=== PATIENT | female | born 1960 | race Caucasian/White ===

== ENCOUNTER 2023-11-25 19:57 | Inpatient (IN) | payer MEDICARE, MEDICAID, SELFPAY ==
--- NOTE | ~2023-11-25 | XR_ITS ---
EXAMINATION: XR THORACIC SPINE XR LUMBAR SPINE CLINICAL INFORMATION: Evaluate spinal cord stimulator lead placement. COMPARISON: CT lumbar spine from 06/16/2022 TECHNIQUE: AP and lateral views of the thoracic spine AP and lateral views of the lumbar spine FINDINGS: Thoracic spine: The thoracic vertebra have normal height and alignment. The disc spaces are maintained. No focal lytic or osteoblastic lesion. No evidence of paraspinal soft tissue mass. The electrodes for the spinal stimulator are in the posterior thoracic canal at the T9-10 level. Lumbar spine: Chronic mild dextroscoliosis of the lower thoracic and lumbar spine. The lumbar vertebral body heights are maintained. No acute fracture or malalignment. There are well-positioned interbody cages at L5-S1. Chronic moderate irregular degenerative narrowing of disc space and osteophyte formation at L3-L4. Posterolateral bone graft fusion at L4-S1. The pulse generator for the neural stimulator projects over the left gluteal region. XR/XR lumbar spine 2-3V IMPRESSION: * No acute radiographic abnormalities in the thoracic or lumbar spine. * There are intact leads for the spinal stimulator and electrodes project over the posterior aspect of the thoracic spinal canal at the T9/T10 level. * Moderate disc degenerative change at L3-L4 and post surgical changes from spinal fusion at L4-S1.
--- NOTE | ~2023-11-25 | XR_ITS ---
EXAMINATION: XR ABDOMEN KUB CLINICAL INDICATION: nausea/vomiting, constipation COMPARISON: None available. TECHNIQUE: AP view of the abdomen. FINDINGS: Nondilated bowel gas pattern. Small stool burden. No appreciable calcifications. Lung bases are clear. Bones are osteopenic. Degenerative spondylosis is present in the lumbar spine. Osseous fusion hardware is present at the lumbosacral spine. Osteoarthritis is present in the SI joints and hips. Stimulator device unit overlies the left iliac wing with leads terminating in the midthoracic spine. XR/XR KUB IMPRESSION: Nondilated bowel gas pattern. Small stool burden.
--- NOTE | ~2023-11-25 | XR_ITS ---
EXAMINATION: XR THORACIC SPINE XR LUMBAR SPINE CLINICAL INFORMATION: Evaluate spinal cord stimulator lead placement. COMPARISON: CT lumbar spine from 06/16/2022 TECHNIQUE: AP and lateral views of the thoracic spine AP and lateral views of the lumbar spine FINDINGS: Thoracic spine: The thoracic vertebra have normal height and alignment. The disc spaces are maintained. No focal lytic or osteoblastic lesion. No evidence of paraspinal soft tissue mass. The electrodes for the spinal stimulator are in the posterior thoracic canal at the T9-10 level. Lumbar spine: Chronic mild dextroscoliosis of the lower thoracic and lumbar spine. The lumbar vertebral body heights are maintained. No acute fracture or malalignment. There are well-positioned interbody cages at L5-S1. Chronic moderate irregular degenerative narrowing of disc space and osteophyte formation at L3-L4. Posterolateral bone graft fusion at L4-S1. The pulse generator for the neural stimulator projects over the left gluteal region. XR/XR thoracic spine 2V IMPRESSION: * No acute radiographic abnormalities in the thoracic or lumbar spine. * There are intact leads for the spinal stimulator and electrodes project over the posterior aspect of the thoracic spinal canal at the T9/T10 level. * Moderate disc degenerative change at L3-L4 and post surgical changes from spinal fusion at L4-S1.
[2023-11-25 20:12] VITALS: BP 142/82; PULSE 114; RESP 16; TEMP 36.4; O2SAT 97
[2023-11-25] MEDS: Ondansetron ODT 4 MG TAB.RAPDIS TRANSLINGU (21:11)
[2023-11-25] MEDS: hydrOXYzine HCL 25 MG TABLET PO (22:19)
[2023-11-25] MEDS: traZODone HCL 50 MG TABLET PO (22:19)
[2023-11-25 23:41] VITALS: BMI 23.9
--- NOTE | 2023-11-26 03:51 | PC.ADMIT ---
Pt is a 63 yo female admitted to the unit after referral from CARE Team and was transferred form [facility] [place]. Pt signed a CV upon arrival in ED. Since pt went to sleep after arrival on unit at 2011 this admission assessment was done mostly via the crisis assessment. Reported active medical issues are CKD, diverticulitis, fibromyalgia, HTN, COPD, spinal stimulator d/t bulged disc and fractured left wrist. Pt wears a splint on left wrist d/t wrist fx and ambulates using a cane. Pt denies substance use other than THC gummies for pain relief. Pt denies alcohol use. Pt presented to her PCP after daughter passed d/t complications from a hysterectomy at 38. Pt received 15 xanax (0.5mg tabs) to help with her anxiety through her daughter's . Pt went to cemetery where her daughter was being cremated and in an overdose attempt took all of the xanax pills. Pt was narcaned after EMS arrived and became combative and was IM'd d/t her combativeness. Pt brought to hospital treated and brought [place] [facility] [place]. Pt reportedly stated after she came to, It clearly didn't work, I should have taken more . Pt presents as depressed and hopeless affect. Reports not having eaten much in days (daughter passed 8 days ago). Upon arrival and during skin check pt vomited x3. Pt reports concern related to wanting to be able to go to her daughters homecoming service on Tuesday. Provider online publisher JS notified of arrival and orders obtained. Pt placed on 5 minute checks d/t cane, weakness. Pt reports feeling safe in the hospital now.
[2023-11-26] MEDS: Acetaminophen 325 MG TABLET 650 MG PO (08:58)
[2023-11-26 09:10] LABS: Estimated Average Glucose 97 mg/dL; Hemoglobin A1C 129.1137 umol/L
[2023-11-26 09:12] LABS: Alanine Aminotransferase 44 U/L (0-31); Albumin Level 4.4 g/dL (3.5-5.0); Alkaline Phosphatase 136 U/L (39-117); Anion Gap 19 (12-20); Aspartate Amino Transferase 24 U/L (5-31); Bilirubin Total 0.6 mg/dL (0.0-1.0); Blood Urea Nitrogen 25 mg/dL (9-16); Calcium 10.1 mg/dL (8.4-10.2); Carbon Dioxide 17 mmol/L (22-29); Chloride 109 mmol/L (96-108); Cholesterol 256 mg/dL (<200); Creatinine Clr Calc Pharmacy 30.5; Estimated Glomerular Filt Rate 32; Glucose Fasting 97 mg/dL (60-99); HDL Cholesterol 33 mg/dL (>40); LDL Cholesterol Calculated 180 mg/dL (<100); Magnesium 2.3 mg/dL (1.6-2.6); Sodium 140 mmol/L (135-145); Total Protein 7.3 g/dL (6.5-8.0); Triglycerides 219 mg/dL (<150)
[2023-11-26 09:26] LABS: Free T4 (Free Thyroxine) 1.25 ng/dL (0.71-1.85); Thyroid Stimulating Hormone 0.23 uIU/mL (0.32-4.0)
[2023-11-26 09:40] LABS: Vitamin B12 1623 pg/mL (200-900)
[2023-11-26] MEDS: Albuterol Sulfate 90 MCG 8 GM INHALER 2 PUFF INHALE (10:13)
[2023-11-26 10:16] VITALS: BP 110/67; PULSE 118; RESP 16; TEMP 36.5; O2SAT 94
[2023-11-26] MEDS: ALPRAZolam 0.5 MG TABLET PO (10:23)
[2023-11-26] MEDS: Ondansetron ODT 4 MG TAB.RAPDIS TRANSLINGU (10:23)
--- NOTE | 2023-11-26 11:12 | P.CONHOSP_ITS ---
History of Present Illness Data of Consult Service Date: 11/26/23 Requesting physician: Celina Cheema Primary Care Provider: Unknown Physician HPI Reason for consult: medcical H&P 63-year-old female with history of CKD stage 3, history of diverticulitis s/p bowel resection, hyperlipidemia, hypertension, chronic low back pain s/p spinal cord stimulator, and mood disorder admitted to adult Psychiatry with consult placed to hospitalist service for medical H&P. Reportedly her daughter 9 days ago and attempted suicide with benzo overdose. Had initially been discharged to a psych facility who ended up refusing to take her because of chronic medical issues. She states while in the ED had severe chest pain non radiating that was constant with associated palpitations and sob. She does report a history of COPD and uses her husbands breztri inhaler. States she was previously prescribed this inhaler for diagnosed copd but has been using his inhalers because he has so many extra. Trop was undetectable at that time. While in the ED, hematology studies unremarkable. Creatinine baseline around 1.00, electrolyte levels normal except for bicarb of 14 and anion gap of 22. VBG not performed at that time. TSH 2.62, free T4 1.4. Urine tox screen positive for THC which she reports she uses for pain management and benzos. Urinalysis not indicative of infection. She did have chest x-ray performed on her 1st visit to the ED on 11/20 which did not reveal any acute abnormality. Unfortunately due to acute agitation patient required physical restraint and well as chemical restraint. During restraint sustained a nondisplaced ulnar styloid fracture. She has has Nevro SCS in place and feels since the restraint her device is much lower than prior to restraint and reports significant increase in pain. She ambulates at baseline with a cane. She reports since her colon resection in February has had recurrent nausea and vomiting necessitating zofran use at least daily. Follows with [facility] for this with negative work up including CT imaging, egd, and colonoscopy. Over the last few days has not been able to eat or drink much and has had multiple episodes of vomiting. She does also use THC edibles regularly. Today creat is elevated at 1.67. Review of Systems 2 Review of Systems: General: No fevers, malaise, unintentional weight loss HEENT: No blurred vision, diplopia. No sore throat, nasal congestion, rhinorrhea, sinus pain, ear pain Cardiovascular: No chest pain, palpitations, or leg edema Respiratory: No shortness of breath, wheezing, cough GI: +nausea/vomiting. No abdominal pain, diarrhea, constipation, melena, hematochezia : No dysuria, hematuria, increased urinary frequency, decreased urinary output MSK: No myalgia. +low back pain Neuro: No headaches, weakness, paresthesias Skin: No rashes or lesions [facility] Medical History Chronic low back pain Fibromyalgia Migraine Nausea and vomiting COPD (chronic obstructive pulmonary disease) Hyperlipidemia Hypertension CKD (chronic kidney disease), stage III Diverticulitis Surgical History S/P insertion of spinal cord stimulator History of laminectomy History of colon resection Social History Household Members: Spouse Housing: House Do you presently have visiting nurse or other home services: No Patient Tobacco Use Status: Never used Tobacco Use of substances other than those prescribed or required for medical reasons: Yes Substance Use Type: Other Substance Use Type Other:: Marijuana gummies Last Used Substance: Just Prior to Admission Currently Displaying Signs/Symptoms of Drug Intoxication Withdrawal: No Any prior treatment program specific to substance use: No Advance Directives: No Advance Directives Information Provided: No Do you have a plan to hurt others: No Plan Recently lost weight without trying: Yes How much weight loss: Unsure Eating poorly because of decreased appetite: Yes Nutrition screen score: 5 Nutrition Risks: Poor intake 0-25% >4 days Patient : No : No Poor oral hygiene: No Meds Allergies Allergy/AdvReac Type Severity Reaction Status Date / Time codeine Allergy Severe Itching Verified 11/25/23 15:11 NSAIDS (Non-Steroidal AdvReac Severe bleeding Verified 11/25/23 15:11 Anti-Inflamma contrast dye AdvReac Severe Anaphylaxis Uncoded 11/25/23 23:43 Active Medications: Current Medications Acetaminophen (Acetaminophen 325 Mg Tablet) 325 mg PO Q6H PRN PRN Reason: Headache/Pain Mild Scale (1-3) Al Hydroxide/Mg Hydroxide (Magnesium Hydrox/Alum Hydrox 30 Ml Oral.Susp) 30 ml PO Q6H PRN PRN Reason: Heartburn/Nausea Albuterol Sulfate (Albuterol Sulfate 90 Mcg 8 Gm Inhaler) 2 puff INHALE Q6H PRN PRN Reason: Dyspnea Last Admin: 11/26/23 10:13 Dose: 2 puff Alprazolam (Alprazolam 0.5 Mg Tablet) 0.5 mg PO TID PRN PRN Reason: insomnia Last Admin: 11/26/23 10:23 Dose: 0.5 mg Atorvastatin Calcium (Atorvastatin Calcium 20 Mg Tablet) 20 mg PO DAILY [facility] Famotidine (Famotidine 20 Mg Tablet) 20 mg PO BEDTIME [facility] Ferrous Sulfate (Ferrous Sulfate 324 Mg Tablet.) 324 mg PO DAILY [facility] Fluoxetine HCl (Fluoxetine Hcl 20 Mg Capsule) 20 mg PO DAILY [facility] Hydroxyzine HCl (Hydroxyzine Hcl 25 Mg Tablet) 25 mg PO Q6H PRN PRN Reason: Anxiety Last Admin: 11/25/23 22:19 Dose: 25 mg Lidocaine (Lidocaine 4 % Patch Adh..Patch) 1 patch TRANSDERMA DAILY PRN PRN Reason: Pain Lisinopril (Lisinopril 5 Mg Tablet) 5 mg PO DAILY [facility]; Protocol Magnesium Hydroxide (Milk Of Magnesia 30 Ml Oral.Susp) 30 ml PO DAILY PRN PRN Reason: Constipation Melatonin (Melatonin 3 Mg Tablet) 9 mg PO BEDTIME [facility] Nicotine (Nicotine 21 Mg Patch.Td24) 21 mg TRANSDERMA DAILY PRN PRN Reason: nicotine cravings Nicotine Polacrilex (Nicotine Polacrilex 2 Mg Gum) 4 mg BUCCAL Q2H PRN PRN Reason: Nicotine Cravings Omeprazole (Omeprazole 40 Mg Capsule.) 40 mg PO DAILY@0630 [facility] Ondansetron HCl (Ondansetron Odt 4 Mg Tab.Rapdis) 8 mg TRANSLINGU Q6H PRN PRN Reason: Nausea and Vomiting Oxycodone HCl (Oxycodone Hcl Immed Release 5 Mg Tablet) 5 mg PO Q6H PRN PRN Reason: Pain, Severe (Pain Scale 7-10) Pregabalin (Pregabalin 150 Mg Capsule) 300 mg PO BID [facility] Trazodone HCl (Trazodone Hcl 50 Mg Tablet) 50 mg PO BEDTIME MRX1 PRN PRN Reason: Insomnia Last Admin: 11/25/23 22:19 Dose: 50 mg Home Medications ?Medication ?Instructions ?Recorded ?Confirmed ?Last Taken ?Type Lidoderm 1 patch topical DAILY PRN Pain 11/25/23 11/25/23 Unknown History albuterol sulfate 90 mcg/actuation 2 puff inhalation Q6H PRN Dyspnea 11/25/23 11/25/23 Unknown History aerosol inhaler alprazolam 0.5 mg tablet 0.5 mg PO TID PRN insomnia 11/25/23 11/25/23 Unknown History atorvastatin 20 mg tablet 20 mg PO DAILY 11/25/23 11/25/23 Unknown History famotidine 20 mg tablet 20 mg PO BEDTIME 11/25/23 11/25/23 Unknown History ferrous sulfate 325 mg PO DAILY 11/25/23 11/25/23 Unknown History fluoxetine 20 mg capsule 20 mg PO DAILY 11/25/23 11/25/23 Unknown History lisinopril 5 mg tablet 5 mg PO DAILY 11/25/23 11/25/23 Unknown History melatonin 9 mg PO BEDTIME 11/25/23 11/25/23 11/25/23 13:31 History omeprazole 40 mg PO DAILY 11/25/23 11/25/23 Unknown History ondansetron 4 mg disintegrating 4 mg PO TID PRN nausea/vomiting 11/25/23 11/25/23 11/25/23 History tablet oxycodone-acetaminophen 5 mg-325 1 tab PO Q6H PRN severe pain 11/25/23 11/25/23 11/25/23 13:31 History mg tablet pregabalin 300 mg capsule 300 mg PO BID 11/25/23 11/25/23 Unknown History Physical Exam 2 Vital Signs and Narrative: Vital Signs: Last Vital Signs Temp 97.7 F 11/26/23 10:16 Pulse 118 H 11/26/23 10:16 Resp 16 11/26/23 10:16 BP 110/67 11/26/23 10:16 Pulse Ox 94 11/26/23 10:16 O2 Del Method Room Air 11/26/23 10:16 BMI result Body Mass Index 23.9 Constitutional - Awake and Alert, No apparent distress Eyes - PERRLA, EOMI Cardiovascular - S1S2, RRR, No edema Respiratory - Normal lung expansion, Normal respiratory effort, No respiratory distress, CTA bilaterally Gastrointestinal - NT / ND; +BS; No rebound or guarding - No CVA tenderness Extremities - no calf tenderness bilaterally, no swelling Musculoskeletal - Normal inspection, normal ROM. SCS located over L pelvis Skin - Warm/Dry Neurological - Alert & oriented x3, CN II-XII in tact, 5/5 strength BUE and BLE Psychological - Appropriate affect Results Labs 11/26/23 08:30 Labs: Laboratory Results - last 24 hr 11/26/23 08:30 Anion Gap 19 Estim Creat Clear Calc 30.5 Estimated GFR 32 Fasting Glucose 97 Estimat Average Glucose 97 Hemoglobin A1c % 5.0 Calcium 10.1 Magnesium 2.3 Total Bilirubin 0.6 AST 24 ALT 44 H Alkaline Phosphatase 136 H Total Protein 7.3 Albumin 4.4 Triglycerides 219 H Cholesterol 256 H LDL Cholesterol, Calc 180 H HDL Cholesterol 33 L Vitamin B12 1623 H Folate 6.0 TSH 0.23 L Free T4 1.25 Assessment and Plan (1) Chronic low back pain: Status: Acute (2) Routine medical exam: Status: Acute (3) Nausea and vomiting: Status: Acute Plan 63-year-old female with history of CKD stage 3, history of diverticulitis s/p bowel resection, hyperlipidemia, hypertension, chronic low back pain s/p spinal cord stimulator, and mood disorder admitted to adult Psychiatry with consult placed to hospitalist service for medical H&P. #Mood disorder/Grief/SA -plan per psychiatry #Acute kidney injury on CKD stage 3 -Creat 1.67, baseline around 1.0. Due to GI losses -Give 1L IVF bolus -Avoid nephrotoxins (lisinopril, lyrica) -Manage n/v. Encourage PO intake -Follow BMP- ordered #Acute on chronic nausea vomiting -follows with [facility] with negative work up. Discussed that her chronic symptoms could be related to regular cannibus use which can take 2-3 months of complete cessation to resolve and that resuming the substance could result in relapse of symptoms -Trial capsaicin cream and can use warm showers and zofran prn -Encourage PO intake #COPD -reports history of Brezti use but has been using her husbands as he had extra inhalers -Not on formulary. Added breo elipta and spiriva -albuterol prn #HTN -hold lisinopril in setting of CHANG. Monitor BPs #Chronic low back pain -?incorrect placement of SCS and leads following physical restraint. Discussed with pain management. Evaluate lead placement with thoracic and lumbar xr with 3 views -continue oxycodone #Fibromyalgia -hold lyrica in setting of chang #HLD -LDL 180. Would not recommend increasing atorvastatin at this time due to CHANG. However, should be on high dose (80mg) atorvastatin on discharge with repeat lipids in 6-8 weeks Will continue following for CHANG
[2023-11-26] MEDS: Lidocaine 4 % Patch ADH..PATCH 1 PATCH TRANSDERMA (11:17)
[2023-11-26] MEDS: oxyCODONE HCl Immed Release 5 MG TABLET PO (11:18)
[2023-11-26] MEDS: FLUoxetine HCl 20 MG CAPSULE PO (11:18)
[2023-11-26] MEDS: Pregabalin 150 MG CAPSULE 300 MG PO (11:18)
[2023-11-26] MEDS: Omeprazole 40 MG CAPSULE.DR PO (11:27)
[2023-11-26] MEDS: ondansetron HCL 4 MG/2 ML VIAL IVPUSH (12:03)
[2023-11-26] MEDS: 0.9 % Sodium Chloride 1,000 ML 999 ML IV (13:20)
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
[2023-11-26 15:00] VITALS: BP 141/86; PULSE 104; RESP 16; TEMP 36.4; O2SAT 100
[2023-11-26] MEDS: Metoclopramide HCl 10 MG/2 ML VIAL IVPUSH (15:01)
[2023-11-26] MEDS: LORazepam 2 MG/ML VIAL 1 MG IVPUSH (15:10)
[2023-11-26 15:22] VITALS: BP 160/95; PULSE 117; O2SAT 97
--- NOTE | 2023-11-26 15:46 | ECG_ITS ---
Test Reason : palitations Blood Pressure : / mmHG Vent. Rate : 113 BPM Atrial Rate : 113 BPM P-R Int : 120 ms QRS Dur : 062 ms QT Int : 322 ms P-R-T Axes : 079 063 060 degrees QTc Int : 441 ms Sinus tachycardia Nonspecific T wave abnormality Abnormal ECG When compared with ECG of 22-MAY-2008 07:04, Vent. rate has increased BY 51 BPM Nonspecific T wave abnormality is now Present Referred By: Elisa Knott Electronically Signed By:MARIELA PAYTON
[2023-11-26] MEDS: Ondansetron ODT 4 MG TAB.RAPDIS 8 MG TRANSLINGU (19:55)
[2023-11-26 20:00] VITALS: BP 147/74; PULSE 82; RESP 16; TEMP 36.5; O2SAT 98
[2023-11-26] MEDS: diazePAM 5 MG TABLET PO (20:15)
--- NOTE | 2023-11-26 20:17 | PC.NURSE ---
Addendum entered by Danae Tracy RN 11/26/23 20:39: MERON completed Provider made aware D/C to medical floor pending Original Note: Anna Marie c/o nausea and vomiting, 8mg Zofran SL at 1955 and HS Valium given at 2014. KUB pending
[2023-11-26 20:32] LABS: Basophils Percent Auto 0.4 % (0-2); Hematocrit 44.2 % (37.0-47.0); Hemoglobin 15.1 g/dl (12.0-16.0); Imm Gran Abs Auto 0.04 X10*3/uL (0.00-0.03); Imm Gran Pct Auto 0.4 % (0.0-0.4); Lymphocytes Absolute Auto 0.5 X10*3/uL (1.2-4.9); Lymphocytes Percent Auto 4.2 % (20-40); MANUAL DIFF FLAG SCAN; Mean Corpuscular HGB Conc 34.2 g/dl (31.0-35.0); Mean Corpuscular Hemoglobin 29.8 pg (27.0-33.0); Mean Corpuscular Volume 87.4 fL (80.0-98.0); Mean Platelet Volume 9.1 fL (9.4-12.3); Monocytes Absolute Auto 0.1 X10*3/uL (0.1-1.2); Monocytes Percent Auto 0.8 % (2-11); Neutrophils Absolute Auto 10.4 x10*3/uL (2.0-8.3); Neutrophils Percent Auto 94.2 % (45-73); Platelet Count 391 X10*3/uL (160-400); Red Blood Count 5.06 X10*6/uL (4.20-5.50); Red Cell Distribution Width 13.7 % (11.0-16.0); SCAN SMEAR FLAG 1
--- NOTE | 2023-11-26 20:36 | PM.EVENT ---
Event Note Date of Service: 11/26/23 Event Note: Patient was discharged to be admitted to medicine for intractable vomiting after seen by Hospitalist Elisa Knott Time Spent With Patient Time: Total time managing care of this patient today ____ minutes.
[2023-11-26 20:48] LABS: VBG Base Excess -16.2 mmol/L; VBG HCO3 10 mmol/L (22-26); VBG pCO2 26 mmHg; VBG pO2 26 mmHg
[2023-11-26 20:49] LABS: SLIDE REVIEW VERIFIED
[2023-11-26 20:59] LABS: Anion Gap 23 (12-20); Blood Urea Nitrogen 26 mg/dL (9-16); Calcium 9.7 mg/dL (8.4-10.2); Carbon Dioxide 9 mmol/L (22-29); Chloride 111 mmol/L (96-108); Estimated Glomerular Filt Rate 36; Glucose Random 179 mg/dL (60-115); Sodium 138 mmol/L (135-145)
[2023-11-26 20:59] LABS: Venous Blood Gas Refer to POC result
[2023-11-26 21:04] LABS: VBG pH 7.18 (7.32-7.43)
--- NOTE | 2023-11-26 21:09 | PC.NURSE ---
Patient continues to vomit, vitals are stable. Report given to DANTE Saxena on . Patient aware of transfer plan.
--- NOTE | 2023-11-26 21:21 | P.EN_ITS ---
Event Note Date of Service: 11/26/23 Event Note: Pt given IV reglan with IV fluid bolus due to addl episode nausea and vomiting. Abd soft, nontender. Discussed with RN after IVF bolus and reglan and was reported that symptoms had resolved and patient resting comfortably sleeping in bed. Recommended pushing PO fluids and advised to leave iv line in case of recurrent symptoms with low threshold to transfer to medicine should symptoms recur. Call placed to M3 around 730 to follow up on KUB which had yet to be p erformed and advised by RN that patient again vomiting. BMP ordered at that time. Re-examined patient who reported to me that she had had 11 episodes of vomiting. Abd remains soft, non tender. Small BM had prior to reexamination. Pt weak appearing. Discussed with patient that further medical management was recommneded with transfer to the medical floor. She was in agreement. Discussed with RN and notified information technology coordinator psychiatrist. VBG and CBC also added at that time. During discharge process, notified of ph 7.18 with bicarb of 9. Creat improved to 1.4. Discussed with Dr. Smith. Pt will be transferred to ICu for further management Time Spent With Patient Time: Total time managing care of this patient today ____ minutes.
--- NOTE | 2023-11-27 09:22 | PC.NURSE ---
at this time I am bringing pt's jewelry, money and shoes to her [employer]
--- OUTSIDE RECORDS SUMMARY | 2023-11-30 06:36 | XMS_ITS | Continuity of Care Document ---
Author Organization [facility] Address [address] [place] [id number]- Care Team Providers [facility] Administrator Name Role Phone Jane Oden MD Primary Care Physician Encounter [facility] Date(s): 01/06/23 - 02/05/23 [facility] [address] [place] [id number]- Allergies, Adverse Reactions, Alerts Substance Reaction Severity Status codeine itch Active NSAIDs bleeding Active Contrast Dye SOB,hives Active Immunizations Given and Recorded Vaccine Date Status Refusal Reason influenza virus vaccine, inactivated 06/03/21 Give n influenza virus vaccine, inactivated 02/06/20 Give n influenza virus vaccine, inactivated 1 03/28/17 Gi claude influenza virus vaccine, inactivated 02/23/16 Give n influenza virus vaccine, inactivated 02/11/15 Give n influenza virus vaccine, inactivated 03/04/14 Rg rded influenza virus vaccine, inactivated 01/22/13 Give n influenza virus vaccine, inactivated 01/15/11 Give n Influenza Virus Vaccine (oldterm) 07/06/18 Recorde d pneumococcal 23-valent vaccine 06/29/14 Given tetanus/diphtheria/pertussis, acel(Tdap) 2 12/31/11 Given tetanus/diphtheria/pertussis, acel(Tdap) 3 05/20/11 Given Pneumococcal Vacc (oldterm) 4 05/21/08 Given Influenza Inactive (IM) (oldterm) 5 05/21/08 Given diphtheria-tetanus toxoids (DT) 04/11/99 Given 1Result Comment: [03/28/2017] [id number] 2Admin Note: VIS...05/04/2011 3Admin Note: VIS...05/04/2011 4Admin Note: [facility] 5Admin Note: [facility] Medications Albuterol (Eqv-ProAir HFA) 90 mcg/inh inhalation aerosol 2 puffs, Inhalation, Every 6 hours, # 8.5 each, 5 Refills, Maintenance, 08/03/22 15:13:00 EDT, [facility]/pharmacy #[id number], 25, 2 puffs Inhalation Every 6 hours, 163, cm, 07/01/22 9:42:00 EDT, Height, 75, kg,07/01/22 9:42:00 EDT, Dry Weight Start Date: 08/03/22 Status: Ordered atorvastatin 20 mg oral tablet 1 tablet = 20 mg, By Mouth, Daily, # 90 tablet, 1 Refills, Maintenance, 01/04/23 9:13:00 EDT, Tablet, [facility]/pharmacy #[id number], Partial fill upon patient request if the prescription is for a schedule II opioid drug., 163, cm, 12/20/22 7:59:00 EDT, Height, 7... Start Date: 01/04/23 Stop Date: 07/03/23 Status: Ordered FLUoxetine 20 mg oral capsule 1, capsule, By Mouth, Daily, # 90 capsule, Refills 1, Maintenance, 01/07/23 15:04:00 EDT, Route to Pharmacy Electronically, [id number], 163, cm, 01/05/23 1:41:00 EDT, Height, 73, kg, 01/05/23 1:41:00 EDT, Dry Weight Start Date: 01/07/23 Status: Ordered Golytely - oral powder for reconstitution 240 mL, By Mouth, Every 10 minutes, # 1 each, 0 Refills, Maintenance, 12/02/22 8:36:00 EDT, REC Powder, [facility]/pharmacy #[id number], Partial fill upon patient request if the prescription is for a schedule II opioid drug., 240 mL By Mouth Every 10 minutes, 165,... Start Date: 12/02/22 Status: Ordered lisinopril 5 mg oral tablet 5 mg, 1, tablet, By Mouth, Daily, # 90 tablet, Refills 1, Tot. Refills 1, Maintenance, 01/04/23 9:13:00 EDT, Route to Pharmacy Electronically, [facility]/pharmacy #[id number], Partial fill upon patient request ifthe prescription is for a schedule II opioid drug.,... Start Date: 01/04/23 Stop Date: 07/03/23 Status: Ordered omeprazole 40 mg oral enteric coated capsule 1 capsule, By Mouth, Daily, # 90 capsule, 0 Refills, Maintenance, 12/16/22 10:33:00 EDT, [facility]/pharmacy #[id number], 163, cm, 12/09/22 8:10:00 EDT, Height, 71.5, kg, 12/09/22 8:10:00 EDT, Dry Weight Start Date: 12/16/22 Stop Date: 03/16/23 Status: Ordered ondansetron 4 mg oral tablet, disintegrating 1 tablet, By Mouth, 3 times a day, PRN NEEDED FOR NAUSEA/VOMITING, # 20 tablet, 1 Refills, Maintenance, 01/31/23 19:45:00 EDT, [id number], 163, cm, 01/11/23 13:20:00 EDT, Height, 73, kg, 01/05/23 1:41:00 EDT, Dry Weight Start Date: 01/31/23 Status: Ordered Percocet 2.5 mg-325 mg oral tablet 1 tablet, By Mouth, Every 4 hours, PRN as needed for pain, can take 1-2 tablets as necessary, # 30 tablet, 0 Refills, Maintenance, 12/02/22 10:00:00 EDT, Tablet, [id number], Partial fill uponpatient request if the prescription is for a schedu... Start Date: 12/02/22 Status: Ordered predniSONE 10 mg oral tablet See Instructions, 2 tabs/d for 2d then 1 tab/d for 4d then stop, # 8 tablet, 0 Refills, Maintenance, 01/06/23 16:51:00 EDT, Tablet, [id number], Partial fill upon patient request if the prescription is for a schedule II opioid drug., 163, cm, 0... Start Date: 01/06/23 Status: Ordered pregabalin 300 mg oral capsule 1 capsule = 300 mg, By Mouth, 2 times a day, # 60 capsule, 1 Refills, Maintenance, 01/28/23 11:54:00 EDT, [id number], 163, cm, 01/11/23 13:20:00 EDT, Height, 73, kg, 01/05/23 1:41:00 EDT, DryWeight Start Date: 01/28/23 Status: Ordered Problem List Condition Confirmation Course Effective Dates Status H ealth Status Informant Abdominal pain Confirmed Active Acute diarrhea Confirmed Active Anemia Confirmed Active Anxiety disorder Confirmed Active Bone pain Confirmed Active Chronic kidney disease, stage 3a [address] scan, pelvis Confirmed Active Epigastric pain Confirmed Active Fibromyalgia Confirmed Active Limitation due to disability 2 Confirmed Active Encounter for diagnostic colonoscopy due to change in bowel habits Confirmed Active Drug or alcohol risk assessment 3 Confirmed Active BRBPR (bright red blood per rectum) Confirmed Active History of appendectomy Confirmed Active History of medical problems 4 Confirmed Active Ileus Confirmed Active Low back pain Confirmed Active Lumbar postlaminectomy syndrome Confirmed Active Migraine Confirmed Active Nausea Confirmed Active Rectal bleeding Confirmed Active Seizure Confirmed Active Tobacco abuse Confirmed Active 1Per chart review meeting GFR criteria 2initial Oswestry Disability Index: 72% ( crippled ) on 01/20/17; initial [place] Back Pain Scale: 83on 01/20/17; initial [place]: 4 on 01/20/17 3SOAPP-R: 16 on 01/20/17 4Pain relevant problem list includes: See below Social History Social History Type Response Smoking Status Former smoker, quit more than 30 days ago entered on: 11/05/22 Sex Patient Care team information Care Team Personnel Name: Lakeisha Acevedo RN Position: [facility] RN Member Role: Primary Care Nurse Name: Lay Kaur RN Position: [facility] AMB Nurse Member Role: Primary Care Nurse Name: Juliana Kumari RN Position: [facility] RN Member Role: Primary Care Nurse Name: Katelyn Dubois RN Position: [facility] RN Member Role: Primary Care Nurse Name: Jodee Alford RN Position: [facility] RN Member Role: Primary Care Nurse Name: Melissa Morris RN Position: [facility] RN Member Role: Primary Care Nurse Name: Lemuel Day RN Position: [facility] RN Member Role: Primary Care Nurse Name: Curtis Shoemaker RN Position: [facility] AMB Nurse Member Role: Primary Care Nurse Name: Gala Rae NP Position: Reference Physician Member Role: Primary Care Nurse Address: Address: [address] [place] [address] Name: Kavya Cantu RN Position: [facility] RN Member Role: Primary Care Nurse Name: Xiomara Duran RN Position: [facility] OB RN Member Role: Primary Care Nurse Name: Jane Oden MD Position: [facility] Physician - Primary Care Member Role: PCP Address: Address: [address] [place] [id number]- Name: Tatiana Mcduffie RN Position: [facility] SN RN Member Role: Primary Care Nurse Care Team Related Persons Name: PAWAN CARLOS Address: home [address] [place] [address] Name: MELANIE VERGARA Address: [address] [place] [address]
--- OUTSIDE RECORDS SUMMARY | 2023-11-30 06:36 | XMS_ITS | Continuity of Care Document ---
Author Organization [facility] Address [address] [place] [id number]- Care Team Providers Care Spray Technician Name Role Phone Cecille CHANCE, Jane Primary Care Physician [place] [facility] [place] - 05/01/[address] [address] Attending Physician: Jane Oden MD Admitting Physician: Jane Oden MD Referring Physician: Fredrick Michaud MD Allergies, Adverse Reactions, Alerts Substance Reaction Severity Status codeine itch Active Contrast Dye SOB,hives Active NSAIDs bleeding Active Immunizations Given and Recorded Vaccine Date [...] toxoids (DT) 04/11/99 Given 1Result Comment: [03/28/2017] 21282-321-98 2Admin Note: VIS...05/04/2011 3Admin Note: VIS...05/04/2011 4Admin Note: [facility] 5Admin Note: [facility] Medications Albuterol (Eqv-ProAir HFA) 90 mcg/inh inhalation aerosol 2 puffs, Inhalation, Every 6 hours, # 8.5 each, 5 Refills, Maintenance, 02/25/22 10:25:00 EST, [facility] STORE [id number], 25, INHALE 2 PUFFS EVERY 6 HOURS, 164, cm, 11/02/21 12:14:00 EDT, Height, 71.7, kg, 01/12/21 14:37:00 EDT, Dry Weight Start Date: 02/25/22 Status: Ordered atorvastatin 40 mg oral tablet 1 tablet, By Mouth, Daily, # 90 tablet, 1 Refills, Maintenance, 03/31/22 9:39:00 EST, [id number], 164, cm, 03/02/22 12:51:00 EST, Height, 71.7, kg, 01/12/21 14:37:00 EDT, Dry Weight Start Date: 03/31/22 Status: Ordered B 100 Complex By Mouth, Daily, 0 Refills, Maintenance, 01/02/21 15:10:00 EDT, Partial fill upon patient request if the prescription is for a schedule II opioid drug. Start Date: 01/02/21 Status: Ordered FLUoxetine 20 mg oral capsule 1, capsule, By Mouth, Daily, # 90 capsule, Refills 1, Tot. Refills 1, 02/15/22 15:29:00 EST, Route to Pharmacy Electronically, [facility]/pharmacy #[id number], 164, cm, 11/02/21 12:14:00 EDT, Height, 71.7, kg, 01/12/21 14:37:00 EDT, Dry Weight Start Date: 02/15/22 Status: Ordered lidocaine 2% topical gel with applicator 15 mL = 0.3 Gm, Topically, Once, # 20 mL, 0 Refills, Soft Stop, 07/23/21 15:50:00 EDT, Gel, [facility]/pharmacy #[id number], Partial fill upon patient request if the prescription is for a schedule II opioid drug., 164, cm, 07/23/21 8:17:00 EDT, Height, 71.7, kg, 1... Start Date: 07/23/21 Status: Ordered lisinopril 2.5 mg oral tablet 1, tablet, By Mouth, Daily, # 90 tablet, Refills 0, Maintenance, 03/31/22 9:39:00 EST, Route to Pharmacy Electronically, [email or web address] ST[id number], 164, cm, 03/02/22 12:51:00 EST, Height, 71.7, kg, 01/12/21 14:37:00 EDT, Dry Weight Start Date: 03/31/22 Status: Ordered omeprazole 40 mg oral enteric coated capsule 1 capsule, By Mouth, Daily, # 90 capsule, 0 Refills, Maintenance, 03/31/22 9:39:00 EST, [email or web address] STORE [id number], 164, cm, 03/02/22 12:51:00 EST, Height, 71.7, kg, 01/12/21 14:37:00 EDT, Dry Weight Start Date: 03/31/22 Status: Ordered pregabalin 300 mg oral capsule 1 capsule = 300 mg, By Mouth, 2 times a day, # 60 capsule, 5 Refills, Maintenance, 06/03/21 10:51:00 EST, Capsule, [facility]/pharmacy #[id number], Partial fill upon patient request if the prescription is for a schedule II opioid drug., 162.56, cm, 06/03/21 10:40:... Start Date: 06/03/21 Stop Date: 11/30/21 Status: Ordered pregabalin 300 mg oral capsule See Instructions, TAKE 1 CAPSULE BY MOUTH TWICE A DAY, # 60 capsule, 4 Refills, Maintenance, 12/18/21 12:36:00 EDT, [id number], 164, cm, 11/02/21 12:14:00 EDT, Height, 71.7, kg, 01/12/21 14:37:00 EDT, Dry Weight Start Date: 12/18/21 Status: Ordered Spiriva Respimat 1.25 mcg/inh inhalation aerosol 2 puffs, Inhalation, Daily, # 4 Gm, 3 Refills, Maintenance, 09/21/21 8:56:00 EDT, Aerosol, [facility]/pharmacy #[id number], Partial fill upon patient request if the prescription is for a schedule II opioid drug.,164, cm, 09/21/21 8:55:00 EDT, Height, 71.7, kg, 10... Start Date: 09/21/21 Status: Ordered tiZANidine 4 mg oral capsule 1 capsule = 4 mg, By Mouth, Daily at bedtime, # 30 capsule, 0 Refills, Maintenance, 07/23/21 8:37:00 EDT, [facility]/pharmacy #[id number], Partial fill upon patient request if the prescription is for a schedule II opioid drug., 164, cm, 07/23/21 8:17:00 EDT, Heigh... Start Date: 07/23/21 Status: Ordered Problem List Condition Confirmation Course [...] 72% ( crippled ) on 01/20/17; initial [place] Back Pain Scale: 83on 01/20/17; initial [place]: 4 on 01/20/17 3SOAPP-R: 16 on 01/20/17 4Pain relevant problem list includes: See below Social History Social History Type Response Smoking Status Smoker, current stat us unknown entered on: 02/21/20 Sex Patient Care team information Care Team Personnel Name: Lakeisha Acevedo RN Position: [facility] RN Member Role: Primary Care Nurse Name: Lay Kaur RN Position: [facility] YELENAO RN Member Role: Primary Care Nurse Name: Katelyn Dubois RN Position: [facility] RN Member Role: Primary Care Nurse Name: Melissa Morris RN Position: [facility] RN Member Role: Primary Care Nurse Name: Lemuel Day RN Position: [facility] RN Member Role: Primary Care Nurse Name: Curtis Shoemaker RN Position: [facility] AMB Nurse Member Role: Primary Care Nurse Name: Gala Rae NP Position: Reference Physician Member Role: Primary Care Nurse Address: Address: [address] [place] [address]- Name: Xiomara Duran RN Position: [facility] OB RN Member Role: Primary Care Nurse Name: Jane Oden MD Position: [facility] Primary Care Physician Member Role: PCP Address: Address: [address] [facility] [place] [address]- Name: Tatiana Mcduffie RN Position: [facility] SN RN Member Role: Primary Care Nurse Care Team Related Persons Name: CARLOS VILLALTA Address: home [address] [place] [address] Name: MELANIE VERGARA Address: home [address] [place] [address]
--- OUTSIDE RECORDS SUMMARY | 2023-11-30 06:36 | XMS_ITS | Continuity of Care Document ---
Author Organization [facility] ter Address [address] [place] [address]- Care Team Providers Care Control And Recovery Combat [employer] Name Role Phone Cecille CHANCE, Jane Primary Care Physician Encounter [facility] Date(s): 04/21/22 - 05/27/[address] [address] Attending Physician: Sam CHANCE, Dusty Laureano Admitting Physician: Dusty Vargas MD Referring Physician: Hortensia Grover DO Allergies, Adverse Reactions, Alerts Substance Reaction Severity [...] toxoids (DT) 04/11/99 Given 1Result Comment: [03/28/2017] 36307-841-94 2Admin Note: VIS...05/04/2011 3Admin Note: VIS...05/04/2011 4Admin Note: [facility] 5Admin Note: [facility] Medications Albuterol (Eqv-ProAir HFA) 90 mcg/inh inhalation aerosol 2 puffs, Inhalation, Every 6 hours, # 8.5 each, 5 Refills, Maintenance, 02/25/22 10:25:00 EST, [facility] STORE [id number], 25, INHALE 2 PUFFS EVERY 6 HOURS, 164, cm, 11/02/21 12:14:00 EDT, Height, 71.7, kg, 01/12/21 14:37:00 EDT, Dry Weight Start Date: 02/25/22 Status: Ordered atorvastatin 40 mg oral tablet 1 tablet, By Mouth, Daily, # 90 tablet, 1 Refills, Maintenance, 03/31/22 9:39:00 EST, [id number], 164, cm, 03/02/22 12:51:00 EST, Height, 71.7, [...] 02/15/22 15:29:00 EST, Route to Pharmacy Electronically, [facility]/pharmacy #[id number], 164, cm, 11/02/21 12:14:00 EDT, Height, 71.7, kg, 01/12/21 14:37:00 EDT, Dry Weight Start Date: 02/15/22 Status: Ordered lidocaine 2% topical gel with applicator 15 mL = 0.3 Gm, Topically, Once, # 20 mL, 0 Refills, Soft Stop, 07/23/21 15:50:00 EDT, Gel, [facility]/pharmacy #[id number], Partial fill upon patient request if the prescription is for a schedule II opioid drug., 164, cm, 07/23/21 8:17:00 EDT, Height, 71.7, kg, 1... Start Date: 07/23/21 Status: Ordered lisinopril 2.5 mg oral tablet 1, tablet, By Mouth, Daily, # 90 tablet, Refills 0, Maintenance, 03/31/22 9:39:00 EST, Route to Pharmacy Electronically, [id number], 164, cm, 03/02/22 12:51:00 EST, Height, 71.7, kg, 01/12/21 14:37:00 EDT, Dry Weight Start Date: 03/31/22 Status: Ordered omeprazole 40 mg oral enteric coated capsule 1 capsule, By Mouth, Daily, # 90 capsule, 0 Refills, Maintenance, 03/31/22 9:39:00 EST, [id number], 164, cm, 03/02/22 12:51:00 EST, Height, 71.7, kg, 01/12/21 14:37:00 EDT, Dry Weight Start Date: 03/31/22 Status: Ordered pregabalin 300 mg oral capsule See Instructions, TAKE 1 CAPSULE BY MOUTH TWICE A DAY, # 60 capsule, 4 Refills, Maintenance, 05/12/22 14:11:00 EST, [id number], 164, cm, 03/02/22 12:51:00 EST, Height, 71.7, kg, 01/12/21 14:37:00 EDT, Dry Weight Start Date: 05/12/22 Status: Ordered pregabalin 300 mg oral capsule 1 capsule = 300 mg, By Mouth, 2 times a day, # 60 capsule, 5 Refills, Maintenance, 06/03/21 10:51:00 EST, Capsule, [id number], Partial fill upon patient request [...] 3 Refills, Maintenance, 09/21/21 8:56:00 EDT, Aerosol, [id number], Partial fill upon patient request if the prescription is for a schedule II opioid drug.,164, cm, 09/21/21 8:55:00 EDT, Height, 71.7, kg, 10... Start Date: 09/21/21 Status: Ordered tiZANidine 4 mg oral capsule 1 capsule = 4 mg, By Mouth, Daily at bedtime, # 30 capsule, 0 Refills, Maintenance, 07/23/21 8:37:00 EDT, [id number], Partial fill upon patient request [...] 72% ( crippled ) on 01/20/17; initial [place] Back Pain Scale: 83on 01/20/17; initial [place]: 4 on 01/20/17 3SOAPP-R: 16 on 01/20/17 4Pain relevant problem list includes: See below Social History Social History Type Response Smoking Status Smoker, current stat us unknown entered on: 02/21/20 Sex Patient Care team information Care Team Personnel Name: Lakeisha Acevedo RN Position: [facility] RN Member Role: Primary Care Nurse Name: Lay Kaur RN Position: [facility] PCO RN Member Role: Primary Care Nurse Name: Katelyn Dubois RN Position: [facility] SN RN Member Role: Primary Care Nurse Name: Melissa Morris RN Position: [facility] RN Member Role: Primary Care Nurse Name: Lemuel Day RN Position: [facility] RN Member Role: Primary Care Nurse Name: Curtis Shoemaker RN Position: [facility] AMB Nurse Member Role: Primary Care Nurse Name: Gala Rae NP Position: Reference Physician Member Role: Primary Care Nurse Address: Address: [address] [place] [address]- [place] Name: Xiomara Duran RN Position: [facility] OB RN Member Role: Primary Care Nurse Name: Jane Oden MD Position: [facility] Primary Care Physician Member Role: PCP Address: Address: [address] [place] [address] [place] [address]- [place] Name: Tatiana Mcduffie RN Position: [facility] SN RN Member Role: Primary Care Nurse Care Team Related Persons Name: PAWANCARLOS Address: home [address] [place] [address] Name: MELANIE VERGARA Address: [address] [place] [address]
--- OUTSIDE RECORDS SUMMARY | 2023-11-30 06:36 | XMS_ITS | Continuity of Care Document ---
Author Organization [facility] ter Address [address] [place] [address]- Care Team Providers Care Service Center Technician Name Role Phone Jane Oden MD Primary Care Physician Encounter [facility] Date(s): 07/21/21 - 07/21/[address] [address]- Discharge Disposition: A-D/C Walkout Attending Physician: Not on Staff, Attending MD Admitting Physician: Not on Staff, Admitting MD Referring Physician: Not on Staff, Referring MD Allergies, Adverse Reactions, Alerts Substance Reaction [...] toxoids (DT) 04/11/99 Given 1Result Comment: [03/28/2017] 16082-353-71 2Admin Note: VIS...05/04/2011 3Admin Note: VIS...05/04/2011 4Admin Note: [facility] 5Admin Note: [facility] Medications B 100 Complex By Mouth, Daily, 0 Refills, Maintenance, 01/02/21 15:10:00 EDT, Partial fill upon patient request if the prescription is for a schedule II opioid drug. Start Date: 01/02/21 Status: Ordered Problem List Condition Effective Dates Status Health Status Inform ant Abdominal pain(Confirmed) Active Acute diarrhea(Confirmed) Active Anemia(Confirmed) Active Anxiety disorder(Confirmed) Active Bone pain(Confirmed) Active Abnormal CT scan, pelvis(Confirmed) Active Epigastric pain(Confirmed) Active Fibromyalgia(Confirmed) Active Limitation due to disability(Confirmed) 1 Active Encounter for diagnostic col onoscopy due to change in bowel habits(Confirmed) Active Drug or alcohol risk assessment(Confirmed) 2 Active BRBPR (bright red blood per rectum)(Confirmed) Active History of appendectomy(Confirmed) Active History of medical problems( Confirmed) 3 Active Ileus(Confirmed) Active Low back pain(Confirmed) Active Lumbar postlaminectomy syndrome(Confirmed) Active Migraine(Confirmed) Active Nausea(Confirmed) Active Rectal bleeding(Confirmed) Active Seizure(Confirmed) Active Tobacco abuse(Confirmed) Active 1initial Oswestry Disability Index: 72% ( crippled ) on 01/20/17; initial [place] Back Pain Scale: 83on 01/20/17; initial [place]: 4 on 01/20/17 2SOAPP-R: 16 on 01/20/17 3Pain relevant problem list includes: See below Results Radiology Reports * Exam Date Time Procedure Performing Provider Status 07/21/21 11:34 AM Chest 2 Views Frontal and Lat Vilma Browning; Auth (Verified) Notes: (Chest 2 Views Frontal and Lat) Reason For Exam: Fever;Cough RESULT: Chest 2 Views Frontal and Lat Chest 2 Views Frontal and Lat Hx of Present Illness: pt with c o left sided rib pain, pt states that she on knees was leaning over tub to wash her hair when she raised her hands she felt pop developed left sided rib pain , pt states pain is worse with inspiration; Reason: Cough; Fever; Clinical Question(s): Pneumonia COMPARISON: Chest radiograph 06/24/2021 FINDINGS: LINES AND TUBES: None. LUNGS AND PLEURA: Clear lungs. Normal pulmonary vascularity. No pleural effusion. No pneumothorax. HEART, MEDIASTINUM AND SAMM: Heart is normal in size. Normal upper mediastinal and hilar contour. BONES AND SOFT TISSUES: No acute abnormality. Pain stimulator terminating lead overlying the lower thoracic spine. IMPRESSION: No acute abnormality. I have personally reviewed the images and I agree with this report. WSN: [id number] Ordering Physician: Basia Diallo Dictated By: Anshul Hernandez DO Dictated Date/Time: 07/21/21 11:41 a Reviewed By: Bryan Avlarez MD, V Signed By: Bryan Alvarez MD, V Signed Date/Time: 07/21/21 11:46 am Transcribed By: PAYTON Transcribed Date/Time: 07/21/21 11:36 am Vital Signs Most recent to oldest [Reference Range]: 1 2 3 Height 164 cm (07/21/21 10:49 AM) 164 cm (07/21/21 10:47 AM) 164 cm (07/21/21 10:18 AM) Weight 73 kg (07/21/21 10:49 AM) 73 kg (07/21/21 10:47 AM) 73 kg (07/21/21 10:18 AM) Oxygen Saturation [94-100 %] 100 % (07/21/21 7:14 PM) 100 % (07/21/21 3:19 PM) 100 % (07/21/21 1:12 PM) Pulse Rate [55-90 bpm] 64 bpm (07/21/21 7:14 PM) 81 bpm (07/21/21 5:04 PM) 81 bpm (07/21/21 5:01 PM) Body Mass Index [18.5-24.99] 27.14 *H* (07/21/21 10:47 AM) 27.14 *H* (07/21/21 10:18 AM) Blood Pressure [90-138/55-84 mm Hg] 112/53mm Hg (07/21/21 7:14 PM) 160/102mm Hg *H* (07/21/21 5:04 PM) 160/102mm Hg *H* (07/21/21 5:01 PM) Respiratory Rate [16-30 br/min] 18 br/min (07/21/21 5:04 PM) 18 br/min (07/21/21 5:01 PM) 16 br/min (07/21/21 1:12 PM) Temperature [96.8-100.4 DegF] 98.0 DegF (07/21/21 7:14 PM) 98.3 DegF (07/21/21 5:04 PM) 98.3 DegF (07/21/21 5:01 PM) Mode of Delivery (Oxygen) Nasal cannula (07/21/21 7:14 PM) Room air (07/21/21 3:19 PM) Room air (07/21/21 1:12 PM) Blood pressure sites Arm, right (07/21/21 7:14 PM) Arm, right (07/21/21 5:04 PM) Arm, right (07/21/21 5:01 PM) Temperature Route Oral (07/21/21 7:14 PM) Oral (07/21/21 5:04 PM) Oral (07/21/21 5:01 PM) Social History Social History Type Response Smoking Status Smoker, current stat us unknown entered on: 02/21/20 Sex
--- OUTSIDE RECORDS SUMMARY | 2023-11-30 06:36 | XMS_ITS | Continuity of Care Document ---
Author Organization [facility] ter Address [address] [place] [id number]- Care Team Providers Care Pharmacovigilance Safety Expert Name Role Phone Jane Oden MD Primary Care Physician Encounter [facility] Date(s): 07/22/23 - 07/22/[address] [address]- Encounter Diagnosis Abdominal pain(Final) - 07/22/23 Discharge Disposition: A-D/C Home Attending Physician: Elisa Hewitt MD Admitting Physician: Elisa Hewitt MD Referring Physician: Not on Staff, Referring MD Allergies, Adverse Reactions, Alerts Substance Reaction Severity Status codeine itch Active NSAIDs bleeding Active Contrast Dye SOB,hives Active Immunizations Given and Recorded Vaccine Date Status Refusal Reason tetanus-diphtheria toxoids (Td) 06/21/23 Given influenza virus vaccine, inactivated 06/03/21 Give n [...] toxoids (DT) 04/11/99 Given 1Result Comment: [03/28/2017] [id number] 2Admin Note: VIS...05/04/2011 3Admin Note: VIS...05/04/2011 4Admin Note: [facility] 5Admin Note: [facility] Medications Albuterol (Eqv-ProAir HFA) 90 mcg/inh inhalation aerosol 2 puffs, Inhalation, Every 6 hours, # 8.5 each, 5 Refills, Maintenance, 07/21/23 9:37:00 EDT, [id number], 25, INHALE 2 PUFFS BY MOUTH EVERY 6 HOURS, 163, cm, 07/11/23 9:51:00 EDT, Height, 65.1, kg, 07/11/23 8:46:00 EDT, Dry Weight Start Date: 07/21/23 Status: Ordered atorvastatin 20 mg oral tablet 1 tablet, By Mouth, Daily, # 90 tablet, 1 Refills, Maintenance, 06/06/23 17:36:00 EST, [id number], 163, cm, 05/30/23 11:34:00 EST, Height, 63.6, kg, 05/19/23 9:09:00 EST, Dry Weight Start Date: 06/06/23 Status: Ordered cyanocobalamin 1000 mcg/ml injectable solution See Instructions, 1,000 mcg Intramuscular Once daily times one month, # 1 mL, 0 Refills, Soft Stop,06/21/23 14:27:00 EDT Start Date: 06/21/23 Status: Ordered dicyclomine 20 mg oral tablet 1 tablet = 20 mg, By Mouth, 4 times a day, PRN Pain , Moderate, take as needed for abdominal cramping, # 120 tablet, 1 Refills, Maintenance, 06/28/23 8:52:00 EDT, Tablet, [id number], Partial fill upon patient request if the prescription is for... Start Date: 06/28/23 Stop Date: 10/26/23 Status: Ordered ferrous sulfate 325 mg oral tablet 1 tablet = 325 mg, By Mouth, Daily, may take with food to minimize abdominal discomfort, # 90 tablet, 1 Refills, Maintenance, 05/31/23 16:25:00 EST, Tablet, [id number], Partial fill upon patient request if the prescription is for a schedule II... Start Date: 05/31/23 Status: Ordered FLUoxetine 20 mg oral capsule 1, capsule, By Mouth, Daily, # 90 capsule, Refills 1, Maintenance, 01/07/23 15:04:00 EDT, Route to Pharmacy Electronically, [id number], 163, cm, 01/05/23 1:41:00 EDT, Height, 73, kg, 01/05/23 1:41:00 EDT, Dry Weight Start Date: 01/07/23 Status: Ordered FLUoxetine 20 mg oral capsule See Instructions, TAKE 1 CAPSULE BY MOUTH EVERY DAY, # 90 capsule, Refills 1, Maintenance, 249:21:00 EST, Instructions Replace Required Details, Route to Pharmacy Electronically, [id number], 163, cm, 05/30/23 11:34:00 EST, Height, 63.6, kg... Start Date: 06/07/23 Status: Ordered Golytely - oral powder for reconstitution 240 mL, By Mouth, Every 10 minutes, # 1 each, 0 Refills, Maintenance, 12/02/22 8:36:00 EDT, REC Powder, [id number], Partial fill upon patient request if the prescription is for a schedule II opioid drug., 240 mL By Mouth Every 10 minutes, 165,... Start Date: 12/02/22 Status: Ordered Lidoderm 5% film 1 patch, Topically, Daily, remove patches after 12 hours, # 10 patch, 0 Refills, Maintenance, 05/19/23 16:40:00 EST, [id number], Partial fill upon patient request if the prescription is for aschedule II opioid drug., 1 patch Topically Daily,x... Start Date: 05/19/23 Stop Date: 05/29/23 Status: Ordered lisinopril 5 mg oral tablet 1, tablet, By Mouth, Daily, # 90 tablet, Refills 1, Maintenance, 06/06/23 17:36:00 EST, Route to Pharmacy Electronically, [id number], 163, cm, 05/30/23 11:34:00 EST, Height, 63.6, kg, 05/19/23 9:09:00 EST, Dry Weight Start Date: 06/06/23 Status: Ordered MorPHINE Inj 4 mg, Injection, IV Push Slowly, Every 5 minutes for 3 doses/times, PRN for Pain , Moderate, and SBP greater than 100, Routine, 07/22/23 15:33:00 EDT, Stop date Limited # of times Start Date: 07/22/23 Status: Ordered omeprazole 40 mg oral enteric coated capsule 1 capsule, By Mouth, Daily, # 90 capsule, 1 Refills, Maintenance, 06/06/23 17:36:00 EST, [id number], 163, cm, 05/30/23 11:34:00 EST, Height, 63.6, kg, 05/19/23 9:09:00 EST, Dry Weight Start Date: 06/06/23 Status: Ordered ondansetron 4 mg oral tablet 1 tablet = 4 mg, By Mouth, Every 8 hours, PRN Nausea & Vomiting, for 5 days, # 10 tablet, 0 Refills, Acute 07/27/23 19:20:00 EDT, 07/22/23 19:20:00 EDT, Tablet, [id number], Partial fill upon patient request if the prescription is for a schedul... Start Date: 07/22/23 Stop Date: 07/27/23 Status: Ordered ondansetron 4 mg oral tablet, disintegrating 1 tablet, By Mouth, 3 times a day, PRN NEEDED FOR NAUSEA AND VOMITING, # 20 tablet, 1 Refills, Maintenance, 06/21/23 13:44:00 EDT, [id number], 163, cm, 06/21/23 13:24:00 EDT, Height, 63.6,kg, 05/19/23 9:09:00 EST, Dry Weight Start Date: 06/21/23 Status: Ordered Percocet 2.5 mg-325 mg oral [...] 2 times a day, # 60 capsule, 4 Refills, Maintenance, 03/23/23 11:47:00 EST, [id number], 163, cm, 01/11/23 13:20:00 EDT, Height, 73, kg, 01/05/23 1:41:00 EDT, DryWeight Start Date: 03/23/23 Status: Ordered Tears Naturale Forte preserved ophthalmic solution 1 drops, Eyes, Both, 2 times a day, PRN for dry eyes, # 15 mL, 0 Refills, Maintenance, 05/30/23 12:03:00 EST, Solution, [id number], Partial fill upon patient request if the prescription is for a schedule II opioid drug., 1 drops Eyes, Both 2 t... Start Date: 05/30/23 Status: Ordered Problem List Condition Confirmation Course [...] 72% ( crippled ) on 01/20/17; initial [place] Back Pain Scale: 83on 01/20/17; initial Offerle: 4 on 01/20/17 3SOAPP-R: 16 on 01/20/17 4Pain relevant problem list includes: See below Results Radiology Reports * Exam Date Time Procedure Performing Provider Status 07/22/23 6:[address] Abd/Pelvis W/ IV Contrast Only GoGrace Fabricio; Auth (Verified) Notes: (CT Abd/Pelvis W/ IV Contrast Only) Reason For Exam: LLQ abdominal pain;Other: RESULT: CT Abd/Pelvis W/ IV Contrast Only CT Abd/Pelvis W/ IV Contrast Only Hx of Present Illness: bright red blood per rectum with clots and right sided abd pain x3 days, does not take thinners, hx of previous gib; denies cp sob; Reason: Other:; LLQ abdominal pain; ClinicalQuestion(s): Abscess; Order Comment: TECHNIQUE: Spiral CT through the abdomen and pelvis with IV contrast formatted in 3 planes. 100 cc of Omnipaque 300 was administered intravenously. This study was performed without oral contrast. Weight-based protocol using automatic tube modulation was used to optimize exposure parameters. CTDIvol Body: 15.50 mGy, DLP Body: 702 mGy*cm. COMPARISON: None. FINDINGS: Top Ironer View Findings, Lines and Tubes: None. Visualized Chest: Mild emphysematous changes within the lung bases. No pleural effusion. The heart is normal in size. No pericardial effusion. Small hiatal hernia. Diaphragm: Normal. Liver: Normal. Gallbladder: No CT evidence of gallbladder pathology. Bile ducts: No biliary ductal dilation. Spleen: Normal. Pancreas: Normal. Adrenal glands: Normal. Kidneys and ureters: No hydronephrosis, stones, or suspicious masses. Simple cyst within the midpole of the left kidney. Bladder: Normal. Reproductive organs: Unremarkable. Stomach, small bowel, and large bowel: There are a few scattered diverticula throughout the colon. Small duodenal diverticulum. Appendix: Status post appendectomy. Peritoneum and retroperitoneum: No ascites or pneumoperitoneum. No omental or mesenteric lesions. Lymph nodes: No enlarged lymph nodes. Blood vessels: Normal. No aneurysm. No evidence of venous thrombosis. Abdominal and pelvic wall: Unremarkable. Bones: No acute abnormality. Patient status post posterior spinal fusion at L4- S1 levels with interbody spacer placement at L5-S1. IMPRESSION: Diverticulosis without definite evidence of diverticulitis. No evidence of colitis. WSN: [id number] Ordering Physician: Conrado Meier Dictated By: Alfredo CHANCE, Mirian Merritt Dictated Date/Time: 07/22/23 7:05 pm Reviewed By: Mirian Fuentes MD Signed By: Mirian Fuentes MD Signed Date/Time: 07/22/23 7:05 pm Transcribed By: PAYTON Transcribed Date/Time: 07/22/23 6:54 pm Vital Signs Most recent to oldest [Reference Range]: 1 2 3 Height 163 cm (07/22/23 3:48 PM) 163 cm (07/22/23 12:35 PM) Oxygen Saturation [94-100 %] 99 % (07/22/23 8:55 PM) 100 % (07/22/23 3:48 PM) 100 % (07/22/23 12:35 PM) Pulse Rate [55-90 bpm] 90 bpm (07/22/23 8:55 PM) 113 bpm *H* (07/22/23 3:48 PM) 148 bpm *H* (07/22/23 12:35 PM) Blood Pressure [90-138/55-84 mm Hg] 113/86mm Hg (07/22/23 8:55 PM) 119/104mm Hg (07/22/23 3:48 PM) 129/102mm Hg (07/22/23 12:35 PM) Respiratory Rate [16-30 br/min] 18 br/min (07/22/23 8:55 PM) 19 br/min (07/22/23 5:44 PM) 16 br/min (07/22/23 3:48 PM) Temperature [96.8-100.4 DegF] 98.3 DegF (07/22/23 8:55 PM) 98.1 DegF (07/22/23 12:35 PM) Mode of Delivery (Oxygen) Room air (07/22/23 8:55 PM) Room air (07/22/23 3:48 PM) Room air (07/22/23 12:35 PM) Blood pressure sites Arm, left (07/22/23 8:55 PM) Arm, left (07/22/23 3:48 PM) Arm, left (07/22/23 12:35 PM) Temperature Route Oral (07/22/23 8:55 PM) Oral (07/22/23 12:35 PM) Dry Weight 65 kg (07/22/23 3:48 PM) 65 kg (07/22/23 12:35 PM) Dry Weight Obtained Via Patient/family s tated (07/22/23 12:35 PM) Social History Social History Type Response Smoking Status Former smoker, quit more than 30 days ago entered on: 11/05/22 Sex Patient Care team information Care Team Personnel Name: Lakeisha Acevedo RN Position: [facility] RN Member Role: Primary Care Nurse Name: Lay Kaur RN Position: [facility] AMB Nurse Member Role: Primary Care Nurse Name: Juliana Kumari RN Position: [facility] RN Member Role: Primary Care Nurse Name: Katelyn Dubois RN Position: [facility] SN RN Member Role: Primary Care Nurse Name: Jodee Alford RN Position: [facility] RN Member Role: Primary Care Nurse Name: Melissa Morris RN Position: [facility] RN Member Role: Primary Care Nurse Name: Lemuel Day RN Position: [facility] RN Member Role: Primary Care Nurse Name: Curtis Shoemaker RN Position: [facility] AMB Nurse Member Role: Primary Care Nurse Name: Gala Rae NP Position: [facility] PCO Associate Professional Member Role: Primary Care Nurse Address: Address: [address] [place] [address]- Name: Kavya Cantu RN Position: [facility] RN Member Role: Primary Care Nurse Name: Xiomara Duran RN Position: [facility] OB RN Member Role: Primary Care Nurse Name: Jane Oden MD Position: [facility] Physician - Primary Care Member Role: PCP Address: Address: [address] [place] [address]- Name: Tatiana Mcduffie RN Position: [facility] NAJAM Office Staff Member Role: Primary Care Nurse Name: Cheryle Garcia RN Position: [facility] RN Member Role: Primary Care Nurse Care Team Related Persons Name: CARLOS VILLALTA Address: home [address] [place] [address] Name: MELANIE VERGARA Address: home [address] [place] [address]
--- OUTSIDE RECORDS SUMMARY | 2023-11-30 06:36 | XMS_ITS | Continuity of Care Document ---
Author Organization [facility] ter Address [address] [place] [id number] Care Team Providers Care Ore Mixer Name Role Phone Jane Oden MD Primary Care Physician [phone] [place]counter [facility] Date(s): 11/04/22 - 11/06/[address] [id number] Discharge Disposition: A-D/C Home Attending Physician: Tracy CHANCE, Donnie Admitting Physician: Darren Noonan MD Referring Physician: Not on Staff, Referring [...] toxoids (DT) 04/11/99 Given 1Result Comment: [03/28/2017] [id number] 2Admin Note: VIS...05/04/2011 3Admin Note: VIS...05/04/2011 4Admin Note: [facility] 5Admin Note: [facility] Medications Albuterol (Eqv-ProAir HFA) 90 mcg/inh inhalation aerosol 2 puffs, Inhalation, Every 6 hours, # 8.5 each, 5 Refills, Maintenance, 08/03/22 15:13:00 EDT, [facility]/pharmacy #[id number], 25, 2 puffs Inhalation Every 6 hours, 163, cm, 07/01/22 9:42:00 EDT, Height, 75, kg,07/01/22 9:42:00 EDT, Dry Weight Start Date: 08/03/22 Status: Ordered FLUoxetine 20 mg oral capsule 1, capsule, By Mouth, Daily, # 90 capsule, Refills 1, Maintenance, 07/26/22 14:00:00 EDT, Route to Pharmacy Electronically, [id number], 163, cm, 07/01/22 9:42:00 EDT, Height, 75, kg, 07/01/22 9:42:00 EDT, Dry Weight Start Date: 07/26/22 Status: Ordered MorPHINE Inj 4 mg, Injection, IV Push Slowly, Every 4 hours, PRN for Pain , Severe, Routine, 11/04/22 21:08:00 EDT Start Date: 11/04/22 Stop Date: 11/07/22 Status: Discontinued omeprazole 40 mg oral enteric coated capsule 1 capsule, By Mouth, Daily, # 30 capsule, 0 Refills, Maintenance, 10/21/22 7:45:00 EDT, [facility]/pharmacy #[id number], 163, cm, 07/01/22 9:42:00 EDT, Height, 75, kg, 07/01/22 9:42:00 EDT, Dry Weight Start Date: 10/21/22 Status: Ordered oxyCODONE 5 mg oral tablet 5 mg, 1, tablet, By Mouth, Every 6 hours, PRN, for 3 days, # 12 tablet, Refills 0, Tot. Refills 0, Acute 11/09/22 16:21:00 EDT, as needed for pain, 11/06/22 16:21:00 EDT, Route to Pharmacy Electronically, [facility], Partial fill upon pa... Start Date: 11/06/22 Stop Date: 11/09/22 Status: Ordered pregabalin 300 mg oral capsule 1 capsule = 300 mg, By Mouth, 2 times a day, # 60 capsule, 0 Refills, Maintenance, 11/06/22 15:57:00 EDT, Capsule, Partial fill upon patient request if the prescription is for a schedule II opioid drug. Start Date: 11/06/22 Status: Ordered Problem List Condition Confirmation Course [...] 72% ( crippled ) on 01/20/17; initial [place] Back Pain Scale: 83on 01/20/17; initial [place]: 4 on 01/20/17 3SOAPP-R: 16 on 01/20/17 4Pain relevant problem list includes: See below Results Orders for Microbiology Reports Name Date Blood Culture 11/04/22 Blood Culture #2 11/04/22 Microbiology Reports TEST:Blood Culture, Second Order STATUS:Unauthenticated BODY SITE: SOURCE:Blood COLLECTED DATE/TIME:11/04/22 11:59 AM Blood Culture, Second Order SPECIMEN DESCRIPTION : BLOOD NONE SPECIAL REQUESTS : NONE CULTURE : NO GROWTH AFTER 48 HOURS REPORT STATUS : PRELIMINARY REPORT TEST:Blood Culture STATUS:Unauthenticated BODY SITE: SOURCE:Blood COLLECTED DATE/TIME:11/04/22 11:53 AM Blood Culture SPECIMEN DESCRIPTION : BLOOD NONE SPECIAL REQUESTS : NONE CULTURE : NO GROWTH AFTER 48 HOURS REPORT STATUS : PRELIMINARY REPORT Radiology Reports * Exam Date Time Procedure Performing Provider Status 11/04/22 12:[address] Abd/Pelvis W/ IV Contrast Only Lakeisha Irving; Auth (Verified) Notes: (CT Abd/Pelvis W/ IV Contrast Only) Reason For Exam: recently diagnosed colitis ? perforation;Other: RESULT: CT Abd/Pelvis W/ IV Contrast Only CT Abd/Pelvis W/ IV Contrast Only Hx of Present Illness: Abdominal pain. Recent diagnosis of colitis. Question perforation. TECHNIQUE: Spiral CT through the abdomen and pelvis with IV contrast formatted in 3 planes. 100 cc of Omnipaque 300 was administered intravenously. This study was performed without oral contrast. Weight-based protocol using automatic tube modulation was used to optimize exposure parameters. CTDIvol Body: 15.40 mGy, DLP Body: 749 mGy*cm. COMPARISON: 11/03/2022 FINDINGS: Investment Fund Manager View Findings, Lines and Tubes: None. Visualized Chest: Right greater than left basilar emphysematous changes. No pleural effusion. Diaphragm: Normal. Liver: Normal. Gallbladder: No CT evidence of gallbladder pathology. Bile ducts: No biliary ductal dilation. Spleen: Normal. Pancreas: Normal. Adrenal glands: Normal. Kidneys and ureters: No hydronephrosis, stones, or suspicious masses. Simple appearing renal cysts are noted, requiring no dedicated follow up. Bladder: Underdistended. Reproductive organs: Unremarkable. Stomach, small bowel, and large bowel: Small gastric fundal diverticulum without diverticulitis,. No small bowel obstruction. Fluid seen throughout the colon. No overt inflammatory change. Scattered colonic diverticula without focal diverticulitis. Appendix: Surgically absent. Peritoneum and retroperitoneum: No ascites or pneumoperitoneum. No omental or mesenteric lesions. Lymph nodes: No enlarged lymph nodes. Blood vessels: Mild vascular calcifications but no aneurysm. No evidence of venous thrombosis. Abdominal and pelvic wall: Tiny fat-containing umbilical hernia. Bones: Postsurgical changes of the lower lumbar spine. Spinal stimulator partially imaged. No acuteabnormality. IMPRESSION: Fluid throughout the colon suggests diarrheal illness. No overt colitis. No perforation as queried. Colonic diverticulosis without diverticulitis. WSN: [id number] Ordering Physician: Diana Hedrick Dictated By: Davey Marquez MD Dictated Date/Time: 11/04/22 12:59 p Reviewed By: Davey Marquez MD Signed By: Davey Marquez MD Signed Date/Time: 11/04/22 12:59 pm Transcribed By: PAYTON Transcribed Date/Time: 11/04/22 12:53 pm Vital Signs Most recent to oldest [Reference Range]: 1 2 3 Height 165 cm (11/06/22 3:19 PM) 165 cm (11/06/22 11:58 AM) 165 cm (11/06/22 8:19 AM) Weight 75 kg (11/04/22 10:40 PM) 75.2 kg (11/04/22 7:40 PM) Oxygen Saturation [94-100 %] 98 % (11/06/22 3:19 PM) 100 % (11/06/22 11:58 AM) 98 % (11/06/22 8:19 AM) Pulse Rate [55-90 bpm] 70 bpm (11/06/22 3:19 PM) 78 bpm (11/06/22 11:58 AM) 76 bpm (11/06/22 8:19 AM) Body Mass Index [18.5-24.99 kg/m2] 27.55 kg/m2 *H* (11/04/22 10:40 PM) Blood Pressure [90-138/55-84 mm Hg] 131/75mm Hg (11/06/22 3:19 PM) 176/64mm Hg *H* (11/06/22 11:58 AM) 145/77mm Hg *H* (11/06/22 8:19 AM) Respiratory Rate [16-30 br/min] 18 br/min (11/06/22 3:19 PM) 18 br/min (11/06/22 12:21 PM) 20 br/min (11/06/22 11:58 AM) Temperature [96.8-100.4 DegF] 97.5 DegF (11/06/22 3:19 PM) 98.2 DegF (11/06/22 11:58 AM) 98.3 DegF (11/06/22 8:19 AM) Mode of Delivery (Oxygen) Room air (11/06/22 3:19 PM) Room air (11/06/22 11:58 AM) Room air (11/06/22 8:19 AM) Blood pressure sites Arm, right (11/06/22 3:19 PM) Arm, right (11/06/22 11:58 AM) Arm, right (11/06/22 8:19 AM) Temperature Route Oral (11/06/22 3:19 PM) Oral (11/06/22 11:58 AM) Oral (11/06/22 8:19 AM) Dry Weight 75 kg (11/04/22 10:40 PM) 75 kg (11/04/22 12:20 PM) 75 kg (11/04/22 10:27 AM) Weight Obtained Via Bed scale (11/04/22 7:40 PM) Patient/family stated (11/04/22 10:27 AM) Dry Weight Obtained Via Patient/family stated (11/04/22 10:27 AM) Social History Social History Type Response Smoking Status Former smoker, quit more than 30 days ago entered on: 11/05/22 Sex Admission evaluation note * Titi Emerson: PERFORM, MODIFY, MODIFY, MODIFY Event Display: Admission Note Authored Date: [id number] Patient: ??ANGELICA VERGARA ? Age:??62 Years?Sex:??Female?:??1960?? Chief Complaint/Reason for Consultation Abdominal pain History of Present Illness Ms. Vergara is a 62-year-old female with past medical history of GERD, fibromyalgia, migraines, anxiety who presents to the emergency department with abdominal pain.?? Patient reports she had been in her usual state of health up until 5 days ago when she developed vomiting, cramping abdominal pain, diarrhea.?? She does report a pink tinge to her initial emesis, but she has had very poor oral intake over the past several days and is now just dry heaving.?? She is also reporting multiple episodes of diarrhea, describes stool as black and tarry as well as with bright red blood clots in the toilet bowl.?? She reports diffuse cramping abdominal pain, greatest over the lower abdomen and in the left lower quadrant.?? Abdominal pain has been constant with no aggravating or alleviating factors with the exception of pain medications.?She denies chills but reports fevers with Tmax 101 ??F yesterday. ??She denies any recent travel, questionable food or water intake, or sick contacts she does not drink alcohol, previously she only drink on rare occasion such as holidays.?? She denies any recent antibiotic use or recent change in medications.?? With her GI losses and poor oral intake she does endorse some lightheadedness over the past several days.?? She denies any cough, shortness of breath, chest pain, dysuria, urinary frequency/urgency, rashes or other skin changes, lower extremity pain or swelling. ?? Patient was seen in the emergency department yesterday and plan was for admission, but when evaluated by the hospitalist patient preferred discharge home as her pain was improved and she tolerated p.o. challenge. ?? With her worsening abdominal pain today, she presents to the emergency department.?? Upon arrival in the emergency department today, patient was afebrile, initial heart rate 123 bpm, respirations 20, blood pressure 160/121, satting 99% on room air oxygen.?? Laboratory work-up no leukocytosis, noanemia, bicarb 17 with an anion gap of 20, alk phos 123, AST 86, ALT 174, and lipase elevated at 619.?? CT abdomen/pelvis with fluid throughout the colon suggesting diarrheal disease with no overt colitis, colonic diverticulosis without diverticulitis, pancreas was noted to be normal.?? In the emergency department he received IV fluids, Zofran, morphine for pain control and medical admission was requested for further evaluation and management. Review of Systems Complete review of systems negative except as noted in HPI?? Objective Measurements?? Height: 165 cm (11/04/22) Weight: 75.2 kg (11/04/22) Dry Weight: 75 kg (11/04/22) ? Vital Signs?? Temperature: 98.2 DegF (11/04/22 19:40:00) Temperature Route: Oral (11/04/22 19:40:00) Pulse Rate: 83 bpm (11/04/22 19:40:00) Respiratory Rate: 18 br/min (11/04/22 19:40:00) Systolic Blood Pressure: 111 mm Hg (11/04/22 19:40:00) Diastolic Blood Pressure: 66 mm Hg (11/04/22 19:40:00) Blood pressure sites: Arm, right (11/04/22 19:40:00) Mean Arterial Pressure: 81 mm Hg (11/04/22 19:40:00) Pulse Pressure: 45 mm Hg (11/04/22 19:40:00) Oxygen Saturation: 96 % (11/04/22 19:40:00) Mode of Delivery (Oxygen): Room air (11/04/22 19:40:00) Early Warning Score: 0 (11/04/22 19:40:30) ? Physical Exam General Appearance: In no acute distress Head: Normocephalic and atraumatic Neck: Supple, trachea midline?? Eyes: Conjunctiva normal?? ENT: Mucus membranes slightly dry Cardiac: RRR. No M/G/R Respiratory: CTA, no wheezes or rhonchi?? GI: Abdomen soft, distended, diffuse tenderness to palpation greatest over the lower abdomen, bowelsounds present?? Neuro: Alert and oriented x3, moving all extremities with equal strength Extremities: No cyanosis, no edema?? Skin: Warm and dry?? 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 Assessment:??Ms. Vergara is a 62-year-old female with past medical history of GERD, fibromyalgia, migraines, anxiety who presents to the emergency department with abdominal pain. ?? Abdominal pain (R10.9):? Elevated lipase ?pancreatitis Transaminitis Nausea, vomiting, diarrhea Patient presenting with 5-day history of cramping abdominal pain, nausea/vomiting, diarrhea Reporting black diarrhea (6-8 times per day) as well as bright red blood per rectum No witnessed stool sample for nursing/providers, H&H stable without anemia CT abdomen/pelvis with fluid throughout the colon suggesting diarrheal illness with no overt colitis Also found to have elevated lipase to 619, CT notes normal pancreas and abdominal pain is predominantly in the lower abdomen without radiation to the back Denies recent alcohol use and no history of heavy alcohol use, no gallstones noted on CT Has a downtrending transaminitis with ALT predominance Denies recent travel, questionable food or water to intake, sick contacts No fever, leukocytosis, or evidence of infectious process at this time Plan -N.p.o. except for ice chips and medications for now -Continue with IV fluids -Zofran as needed for nausea/vomiting -Morphine as needed for pain control -Continue to monitor abdominal exam -Continue to monitor H&H -Trend LFTs -Check lipid panel for triglycerides -Hepatitis panel pending -Given severity of diarrhea will check stool sample and send for C. diff - note denies recent abx but on chart review appears to have recently been prescribed ciprofloxacin? -If any??evidence of GI bleed or dropping H&H will consult??GI ?? Hypertension (I10):??Lisinopril on hold ?? Hyperlipidema: Atorvastatin on hold pending trending of LFTs ?? Chronic obstructive pulmonary disease (J44.9):??Not in acute exacerbation, albuterol as needed ?? 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 GERD (gastroesophageal reflux disease) (K21.9):??Continue PPI ?? VTE Prophylaxis:??Patient is ambulatory, pneumoboots while in bed ?VTE Prophylaxis Assessment:??VTE Prophylaxis Ordered ?? Code Status:??Full code ?Order Code Status:??Code Status Ordered Histories Allergies Allergies ?(Active and Proposed Allergies Only) NSAIDs? (Severity: Unknown severity, Onset: Unknown) ?Reactions: bleeding Contrast Dye? (Severity: Unknown severity, Onset: Unknown) ?Reactions: SOB,hives codeine? (Severity: Unknown severity, Onset: Unknown) ?Reactions: itch ? Past Medical History/Problem List Active Problems??(23) Abdominal pain Abnormal CT scan, pelvis Acute diarrhea Anemia Anxiety disorder Bone pain BRBPR (bright red blood per rectum) Chronic kidney disease, stage 3a Drug or alcohol risk assessment Encounter for diagnostic colonoscopy due to change in bowel habits Epigastric pain Fibromyalgia History of appendectomy History of medical problems Ileus Limitation due to disability Low back pain Lumbar postlaminectomy syndrome Migraine Nausea Rectal bleeding Seizure Tobacco abuse ? Past Surgical History Upper gastrointestinal endoscopy including esophagus, stomach, and either the duodenum and/or jejunum as appropriate; diagnostic, with or without collection of specimen(s) by brushing or washing (separate procedure): 05/21/13 hardware removal of spinal ??x 1 appendectomy spinal fusions x 4 colonoscopy 2012 Laminectomy for implantation of neurostimulator electrodes, plate/paddle, epidural Colonoscopy and biopsy of colon ? Social History Alcohol Details:??Use: Past. Employment/School Details:??Status: Disabled. Exercise Details:??Self assessment: Fair condition. ??Regular exercise: No. Home/Environment Details:??Living situation: Home/Independent. ??Lives with: Spouse, grandchildren. Nutrition/Health Details:??Diet: Regular. ??Caffeine intake amount: TEA. Sexual Details:??Sexually involved in last 6 months: No. Substance Abuse Details:??Use: Current. ??Type: Marijuana. ??Other: does not have state certificate. Tobacco Details:??Use: Smoker, current status unknown. Electronic Cigarette/Vaping Details:??Electronic Cigarette Use: Never, used to smoke 2 pack a day for 20 years and stopped [id number]. ? Family History Mother: CAD - Coronary artery disease; Diabetes mellitus type II; Thyroid disease Father: Dementia Other: CAD - Coronary artery disease ? Medications Home Medications Albuterol (Albuterol (Eqv-ProAir HFA) 90 mcg/inh inhalation aerosol)?2?puff(s)?Inhalation?Every 6 hours Atorvastatin (atorvastatin 40 mg oral tablet)?1?tab(s)?By Mouth?Daily Fluoxetine (FLUoxetine 20 mg oral capsule)?1?capsule?By Mouth?Daily Lisinopril (lisinopril 2.5 mg oral tablet)?1?tablet?By Mouth?Daily Omeprazole (omeprazole 40 mg oral enteric coated capsule)?1?capsule?By Mouth?Daily Results Recent Labs BLOOD COUNT & DIFF WBC 8.0 k/mm3 ()?? 11/04/2022 11:53 RBC 4.77 m/mm3 ()?? 11/04/2022 11:53 Hgb 12.9 Gm/dL ()?? 11/04/2022 11:53 Hct 39.8 % ()?? 11/04/2022 11:53 MCV 83.4 femtoliters ()?? 11/04/2022 11:53 MCH 27.0 pg ()?? 11/04/2022 11:53 MCHC 32.4 g/dL (Low)?? 11/04/2022 11:53 Platelet Count 307 k/mm3 ()?? 11/04/2022 11:53 RDW-SD 43.8 femtoliters ()?? 11/04/2022 11:53 MPV 10.2 femtoliters ()?? 11/04/2022 11:53 Nucleated RBC (Automated) 0.0 #/100 WBC'S ()?? 11/04/2022 11:53 Abs. NRBC 0.0 k/mm3 ()?? 11/04/2022 11:53 Abs. Neut 6.5 k/mm3 ()?? 11/04/2022 11:53 Abs. Lymph 1.1 k/mm3 ()?? 11/04/2022 11:53 Abs. [place] 0.3 k/mm3 (Low)?? 11/04/2022 11:53 Abs. Eo 0.1 k/mm3 ()?? 11/04/2022 11:53 Abs. Baso 0.1 k/mm3 ()?? 11/04/2022 11:53 Neut % 81.1 % (High)?? 11/04/2022 11:53 Lymph % 13.2 % (Low)?? 11/04/2022 11:53 [place] % 3.6 % (Low)?? 11/04/2022 11:53 Eos % 0.9 % ()?? 11/04/2022 11:53 Baso % 0.8 % ()?? 11/04/2022 11:53 Imm Gran 0.4 % ()?? 11/04/2022 11:53 Abs. Imm Gran 0.0 k/mm3 ()?? 11/04/2022 11:53 ?? CARDIAC CK, Total 193 units/L (High)?? 11/04/2022 11:53 CK MB Confirmation - Quant 4.9 ng/mL ()?? 11/04/2022 11:53 High Sensitivity Troponin (HSTnT) 7 ng/L ()?? 11/03/2022 08:33 ?? CHEM GENERAL Sodium 144 mmol/L ()?? 11/04/2022 11:53 Potassium 4.0 mmol/L ()?? 11/04/2022 11:53 Chloride 107 mmol/L ()?? 11/04/2022 11:53 Bicarbonate Level 17 mmol/L (Low)?? 11/04/2022 11:53 Anion Gap 20 (High)?? 11/04/2022 11:53 Glucose Level 95 mg/dL ()?? 11/04/2022 11:53 Beta Hydroxybutyrate 2.07 mmol/L (High)?? 11/04/2022 11:53 BUN 10 mg/dL ()?? 11/04/2022 11:53 Creatinine-Blood 0.9 mg/dL ()?? 11/04/2022 11:53 Estimated GFR Creatinine 70 ML/MIN/1.73 M2 ()?? 11/04/2022 11:53 Calcium 9.8 mg/dL ()?? 11/04/2022 11:53 Protein, Total 7.0 Gm/dL ()?? 11/04/2022 11:53 Albumin 4.7 Gm/dL ()?? 11/04/2022 11:53 AG Ratio 2.0 ()?? 11/04/2022 11:53 Alkaline Phosphatase 123 units/L (High)?? 11/04/2022 11:53 Lipase 619 units/L (High)?? 11/04/2022 11:53 AST (SGOT) 86 units/L (High)?? 11/04/2022 11:53 ALT (SGPT) 174 units/L (High)?? 11/04/2022 11:53 Bilirubin, Total 0.4 mg/dL ()?? 11/04/2022 11:53 Lactate 1.5 mmol/L ()?? 11/04/2022 11:45 ?? ENDOCRINE/TUMOR MARKER Serum Qual NEGATIVE mIU/mL ()?? 11/04/2022 11:53 ?? HEME OTHER Hold Blue Top SPECIMEN DISCARDED AFTER 4 HOURS. ()?? 11/04/2022 11:53 ?? URINE OTHER Est Creatinine Clearance 58.97 mL/min ()?? 11/04/2022 13:22 ?? VIROLOGY COVID-19 by RT-PCR NEGATIVE ()?? 11/04/2022 12:24 ? Microbiology ?? COVID-19 (Novel Coronavirus), Rapid PCR?? Completed?? Source: Nasal Body Site: Nose Collected Dt/Tm: 11/04/2022 11:38 Last Updated Dt/Tm: 11/04/2022 14:36 ? Imaging(s) ?CT Abd/Pelvis W/ IV Contrast Only ?? 11/04/2022 12:48??by Jimmy CHANCE, Davey W ?IMPRESSION: Fluid throughout the colon suggests diarrheal illness. No overt colitis. No perforation as queried. Colonic diverticulosis without diverticulitis. ? Hospital Progress note * Juliana Kumari RN: PERFORM, SIGN, VERIFY Event Display: Progress Note Hospital Authored Date: [id number] Patient: ANGELICA VERGARA Age: 62 years Sex: Female : 1960 Associated Diagnoses: None Author: Juliana Kumari RN Findings Problem Related to Alteration in Fluid Electrolyte : Alteration in Fluid Electrolyte Func/new 11/06/2022 2:00 EDT Alteration Fluid Electrolytes Related to Fluid Volume Deficit Goals & Outcomes, Fluid/Electrolyte Vital signs, electrolytes & glucose levels will stabilize, Pt will maintain adequate GI/ function appropriate for pt, Pt will maintain skin turgor, Pt will resume/maintain adequate cardiac output, Pt will resume/maintain adequate hemodynamic status, Pt will state importance of adhering to medication regime Interventions, Fluid Electrolyte monitor cardiac status, monitor dietary intake, monitor effects ofintravenous fluid, monitor for onset of acute bleeding, monitor for s/s of anemia: weakness, fatigue,, monitor for s/s of hyper/hypokalemia, monitor for s/s of hypo or hyperglycemia, monitor GI/ sta tus, monitor hydration status, monitor mucous membranes, monitor peripheral pulses, monitor skin turgor, temperature & capillary refill, Encourage & assist with increased activity as pt tolerates, Encourage oral intake of meals, snacks, supplements, Encourage oral intake/fluids as ordered, Maintain strict intake & output, Monitor & document daily weight, Teach Pt/caregiver cause of imbalance & corrective therapy, Teach Pt/caregiver re: fluid restriction, Teach Pt/caregiver importance of accurate I & O monitoring BH Goals/Interventions,Fluid Electrolyte Yes Fluid Electrolyte, Problem Start 11/06/2022 2:09 Reviewed plan with, Fluid Electrolyte Patient Patient Progression, Fluid Electrolyte Plan Initiation . Discharge Information Case Management Discharge Plan : Case Management Discharge Plan Data 11/03/2022 15:23 EDT Discharge Level of Care at Discharge Home/Long Term/Foster Care * Fausto CHANCE, Marti Merritt: PERFORM Event Display: Progress Note Hospital Authored Date: [id number] Patient: ??ANGELICA VERGARA ? Age:??62 Years?Sex:??Female?:??1960?? Subjective ? -Admitted due to nausea vomiting and diarrhea -States that her symptoms still persist -There were initial concerns of pancreatitis on admission but lipase of 619 could have been false positive, repeat lipase was 50 and patient did not have any pancreatic abnormalities on imaging -No colitis on imaging either, known diverticulosis without diverticulitis -Her symptoms could most likely be due to viral gastroenteritis -C. difficile was negative.?? Will follow GI PCR studies -If bacterial studies remain negative then patient will just need ongoing supportive therapy for suspected viral gastroenteritis ?? -Metabolic acidosis is improving with IV fluid hydration. -We will continue repleting electrolytes -Remains afebrile in hospital -LFT mild elevation dramatically improving.?? Hepatitis testing in process -Does have high cholesterol levels, should be on statin medication once LFTs resolve ?? -Hemoglobin 10.4, patient did receive significant fluids, s/p 4 L fluid already, could be dilutional, will continue to monitor for further decline.?? No recent chronic anemia baseline ? Review of Systems Other than those positives as noted above, the remaining comprehensive 14-point review of systems is negative. Objective Vital Signs?? Temperature: 98.2 DegF (11/05/22 12:28:00) Temperature Route: Oral (11/05/22 12:28:00) Pulse Rate: 56 bpm (11/05/22 12:28:00) Respiratory Rate: 18 br/min (11/05/22 12:28:00) Systolic Blood Pressure: 113 mm Hg (11/05/22 12:28:00) Diastolic Blood Pressure:??52 mm Hg??Low (11/05/22 12:28:00) Blood pressure sites: Arm, left (11/05/22 12:28:00) Mean Arterial Pressure: 72 mm Hg (11/05/22 12:28:00) Pulse Pressure: 61 mm Hg (11/05/22 12:28:00) Oxygen Saturation: 98 % (11/05/22 12:28:00) Mode of Delivery (Oxygen): Room air (11/05/22 12:28:00) Early Warning Score: 0 (11/05/22 12:28:51) ? Intake/Output? 11/04 10:15 11/05 07:00 11/04 07:00 11/03 07:00 ?? 11/05 13:08 11/05 13:08 11/05 06:59 11/04 06:59 Urine Count ?1 ?0 ?1 ?0 ? Physical Exam General: Mild discomfort due to persistent nausea Cardiac: Regular rate rhythm Respiratory: Clear to auscultation bilaterally GI:??Soft, nondistended, diffuse tenderness??but no focal point.?? Bowel sounds hyperactive Neuro:??No focal deficit,??alert and oriented x4 Extremities: No edema.?? Warm well perfused _ Home Medications Albuterol (Albuterol (Eqv-ProAir HFA) 90 mcg/inh inhalation aerosol)?2?puff(s)?Inhalation?Every 6 hours Atorvastatin (atorvastatin 40 mg oral tablet)?1?tab(s)?By Mouth?Daily Fluoxetine (FLUoxetine 20 mg oral capsule)?1?capsule?By Mouth?Daily Lisinopril (lisinopril 2.5 mg oral tablet)?1?tablet?By Mouth?Daily Omeprazole (omeprazole 40 mg oral enteric coated capsule)?1?capsule?By Mouth?Daily ? Inpatient Medications Medications (16) Active SCHEDULED: (5) Fluoxetine 20 mg Capsule (FLUoxetine 20 mg oral capsule) ??20 mg, By Mouth, Daily Magnesium Sulfate 2 Gm /50 mL (Magnesium Sulfate IVPB) ??2 Gm 50 mL, IVPB, Once NaCl 0.9% Flush 3ml (NaCL 0.9% Flush) ??3 mL, IV Push, Every 8 hours Pantoprazole 40 mg EC Tablet (pantoprazole 40 mg oral delayed release tablet) ??40 mg, By Mouth, Daily Potassium Chloride 20 mEq Packet (Potassium Chloride Packet) ??40 mEq, By Mouth, Once CONTINUOUS: (1) Lactated Ringers (1000 mL) Cont IV 1,000 mL (LR 1,000 mL) ??1,000 mL, IV Infusion, 100 mL/hr PRN: (10) Acetaminophen 325 mg Tablet (Acetaminophen Tablet) ??650 mg, By Mouth, Every 4 hours Albuterol 90mcg/Inhalation Inhaler HFA (albuterol CFC free 90 mcg/inh inhalation aerosol) ??180 mcg2 puffs, Inhalation, Every 4 hours Dextromethorphan-Guaifenesin 20 mg-200 mg/10 mL Liqu UD (Robitussin DM Liquid) ??10 mL, By Mouth, Every 4 hours Melatonin 3 mg Tablet (Melatonin Tablet) ??3 mg, By Mouth, Daily at bedtime MorPHINE 4 mg Inj Syringe (MorPHINE Inj) ??4 mg, IV Push Slowly, Every 4 hours NaCl 0.9% Flush 3ml (NaCL 0.9% Flush) ??3 mL, IV Push, Every 8 hours Ondansetron 2mg/mL Inj (2mL Vial) (Zofran Inj) ??4 mg, IV Push Slowly, Every 6 hours Polyethylene Glycol 17 Gm Powder (MiraLax Powder) ??17 Gm 1 pack/packet, By Mouth, Daily Senna 8.6 mg / Docusate 50 mg tablet (Docusate/Senna Tablet) ??1 tablet, By Mouth, 2 times a day Simethicone 80 mg Chewable Tablet (Simethicone Tablet) ??80 mg, Chew, 3 times a day ? Results Abnormal Labs ?? BLOOD COUNT & DIFF ??Abs. NRBC ??0.0 k/mm3 () ??11/05/2022 01:57 ??Hct ??32.6 % (Low) ??11/05/2022 01:57 ??Hgb ??10.4 Gm/dL (Low) ??11/05/2022 01:57 ??MCHC ??31.9 g/dL (Low) ??11/05/2022 01:57 ??Nucleated RBC (Automated) ??0.0 #/100 WBC'S () ??11/05/2022 01:57 ??RBC ??3.76 m/mm3 (Low) ??11/05/2022 01:57 ??RDW-SD ??46.3 femtoliters () ??11/05/2022 01:57 ? CHEM GENERAL ??ALT (SGPT) ??115 units/L (High) ??11/05/2022 01:57 ??AST (SGOT) ??55 units/L (High) ??11/05/2022 01:57 ??Bicarbonate Level ??20 mmol/L (Low) ??11/05/2022 01:57 ??Chloride ??110 mmol/L (High) ??11/05/2022 01:57 ??Estimated GFR Creatinine ??63 ML/MIN/1.73 M2 () ??11/05/2022 01:57 ? COAG ??INR ??1.2 (High) ??11/05/2022 01:57 ??Protime (PT) ??12.2 seconds (High) ??11/05/2022 01:57 ? LIPID STUDIES ??Cholesterol ??225 mg/dL (High) ??11/05/2022 01:57 ??HDL Cholesterol ??35 mg/dL (Low) ??11/05/2022 01:57 ??LDL Cholesterol ??165 mg/dL (High) ??11/05/2022 01:57 ??Non HDL Cholesterol ??190 mg/dL (High) ??11/05/2022 01:57 ??Triglycerides ??125 mg/dL () ??11/05/2022 01:57 ? SEROLOGY INF DISEASE ??C.difficile Toxin ??Negative. C.Difficile bacterial antigen and toxin not detected. A (N) ??11/05/2022 00:10 ? Note: Critical results are displayed in red. ? Assessment/Plan ? 62-year-old female with past medical history of GERD, fibromyalgia, migraines, anxiety who presentsto the emergency department with abdominal pain, nausea and vomiting and diarrhea ?? Abdominal pain (R10.9):? Transiently elevated lipase ?Lab error Transaminitis Nausea, vomiting, acute??diarrhea Diverticulosis without diverticulitis Patient presenting with 5-day history of cramping abdominal pain, nausea/vomiting, diarrhea Reporting black diarrhea (6-8 times per day) as well as bright red blood per rectum No witnessed stool sample for nursing/providers CT abdomen/pelvis with fluid throughout the colon suggesting diarrheal illness with no overt colitis Initially??found to have elevated lipase to 619, CT notes normal pancreas and abdominal pain is predominantly in the lower abdomen without radiation to the back Denies recent alcohol use and no history of heavy alcohol use, no gallstones noted on CT Denies recent travel, questionable food or water to intake, sick contacts No fever, leukocytosis, or evidence of infectious process at this time ?? Plan -Zofran as needed for nausea/vomiting -Morphine as needed for pain control -States that her symptoms still persist -There were initial concerns of pancreatitis on admission but lipase of 619 could have been false positive, repeat lipase was 50 and patient did not have any pancreatic abnormalities on imaging -No colitis on imaging either, known diverticulosis without diverticulitis -Her symptoms could most likely be due to viral gastroenteritis -C. difficile was negative.?? Will follow GI PCR studies -If bacterial studies remain negative then patient will just need ongoing supportive therapy for suspected viral gastroenteritis ?? -Metabolic acidosis is improving with IV fluid hydration. -We will continue repleting electrolytes -Remains afebrile in hospital -LFT mild elevation dramatically improving.?? Hepatitis testing in process -Does have high cholesterol levels, should be on statin medication once LFTs resolve ?? -Hemoglobin 10.4, patient did receive significant fluids, s/p 4 L fluid already, could be dilutional, will continue to monitor for further decline.?? No recent chronic anemia baseline. ??If continuesto decline then GI consult will be needed ? Hypertension (I10):??Lisinopril on hold ?? Hyperlipidema: Atorvastatin on hold pending trending of LFTs ?? Chronic obstructive pulmonary disease (J44.9):??Not in acute exacerbation, albuterol as needed ?? 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 GERD (gastroesophageal reflux disease) (K21.9):??Continue PPI ?? VTE Prophylaxis:??Patient is ambulatory, pneumoboots while in bed ?? Code Status:??Full code ? Note * Patsy Howard RN: PERFORM Event Display: Discharge/Transfer Note Hospital Authored Date: [id number] Nursing Discharge Note Entered On: 11/06/2022 16:48 EDT Performed On: 11/06/2022 16:47 EDT by Patsy Howard RN Nursing Discharge Note 2 Discharge Time : 11/06/2022 16:47 EDT Discharge Level of Care at Discharge : Home/Long Term/Foster Care Patient Left Unit Via : Wheelchair Patient Accompanied Off Unit with : Responsible adult DC Instructions Provided & Signed by Pt : Yes Patient Understands D/C Instructions : Yes Patient Instructions Discharge Signed : Yes Did Pt have Specialty Bed or Wound Vac : No Patsy Howard RN - 11/06/2022 16:47 EDT * Tracy CHANCE, Donnie: MODIFY, PERFORM Event Display: Discharge/Transfer Note Hospital Authored Date: [id number] Patient: ??URSULA, ANGELICA ? Age:??62 Years?Sex:??Female?:??1960?? Patient Information Discharge Location: B Primary Care Physician: Jane Oden MD Admit Date/Time: 11/04/22 14:30 Discharge Disposition Discharge Disposition: Home: No Services Discharge Diagnosis Abdominal pain (R10.9) suspected Viral Gastroenteritis Transaminitis Chronic obstructive pulmonary disease (J44.9) Diarrhea (R19.7) Fibromyoma (D21.9) GERD (gastroesophageal reflux disease) (K21.9) Hypertension (I10) ? _ Discharge Medications Albuterol (Albuterol (Eqv-ProAir HFA) 90 mcg/inh inhalation aerosol)?2?puff(s)?Inhalation?Every 6 hours Fluoxetine (FLUoxetine 20 mg oral capsule)?1?capsule?By Mouth?Daily Omeprazole (omeprazole 40 mg oral enteric coated capsule)?1?capsule?By Mouth?Daily Oxycodone (oxyCODONE 5 mg oral tablet)?5?Milligram?1?tablet?By Mouth?Every 6 hours?as needed?for 3?Days?as needed for pain Pregabalin (pregabalin 300 mg oral capsule)?1?capsule?300?Milligram?By Mouth?2 times a day ? Medications Started oxycodone Medications Discontinued none Doses Changed none PCP Follow-Up/Heads-Up f/u Hepatitis profile f/u LFT's and restart?? Lipitor because lipids are high. Objective Assessment and Plan ? 62-year-old female with past medical history of GERD, fibromyalgia, migraines, anxiety who presentsto the emergency department with abdominal pain, nausea and vomiting and diarrhea ?? Abdominal pain (R10.9):? Diverticulosis without diverticulitis SUSPECTED Viral Gastroenteritis CT abdomen/pelvis with fluid throughout the colon suggesting diarrheal illness with no overt colitis Initially??found to have elevated lipase to 619, CT notes normal pancreas and abdominal pain is predominantly in the lower abdomen without radiation to the back she was managed conservatively with pain meds, IVF and antiemetics Patient improved clinically, diarrhea resolved. abdomen Benign. GI PCR is negative Cdiff -Negative she tolerated diet on 11/06 and would like to go home. ? Transiently elevated lipase Transaminitis could be due to Gastroenteritis -especially given her pancreas is normal on CT scan and also??she denies any alcohol intake. CT scan was done twice in the hospital and it did not show any gall bladder pathology?? f/u LFT's as outpatient I have instructed patient and if any abdominal pain in future- reach out to medical attention-they both agreed ?? Hypertension (I10):??Not sure if she is taking meds ?? Hyperlipidema: Atorvastatin on hold??- repeat LFT's as outpatient ?? Chronic obstructive pulmonary disease (J44.9):??Not in acute exacerbation, albuterol as needed ?? 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 GERD (gastroesophageal reflux disease) (K21.9):??Continue PPI ? . Physical Exam Patient ??seen and examined today ??chest: b/l cta, heart:s1s2+, abdomen:s oft, bs+,?? neuro: aaox3, extremities: no edema minimal tenderness of LLQ . she tolerated dental soft diet today d/w - she would like to go home today but asked for few doses of oxycodone for rescue- given 12 tabs of oxycodone. MASS PAT CHECKED- LAST narcotic script was in July 2022 Follow-Up Appointments Added Follow Up ?Time Frame ?Comments Jane Oden?2 weeks Home Health Face to Face ^HomeHealthFTF 36??minutes spent on discharge * Patsy Howard RN: PERFORM Event Display: Patient Education/Instruction Authored Date: [id number] Inpatient Adult Discharge Instructions [address] [address] Name: ANGELICA VERGARA : 1960 Visit: 11/04/2022 14:30:00 Current Date: 11/06/2022 16:31 Account: [id number] Inpatient Adult Discharge Instructions We would like to thank you for allowing us to assist you with your healthcare needs. The following includes patient education materials and information regarding your injury/illness. Our entire staffstrives to provide an excellent experience for our patients and their families. PLEASE ENSURE YOU FOLLOW-UP PER THE INSTRUCTIONS BELOW! ?? YOUR OPINION IS IMPORTANT TO US! Please complete the survey you may receive by mail or email. Your feedback will be used to make improvements to the healthcare experiences of our patients and their families. Surveys are administered by [employer] ?? If further treatment with your primary care physician or another doctor is recommended, it is important for you to keep the appointment. Call your primary care physician or return to the Emergency Department immediately if your condition worsens, fails to improve, or new symptoms develop. If you need to find a doctor, you can call [facility] [employer] for a referral at [phone] or toll free at [phone]) or log in to [email or web address].. ?? You can view and manage your care through the patient portal or by using a health care madi of your choosing. [employer] is a website that allows you to securely view your medical information including your hospital discharge summary, office visit summaries, medications and follow-up visits. You can also request appointments, renew medications, and request access to your medical information using a health care madi of your choosing, or just ask a question. You can enroll at [email or web address] or register during your next office visit. You have been discharged from [facility], Patient Care Unit: D3B. If you have any questions regarding these instructions after you leave, please call us and we will be happy to assist you. [facility] Your Care Team Attending Physician Donnie Molina MD Discharging Providers Donnie Molina MD Reason for Admission Abdominal pain Your Diagnosis Abdominal pain Diarrhea Vomiting Hypertension Chronic obstructive pulmonary disease GERD (gastroesophageal reflux disease) Fibromyoma Tests Performed Below is a partial list of the tests performed during your hospitalization. You may have had other tests and procedures not included in this list. Please discuss all test results with your provider. Alk Phos ALT AST BETA HYDROXYBUTYRATE BUN C. difficile Rapid Toxin Assay CBC CBC w/ Differential CK (CREATINE KINASE) CKMB CONFIRMATION/QUANT Comprehensive Metabolic Panel COVID-19 (Novel Coronavirus), Rapid PCR Creatinine Electrolytes GI Profile, Stool, PCR Glucose Level Hemoglobin A1C (Monitoring) Hgb + Hct Hold Blue Top Tube INR Lactate Level Lipase Lipid Panel Magnesium Level Serum Qualitative Total Bilirubin Type and Screen CT Abd/Pelvis W/ IV Contrast Only Primary Care Provider Jane Oden MD Advance Directive Health Care Proxy on File Yes - Health Care Proxy Discharge Vitals Temperature: 97.5 DegF Height: 165 cm Pulse Rate: 70 bpm Weight: 75 kg Respiratory Rate: 18 br/min Body Mass Index:??27.55 kg/m2??High Systolic Blood Pressure: 131 mm Hg Body surface area: 1.85 Diastolic Blood Pressure: 75 mm Hg ?? Oxygen Saturation: 98 % ?? Studies Pending All tests and labs ordered during this hospital stay have been completed unless listed below. Please discuss all pending results with your provider listed above in these instructions. ?? Add On Lab Order Blood Culture Blood Culture #2 Hepatitis A Ab IgM Hepatitis B Core Ab IgM Hepatitis B Surface Antigen Hepatitis C Ab Hold Lavender Tube (BB) What to do next Instructions From Your Doctor Discharge Orders You Need to Schedule the Following Appointments Follow Up with??Jane Oden Why: 2 weeks Where: [address] [place] [address] [place] [address]- Business (1) Discharge Medications URSULAANGELICA :1960 Visit Date:11/04/2022 Medications: Please continue your medications until treatment is completed or stopped by your provider. Medications not listed below should be discontinued. Discuss any questions related to medications with your provider. What How Much When Instructions Next Dose New Oxycodone (oxyCODONE 5 mg oral tablet) 1 tab(s) Oral Every 6 hours as needed for as needed for pain Duration: 3 Days Pickup at [facility] 3 as needed Changed Pregabalin (pregabalin 300 mg oral capsule) 1 capsule Oral Twice a day resume as ordered Unchanged Albuterol (Albuterol (Eqv-ProAir HFA) 90 mcg/ inh inhalation aerosol) 2 puff(s) Inhalation Every 6 hours as needed Unchanged Fluoxetine (FLUoxetine 20 mg oral capsule) 1 capsule Oral Daily 11/07/22 - am Unchanged Omeprazole (omeprazole 40 mg oral enteric coated capsule) 1 capsule Oral Daily 11/07/22 - am Pharmacy Information [facility] 3: [address], [place] [id number] [phone] ?? What How Much When Comments Stop Taking Atorvastatin (atorvastatin 40 mg oral tablet) 1 tab(s) Oral Daily Stop Taking Hydromorphone (Dilaudid 2 mg oral tablet) 1 tab(s) Oral Every 4 hours as needed for as needed for pain Stop Taking Lisinopril (lisinopril 2.5 mg oral tablet) 1 tab(s) Oral Daily Stop Taking Multivitamin (B 100 Complex) Oral Daily Stop Taking Ondansetron (ondansetron 4 mg oral tablet, disintegrating) 1 tab(s) Oral Every 8 hours as needed for Nausea & Vomiting Stop Taking Ondansetron (ondansetron 4 mg oral tablet, disintegrating) 1 tab(s) Oral Every 6 hours as needed for as needed for nausea/vomiting Stop Taking Tiotropium (Spiriva Respimat 1.25 mcg/ inh inhalation aerosol) 2 puff(s) Inhalation Daily Test Results Below is a partial list of the most recent Laboratory test results done prior to this discharge. You may have had other tests and procedures not included in this list. Please discuss all test resultswith your provider. Est Creatinine Clearance - 53.08 mL/min (11/05/2022) Alk Phos (11/05/2022) ???Alkaline Phosphatase - 85 units/L ALT (11/05/2022) ???ALT (SGPT) - 115 units/L AST (11/05/2022) ???AST (SGOT) - 55 units/L BETA HYDROXYBUTYRATE (11/04/2022) ???Beta Hydroxybutyrate - 2.07 mmol/L BUN (11/06/2022) ???BUN - 9 mg/dL C. difficile Rapid Toxin Assay (11/05/2022) ???C.difficile Toxin - Negative. C.Difficile bacterial antigen and toxin not detected. A CBC (11/06/2022) ???WBC - 3.8 k/mm3???RBC - 3.88 m/mm3???Hgb - 10.4 Gm/dL???Hct - 33.3 %???MCV - 85.8 femtoliters???MCH - 26.8 pg???MCHC - 31.2 g/dL???Platelet Count - 212 k/mm3???RDW-SD - 44.7 femtoliters???MPV - 9.6 femtoliters???Nucleated RBC (Automated) - 0.0 #/100 WBC'S???Abs. NRBC - 0.0 k/mm3 CBC w/ Differential (11/04/2022) ???WBC - 8.0 k/mm3???RBC - 4.77 m/mm3???Hgb - 12.9 Gm/dL???Hct - 39.8 %???MCV - 83.4 femtoliters???MCH - 27.0 pg???MCHC - 32.4 g/dL???Platelet Count - 307 k/mm3???RDW-SD - 43.8 femtoliters???MPV - 10.2 femtoliters???Nucleated RBC (Automated) - 0.0 #/100 WBC'S???Abs. NRBC - 0.0 k/mm3???Abs. Neut - 6.5 k/mm3???Abs. Lymph - 1.1 k/mm3???Abs. [place] - 0.3 k/mm3???Abs. Eo - 0.1 k/mm3???Abs. Baso - 0.1 k/mm3???Neut % - 81.1 %???Lymph % - 13.2 %???[place] % - 3.6 %???Eos % - 0.9 %???Baso % - 0.8 %???Imm Gran - 0.4 %???Abs. Imm Gran - 0.0 k/mm3 CK (CREATINE KINASE) (11/04/2022) ???CK, Total - 193 units/L CKMB CONFIRMATION/QUANT (11/04/2022) ???CK MB Confirmation - Quant - 4.9 ng/mL Comprehensive Metabolic Panel (11/04/2022) ???Sodium - 144 mmol/L???Potassium - 4.0 mmol/L???Chloride - 107 mmol/L???Bicarbonate Level - 17 mmol/L???Anion Gap - 20???Glucose Level - 95 mg/dL???BUN - 10 mg/dL???Creatinine-Blood - 0.9 mg/dL???Estimated GFR Creatinine - 70 ML/MIN/1.73 M2???Calcium - 9.8 mg/dL???Protein, Total - 7.0 Gm/dL???Albumin - 4.7 Gm/dL???AG Ratio - 2.0???Alkaline Phosphatase - 123 units/L???AST (SGOT) - 86 units/L???ALT (SGPT) - 174 units/L???Bilirubin, Total - 0.4 mg/dL COVID-19 (Novel Coronavirus), Rapid PCR (11/04/2022) ???COVID-19 by RT-PCR - NEGATIVE Creatinine (11/06/2022) ???Creatinine-Blood - 1.0 mg/dL???Estimated GFR Creatinine - 65 ML/MIN/1.73 M2 Electrolytes (11/06/2022) ???Sodium - 142 mmol/L???Potassium - 4.2 mmol/L???Chloride - 109 mmol/L???Bicarbonate Level - 22 mmol/L???Anion Gap - 11 GI Profile, Stool, PCR (11/05/2022) ???GI PCR, Campylobacter - NEGATIVE???GI PCR, Plesiomonas shigelloides - NEGATIVE???GI PCR, Salmonella - NEGATIVE???GI PCR, Vibrio - NEGATIVE???GI PCR, Vibrio cholerae - NEGATIVE???GI PCR, Yersinia enterocolitica - NEGATIVE???GI PCR, Enteroaggregative E coli - NEGATIVE???GI PCR, Enteropathogenic E coli - NEGATIVE???GI PCR, Enterotoxigenic E coli - NEGATIVE???GI PCR, Wwlks-rtqpd-kiuxzpajz E coli -NEGATIVE???GI PCR, Shigella/Enteroinvasive E coli - NEGATIVE???GI PCR, Cryptosporidium - NEGATIVE???GI PCR, Cyclospora cayetanensis - NEGATIVE???GI PCR, Entamoeba histolytica - NEGATIVE???GI PCR, Giardia lamblia - NEGATIVE???GI PCR, Adenovirus F 40/41 - NEGATIVE???GI PCR, Astrovirus - NEGATIVE???GIPCR, Norovirus GI/GII - NEGATIVE???GI PCR, Rotavirus A - NEGATIVE???GI PCR, Sapovirus - NEGATIVE Glucose Level (11/06/2022) ???Glucose Level - 69 mg/dL Hemoglobin A1C (Monitoring) (11/06/2022) ???Hemoglobin A1C (Monitoring) - 5.5 % Hgb + Hct (11/05/2022) ???Hgb - 11.6 Gm/dL???Hct - 36.7 % Hold Blue Top Tube (11/04/2022) ???Hold Blue Top - SPECIMEN DISCARDED AFTER 4 HOURS. INR (11/05/2022) ???INR - 1.2???Protime (PT) - 12.2 seconds Lactate Level (11/04/2022) ???Lactate - 1.5 mmol/L Lipase (11/05/2022) ???Lipase - 50 units/L Lipid Panel (11/05/2022) ???Cholesterol - 225 mg/dL???Triglycerides - 125 mg/dL???HDL Cholesterol - 35 mg/dL???LDL Cholesterol - 165 mg/dL???Non HDL Cholesterol - 190 mg/dL Magnesium Level (11/06/2022) ???Magnesium - 2.2 mg/dL Serum Qualitative (11/04/2022) ??? Serum Qual - NEGATIVE Total Bilirubin (11/05/2022) ???Bilirubin, Total - 0.3 mg/dL Type and Screen (11/05/2022) ???Blood Type - B Positive???Antibody Screen - Negative Allergies (NKA means No Known Allergies) Contrast Dye??(SOB,hives) NSAIDs??(bleeding) codeine??(itch) Problems Active Problems??(23) Abdominal pain?? Abnormal CT scan, pelvis?? Acute diarrhea?? Anemia?? Anxiety disorder?? Bone pain?? BRBPR (bright red blood per rectum)?? Chronic kidney disease, stage 3a?? Drug or alcohol risk assessment?? Encounter for diagnostic colonoscopy due to change in bowel habits?? Epigastric pain?? Fibromyalgia?? History of appendectomy?? History of medical problems?? Ileus?? Limitation due to disability?? Low back pain?? Lumbar postlaminectomy syndrome?? Migraine?? Nausea?? Rectal bleeding?? Seizure?? Tobacco abuse?? Education Materials Below is the list of Educational Leaflet Providered with your Discharge Instructions. Valuables and Belongings I fully understand and agree that [facility] accepts no responsibility for all my personal property including clothing, toilet articles, radios, jewelry, dentures, hearing aids, rings, money, or any other property that is in my possession or is brought to me after admission. I understand certain valuables may be placed in a hospital safe for a short period of time. I understand that the hospital is not liable for loss or damage due to accident, fire, or other natural occurrence while said property is in the safe. I accept full responsibility for any personal property that I keep with me, and will not hold the hospital responsible in case of loss or disappearance. I acknowledge that i have been encouraged to send valuables and belongings home. ?? Review of Valuable and Belonging List: With patient, With witness Date for Pt to Sign Valuables/Belongings: 11/04/22 19:33:00 ?? Other Discharge Information ? Pulmonary Rehab Status?? Pulmonary Rehab Discharge Status?? Respiratory Rate: 18 br/min ? Common Emergency Awareness Tips IS IT A STROKE? Act FAST and Check for these signs: FACE Does the face look uneven? ARM Does one arm drift down? SPEECH Does their speech sound strange? TIME Call at any sign of stroke ?? Heart Attack Signs Chest discomfort: Most heart attacks involve discomfort in the center of the chest and lasts more than a few minutes, or goes away and comes back. It can feel like uncomfortable pressure, squeezing, fullness or pain. Discomfort in upper body: Symptoms can include pain or discomfort in one or both arms, back, neck, jaw or stomach. Shortness of breath: With or without discomfort. Other signs: Breaking out in a cold sweat, nausea, or lightheaded. Remember, MINUTES DO MATTER. If you experience any of these heart attack warning signs, call to get immediate medical attention! ?? Smoking can increase your chances of developing chronic health problems and can cause harmful effects to other family members in your house. If you smoke, you are strongly encouraged to quit. Please call [facility] [employer] at [phone] or [phone] ([phone]) or log in to [email or web address] for referrals to smoking cessation programs. ?? 996 Suicide & Crisis Lifeline is available 01/11 if you or someone you know needs to find a reason to keep living. By calling 666 you'll be connected to a skilled, trained counselor at a crisis center in your area. INPATIENT DISCHARGE INSTRUCTIONS SIGNATURE PAGE URSULAANGELICA Location:[facility] Registration Date and Time:11/04/2022 14:30 EDT Primary Care Physician: Kelsey Oden MDtte, Attending Physician: Tracy CHANCE, [facility], I ANGELICA VERGARA, have received the above patient education materials/instructions and have verbalized understanding. If ambulance or transport services are being used I further acknowledge being given a choice of service. ?? If you need to contact me, please call me at this number: . Patient/Planishing Hammer Operator Name: Patient/Planishing Hammer Operator Signature: Relationship to Patient: Witness Name/Signature: Date: * Donnie Molina MD: PERFORM, SIGN, VERIFY Event Display: Patient Education Handout Authored Date: [id number] Patient Care team information Care Team Personnel Name: Lakeisha Acevedo RN Position: [facility] RN Member Role: Primary Care Nurse Name: Lay Kaur RN Position: [facility] AMB Nurse Member Role: Primary Care Nurse Name: Juliana Kumari RN Position: [facility] RN Member Role: Primary Care Nurse Name: Katelyn Dubois RN Position: [facility] SN RN Member Role: Primary Care Nurse Name: Jodee Alford RN Position: [facility] [facility] RN Member Role: Primary Care Nurse Name: Melissa Morris RN Position: [facility] RN Member Role: Primary Care Nurse Name: Lemuel Day RN Position: [facility] RN Member Role: Primary Care Nurse Name: Curtis Shoemaker RN Position: [facility] AMB Nurse Member Role: Primary Care Nurse Name: Gala Rae NP Position: Reference Physician Member Role: Primary Care Nurse Address: Address: [address] [place] [address]- [place] Name: Kvaya Cantu RN Position: [facility] RN Member Role: Primary Care Nurse Name: Xiomara Duran RN Position: [facility] OB RN Member Role: Primary Care Nurse Name: Jane Oden MD Position: [facility] Physician - Primary Care Member Role: PCP Address: Address: [address] [place] [address] [place] [address]- Name: Tatiana Mcduffie RN Position: [facility] SN RN Member Role: Primary Care Nurse Name: Terrie CHAVEZ Attending Position: [facility] ED Medicine MD Name: Ann Greenwood Position: [facility] TA [facility] Member Role: Snuff Grinder Name: Sol Best RN Position: [facility] RN W/OE and Tasks Member Role: Patient Care Provider Care Team Related Persons Name: CARLOS VILLALTA Address: home [address] [place] [address] Name: MELANIE VERGARA Address: home [address] [place] [address]
--- OUTSIDE RECORDS SUMMARY | 2023-11-30 06:36 | XMS_ITS | Continuity of Care Document ---
Author Organization [facility] Address [address] [place] [address]- Care Team Providers Care Leave Specialist Name Role Phone Jane Oden MD Primary Care Physician [phone] Encounter [facility] Date(s): 08/23/23 - 09/22/23 [facility] Care [address] [place] [id number] Allergies, Adverse Reactions, Alerts Substance Reaction Severity [...] toxoids (DT) 04/11/99 Given 1Result Comment: [03/28/2017] [id number] 2Admin Note: VIS...05/04/2011 3Admin Note: VIS...05/04/2011 4Admin Note: [facility] 5Admin Note: [facility] Medications Albuterol (Eqv-ProAir HFA) 90 mcg/inh inhalation aerosol 2 puffs, Inhalation, Every 6 hours, # 8.5 each, 5 Refills, Maintenance, 07/21/23 9:37:00 EDT, [id number], 25, INHALE 2 PUFFS BY MOUTH EVERY 6 HOURS, 163, cm, 07/11/23 9:51:00 EDT, Height, 65.1, kg, 07/11/23 8:46:00 EDT, Dry Weight Start Date: 07/21/23 Status: Ordered atorvastatin 20 mg oral tablet 1 tablet, By Mouth, Daily, # 90 tablet, 1 Refills, Maintenance, 06/06/23 17:36:00 EST, [id number], 163, cm, 05/30/23 11:34:00 EST, Height, 63.6, kg, 05/19/23 9:09:00 EST, Dry Weight Start Date: 06/06/23 Status: Ordered dicyclomine 20 mg oral tablet 1 tablet = 20 mg, By Mouth, 4 times a day, PRN Pain , Moderate, take as needed for abdominal cramping, # 120 tablet, 1 Refills, Maintenance, 06/28/23 8:52:00 EDT, Tablet, [facility]/pharmacy #[id number], Partial fill upon [...] 01/07/23 15:04:00 EDT, Route to Pharmacy Electronically, [id number], 163, cm, 01/05/23 1:41:00 EDT, Height, 73, kg, 01/05/23 1:41:00 EDT, Dry Weight Start Date: 01/07/23 Status: Ordered FLUoxetine 20 mg oral capsule See Instructions, TAKE 1 CAPSULE BY MOUTH EVERY DAY, # 90 capsule, Refills 1, Maintenance, 249:21:00 EST, Instructions Replace Required Details, Route to Pharmacy Electronically, [id number], 163, cm, 05/30/23 11:34:00 EST, Height, 63.6, kg... Start Date: 06/07/23 Status: Ordered Golytely - oral powder for reconstitution 240 mL, By Mouth, Every 10 minutes, # 1 each, 0 Refills, Maintenance, 12/02/22 8:36:00 EDT, REC Powder, [facility]/pharmacy #[id number], Partial fill upon patient request if the prescription is for a schedule II opioid drug., 240 mL By Mouth Every 10 minutes, 165,... Start Date: 12/02/22 Status: Ordered Lidoderm 5% film 1 patch, Topically, Daily, remove patches after 12 hours, # 10 patch, 0 Refills, Maintenance, 05/19/23 16:40:00 EST, [facility]/pharmacy #[id number], Partial fill upon patient request if the prescription is for aschedule II opioid drug., 1 patch Topically Daily,x... Start Date: 05/19/23 Stop Date: 05/29/23 Status: Ordered lisinopril 5 mg oral tablet 1, tablet, By Mouth, Daily, # 90 tablet, Refills 1, Maintenance, 06/06/23 17:36:00 EST, Route to Pharmacy Electronically, [facility], 163, cm, 05/30/23 11:34:00 EST, Height, 63.6, kg, 05/19/23 9:09:00 EST, Dry Weight Start Date: 06/06/23 Status: Ordered omeprazole 40 mg oral enteric coated capsule 1 capsule, By Mouth, Daily, # 90 capsule, 1 Refills, Maintenance, 06/06/23 17:36:00 EST, [facility], 163, cm, 05/30/23 11:34:00 EST, Height, 63.6, kg, 05/19/23 9:09:00 EST, Dry Weight Start Date: 06/06/23 Status: Ordered ondansetron 4 mg oral tablet, disintegrating 1 tablet, By Mouth, 3 times a day, PRN NEEDED FOR NAUSEA AND VOMITING, # 20 tablet, 1 Refills, Maintenance, 09/21/23 21:31:00 EDT, [facility]/pharmacy #[id number], 162.5, cm, 08/23/23 9:29:00 EDT, Height, 67.4, kg, 08/23/23 9:29:00 EDT, Dry Weight Start Date: 09/21/23 Status: Ordered Percocet 2.5 mg-325 mg oral tablet 1 tablet, By Mouth, Every 4 hours, PRN as needed for pain, can take 1-2 tablets as necessary, # 30 tablet, 0 Refills, Maintenance, 12/02/22 10:00:00 EDT, Tablet, [facility]/pharmacy #[id number], Partial fill uponpatient request if the [...] day, # 60 capsule, 5 Refills, Maintenance, 08/08/23 14:09:00 EDT, [id number], 163, cm, 07/22/23 15:48:00 EDT, Height, 65, kg, 07/22/23 15:48:00 EDT, Dry Weight Start Date: 08/08/23 Status: Ordered Spiriva Respimat 60 ACT 2.5 mcg/inh inhalation aerosol 2 puffs = 5 mcg, Inhalation, Daily, # 4 Gm, 3 Refills, Maintenance, 08/19/23 11:51:00 EDT, Aerosol,[id number], Partial fill upon patient request if the prescription is for a schedule II opioid drug., 163, cm, 08/19/23 11:28:00 EDT, Height, 65... Start Date: 08/19/23 Stop Date: 08/13/24 Status: Ordered Tears Naturale Forte preserved ophthalmic solution 1 drops, Eyes, Both, 2 times a day, PRN for dry eyes, # 15 mL, 0 Refills, Maintenance, 05/30/23 12:03:00 EST, Solution, [id number], Partial fill upon patient request if the prescription is for a schedule II opioid drug., 1 drops Eyes, Both 2 t... Start Date: 05/30/23 Status: Ordered Vitamin B12 500 mcg/mL injectable solution = 1,000 mcg, Intramuscular, Every 28 days, # 10 mL, 0 Refills, Maintenance, 09/14/23 8:35:00 EDT, Partial fill upon patient request if the prescription is for a schedule II opioid drug. Start Date: 09/14/23 Status: Ordered Problem List Condition Confirmation Course [...] Isl Back Pain Scale: 83on 01/20/17; initial [place]: 4 on 01/20/17 3SOAPP-R: 16 on 01/20/17 4Pain relevant problem list includes: See below Social History Social History Type Response Smoking Status Former smoker, quit more than 30 days ago entered on: 08/19/23 Sex Patient Care team information Care Team Personnel Name: Lakeisha Acevedo RN Position: [facility] RN Member Role: Primary Care Nurse Name: Lay Kaur RN Position: [facility] Nurse Member Role: Primary Care Nurse Name: Juliana Kumari RN Position: [facility] RN Member Role: Primary Care Nurse Name: Katelyn Dubois RN Position: [facility] SN RN Member Role: Primary Care Nurse Name: Jodee Alford RN Position: [facility] RN Member Role: Primary Care Nurse Name: Melissa Morris RN Position: [facility] RN Member Role: Primary Care Nurse Name: Lemuel Day RN Position: [facility] RN Member Role: Primary Care Nurse Name: Curtis Shoemaker RN Position: [facility] AMB Nurse Member Role: Primary Care Nurse Name: Gala Rae NP Position: [facility] PCO Associate Professional Member Role: Primary Care Nurse Address: Address: [address] [place] [address]- Name: Kavya Cantu RN Position: [facility] RN Member Role: Primary Care Nurse Name: Xiomara Duran RN Position: [facility] OB RN Member Role: Primary Care Nurse Name: Jane Oden MD Position: [facility] Physician - Primary Care Member Role: PCP Address: Address: [address] [place] [address]- Name: Tatiana Mcduffie RN Position: [facility] NAJMA Office Staff Member Role: Primary Care Nurse Name: Cheryle Garcia RN Position: [facility] RN Member Role: Primary Care Nurse Care Team Related Persons Name: LISETTECARLOS MARTI Address: home [address] [place] [address] Name: MELANIE VERGARA Address: home [address] [place] [address]
--- OUTSIDE RECORDS SUMMARY | 2023-11-30 06:36 | XMS_ITS | Continuity of Care Document ---
Author Organization [facility] Address [address] [place] [address]- Care Team Providers Care Tie Binder Name Role Phone Jane Oden MD Primary Care Physician Encounter [facility] Date(s): 12/20/22 - 04/14/23 [facility] [address] [place] [address]- Attending Physician: Lencho Canas MD Admitting Physician: Lencho Canas MD Referring Physician: Jane Oden MD Allergies, Adverse Reactions, Alerts Substance Reaction [...] toxoids (DT) 04/11/99 Given 1Result Comment: [03/28/2017] [id number] 2Admin Note: VIS...05/04/2011 3Admin Note: VIS...05/04/2011 4Admin Note: [facility] 5Admin Note: [facility] Medications Albuterol (Eqv-ProAir HFA) 90 mcg/inh inhalation aerosol 2 puffs, Inhalation, Every 6 hours, # 8.5 each, 2 Refills, Maintenance, 02/14/23 3:52:00 EST, [facility]/pharmacy #[id number], 25, 2 puffs Inhalation Every 6 hours, 163, cm, 01/11/23 13:20:00 EDT, Height, 73, kg,01/05/23 1:41:00 EDT, Dry Weight Start Date: 02/14/23 Status: Ordered Albuterol (Eqv-ProAir HFA) 90 mcg/inh inhalation aerosol See Instructions, TAKE 2 PUFFS BY MOUTH EVERY 6 HOURS, # 8.5 each, 5 Refills, Maintenance, 04/08/2312:45:00 EST, [facility], 25, TAKE 2 PUFFS BY MOUTH EVERY 6 HOURS, 163, cm, 01/11/23 13:20:00 EDT, Height, 73, kg, 01/05/23 1:41:00 EDT, Dry Weight Start Date: 04/08/23 Status: Ordered atorvastatin 20 mg oral tablet 1 tablet = 20 mg, By Mouth, Daily, # 90 tablet, 1 Refills, Maintenance, 01/04/23 9:13:00 EDT, Tablet, [facility]/pharmacy #[id number], Partial fill upon patient request if the prescription is for a schedule II opioid drug., 163, cm, 12/20/22 7:59:00 EDT, Height, 7... Start Date: 01/04/23 Stop Date: 07/03/23 Status: Ordered FLUoxetine 20 mg oral capsule 1, capsule, By Mouth, Daily, # 90 capsule, Refills 1, Maintenance, 01/07/23 15:04:00 EDT, Route to Pharmacy Electronically, [facility], 163, cm, 01/05/23 1:41:00 EDT, Height, 73, kg, 01/05/23 1:41:00 EDT, Dry Weight Start Date: 01/07/23 Status: Ordered Golytely - oral powder for reconstitution 240 mL, By Mouth, Every 10 minutes, # 1 each, 0 Refills, Maintenance, 12/02/22 8:36:00 EDT, REC Powder, [facility]/pharmacy #[id number], Partial fill upon patient request if the prescription is for a schedule II opioid drug., 240 mL By Mouth Every 10 minutes, 165,... Start Date: 12/02/22 Status: Ordered lisinopril 5 mg oral tablet 5 mg, 1, tablet, By Mouth, Daily, # 90 tablet, Refills 1, Tot. Refills 1, Maintenance, 01/04/23 9:13:00 EDT, Route to Pharmacy Electronically, [facility]/pharmacy #[id number], Partial fill upon patient request ifthe prescription is for a schedule II opioid drug.,... Start Date: 01/04/23 Stop Date: 07/03/23 Status: Ordered omeprazole 40 mg oral enteric coated capsule See Instructions, TAKE 1 CAPSULE BY MOUTH EVERY DAY, # 90 capsule, 0 Refills, Maintenance, 04/08/2312:45:00 EST, [facility], 163, cm, 01/11/23 13:20:00 EDT, Height, 73, kg, 01/05/23 1:41:00 EDT, Dry Weight Start Date: 04/08/23 Status: Ordered omeprazole 40 mg oral enteric coated capsule 1 capsule, By Mouth, Daily, # 90 capsule, 0 Refills, Maintenance, 03/16/23 10:33:00 EST, [facility]/pharmacy #[id number], 163, cm, 01/11/23 13:20:00 EDT, Height, 73, kg, 01/05/23 1:41:00 EDT, Dry Weight Start Date: 03/16/23 Stop Date: 06/14/23 Status: Ordered ondansetron 4 mg oral tablet, disintegrating 1 tablet, By Mouth, 3 times a day, PRN NEEDED FOR NAUSEA AND VOMITING, # 20 tablet, 1 Refills, Maintenance, 04/07/23 13:20:00 EST, [facility], 163, cm, 01/11/23 13:20:00 EDT, Height, 73, kg, 01/05/23 1:41:00 EDT, Dry Weight Start Date: 04/07/23 Status: Ordered ondansetron 4 mg oral tablet, disintegrating See Instructions, TAKE 1 TABLET BY MOUTH 3 TIMES A DAY NEEDED FOR NAUSEA/VOMITING, # 20 tablet, 1 Refills, Maintenance, 04/08/23 12:46:00 EST, [facility], 163, cm, 01/11/23 13:20:00 EDT, Height, 73, kg, 01/05/23 1:41:00 EDT, Dry Weight Start Date: 04/08/23 Status: Ordered Percocet 2.5 mg-325 mg oral [...] capsule, 4 Refills, Maintenance, 03/23/23 11:47:00 EST, [facility] #[id number], 163, cm, 01/11/23 13:20:00 EDT, Height, 73, kg, 01/05/23 1:41:00 EDT, DryWeight Start Date: 03/23/23 Status: Ordered Problem List Condition Confirmation Course [...] 72% ( crippled ) on 01/20/17; initial [place] Back Pain Scale: 83on 01/20/17; initial [place]: 4 on 01/20/17 3SOAPP-R: 16 on 01/20/17 4Pain relevant problem list includes: See below Social History Social History Type Response Smoking Status Former smoker, quit more than 30 days ago entered on: 11/05/22 Sex Patient Care team information Care Team Personnel Name: Lakeisha Acevedo RN Position: [facility] RN Member Role: Primary Care Nurse Name: Lay Kaur RN Position: [facility] AMB Nurse Member Role: Primary Care Nurse Name: Juliana Kumari RN Position: [facility] RN Member Role: Primary Care Nurse Name: Katelyn Dubois RN Position: [facility] SN RN Member Role: Primary Care Nurse Name: Jodee Alford RN Position: [facility] RN Member Role: Primary Care Nurse Name: Melissa Morris RN Position: [facility] RN Member Role: Primary Care Nurse Name: Lemuel Day RN Position: [facility] RN Member Role: Primary Care Nurse Name: Curtis Shoemaker RN Position: [facility] AMB Nurse Member Role: Primary Care Nurse Name: Gala Rae NP Position: [facility] PCO Associate Professional Member Role: Primary Care Nurse Address: Address: [address] [place] [address]- Name: Kavya Cantu RN Position: [facility] RN Member Role: Primary Care Nurse Name: Xiomara Duran RN Position: [facility] OB RN Member Role: Primary Care Nurse Name: Jane Oden MD Position: [facility] Physician - Primary Care Member Role: PCP Address: Address: [address] [place] [address] [place] [address]- [place] Name: Tatiana Mcduffie RN Position: [facility] SN RN Member Role: Primary Care Nurse Care Team Related Persons Name: CARLOS VILLALTA Address: home [address] [place] [address] Name: MELANIE VERGARA Address: home [address] [place] [address]
--- OUTSIDE RECORDS SUMMARY | 2023-11-30 06:36 | XMS_ITS | Continuity of Care Document ---
Author Organization [facility] ter Address [address] [place] [address]- Care Team Providers Care Employee Relations Advisor Name Role Phone Cecille CHANCE, Jane Primary Care Physician [phone] Encounter [facility] Date(s): 06/24/21 - 06/25/[address] [id number] Discharge Disposition: A-D/C Home Attending Physician: Munira Segura MD Admitting Physician: Reji Domínguez DO Referring Physician: Not on Staff, Referring MD [...] toxoids (DT) 04/11/99 Given 1Result Comment: [03/28/2017] 10424-539-64 2Admin Note: VIS...05/04/2011 3Admin Note: VIS...05/04/2011 4Admin Note: [facility] 5Admin Note: [facility] Medications B 100 Complex By Mouth, Daily, 0 Refills, Maintenance, 01/02/21 15:10:00 EDT, Partial fill upon patient request if the prescription is for a schedule II opioid drug. Start Date: 01/02/21 Status: Ordered MorPHINE Inj 2 mg, Injection, IV Push Slowly, Every 6 hours, PRN for Chest Pain, Routine, 06/24/21 23:12:00 EDT Start Date: 06/24/21 Stop Date: 06/26/21 Status: Discontinued Nitroglycerin 0.4mg Sublingual Tablet 0.4 mg, Tablet, Sublingual, Every 5 minutes for 3 doses/times, PRN for Chest Pain, Routine, 06/24/21 12:59:00 EDT, Stop date Limited # of times Start Date: 06/24/21 Stop Date: 06/25/21 Status: Completed Problem List Condition Effective Dates Status Health [...] 72% ( crippled ) on 01/20/17; initial [place] Back Pain Scale: 83on 01/20/17; initial [place]: 4 on 01/20/17 2SOAPP-R: 16 on 01/20/17 3Pain relevant problem list includes: See below Results Radiology Reports * Exam Date Time Procedure Performing Provider Status 06/24/21 1:02 PM Chest 2 Views Frontal and Lat Yandel , Анна; Auth (Verified) Notes: (Chest 2 Views Frontal and Lat) Reason For Exam: Chest Pain;Other: RESULT: Chest 2 Views Frontal and Lat Chest 2 Views Frontal and Lat Reason: Other:; Chest Pain; Clinical Question(s): Other: COMPARISON: 06/30/2020. FINDINGS: LINES AND TUBES: None. LUNGS AND PLEURA: Clear lungs. Normal pulmonary vascularity. No pleural effusion. No pneumothorax. HEART, MEDIASTINUM AND SAMM: Heart is normal in size. Normal upper mediastinal and hilar contour. BONES AND SOFT TISSUES: No acute abnormality. Pain stimulator overlying the lower back midline in location appearing. IMPRESSION: No acute cardiopulmonary process is seen. WSN: [id number] Ordering Physician: Teresa Smith Dictated By: Bryan Alvarez MD, V Dictated Date/Time: 06/24/21 1:04 pm Reviewed By: Bryan Alvarez MD, V Signed By: Bryan Alvarez MD, V Signed Date/Time: 06/24/21 1:04 pm Transcribed By: PAYTON Transcribed Date/Time: 06/24/21 1:03 pm Vital Signs Most recent to oldest [Reference Range]: 1 2 3 Weight 73.9 kg (06/24/21 8:47 PM) Oxygen Saturation [94-100 %] 100 % (06/25/21 3:58 PM) 100 % (06/25/21 10:35 AM) 100 % (06/25/21 10:08 AM) Pulse Rate [55-90 bpm] 61 bpm (06/25/21 3:58 PM) 62 bpm (06/25/21 10:35 AM) 73 bpm (06/25/21 10:08 AM) Blood Pressure [90-138/55-84 mm Hg] 127/77mm Hg (06/25/21 3:58 PM) 129/69mm Hg (06/25/21 10:35 AM) 119/82mm Hg (06/25/21 10:09 AM) Respiratory Rate [16-30 br/min] 18 br/min (06/25/21 3:58 PM) 18 br/min (06/25/21 11:36 AM) 18 br/min (06/25/21 10:35 AM) Temperature [96.8-100.4 DegF] 98.6 DegF (06/25/21 3:58 PM) 98.6 DegF (06/25/21 10:35 AM) 97.6 DegF (06/25/21 10:08 AM) Mode of Delivery (Oxygen) Room air (06/25/21 3:58 PM) Room air (06/25/21 10:08 AM) Room air (06/25/21 6:55 AM) Blood pressure sites Arm, left (06/25/21 3:58 PM) Arm, right (06/25/21 10:35 AM) Arm, left (06/25/21 10:08 AM) Temperature Route Oral (06/25/21 3:58 PM) Oral (06/25/21 10:35 AM) Oral (06/25/21 10:08 AM) Weight Obtained Via Bed scale (06/24/21 8:47 PM) Social History Social History Type Response Smoking Status Smoker, current stat us unknown entered on: 02/21/20 Sex
--- OUTSIDE RECORDS SUMMARY | 2023-11-30 06:36 | XMS_ITS | Continuity of Care Document ---
Author Organization [facility] ter Address [address] [place] [address]- Care Team Providers Care Food Assembler [employer] Name Role Phone Jane Oden MD Primary Care Physician [phone] Encounter [facility] Date(s): 07/04/20 - 07/05/[address] [address]- Discharge Disposition: A-D/C Home Attending Physician: Frannie Bojorquez DO Admitting Physician: Frannie Bojorquez DO Referring Physician: Not on Staff, Referring MD Allergies, Adverse Reactions, Alerts Substance Reaction Severity Status codeine itch Active Contrast Dye SOB,hives Active NSAIDs bleeding Active Immunizations Given and Recorded Vaccine Date Status Refusal Reason influenza virus vaccine, inactivated 02/06/20 Give n [...] toxoids (DT) 04/11/99 Given 1Result Comment: [03/28/2017] 49039-633-57 2Admin Note: VIS...05/04/2011 3Admin Note: VIS...05/04/2011 4Admin Note: [facility] 5Admin Note: [facility] Medications Augmentin 875 mg-125 mg oral tablet 1 tablet, By Mouth, Every 8 hours, for 10 days, # 30 tablet, 0 Refills, Acute 07/10/20 3:10:00 EDT,06/30/20 3:10:00 EDT, Tablet, [facility]/pharmacy #[id number], Partial fill upon patient request if the prescription is for a schedule II opioid drug., 168, cm, ... Start Date: 06/30/20 Stop Date: 07/10/20 Status: Ordered MorPHINE Inj 4 mg, Injection, IV Push Slowly, Every 5 minutes for 3 doses/times, PRN for Pain , Moderate, and SBP greater than 100, Routine, 07/05/20 2:58:00 EDT, Stop date Limited # of times Start Date: 07/05/20 Stop Date: 07/05/20 Status: Discontinued Problem List Condition Effective Dates Status Health [...] 72% ( crippled ) on 01/20/17; initial [place] Back Pain Scale: 83on 01/20/17; initial [place]: 4 on 01/20/17 2SOAPP-R: 16 on 01/20/17 3Pain relevant problem list includes: See below Vital Signs Most recent to oldest [Reference Range]: 1 2 3 Weight 68 kg (07/04/20 3:18 PM) Oxygen Saturation [94-100 %] 99 % (07/05/20 7:29 AM) 100 % (07/05/20 5:52 AM) 98 % (07/05/20 3:25 AM) Pulse Rate [55-90 bpm] 61 bpm (07/05/20 7:29 AM) 63 bpm (07/05/20 5:52 AM) 58 bpm (07/05/20 3:25 AM) Blood Pressure [90-138/55-84 mm Hg] 135/75mm Hg (07/05/20 7:29 AM) 149/85mm Hg *H* (07/05/20 5:52 AM) 166/94mm Hg *H* (07/05/20 4:00 AM) Respiratory Rate [16-30 br/min] 16 br/min (07/05/20 7:29 AM) 15 br/min *L* (07/05/20 5:53 AM) 15 br/min *L* (07/05/20 5:52 AM) Temperature [96.8-100.4 DegF] 98.6 DegF (07/05/20 7:29 AM) 98.3 DegF (07/05/20 12:59 AM) 98.5 DegF (07/04/20 9:48 PM) Mode of Delivery (Oxygen) Room air (07/05/20 7:29 AM) Room air (07/05/20 5:52 AM) Room air (07/05/20 3:25 AM) Blood pressure sites Arm, right (07/05/20 7:29 AM) Arm, left (07/05/20 3:25 AM) Arm, right (07/05/20 12:59 AM) Temperature Route Oral (07/05/20 7:29 AM) Oral (07/05/20 12:59 AM) Oral (07/04/20 9:48 PM) Dry Weight 68 kg (07/04/20 3:18 PM) Social History Social History Type Response Smoking Status Smoker, current stat us unknown entered on: 02/21/20 Sex
--- OUTSIDE RECORDS SUMMARY | 2023-11-30 06:36 | XMS_ITS | Continuity of Care Document ---
Author Organization [facility] ter Address [address] [place] [address]- Care Team Providers Care Sleep Tech Name Role Phone Jane Oden MD Primary Care Physician [facility]counter [facility] Date(s): 11/17/20 - 12/26/[address] [id number] Attending Physician: Jane Oden MD Admitting Physician: Jane Oden MD Referring Physician: Jane Oden MD Allergies, [...] toxoids (DT) 04/11/99 Given 1Result Comment: [03/28/2017] [id number] 2Admin Note: VIS...05/04/2011 3Admin Note: VIS...05/04/2011 4Admin Note: [facility] 5Admin Note: [facility] Problem List Condition Effective Dates Status Health [...] Isl Back Pain Scale: 83on 01/20/17; initial [place]: 4 on 01/20/17 2SOAPP-R: 16 on 01/20/17 3Pain relevant problem list includes: See below Social History Social History Type Response Smoking Status Smoker, current stat us unknown entered on: 02/21/20 Sex
--- OUTSIDE RECORDS SUMMARY | 2023-11-30 06:36 | XMS_ITS | Continuity of Care Document ---
Author Organization [facility] ter Address [address] [place] [address]- Care Team Providers Care Lithographic Etcher Name Role Phone Jane Oden MD Primary Care Physician Encounter [facility] Date(s): 11/03/22 - 11/03/[address] [address]- Discharge Disposition: A-D/C Home Attending Physician: Padmini Carrizales MD Admitting Physician: Padmini Carrizales MD Referring Physician: Not on Staff, Referring [...] toxoids (DT) 04/11/99 Given 1Result Comment: [03/28/2017] [id number] 2Admin Note: VIS...05/04/2011 3Admin Note: VIS...05/04/2011 4Admin Note: [facility] 5Admin Note: [facility] Medications Albuterol (Eqv-ProAir HFA) 90 mcg/inh inhalation aerosol 2 puffs, Inhalation, Every 6 hours, # 8.5 each, 5 Refills, Maintenance, 08/03/22 15:13:00 EDT, [facility]/pharmacy #[id number], 25, 2 puffs Inhalation Every 6 hours, 163, cm, 07/01/22 9:42:00 EDT, Height, 75, kg,07/01/22 9:42:00 EDT, Dry Weight Start Date: 08/03/22 Status: Ordered atorvastatin 40 mg oral tablet 1 tablet, By Mouth, Daily, # 90 tablet, 1 Refills, Maintenance, 03/31/22 9:39:00 EST, [id number], 164, cm, 03/02/22 12:51:00 EST, Height, 71.7, kg, 01/12/21 14:37:00 EDT, Dry Weight Start Date: 03/31/22 Status: Ordered B 100 Complex By Mouth, Daily, 0 Refills, Maintenance, 01/02/21 15:10:00 EDT, Partial fill upon patient request if the prescription is for a schedule II opioid drug. Start Date: 01/02/21 Status: Ordered Dilaudid 2 mg oral tablet 1 tablet = 2 mg, By Mouth, Every 4 hours, PRN as needed for pain, # 8 tablet, 0 Refills, Acute 11/05/22 12:00:00 EDT, 11/03/22 13:21:00 EDT, Tablet, [id number], Partial fill upon patient request if the prescription is for a schedule II opioid... Start Date: 11/03/22 Stop Date: 11/05/22 Status: Ordered Dilaudid Inj 1 mg, Injection, IV Push Slowly, Every 15 minutes for 3 doses/times, PRN for Pain , Moderate, and SBP greater than 100, STAT, 11/03/22 8:33:00 EDT, Stop date Limited # of times Start Date: 11/03/22 Stop Date: 11/04/22 Status: Discontinued FLUoxetine 20 mg oral capsule 1, capsule, By Mouth, Daily, # 90 capsule, Refills 1, Maintenance, 07/26/22 14:00:00 EDT, Route to Pharmacy Electronically, [id number], 163, cm, 07/01/22 9:42:00 EDT, Height, 75, kg, 07/01/22 9:42:00 EDT, Dry Weight Start Date: 07/26/22 Status: Ordered lisinopril 2.5 mg oral tablet 1, tablet, By Mouth, Daily, # 90 tablet, Refills 0, Maintenance, 03/31/22 9:39:00 EST, Route to Pharmacy Electronically, [id number], 164, cm, 03/02/22 12:51:00 EST, Height, 71.7, kg, 01/12/21 14:37:00 EDT, Dry Weight Start Date: 03/31/22 Status: Ordered omeprazole 40 mg oral enteric coated capsule 1 capsule, By Mouth, Daily, # 30 capsule, 0 Refills, Maintenance, 10/21/22 7:45:00 EDT, [facility]/pharmacy #[id number], 163, cm, 07/01/22 9:42:00 EDT, Height, 75, kg, 07/01/22 9:42:00 EDT, Dry Weight Start Date: 10/21/22 Status: Ordered ondansetron 4 mg oral tablet, disintegrating 1 tablet = 4 mg, By Mouth, Every 8 hours, PRN Nausea & Vomiting, # 10 tablet, 0 Refills, Maintenance, 07/01/22 14:21:00 EDT, Tablet, [facility]/pharmacy #[id number], Partial fill upon patient request if the prescription is for a schedule II opioid drug., 163, cm,... Start Date: 07/01/22 Status: Ordered ondansetron 4 mg oral tablet, disintegrating 1 tablet = 4 mg, By Mouth, Every 6 hours, PRN as needed for nausea/vomiting, # 16 tablet, 0 Refills, Acute 11/08/22 12:00:00 EDT, 11/03/22 13:33:00 EDT, DIS Tablet, [id number], Partial fill upon patient request if the prescription is for a delia... Start Date: 11/03/22 Stop Date: 11/08/22 Status: Ordered pregabalin 300 mg oral capsule 1 capsule = 300 mg, By Mouth, 2 times a day, # 60 capsule, 0 Refills, Maintenance, 10/21/22 7:45:00EDT, [id number], 163, cm, 07/01/22 9:42:00 EDT, Height, 75, kg, 07/01/22 9:42:00 EDT, Dry Weight Start Date: 10/21/22 Status: Ordered Spiriva Respimat 1.25 mcg/inh inhalation aerosol 2 puffs, Inhalation, Daily, # 4 Gm, 3 Refills, Maintenance, 09/21/21 8:56:00 EDT, Aerosol, [id number], Partial fill upon patient request if the prescription is for a schedule II opioid drug.,164, cm, 09/21/21 8:55:00 EDT, Height, 71.7, kg, 10... Start Date: 09/21/21 Status: Ordered Problem List Condition Confirmation Course [...] [place] Back Pain Scale: 83on 01/20/17; initial [place]: 4 on 01/20/17 3SOAPP-R: 16 on 01/20/17 4Pain relevant problem list includes: See below Results Radiology Reports * Exam Date Time Procedure Performing Provider Status 11/03/22 10:[address] Abd/Pelvis W/ IV Contrast Only Lakeisha Irving; Auth (Verified) Notes: (CT Abd/Pelvis W/ IV Contrast Only) Reason For Exam: LLQ abdominal pain;Other: RESULT: CT Abd/Pelvis W/ IV Contrast Only CT Abd/Pelvis W/ IV Contrast Only Hx of Present Illness: from home via EMS with 4 days of worsening abd pain. hx of diverticulitis and states this feels the same. also reports BRBPR this morning during BM. Syncope x2 for EMS lasting 5-10 secs.; Reason: Other:; LLQ abdominal pain; Clinical Question(s): Diverticulitis; Order Comment: TECHNIQUE: Spiral CT through the abdomen and pelvis with IV contrast formatted in 3 planes. 100 cc of Omnipaque 300 was administered intravenously. This study was performed without oral contrast. Weight-based protocol using automatic tube modulation was used to optimize exposure parameters. CTDIvol Body: 15.40 mGy, DLP Body: 749 mGy*cm. COMPARISON: 07/01/2022. FINDINGS: Manager Roofing View Findings, Lines and Tubes: Left abdominal wall subcutaneous soft tissue spinal cord neurostimulator, with leads terminating at the level of the mid thoracic spine. Visualized Chest: Paraseptal emphysematous changes, otherwise, the lung bases are clear. No pleuraleffusion. The heart is normal in size. No pericardial effusion. Diaphragm: Normal. LIVER: Unremarkable. GALLBLADDER: No CT evidence of gallbladder pathology. BILE DUCTS: No intra or extra hepatic bile duct dilation. SPLEEN: Normal in size and attenuation. PANCREAS: Unremarkable. ADRENAL GLANDS: Unremarkable. KIDNEYS and URETERS: No calculi or hydronephrosis. No suspicious masses. BLADDER: Under distended. Mild bladder wall thickening and perivesicular soft tissue stranding is however suggested. REPRODUCTIVE ORGANS: Unremarkable. STOMACH, SMALL AND LARGE BOWEL: Small sliding hiatal hernia. Small duodenal diverticulum. Descending and sigmoid colon mucosal wall thickening likely due to underlying colitis, infectious versus inflammatory. The thickening could be accentuated by underdistention. Left-sided colonic diverticulosis, no inflammatory changes to suggest superimposed acute diverti culitis. There is no evidence of bowel obstruction. APPENDIX: Post appendectomy changes are suggested. PERITONEUM, OMENTUM AND MESENTERY: No ascites or pneumoperitoneum. No omental or mesenteric lesions. VASCULATURE: Moderate atherosclerotic vascular calcification. No aortic aneurysm. No evidence of venous thrombosis. LYMPH NODES: None enlarged. ABDOMINAL WALL: There is a left buttocks mechanical device and partially included intraspinal catheter. BONES: Postsurgical changes L4/5 and 5/1 levels with moderate degenerative changes L3/4 level asymmetric towards the right. IMPRESSION: Descending and sigmoid colon mucosal wall thickening likely due to underlying colitis, infectious versus inflammatory. Chronic sigmoid diverticulosis, no evidence of superimposed acute diverticulitis. WSN: [id number] Ordering Physician: Padmini Carrizales MD Dictated By: Clayton Zarate MD Dictated Date/Time: 11/03/22 10:51 a Reviewed By: Clayton Zarate MD Signed By: Clayton Zarate MD Signed Date/Time: 11/03/22 10:51 am Transcribed By: PAYTON Transcribed Date/Time: 11/03/22 10:15 am Vital Signs Most recent to oldest [Reference Range]: 1 2 3 Weight 75 kg (11/03/22 8:28 AM) Oxygen Saturation [94-100 %] 98 % (11/03/22 3:00 PM) 99 % (11/03/22 1:48 PM) 99 % (11/03/22 10:17 AM) Pulse Rate [55-90 bpm] 88 bpm (11/03/22 3:00 PM) 83 bpm (11/03/22 1:48 PM) 63 bpm (11/03/22 10:17 AM) Blood Pressure [90-138/55-84 mm Hg] 139/84mm Hg *H* (11/03/22 3:00 PM) 121/93mm Hg (11/03/22 1:48 PM) 144/73mm Hg *H* (11/03/22 10:17 AM) Respiratory Rate [16-30 br/min] 18 br/min (11/03/22 3:00 PM) 16 br/min (11/03/22 1:48 PM) 14 br/min *L* (11/03/22 10:22 AM) Temperature [96.8-100.4 DegF] 98.7 DegF (11/03/22 1:48 PM) 99.6 DegF (11/03/22 8:28 AM) Mode of Delivery (Oxygen) Room air (11/03/22 3:00 PM) Room air (11/03/22 1:48 PM) Room air (11/03/22 10:17 AM) Temperature Route Oral (11/03/22 1:48 PM) Rectal (11/03/22 8:28 AM) Dry Weight 75 kg (11/03/22 8:28 AM) Social History Social History Type Response Smoking Status Smoker, current stat us unknown entered on: 02/21/20 Sex EKG study * Event Display: ECG 12-Lead Authored Date: Please click on pdf link to open report * Event Display: ECG 12-Lead Authored Date: [id number] Ventricular Rate: 71 BPM Atrial Rate: 71 BPM P-R Interval: 104 ms QRS Duration: 72 ms Q-T Interval: 386 ms QTC Calculation(Bazett): 419 ms P [place]: 42 degrees R [place]: 24 degrees T [place]: 42 degrees Sinus rhythm with short MD Otherwise normal ECG When compared with ECG of 01-JUL-2022 08:39, No significant change was found Confirmed by KATHIE CARMONA MD ([id number]) on 11/03/2022 11:33:14 AM [place]: KATHIE CARMONA MD * Event Display: EKG Authored Date: [id number] Patient Care team information Care Team Personnel Name: Lakeisha Acevedo RN Position: [facility] RN Member Role: Primary Care Nurse Name: Lay Kaur RN Position: [facility] AMB Nurse Member Role: Primary Care Nurse Name: Katelyn Dubois RN Position: [facility] SN RN Member Role: Primary Care Nurse Name: Melissa Morris RN Position: [facility] RN Member Role: Primary Care Nurse Name: Lemuel Day RN Position: [facility] RN Member Role: Primary Care Nurse Name: Curtis Shoemaker RN Position: [facility] AMB Nurse Member Role: Primary Care Nurse Name: Gala Rae NP Position: Reference Physician Member Role: Primary Care Nurse Address: Address: [address] [place] [address]- Name: Xiomara Duran RN Position: [facility] OB RN Member Role: Primary Care Nurse Name: Jane Oden MD Position: [facility] Physician - Primary Care Member Role: PCP Address: Address: [address] [place] [address] [place] [address]- Name: Tatiana Mcduffie RN Position: [facility] SN RN Member Role: Primary Care Nurse Name: Jodee Sanchez RN Position: [facility] ED RN W/OE and Tasks Member Role: Patient Care Provider Name: JasePatsy dennis Position: [facility] ED TA [facility] Name: Padmini Carrizales MD Position: [facility] ED Medicine MD Member Role: Admitting Physician Address: Address: [address] [place] [address]- Care Team Related Persons Name: CARLOS VILLALTA Address: home [address] [place] [address] Name: MELANIE VERGARA Address: home [address] [place] [address]
--- OUTSIDE RECORDS SUMMARY | 2023-11-30 06:36 | XMS_ITS | Continuity of Care Document ---
Author Organization [facility] Address [address] [place] [address]- Care Team Providers Care Insurance Account Specialist Name Role Phone Jane Oden MD Primary Care Physician Encounter [facility] Date(s): 12/10/22 - 01/09/23 [facility] [address] [place] [address]- [place] Allergies, Adverse Reactions, Alerts Substance Reaction Severity [...] toxoids (DT) 04/11/99 Given 1Result Comment: [03/28/2017] [id number] 2Admin Note: VIS...05/04/2011 3Admin Note: VIS...05/04/2011 4Admin Note: [facility] 5Admin Note: [facility] Medications Albuterol (Eqv-ProAir HFA) 90 mcg/inh inhalation aerosol 2 puffs, Inhalation, Every 6 hours, # 8.5 each, 5 Refills, Maintenance, 08/03/22 15:13:00 EDT, [facility]/pharmacy #[id number], 25, 2 puffs Inhalation Every 6 hours, 163, cm, 07/01/22 9:42:00 EDT, Height, 75, kg,07/01/22 9:42:00 EDT, Dry Weight Start Date: 08/03/22 Status: Ordered atorvastatin 20 mg oral tablet 1 tablet = 20 mg, By Mouth, Daily, # 90 tablet, 1 Refills, Maintenance, 01/04/23 9:13:00 EDT, Tablet, [facility]/pharmacy #[id number], Partial fill upon patient request if the prescription is for a schedule II opioid drug., 163, cm, 12/20/22 7:59:00 EDT, Height, 7... Start Date: 01/04/23 Stop Date: 07/03/23 Status: Ordered doxycycline hyclate 100 mg oral tablet 1 tablet = 100 mg, By Mouth, Every 12 hours, for 7 days, # 14 tablet, 0 Refills, Acute 01/13/23 16:50:00 EDT, 01/06/23 16:50:00 EDT, Tablet, [facility]/pharmacy #[id number], Partial fill upon patient request if the prescription is for a schedule II opioid drug., 1... Start Date: 01/06/23 Stop Date: 01/13/23 Status: Ordered doxycycline monohydrate 100 mg oral capsule 1 capsule = 100 mg, By Mouth, 2 times a day, for 10 days, # 20 capsule, 0 Refills, Acute 01/15/23 11:31:00 EDT, 01/05/23 11:31:00 EDT, Capsule, [id number], Partial fill upon patient request if the prescription is for a schedule II opioid drug.... Start Date: 01/05/23 Stop Date: 01/15/23 Status: Ordered FLUoxetine 20 mg oral capsule 1, capsule, By Mouth, Daily, # 90 capsule, Refills 1, Maintenance, 01/07/23 15:04:00 EDT, Route to Pharmacy Electronically, [id number], 163, cm, 01/05/23 1:41:00 EDT, Height, 73, kg, 01/05/23 1:41:00 EDT, Dry Weight Start Date: 01/07/23 Status: Ordered Golytely - oral powder for reconstitution 240 mL, By Mouth, Every 10 minutes, # 1 each, 0 Refills, Maintenance, 12/02/22 8:36:00 EDT, REC Powder, [facility]/pharmacy #[id number], Partial fill upon patient request if the prescription is for a schedule II opioid drug., 240 mL By Mouth Every 10 minutes, 165,... Start Date: 12/02/22 Status: Ordered lisinopril 5 mg oral tablet 5 mg, 1, tablet, By Mouth, Daily, # 90 tablet, Refills 1, Tot. Refills 1, Maintenance, 01/04/23 9:13:00 EDT, Route to Pharmacy Electronically, [facility]/pharmacy #[id number], Partial fill upon patient request ifthe prescription is for a schedule II opioid drug.,... Start Date: 01/04/23 Stop Date: 07/03/23 Status: Ordered omeprazole 40 mg oral enteric coated capsule 1 capsule, By Mouth, Daily, # 90 capsule, 0 Refills, Maintenance, 12/16/22 10:33:00 EDT, [facility]/pharmacy #[id number], 163, cm, 12/09/22 8:10:00 EDT, Height, 71.5, kg, 12/09/22 8:10:00 EDT, Dry Weight Start Date: 12/16/22 Stop Date: 03/16/23 Status: Ordered ondansetron 4 mg oral tablet, disintegrating 1 tablet, By Mouth, 3 times a day, PRN NEEDED FOR NAUSEA/VOMITING, # 20 tablet, 1 Refills, Maintenance, 01/07/23 16:18:00 EDT, [id number], 163, cm, 01/05/23 1:41:00 EDT, Height, 73, kg, 01/05/23 1:41:00 EDT, Dry Weight Start Date: 01/07/23 Status: Ordered oxyCODONE 5 mg oral tablet 5 mg, 1, tablet, By Mouth, 2 times a day, PRN, take less, watch out for sedation, # 10 tablet, Refills 0, Tot. Refills 0, Acute 01/16/23 16:42:00 EDT, as needed for pain, 11/16/22 16:41:00 EDT, Routeto Pharmacy Electronically, [facility]/pharmacy #[id number], Par... Start Date: 11/16/22 Stop Date: 01/16/23 Status: Ordered Percocet 2.5 mg-325 mg oral tablet 1 tablet, By Mouth, Every 4 hours, PRN as needed for pain, can take 1-2 tablets as necessary, # 30 tablet, 0 Refills, Maintenance, 12/02/22 10:00:00 EDT, Tablet, [facility]/pharmacy #[id number], Partial fill uponpatient request if the prescription is for a schedu... Start Date: 12/02/22 Status: Ordered predniSONE 10 mg oral tablet See Instructions, 2 tabs/d for 2d then 1 tab/d for 4d then stop, # 8 tablet, 0 Refills, Maintenance, 01/06/23 16:51:00 EDT, Tablet, [facility]/pharmacy #[id number], Partial fill upon patient request if [...] opioid drug. Start Date: 11/06/22 Status: Ordered pregabalin 300 mg oral capsule See Instructions, TAKE 1 CAPSULE BY MOUTH TWICE A DAY, # 60 capsule, 1 Refills, Maintenance, 12/01/22 17:59:00 EDT, [facility]/pharmacy #[id number], 165, cm, 11/12/22 8:53:00 EDT, Height, 75, kg, 11/05/22 4:28:00EDT, Dry Weight Start Date: 12/01/22 Status: Ordered Problem List Condition Confirmation Course [...] 72% ( crippled ) on 01/20/17; initial [place] Back Pain Scale: 83on 01/20/17; initial [place]: 4 on 01/20/17 3SOAPP-R: 16 on 01/20/17 4Pain relevant problem list includes: See below Social History Social History Type Response Smoking Status Former smoker, quit more than 30 days ago entered on: 11/05/22 Sex Patient Care team information Care Team Personnel Name: Lakeisha Acevedo RN Position: [facility] RN Member Role: Primary Care Nurse Name: Lay Kaur RN Position: [facility] AMB Nurse Member Role: Primary Care Nurse Name: Juliana Kumari RN Position: [facility] RN Member Role: Primary Care Nurse Name: Katelyn Dubois RN Position: [facility] SN RN Member Role: Primary Care Nurse Name: Jodee Alford RN Position: [facility] RN Member Role: Primary Care Nurse Name: Melissa Morris RN Position: [facility] RN Member Role: Primary Care Nurse Name: Lemuel Day RN Position: [facility] RN Member Role: Primary Care Nurse Name: Curtis Shoemaker RN Position: [facility] AMB Nurse Member Role: Primary Care Nurse Name: Gala Rae NP Position: Reference Physician Member Role: Primary Care Nurse Address: Address: [address] [place] [address]- Name: Kavya Cantu RN Position: [facility] RN Member Role: Primary Care Nurse Name: Xiomara Duran RN Position: [facility] OB RN Member Role: Primary Care Nurse Name: Jane Oden MD Position: [facility] Physician - Primary Care Member Role: PCP Address: Address: [address] [place] [address] [place] [address]- Name: Tatiana Mcduffie RN Position: [facility] SN RN Member Role: Primary Care Nurse Care Team Related Persons Name: CARLOS VILLALTA Address: home [address] [place] [address] Name: MELANIE VERGARA Address: [address] [place] [address]
--- OUTSIDE RECORDS SUMMARY | 2023-11-30 06:36 | XMS_ITS | Continuity of Care Document ---
Author Organization [facility] Address [address] [place] [address]- Care Team Providers Care Slps Name Role Phone Jane Oden MD Primary Care Physician [phone] Encounter [facility] Date(s): 02/25/23 - 03/27/23 [facility] [address] [place] [id number] Attending Physician: Jannette Turcios Admitting Physician: Jannette Turcios Referring Physician: Jannette Turcios Allergies, Adverse Reactions, Alerts Substance Reaction Severity [...] toxoids (DT) 04/11/99 Given 1Result Comment: [03/28/2017] [id number] 2Admin Note: VIS...05/04/2011 3Admin Note: VIS...05/04/2011 4Admin Note: [facility] 5Admin Note: [facility] Medications Albuterol (Eqv-ProAir HFA) 90 mcg/inh inhalation aerosol 2 puffs, Inhalation, Every 6 hours, # 8.5 each, 2 Refills, Maintenance, 02/14/23 3:52:00 EST, [facility]/pharmacy #[id number], 25, 2 puffs Inhalation Every 6 hours, 163, cm, 01/11/23 13:20:00 EDT, Height, 73, kg,01/05/23 1:41:00 EDT, Dry Weight Start Date: 02/14/23 Status: Ordered atorvastatin 20 mg oral tablet 1 tablet = 20 mg, By Mouth, Daily, # 90 tablet, 1 Refills, Maintenance, 01/04/23 9:13:00 EDT, Tablet, [facility]/pharmacy #[id number], Partial fill upon patient request if the prescription is for a schedule II opioid drug., 163, cm, 12/20/22 7:59:00 EDT, Height, 7... Start Date: 01/04/23 Stop Date: 07/03/23 Status: Ordered FLUoxetine 20 mg oral capsule 1, capsule, By Mouth, Daily, # 90 capsule, Refills 1, Maintenance, 01/07/23 15:04:00 EDT, Route to Pharmacy Electronically, [id number], 163, cm, 01/05/23 1:41:00 EDT, Height, 73, kg, 01/05/23 1:41:00 EDT, Dry Weight Start Date: 01/07/23 Status: Ordered Golytely - oral powder for reconstitution 240 mL, By Mouth, Every 10 minutes, # 1 each, 0 Refills, Maintenance, 12/02/22 8:36:00 EDT, REC Powder, [facility]/pharmacy #[id number], Partial fill upon patient request if the prescription is for a schedule II opioid drug., 240 mL By Mouth Every 10 minutes, 165,... Start Date: 12/02/22 Status: Ordered lisinopril 5 mg oral tablet 5 mg, 1, tablet, By Mouth, Daily, # 90 tablet, Refills 1, Tot. Refills 1, Maintenance, 01/04/23 9:13:00 EDT, Route to Pharmacy Electronically, [facility]/pharmacy #[id number], Partial fill upon patient request ifthe prescription is for a schedule II opioid drug.,... Start Date: 01/04/23 Stop Date: 07/03/23 Status: Ordered omeprazole 40 mg oral enteric coated capsule 1 capsule, By Mouth, Daily, # 90 capsule, 0 Refills, Maintenance, 03/16/23 10:33:00 EST, [facility]/pharmacy #[id number], 163, cm, 01/11/23 13:20:00 EDT, Height, 73, kg, 01/05/23 1:41:00 EDT, Dry Weight Start Date: 03/16/23 Stop Date: 06/14/23 Status: Ordered ondansetron 4 mg oral tablet, disintegrating 1 tablet, By Mouth, 3 times a day, PRN NEEDED FOR NAUSEA/VOMITING, # 20 tablet, 1 Refills, Maintenance, 03/08/23 15:13:00 EST, [facility]/pharmacy #[id number], 163, cm, 01/11/23 13:20:00 EDT, Height, 73, kg, 01/05/23 1:41:00 EDT, Dry Weight Start Date: 03/08/23 Status: Ordered Percocet 2.5 mg-325 mg oral tablet 1 tablet, By Mouth, Every 4 hours, PRN as needed for pain, can take 1-2 tablets as necessary, # 30 tablet, 0 Refills, Maintenance, 12/02/22 10:00:00 EDT, Tablet, [facility]/pharmacy #[id number], Partial fill uponpatient request if the prescription is for a schedu... Start Date: 12/02/22 Status: Ordered predniSONE 10 mg oral tablet See Instructions, 2 tabs/d for 2d then 1 tab/d for 4d then stop, # 8 tablet, 0 Refills, Maintenance, 01/06/23 16:51:00 EDT, Tablet, [facility]/pharmacy #[id number], Partial fill upon patient request [...] [place] Back Pain Scale: 83on 01/20/17; initial [place]: 4 on 01/20/17 3SOAPP-R: 16 on 01/20/17 4Pain relevant problem list includes: See below Social History Social History Type Response Smoking Status Former smoker, quit more than 30 days ago entered on: 11/05/22 Sex Patient Care team information Care Team Personnel Name: Lakeisha Acevedo RN Position: [facility] RN Member Role: Primary Care Nurse Name: Lay Kaur RN Position: [facility] Nurse Member Role: Primary Care Nurse Name: Juliana Kumari RN Position: [facility] RN Member Role: Primary Care Nurse Name: Katelyn Dubois RN Position: [facility] RN Member Role: Primary Care Nurse Name: Jodee Alford RN Position: [facility] RN Member Role: Primary Care Nurse Name: Melissa Morris RN Position: [facility] RN Member Role: Primary Care Nurse Name: Lemuel Day RN Position: [facility] RN Member Role: Primary Care Nurse Name: Curtis Shoemaker RN Position: [facility] AMB Nurse Member Role: Primary Care Nurse Name: Gala Rae NP Position: [facility] PCO Associate Professional Member Role: Primary Care Nurse Address: Address: [address] [address] [place] [address]- [place] Name: Kavya Cantu RN Position: [facility] RN Member Role: Primary Care Nurse Name: Xiomara Duran RN Position: [facility] OB RN Member Role: Primary Care Nurse Name: Jane Oden MD Position: [facility] Physician - Primary Care Member Role: PCP Address: Address: [address] [facility] [place] [address]- [place] Name: Tatiana Mcduffie RN Position: [facility] SN RN Member Role: Primary Care Nurse Care Team Related Persons Name: CARLOS VILLALTA Address: home [address] [place] [address] Name: MELANIE VERGARA Address: home [address] [place] [address]
--- OUTSIDE RECORDS SUMMARY | 2023-11-30 06:36 | XMS_ITS | Continuity of Care Document ---
Author Organization [facility] ter Address [address] [place] [id number]- Care Team Providers Care Referral Coordinator Name Role Phone Cecille CHANCE, Jane Primary Care Physician [phone] Encounter [facility] Date(s): 05/19/23 - 05/19/[address] [address]- Discharge Disposition: A-D/C Home Attending Physician: Grace Narvaez DO Admitting Physician: Grace Narvaez DO Referring Physician: Not on Staff, Referring [...] toxoids (DT) 04/11/99 Given 1Result Comment: [03/28/2017] [id number] 2Admin Note: VIS...05/04/2011 3Admin Note: VIS...05/04/2011 4Admin Note: [facility] 5Admin Note: [facility] Medications Albuterol (Eqv-ProAir HFA) 90 mcg/inh inhalation aerosol 2 puffs, Inhalation, Every 6 hours, # 8.5 each, 2 Refills, Maintenance, 05/02/23 13:19:00 EST, [id number], 25, INHALE 2 PUFFS BY MOUTH EVERY 6 HOURS, 163, cm, 01/11/23 13:20:00 EDT, Height, 73, kg, 01/05/23 1:41:00 EDT, Dry Weight Start Date: 05/02/23 Status: Ordered atorvastatin 20 mg oral tablet 1 tablet = 20 mg, By Mouth, Daily, # 90 tablet, 1 Refills, Maintenance, 01/04/23 9:13:00 EDT, Tablet, [id number], Partial fill upon patient request if the prescription is for a schedule II opioid drug., 163, cm, 12/20/22 7:59:00 EDT, Height, 7... Start Date: 01/04/23 Stop Date: 07/03/23 Status: Ordered FLUoxetine 20 mg oral capsule 1, capsule, By Mouth, Daily, # 90 capsule, Refills 1, Maintenance, 01/07/23 15:04:00 EDT, Route to Pharmacy Electronically, [id number], 163, cm, 01/05/23 1:41:00 EDT, Height, 73, kg, 01/05/23 1:41:00 EDT, Dry Weight Start Date: 01/07/23 Status: Ordered Golytely - oral powder for reconstitution 240 mL, By Mouth, Every 10 minutes, # 1 each, 0 Refills, Maintenance, 12/02/22 8:36:00 EDT, REC Powder, [id number], Partial fill upon patient request if the prescription is for a schedule II opioid drug., 240 mL By Mouth Every 10 minutes, 165,... Start Date: 12/02/22 Status: Ordered Lidoderm 5% film 1 patch, Topically, Daily, remove patches after 12 hours, # 10 patch, 0 Refills, Maintenance, 05/19/23 16:40:00 EST, [facility]/pharmacy #[id number], Partial fill upon patient request if the prescription is for aschedule II opioid drug., 1 patch Topically Daily,x... Start Date: 05/19/23 Stop Date: 05/29/23 Status: Ordered lisinopril 5 mg oral tablet 5 mg, 1, tablet, By Mouth, Daily, # 90 tablet, Refills 1, Tot. Refills 1, Maintenance, 01/04/23 9:13:00 EDT, Route to Pharmacy Electronically, [facility]/pharmacy #[id number], Partial fill upon patient request ifthe prescription is for a schedule II opioid drug.,... Start Date: 01/04/23 Stop Date: 07/03/23 Status: Ordered MorPHINE Inj 2 mg, Injection, IV Push Slowly, Every 5 minutes for 3 doses/times, PRN for Pain , Moderate, and SBP greater than 100, STAT, 05/19/23 13:59:00 EST, Stop date Limited # of times Start Date: 05/19/23 Stop Date: 05/20/23 Status: Discontinued omeprazole 40 mg oral enteric coated capsule See Instructions, TAKE 1 CAPSULE BY MOUTH EVERY DAY, # 90 capsule, 0 Refills, Maintenance, 04/08/2312:45:00 EST, [id number], 163, cm, 01/11/23 13:20:00 EDT, Height, 73, kg, 01/05/23 1:41:00 EDT, Dry Weight Start Date: 04/08/23 Status: Ordered omeprazole 40 mg oral enteric coated capsule 1 capsule, By Mouth, Daily, # 90 capsule, 0 Refills, Maintenance, 03/16/23 10:33:00 EST, [facility]/pharmacy #[id number], 163, cm, 01/11/23 13:20:00 EDT, Height, 73, kg, 01/05/23 1:41:00 EDT, Dry Weight Start Date: 03/16/23 Stop Date: 06/14/23 Status: Ordered ondansetron 4 mg oral tablet, disintegrating 1 tablet, By Mouth, 3 times a day, PRN NEEDED FOR NAUSEA AND VOMITING, # 20 tablet, 1 Refills, Maintenance, 05/13/23 13:04:00 EST, [facility], 163, cm, 01/11/23 13:20:00 EDT, Height, 73, kg, 01/05/23 1:41:00 EDT, Dry Weight Start Date: 05/13/23 Status: Ordered Percocet 2.5 mg-325 mg oral [...] 72% ( crippled ) on 01/20/17; initial [place] Back Pain Scale: 83on 01/20/17; initial [place]: 4 on 01/20/17 3SOAPP-R: 16 on 01/20/17 4Pain relevant problem list includes: See below Results Radiology Reports * Exam Date Time Procedure Performing Provider Status 05/19/23 3:[address] Angio Abdomen NickJeff Rhodes andrea Regalado; Auth (Verified) Notes: (CT Angio Abdomen) Reason For Exam: Renal artery dissection suspected;Other: RESULT: CT Angio Abdomen EXAMINATION: CT Angio Chest, CT Angio Abdomen Reason: pt with 3 days of cp, mid back, sob, heart racing. Clinical Question(s): Aortic Dissection; TECHNIQUE: An initial noncontrast CT of the chest was performed. Spiral CTA of the chest and abdomen was performed after rapid IV contrast administration without cardiac gating triggered by an DIANA onthe aorta. Images are formatted in multiple planes using 2-D multiplanar and 3-D maximum intensity projection. Obliqued images through the aortic root were reconstructed. 100 cc of Omnipaque 300 was administered intravenously. Weight-based protocol using automatic tube modulation was used to optimize exposure parameters. CTDIvol Body: 6.50 mGy, DLP Body: 391 mGy*cm. COMPARISONS: CT abdomen and pelvis 11/04/2022. CT chest 06/24/2021 ANGIOGRAPHIC FINDINGS: No aneurysm or evidence of an acute aortic abnormality. The right brachiocephalic and left common carotid arteries are widely patent sharing a common origin, normal anatomic variant. Pulmonary arteries are normal in caliber. No evidence of pulmonary embolism on this exam focused onthe systemic circulation. Abdominal aorta: Mild atherosclerotic changes. The splanchnic and included iliac vessels are patent. Celiac axis: Patent. Focal calcification at origin. No significant stenosis. NON-ANGIOGRAPHIC FINDINGS: Rn Infusion View Findings, Lines and Tubes: Spinal cord stimulator lead terminating at the mid thoracic spine. Trachea and Airways: Patent without evidence of tracheal or endobronchial lesion. Lungs and Pleura: Moderate emphysematous changes. Mild biapical scarring with predominantly unchanged fissural thickening. No infiltrate, effusion or pneumothorax. Mediastinum and shemar: No mass or hematoma. No mediastinal or hilar lymphadenopathy. Small type I hiatal hernia. Normal thyroid. Heart: Heart is normal in size. No pericardial effusion. Mild coronary artery calcification. Chest Wall Soft Tissues: Normal. Liver: Normal. Gallbladder: No CT evidence of gallbladder pathology. Bile ducts: No biliary ductal dilation. Spleen: Heterogeneous enhancement likely contrast bolus timing. Pancreas: Normal. Adrenal glands: Normal. Kidneys and ureters: No hydronephrosis, stones, or suspicious masses. Stomach, small bowel, and large bowel: No evidence of obstruction or inflammation. Probable small sliding hiatal hernia. Peritoneum and retroperitoneum: No ascites or pneumoperitoneum. No omental or mesenteric lesions. Lymph nodes: No enlarged lymph nodes. Abdominal wall: Small fat-containing umbilical hernia. Bones: No acute abnormality. Chronic healed fracture of posterior right rib 7. Mild/moderate degenerative changes most notably L3/4 level. Partially visualized orthopedic fusion hardware at L5-S1. IMPRESSION: No evidence of acute process. Chronic findings as noted. I have personally reviewed the images and I agree with this report. WSN: [id number] Ordering Physician: Lulu Monet Dictated By: Patsy Abdul DO Dictated Date/Time: 05/19/23 4:42 pm Reviewed By: Yung Thacker MD Signed By: Yung Thacker MD Signed Date/Time: 05/19/23 4:47 pm Transcribed By: PAYTON Transcribed Date/Time: 05/19/23 4:07 pm * Exam Date Time Procedure Performing Provider Status 05/19/23 3:[address] Angio Chest Kalpana Wang (Verified) Notes: (CT Angio Chest) Reason For Exam: Aortic disease, nontraumatic;Other: RESULT: CT Angio Chest EXAMINATION: CT Angio Chest, CT Angio Abdomen Reason: pt with 3 days of cp, mid back, sob, heart racing. Clinical Question(s): Aortic Dissection; TECHNIQUE: An initial noncontrast CT of the chest was performed. Spiral CTA of the chest and abdomen was performed after rapid IV contrast administration without cardiac gating triggered by an DIANA onthe aorta. Images are formatted in multiple planes using 2-D multiplanar and 3-D maximum intensity projection. Obliqued images through the aortic root were reconstructed. 100 cc of Omnipaque 300 was administered intravenously. Weight-based protocol using automatic tube modulation was used to optimize exposure parameters. CTDIvol Body: 6.50 mGy, DLP Body: 391 mGy*cm. COMPARISONS: CT abdomen and pelvis 11/04/2022. CT chest 06/24/2021 ANGIOGRAPHIC FINDINGS: No aneurysm or evidence of an acute aortic abnormality. The right brachiocephalic and left common carotid arteries are widely patent sharing a common origin, normal anatomic variant. Pulmonary arteries are normal in caliber. No evidence of pulmonary embolism on this exam focused onthe systemic circulation. Abdominal aorta: Mild atherosclerotic changes. The splanchnic and included iliac vessels are patent. Celiac axis: Patent. Focal calcification at origin. No significant stenosis. NON-ANGIOGRAPHIC FINDINGS: Rn Infusion View Findings, Lines and Tubes: Spinal cord stimulator lead terminating at the mid thoracic spine. Trachea and Airways: Patent without evidence of tracheal or endobronchial lesion. Lungs and Pleura: Moderate emphysematous changes. Mild biapical scarring with predominantly unchanged fissural thickening. No infiltrate, effusion or pneumothorax. Mediastinum and shemar: No mass or hematoma. No mediastinal or hilar lymphadenopathy. Small type I hiatal hernia. Normal thyroid. Heart: Heart is normal in size. No pericardial effusion. Mild coronary artery calcification. Chest Wall Soft Tissues: Normal. Liver: Normal. Gallbladder: No CT evidence of gallbladder pathology. Bile ducts: No biliary ductal dilation. Spleen: Heterogeneous enhancement likely contrast bolus timing. Pancreas: Normal. Adrenal glands: Normal. Kidneys and ureters: No hydronephrosis, stones, or suspicious masses. Stomach, small bowel, and large bowel: No evidence of obstruction or inflammation. Probable small sliding hiatal hernia. Peritoneum and retroperitoneum: No ascites or pneumoperitoneum. No omental or mesenteric lesions. Lymph nodes: No enlarged lymph nodes. Abdominal wall: Small fat-containing umbilical hernia. Bones: No acute abnormality. Chronic healed fracture of posterior right rib 7. Mild/moderate degenerative changes most notably L3/4 level. Partially visualized orthopedic fusion hardware at L5-S1. IMPRESSION: No evidence of acute process. Chronic findings as noted. I have personally reviewed the images and I agree with this report. WSN: [id number] Ordering Physician: Lulu Monet Dictated By: Patsy Abdul DO Dictated Date/Time: 05/19/23 4:42 pm Reviewed By: Yung Thacker MD Signed By: Yung Thacker MD Signed Date/Time: 05/19/23 4:47 pm Transcribed By: PAYTON Transcribed Date/Time: 05/19/23 4:07 pm * Exam Date Time Procedure Performing Provider Status 05/19/23 12:48 PM Chest 2 Views Frontal and Lat Ramon Hernandez; Chris (Verified) Notes: (Chest 2 Views Frontal and Lat) Reason For Exam: Chest Pain;Other: RESULT: Chest 2 Views Frontal and Lat Chest 2 Views Frontal and Lat Hx of Present Illness: : pt with 3 days of cp, mid back, sob, heart racing; Reason: Other:; Chest Pain; Clinical Question(s): CHF COMPARISON: 01/26/2023 FINDINGS: Spinal stimulator. No no acute cardiopulmonary process IMPRESSION: No acute abnormality. WSN: [id number] Ordering Physician: Laly Ching Dictated By: Josh Ham MD Dictated Date/Time: 05/19/23 12:49 p Reviewed By: Josh Ham MD Signed By: Josh Ham MD Signed Date/Time: 05/19/23 12:49 pm Transcribed By: PAYTON Transcribed Date/Time: 05/19/23 12:48 pm Vital Signs Most recent to oldest [Reference Range]: 1 2 3 Height 163 cm (05/19/23 9:09 AM) 163 cm (05/19/23 8:31 AM) Oxygen Saturation [94-100 %] 100 % (05/19/23 4:52 PM) 100 % (05/19/23 12:39 PM) 100 % (05/19/23 8:31 AM) Pulse Rate [55-90 bpm] 84 bpm (05/19/23 4:52 PM) 74 bpm (05/19/23 12:39 PM) 65 bpm (05/19/23 9:09 AM) Blood Pressure [90-138/55-84 mm Hg] 150/90mm Hg *H* (05/19/23 4:52 PM) 155/103mm Hg *H* (05/19/23 12:39 PM) 158/101mm Hg *H* (05/19/23 8:31 AM) Respiratory Rate [16-30 br/min] 18 br/min (05/19/23 4:52 PM) 18 br/min (05/19/23 3:45 PM) 18 br/min (05/19/23 3:15 PM) Temperature [96.8-100.4 DegF] 98.8 DegF (05/19/23 4:52 PM) 98.7 DegF (05/19/23 12:39 PM) 98.1 DegF (05/19/23 8:31 AM) Mode of Delivery (Oxygen) Room air (05/19/23 4:52 PM) Room air (05/19/23 12:39 PM) Room air (05/19/23 8:31 AM) Blood pressure sites Arm, left (05/19/23 4:52 PM) Arm, left (05/19/23 12:39 PM) Arm, right (05/19/23 8:31 AM) Temperature Route Oral (05/19/23 4:52 PM) Oral (05/19/23 12:39 PM) Oral (05/19/23 8:31 AM) Dry Weight 63.6 kg (05/19/23 9:09 AM) 63.6 kg (05/19/23 8:31 AM) Social History Social History Type Response Smoking Status Former smoker, quit more than 30 days ago entered on: 11/05/22 Sex EKG study * Event Display: ECG 12-Lead Authored Date: Please click on pdf link to open report * Event Display: ECG 12-Lead Authored Date: Ventricular Rate: 65 BPM Atrial Rate: 65 BPM P-R Interval: 112 ms QRS Duration: 66 ms Q-T Interval: 414 ms QTC Calculation(Bazett): 430 ms P [place]: 13 degrees R [place]: 6 degrees T [place]: 23 degrees Normal sinus rhythm Normal ECG When compared with ECG of 04-JAN-2023 14:53, No significant change was found Confirmed by ELLIOTT PARK ([id number]) on 05/19/2023 11:50:40 AM [place]: ELLIOTT PARK * Event Display: EKG Authored Date: * Event Display: EKG Authored Date: * Event Display: EKG Authored Date: Patient Care team information Care Team Personnel Name: Lakeisha Acevedo RN Position: [facility] RN Member Role: Primary Care Nurse Name: Lay Kaur RN Position: [facility] AMB Nurse Member Role: Primary Care Nurse Name: Juliana Kumari RN Position: [facility] RN Member Role: Primary Care Nurse Name: Katelyn Dubois RN Position: [facility] SN RN Member Role: Primary Care Nurse Name: Jodee Alford RN Position: [facility] RN Member Role: Primary Care Nurse Name: Melissa Morris RN Position: [facility] RN Member Role: Primary Care Nurse Name: Lemuel Day RN Position: [facility] RN Member Role: Primary Care Nurse Name: Curtis Shoemaker RN Position: [facility] AMB Nurse Member Role: Primary Care Nurse Name: Gala Rae NP Position: [facility] PCO Associate Professional Member Role: Primary Care Nurse Address: Address: [place] [address]- Name: Kavya Cantu RN Position: [facility] RN Member Role: Primary Care Nurse Name: Xiomara Duran RN Position: [facility] OB RN Member Role: Primary Care Nurse Name: Jane Oden MD Position: [facility] Physician - Primary Care Member Role: PCP Address: Address: [place] [address]- [place] Name: Tatiana Mcduffie RN Position: [facility] SN RN Member Role: Primary Care Nurse Care Team Related Persons Name: PAWANCARLOS Address: home [address] [place] [address] Name: MELANIE VERGARA Address: home [address] [place] [address]
--- OUTSIDE RECORDS SUMMARY | 2023-11-30 06:37 | XMS_ITS | Continuity of Care Document ---
Author Organization [facility] Address [address] [place] [address]- Care Team Providers Care Operations Recruiter Name Role Phone Jane Oden MD Primary Care Physician Encounter [facility] Date(s): 12/02/22 - 01/01/23 [facility] [address] [place] [address]- [place] Allergies, Adverse Reactions, Alerts Substance Reaction [...] toxoids (DT) 04/11/99 Given 1Result Comment: [03/28/2017] [id number] 2Admin Note: VIS...05/04/2011 3Admin Note: VIS...05/04/2011 4Admin Note: [facility] 5Admin Note: [facility] Medications Albuterol (Eqv-ProAir HFA) 90 mcg/inh inhalation aerosol 2 puffs, Inhalation, Every 6 hours, # 8.5 each, 5 Refills, Maintenance, 08/03/22 15:13:00 EDT, [facility]/pharmacy #[id number], 25, 2 puffs Inhalation Every 6 hours, 163, cm, 07/01/22 9:42:00 EDT, Height, 75, kg,07/01/22 9:42:00 EDT, Dry Weight Start Date: 08/03/22 Status: Ordered atorvastatin 20 mg oral tablet 1 tablet = 20 mg, By Mouth, Daily, 0 Refills, Maintenance, 12/02/22 8:04:00 EDT, Partial fill upon patient request if the prescription is for a schedule II opioid drug. Start Date: 12/02/22 Status: Ordered FLUoxetine 20 mg oral capsule 1, capsule, By Mouth, Daily, # 90 capsule, Refills 1, Maintenance, 07/26/22 14:00:00 EDT, Route to Pharmacy Electronically, [id number], 163, cm, 07/01/22 9:42:00 EDT, Height, 75, kg, 07/01/22 9:42:00 EDT, Dry Weight Start Date: 07/26/22 Status: Ordered Golytely - oral powder for reconstitution 240 mL, By Mouth, Every 10 minutes, # 1 each, 0 Refills, Maintenance, 12/02/22 8:36:00 EDT, REC Powder, [facility]/pharmacy #[id number], Partial fill upon patient request if the prescription is for a schedule II opioid drug., 240 mL By Mouth Every 10 minutes, 165,... Start Date: 12/02/22 Status: Ordered lisinopril 5 mg oral tablet 5 mg, 1, tablet, By Mouth, Daily, Refills 0, Maintenance, 12/02/22 8:03:00 EDT, Partial fill upon patient request if the prescription is for a schedule II opioid drug. Start Date: 12/02/22 Status: Ordered omeprazole 40 mg oral enteric coated capsule 1 capsule, By Mouth, Daily, # 90 capsule, 0 Refills, Maintenance, 12/16/22 10:33:00 EDT, [facility]/pharmacy #[id number], 163, cm, 12/09/22 8:10:00 EDT, Height, 71.5, kg, 12/09/22 8:10:00 EDT, Dry Weight Start Date: 12/16/22 Stop Date: 03/16/23 Status: Ordered oxyCODONE 5 mg oral tablet 5 mg, 1, tablet, By Mouth, 2 times a day, PRN, take less, watch out for sedation, # 10 tablet, Refills 0, Tot. Refills 0, Acute 01/16/23 16:42:00 EDT, as needed for pain, 11/16/22 16:41:00 EDT, Routeto Pharmacy Electronically, [facility]/pharmacy #[id number], Par... Start Date: 11/16/22 Stop Date: 01/16/23 Status: Ordered Percocet 2.5 mg-325 mg oral tablet 1 tablet, By Mouth, Every 4 hours, PRN as needed for pain, can take 1-2 tablets as necessary, # 30 tablet, 0 Refills, Maintenance, 12/02/22 10:00:00 EDT, Tablet, [facility]/pharmacy #[id number], Partial fill uponpatient request if the prescription is for a schedu... Start Date: 12/02/22 Status: Ordered pregabalin 300 mg oral capsule [...] capsule, 1 Refills, Maintenance, 12/01/22 17:59:00 EDT, [facility]/pharmacy #[id number], 165, cm, 11/12/22 8:53:00 EDT, Height, [...] [place] Back Pain Scale: 83on 01/20/17; initial [place]: 4 on 01/20/17 3SOAPP-R: 16 on 01/20/17 4Pain relevant problem list includes: See below Social History Social History Type Response Smoking Status Former smoker, quit more than 30 days ago entered on: 11/05/22 Sex Patient Care team information Care Team Personnel Name: Lakeisha Acevedo RN Position: [facility] RN Member Role: Primary Care Nurse Name: Lay Kaur RN Position: [facility] AMB Nurse Member Role: Primary Care Nurse Name: Juliana Kumari RN Position: [facility] RN Member Role: Primary Care Nurse Name: Katelyn Dubois RN Position: [facility] SN RN Member Role: Primary Care Nurse Name: Jodee Alford RN Position: [facility] RN Member Role: Primary Care Nurse Name: Melissa Morris RN Position: [facility] RN Member Role: Primary Care Nurse Name: Lemuel Day RN Position: [facility] RN Member Role: Primary Care Nurse Name: Curtis Shoemaker RN Position: [facility] AMB Nurse Member Role: Primary Care Nurse Name: Gala Rae NP Position: Reference Physician Member Role: Primary Care Nurse Address: Address: [address] [place] [phone]- Name: Kavya Cantu RN Position: [facility] RN Member Role: Primary Care Nurse Name: Xiomara Duran RN Position: [facility] OB RN Member Role: Primary Care Nurse Name: Jane Oden MD Position: [facility] Physician - Primary Care Member Role: PCP Address: Address: [address] [place] [address] [place] [address]- Name: Tatiana Mcduffie RN Position: [facility] SN RN Member Role: Primary Care Nurse Care Team Related Persons Name: CARLOS VILLALTA Address: [address] [place] [address] Name: MELANIE VERGARA Address: [address] [place] [address]
--- OUTSIDE RECORDS SUMMARY | 2023-11-30 06:37 | XMS_ITS | Continuity of Care Document ---
Author Organization [facility] ter Address [address] [place] [id number]- Care Team Providers Care Technical Operator Name Role Phone Jane Oden MD Primary Care Physician [phone] Encounter [facility] Date(s): 07/01/22 - 07/01/[address] [address]- Encounter Diagnosis Diverticulosis(Final) - 07/01/22 Discharge Disposition: A-D/C Home Attending Physician: Shorty Santiago DO Admitting Physician: Shorty Santiago DO Referring Physician: Not on Staff, Referring [...] (oldterm) 5 05/21/08 Given diphtheria-tetanus toxoids (DT) 1/1/00 Given 1Result Comment: [03/28/2017] 31714-980-73 2Admin Note: VIS...05/04/2011 3Admin Note: VIS...05/04/2011 4Admin Note: [facility] 5Admin Note: [facility] Medications Albuterol (Eqv-ProAir HFA) 90 mcg/inh inhalation aerosol 2 puffs, Inhalation, Every 6 hours, # 8.5 each, 5 Refills, Maintenance, 02/25/22 10:25:00 EST, [facility] STORE [facility], 25, INHALE 2 PUFFS EVERY 6 HOURS, 164, cm, 11/02/21 12:14:00 EDT, Height, 71.7, kg, 01/12/21 14:37:00 EDT, Dry Weight Start Date: 02/25/22 Status: Ordered atorvastatin 40 mg oral tablet 1 tablet, By Mouth, Daily, # 90 tablet, 1 Refills, Maintenance, 03/31/22 9:39:00 EST, [facility] STORE 45603, 164, cm, 03/02/22 12:51:00 EST, Height, 71.7, kg, 01/12/21 14:37:00 EDT, Dry Weight Start Date: 03/31/22 Status: Ordered B 100 Complex By Mouth, Daily, 0 Refills, Maintenance, 01/02/21 15:10:00 EDT, Partial fill upon patient request if the prescription is for a schedule II opioid drug. Start Date: 01/02/21 Status: Ordered Dilaudid Inj 1 mg, Injection, IV Push Slowly, Once, STAT, 07/01/22 12:40:00 EDT, Stop date 07/01/22 12:40:00 EDT Start Date: 07/01/22 Stop Date: 07/01/22 Status: Completed FLUoxetine 20 mg oral capsule 1, capsule, By Mouth, Daily, # 90 capsule, Refills 1, Tot. Refills 1, 02/15/22 15:29:00 EST, Route to Pharmacy Electronically, [facility]/pharmacy #[id number], 164, cm, 11/02/21 12:14:00 EDT, Height, 71.7, kg, 01/12/21 14:37:00 EDT, Dry Weight Start Date: 02/15/22 Status: Ordered lisinopril 2.5 mg oral tablet 1, tablet, By Mouth, Daily, # 90 tablet, Refills 0, Maintenance, 03/31/22 9:39:00 EST, Route to Pharmacy Electronically, [id number], 164, cm, 03/02/22 12:51:00 EST, Height, 71.7, kg, 01/12/21 14:37:00 EDT, Dry Weight Start Date: 03/31/22 Status: Ordered omeprazole 40 mg oral enteric coated capsule 1 capsule, By Mouth, Daily, # 90 capsule, 0 Refills, Maintenance, 03/31/22 9:39:00 EST, [facility] STORE [facility]8584, 164, cm, 03/02/22 12:51:00 EST, Height, 71.7, kg, 01/12/21 14:37:00 EDT, Dry Weight Start Date: 03/31/22 Status: Ordered ondansetron 4 mg oral tablet, disintegrating 1 tablet = 4 mg, By Mouth, Every 8 hours, PRN Nausea & Vomiting, # 10 tablet, 0 Refills, Maintenance, 07/01/22 14:21:00 EDT, Tablet, [facility]/pharmacy #[id number], Partial fill upon patient request if the prescription is for a schedule II opioid drug., 163, cm,... Start Date: 07/01/22 Status: Ordered pregabalin 300 mg oral capsule See Instructions, TAKE 1 CAPSULE BY MOUTH TWICE A DAY, # 60 capsule, 4 Refills, Maintenance, 12/18/21 12:36:00 EDT, [facility]/pharmacy #[id number], 164, cm, 11/02/21 12:14:00 EDT, Height, 71.7, kg, 01/12/21 14:37:00 EDT, Dry Weight Start Date: 12/18/21 Status: Ordered Spiriva Respimat 1.25 mcg/inh inhalation aerosol 2 puffs, Inhalation, Daily, # 4 Gm, 3 Refills, Maintenance, 09/21/21 8:56:00 EDT, Aerosol, [facility]/pharmacy #[id number], Partial fill upon patient request [...] [place] Back Pain Scale: 83on 01/20/17; initial [place]: 4 on 01/20/17 3SOAPP-R: 16 on 01/20/17 4Pain relevant problem list includes: See below Results Radiology Reports * Exam Date Time Procedure Performing Provider Status 07/01/22 9:[address] Abd/Pelvis W/ IV Contrast Only Broderick Ventura; Auth (Verified) Notes: (CT Abd/Pelvis W/ IV Contrast Only) Reason For Exam: LLQ abdominal pain, h/o diverticulitis;Other: RESULT: CT Abd/Pelvis W/ IV Contrast Only CT Abd/Pelvis W/ IV Contrast Only Reason: Other:; LLQ abdominal pain. Clinical Question(s): Diverticulitis; TECHNIQUE: Spiral CT through the abdomen and pelvis with IV contrast formatted in 3 planes. 75 cc of Omnipaque 300 was administered intravenously. This study was performed without oral contrast. Weight-based protocol using automatic tube modulation was used to optimize exposure parameters. CTDIvol Body: 15.50 mGy, DLP Body: 777 mGy*cm. COMPARISON: 07/05/2020. FINDINGS: LUNG BASES: COPD changes. LIVER: Unremarkable. GALLBLADDER: No CT evidence of [...] Small sliding hiatal hernia. Small duodenal diverticulum. Left-sided colonic diverticulosis, no inflammatory changes to suggest acute cholecystitis. There is wall thickening versus underdistention throughout the majority of the sigmoid colon largely unchanged likely chronic hypertrophy of the muscularis propria related to recurrent bouts of diverticulitis. Neoplasm less likely though not excluded. APPENDIX: Post appendectomy changes are suggested. PERITONEUM, [...] L3/4 level asymmetric towards the right. IMPRESSION: 1. Findings most consistent with an acute cystitis. 2. Chronic signal diverticulosis, no evidence of acute diverticulitis. 3. Small sliding hiatal hernia. WSN: [id number] Ordering Physician: Josh Gustafson Dictated By: Yung Thacker MD Dictated Date/Time: 07/01/22 10:08 a Reviewed By: Yung Thacker MD Signed By: Yung Thacker MD Signed Date/Time: 07/01/22 10:08 am Transcribed By: PAYTON Transcribed Date/Time: 07/01/22 10:01 am Vital Signs Most recent to oldest [Reference Range]: 1 2 3 Height 163 cm (07/01/22 9:42 AM) Weight 75 kg (07/01/22 9:42 AM) Oxygen Saturation [94-100 %] 99 % (07/01/22 11:03 AM) 100 % (07/01/22 9:42 AM) 98 % (07/01/22 9:21 AM) Pulse Rate [55-90 bpm] 65 bpm (07/01/22 11:03 AM) 67 bpm (07/01/22 9:42 AM) 67 bpm (07/01/22 9:21 AM) Blood Pressure [90-138/55-84 mm Hg] 153/90mm Hg *H* (07/01/22 11:03 AM) 141/83mm Hg *H* (07/01/22 9:42 AM) 139/73mm Hg *H* (07/01/22 9:21 AM) Respiratory Rate [16-30 br/min] 16 br/min (07/01/22 12:44 PM) 14 br/min *L* (07/01/22 11:03 AM) 12 br/min *L* (07/01/22 9:42 AM) Temperature [96.8-100.4 DegF] 99.3 DegF (07/01/22 9:21 AM) Mode of Delivery (Oxygen) Room air (07/01/22 11:03 AM) Room air (07/01/22 9:42 AM) Room air (07/01/22 9:21 AM) Blood pressure sites Arm, left (07/01/22 11:03 AM) Arm, left (07/01/22 9:42 AM) Arm, right (07/01/22 9:21 AM) Temperature Route Oral (07/01/22 9:21 AM) Dry Weight 75 kg (07/01/22 9:42 AM) Weight Obtained Via Patient/family state d (07/01/22 9:42 AM) Dry Weight Obtained Via Patient/family s tated (07/01/22 9:42 AM) Social History Social History Type Response Smoking Status Smoker, current stat us unknown entered on: 02/21/20 Sex EKG study * Event Display: ECG 12-Lead Authored Date: Please click on pdf link to open report * Event Display: ECG 12-Lead Authored Date: Ventricular Rate: 77 BPM Atrial Rate: 77 BPM P-R Interval: 102 ms QRS Duration: 72 ms Q-T Interval: 408 ms QTC Calculation(Bazett): 461 ms P Pacific: 45 degrees R Pacific: 29 degrees T Pacific: 48 degrees Sinus rhythm with short OR Otherwise normal ECG When compared with ECG of 02-NOV-2021 11:07, No significant change was found Confirmed by TRUPTI OLSON MD ([id number]) on 07/01/2022 10:01:24 AM [place]: TRUPTI OLSON MD * Event Display: EKG Authored Date: Note * Josh Gustafson DO: PERFORM Event Display: Patient Education Leaflets Authored Date: [id number] Diverticulosis ?? [id number] Diverticulosis Diverticulosis??means that small pouches have formed in the wall of??your??large intestine (colon).Most often, this problem causes no symptoms and is common as people age. But the pouches in the colon are at risk of becoming infected. When this happens, the condition is called diverticulitis. Although most people with diverticulosis never develop diverticulitis, it's still not uncommon. Rectal bl eeding can also occur and in less common situations, a type of colon inflammation called colitis. Most people don't??have symptoms,. But some people with diverticulosis may??have: ??? Belly (abdominal) cramps and pain ??? Bloating ??? Constipation ??? Change in bowel habits Causes The exact cause of diverticulosis (and diverticulitis) has not been proved, but??a few things are linked with the condition: ??? Low-fiber diet. But some experts don't agree about this. ??? Constipation ??? Lack of exercise Your healthcare provider will talk with you about how to manage your condition. Diet changes may roxane that you need to help control diverticulosis and prevent its becoming diverticulitis. If you develop diverticulitis, you will likely need??other treatments. ?? Home care You may be told to take fiber supplements daily. Fiber adds bulk to the stool so that it passes through the colon more easily. Stool softeners may also be recommended. You may also be given medicinesfor pain relief. Be sure to take all medicines as directed. In the past, people were told to not have corn, nuts, or seeds. You no longer need to do this. Follow these guidelines when caring for yourself at home: ??? Eat unprocessed foods that are high in fiber. Whole grains, fruits, and vegetables are good choices. ??? Drink 6 to 8 glasses of water every day unless your healthcare provider has you limit how much??fluid you should have. ??? Watch forchanges in your bowel movements. Tell your provider if you notice any changes. ??? Begin an exercise program. Ask your provider how to get started. Generally, walking is the best. ??? Get plenty of rest and sleep. ?? Follow-up care Follow up with your healthcare provider, or??as advised. You may need regular visits to check on your health. Sometimes you may need special procedures such as colonoscopy after an episode of diverticulitis or blooding. Be sure to keep all your appointments. If a stool sample was taken, or cultures were done, you'll be told if they are positive, or if yourtreatment needs to be changed. You can call as directed for the results. If X-rays were done,??you'll be told of any new findings that may affect your care. If antibiotics were prescribed, be sure to finish them all. ?? When to seek medical advice Call your healthcare provider right away??if any of these occur: ??? Fever of 100.4??F (38??C) or higher , or as directed by your healthcare provider ??? Severe cramps in the lower left side of the belly (abdomen) or pain that's getting??worse ??? Tenderness in the lower left side of the abdomen orpain throughout the abdomen that gets worse ??? Diarrhea or constipation that doesn't get better within 24 hours ??? Nausea and vomiting ??? Slight bleeding from the rectum ?? Call 911 Call 911 if any of the following occur: ??? Large amount of bleeding from the rectum ??? Trouble breathing ??? Confusion ??? Very drowsy or trouble awakening ??? Fainting or loss of consciousness ???Rapid heart rate ??? Chest pain ?? Last Reviewed Date: 2021 ?? [id number] [employer]. All rights reserved. This information is not intended as a substitute for professional medical care. Always follow your healthcare professional's instructions. ?? CT Abdomen and Pelvis W contrast IV * BHSPowerscrilucio , CIS S: TRANSCARIELLA Thacker MD, Yung Merritt: VERIFY Event Display: Result: Authored Date: CT Abd/Pelvis W/ IV Contrast Only Reason: Other:; LLQ abdominal pain. Clinical Question(s): Diverticulitis; TECHNIQUE: Spiral CT through the abdomen and pelvis with IV contrast formatted in 3 planes. 75 cc of Omnipaque 300 was administered intravenously. This study was performed without oral contrast. Weight-based protocol using automatic tube modulation was used to optimize exposure parameters. CTDIvol Body: 15.50 mGy, DLP Body: 777 mGy*cm. COMPARISON: 07/05/2020. FINDINGS: LUNG BASES: COPD changes. LIVER: Unremarkable. GALLBLADDER: No CT evidence of [...] Small sliding hiatal hernia. Small duodenal diverticulum. Left-sided colonic diverticulosis, no inflammatory changes to suggest acute cholecystitis. There is wall thickening versus underdistention throughout the majority of the sigmoid colon largely unchanged likely chronic hypertrophy of the muscularis propria related to recurrent bouts of diverticulitis. Neoplasm less likely though not excluded. APPENDIX: Post appendectomy changes are suggested. PERITONEUM, [...] L3/4 level asymmetric towards the right. IMPRESSION: 1. Findings most consistent with an acute cystitis. 2. Chronic signal diverticulosis, no evidence of acute diverticulitis. 3. Small sliding hiatal hernia. WSN: [id number] Ordering Physician: Josh Gustafson Dictated By: Yung Thacker MD Dictated Date/Time: 07/01/22 10:08 a Reviewed By: Yung Thacker MD Signed By: Yung Thacker MD Signed Date/Time: 07/01/22 10:08 am Transcribed By: PAYTON Transcribed Date/Time: 07/01/22 10:01 am Patient Care team information Care Team Personnel Name: Lakeisha Acevedo RN Position: S RN Member Role: Primary Care Nurse Name: Lay Kaur RN Position: [facility] Nurse Member Role: Primary Care Nurse Name: Katelyn Dubois RN Position: [facility] RN Member Role: Primary Care Nurse Name: Melissa Morris RN Position: [facility] RN Member Role: Primary Care Nurse Name: Lemuel Day RN Position: [facility] RN Member Role: Primary Care Nurse Name: Curtis Shoemaker RN Position: [facility] AMB Nurse Member Role: Primary Care Nurse Name: Gala Rae NP Position: Reference Physician Member Role: Primary Care Nurse Address: Address: [address] [place] [address]- [place] Name: Xiomara Duran RN Position: [facility] OB RN Member Role: Primary Care Nurse Name: Jane Oden MD Position: [facility] Primary Care Physician Member Role: PCP Address: Address: [address] [place] [address] [place] [address]- [place] Name: Tatiana Mcduffie RN Position: [facility] SN RN Member Role: Primary Care Nurse Name: Patsy Azar RN Position: [facility] ED RN W/OE and Tasks Member Role: Patient Care Provider Name: Josh Gustafson DO Position: [facility] Resident Member Role: Resident Address: Address: [address] [place] [phone]- [place] Name: Shorty Santiago DO Position: [facility] ED Medicine MD Member Role: Admitting Physician Address: Address: [address] [place] [address]- Care Team Related Persons Name: CARLOS VILLALTA Address: home [address] [place] [address] Name: MELANIE VERGARA Address: home [address] [place] [address]
--- OUTSIDE RECORDS SUMMARY | 2023-11-30 06:37 | XMS_ITS | Continuity of Care Document ---
Author Organization [facility] Address [address] [place] [address]- Care Team Providers Care Configuration Management Administrator Name Role Phone Jane Oden MD Primary Care Physician Encounter [facility] Date(s): 06/28/23 - 07/28/23 [facility] [address] [place] [address]- Attending Physician: Jannette Turcios Admitting Physician: AdmJannette jose Referring Physician: AdmtrJannette Allergies, Adverse Reactions, Alerts Substance Reaction Severity [...] toxoids (DT) 04/11/99 Given 1Result Comment: [03/28/2017] 42421-419-70 2Admin Note: VIS...05/04/2011 3Admin Note: VIS...05/04/2011 4Admin Note: [facility] 5Admin Note: [facility] Medications Albuterol (Eqv-ProAir HFA) 90 mcg/inh inhalation aerosol 2 puffs, Inhalation, Every 6 hours, # 8.5 each, 5 Refills, Maintenance, 07/21/23 9:37:00 EDT, [facility], 25, INHALE 2 PUFFS BY MOUTH EVERY 6 HOURS, 163, cm, 07/11/23 9:51:00 EDT, Height, 65.1, kg, 07/11/23 8:46:00 EDT, Dry Weight Start Date: 07/21/23 Status: Ordered atorvastatin 20 mg oral tablet 1 tablet, By Mouth, Daily, # 90 tablet, 1 Refills, Maintenance, 06/06/23 17:36:00 EST, [facility], 163, cm, 05/30/23 11:34:00 EST, Height, 63.6, [...] Refills, Maintenance, 06/28/23 8:52:00 EDT, Tablet, [id number], Partial fill upon [...] 01/07/23 15:04:00 EDT, Route to Pharmacy Electronically, [facility], 163, cm, 01/05/23 1:41:00 EDT, Height, 73, kg, 01/05/23 1:41:00 EDT, Dry Weight Start Date: 01/07/23 Status: Ordered FLUoxetine 20 mg oral capsule See Instructions, TAKE 1 CAPSULE BY MOUTH EVERY DAY, # 90 capsule, Refills 1, Maintenance, 249:21:00 EST, Instructions Replace Required Details, Route to Pharmacy Electronically, [facility], 163, cm, 05/30/23 11:34:00 EST, Height, 63.6, kg... Start Date: 06/07/23 Status: Ordered Golytely - oral powder for reconstitution 240 mL, By Mouth, Every 10 minutes, # 1 each, 0 Refills, Maintenance, 12/02/22 8:36:00 EDT, REC Powder, [facility]/pharmacy #[id number], Partial fill upon patient request if the prescription is for a schedule II opioid drug., 240 mL By Mouth Every 10 minutes, 165,... Start Date: 12/02/22 Status: Ordered Lidoderm 5% film 1 patch, Topically, Daily, remove patches after 12 hours, # 10 patch, 0 Refills, Maintenance, 05/19/23 16:40:00 EST, [facility]/pharmacy #[id number], Partial fill upon patient request if the prescription is for aschedule II opioid drug., 1 patch Topically Daily,x... Start Date: 05/19/23 Stop Date: 05/29/23 Status: Ordered lisinopril 5 mg oral tablet 1, tablet, By Mouth, Daily, # 90 tablet, Refills 1, Maintenance, 06/06/23 17:36:00 EST, Route to Pharmacy Electronically, [facility], 163, cm, 05/30/23 11:34:00 EST, Height, 63.6, kg, 05/19/23 9:09:00 EST, Dry Weight Start Date: 06/06/23 Status: Ordered omeprazole 40 mg oral enteric coated capsule 1 capsule, By Mouth, Daily, # 90 capsule, 1 Refills, Maintenance, 06/06/23 17:36:00 EST, [facility] STORE [facility]23, 163, cm, 05/30/23 11:34:00 EST, Height, 63.6, kg, 05/19/23 9:09:00 EST, Dry Weight Start Date: 06/06/23 Status: Ordered ondansetron 4 mg oral tablet, disintegrating 1 tablet, By Mouth, 3 times a day, PRN NEEDED FOR NAUSEA AND VOMITING, # 20 tablet, 1 Refills, Maintenance, 06/21/23 13:44:00 EDT, [facility]/pharmacy #[id number], 163, cm, 06/21/23 13:24:00 EDT, Height, 63.6,kg, 05/19/23 9:09:00 EST, Dry Weight Start Date: 06/21/23 Status: Ordered Percocet 2.5 mg-325 mg oral tablet 1 tablet, By Mouth, Every 4 hours, PRN as needed for pain, can take 1-2 tablets as necessary, # 30 tablet, 0 Refills, Maintenance, 12/02/22 10:00:00 EDT, Tablet, [facility]/pharmacy #[id number], Partial fill uponpatient request if the prescription is for a schedu... Start Date: 12/02/22 Status: Ordered predniSONE 10 mg oral tablet See Instructions, 2 tabs/d for 2d then 1 tab/d for 4d then stop, # 8 tablet, 0 Refills, Maintenance, 01/06/23 16:51:00 EDT, Tablet, [facility]/pharmacy #[id number], Partial fill upon patient [...] Refills, Maintenance, 05/30/23 12:03:00 EST, Solution, [id number], Partial fill upon patient request if the [...] 72% ( crippled ) on 01/20/17; initial [place] Back Pain Scale: 83on 01/20/17; initial [place]: 4 on 01/20/17 3SOAPP-R: 16 on 01/20/17 4Pain relevant problem list includes: See below Social History Social History Type Response Smoking Status Former smoker, quit more than 30 days ago entered on: 11/05/22 Sex Patient Care team information Care Team Personnel Name: Lakeisha Acevedo RN Position: [facility] RN Member Role: Primary Care Nurse Name: Lay Kaur RN Position: [facility] Nurse Member Role: Primary Care Nurse Name: Juliana Kumari RN Position: [facility] RN Member Role: Primary Care Nurse Name: Katelyn Dubois RN Position: [facility] RN Member Role: Primary Care Nurse Name: Jodee Alford RN Position: [facility] RN Member Role: Primary Care Nurse Name: Melissa Morris RN Position: [facility] RN Member Role: Primary Care Nurse Name: Lemuel Day RN Position: [facility] RN Member Role: Primary Care Nurse Name: Curtis Shoemaker RN Position: [facility] AMB Nurse Member Role: Primary Care Nurse Name: Gala Rae NP Position: [facility] PCO Associate Professional Member Role: Primary Care Nurse Address: Address: [address] [place] [address]- [place] Name: Kavya Cantu RN Position: [facility] RN Member Role: Primary Care Nurse Name: Xiomara Duran RN Position: [facility] OB RN Member Role: Primary Care Nurse Name: Jane Oden MD Position: [facility] Physician - Primary Care Member Role: PCP Address: Address: [address] [place] [phone]- Name: Tatiana Mcduffie RN Position: [facility] NAJMA Office Staff Member Role: Primary Care Nurse Name: Cheryle Garcia RN Position: [facility] RN Member Role: Primary Care Nurse Care Team Related Persons Name: CARLOS VILLALTA Address: [address] [place] [address] Name: MELANIE VERGARA Address: [address] [place] [address]
--- OUTSIDE RECORDS SUMMARY | 2023-11-30 06:37 | XMS_ITS | Continuity of Care Document ---
Author Organization [facility] Address [address] [place] [address]- Care Team Providers Care Lining Folder Name Role Phone Jane Oden MD Primary Care Physician Encounter [facility] Date(s): 03/15/23 - 04/14/23 [facility] [address] [place] [address]- Attending Physician: Jannette Turcios Admitting Physician: Jannette Turcios Referring Physician: AdmtrJannette Allergies, Adverse Reactions, Alerts [...] toxoids (DT) 04/11/99 Given 1Result Comment: [03/28/2017] 22349-566-20 2Admin Note: VIS...05/04/2011 3Admin Note: VIS...05/04/2011 4Admin Note: [facility] 5Admin Note: [facility] Medications Albuterol (Eqv-ProAir HFA) 90 mcg/inh inhalation aerosol 2 puffs, Inhalation, Every 6 hours, # 8.5 each, 2 Refills, Maintenance, 02/14/23 3:52:00 EST, [facility]/pharmacy #[id number], 25, 2 puffs Inhalation Every 6 hours, 163, cm, 01/11/23 13:20:00 EDT, Height, 73, kg,01/05/23 1:41:00 EDT, Dry Weight Start Date: 02/14/23 Status: Ordered Albuterol (Eqv-ProAir HFA) 90 mcg/inh inhalation aerosol See Instructions, TAKE 2 PUFFS BY MOUTH EVERY 6 HOURS, # 8.5 each, 5 Refills, Maintenance, 04/08/2312:45:00 EST, [facility], 25, TAKE 2 PUFFS BY MOUTH EVERY [...] 01/07/23 15:04:00 EDT, Route to Pharmacy Electronically, [facility], 163, cm, 01/05/23 1:41:00 EDT, Height, 73, kg, 01/05/23 1:41:00 EDT, Dry Weight Start Date: 01/07/23 Status: Ordered Golytely - oral powder for reconstitution 240 mL, By Mouth, Every 10 minutes, # 1 each, 0 Refills, Maintenance, 12/02/22 8:36:00 EDT, REC Powder, [facility]/pharmacy #[id number], Partial fill upon patient request if the prescription is for a schedule II opioid drug., 240 mL By Mouth Every 10 minutes, 165,... Start Date: 12/02/22 Status: Ordered lisinopril 5 mg oral tablet 5 mg, 1, tablet, By Mouth, Daily, # 90 tablet, Refills 1, Tot. Refills 1, Maintenance, 01/04/23 9:13:00 EDT, Route to Pharmacy Electronically, [facility]/pharmacy #[id number], Partial fill upon patient request ifthe prescription is for a schedule II opioid drug.,... Start Date: 01/04/23 Stop Date: 07/03/23 Status: Ordered omeprazole 40 mg oral enteric coated capsule See Instructions, TAKE 1 CAPSULE BY MOUTH EVERY DAY, # 90 capsule, 0 Refills, Maintenance, 04/08/2312:45:00 EST, [facility], 163, cm, 01/11/23 13:20:00 EDT, Height, 73, kg, 01/05/23 1:41:00 EDT, Dry Weight Start Date: 04/08/23 Status: Ordered omeprazole 40 mg oral enteric coated capsule 1 capsule, By Mouth, Daily, # 90 capsule, 0 Refills, Maintenance, 03/16/23 10:33:00 EST, [facility]/pharmacy #[id number], 163, cm, 01/11/23 13:20:00 EDT, Height, 73, kg, 01/05/23 1:41:00 EDT, Dry Weight Start Date: 03/16/23 Stop Date: 06/14/23 Status: Ordered ondansetron 4 mg oral tablet, disintegrating 1 tablet, By Mouth, 3 times a day, PRN NEEDED FOR NAUSEA AND VOMITING, # 20 tablet, 1 Refills, Maintenance, 04/07/23 13:20:00 EST, [facility], 163, cm, 01/11/23 13:20:00 EDT, Height, 73, kg, 01/05/23 1:41:00 EDT, Dry Weight Start Date: 04/07/23 Status: Ordered ondansetron 4 mg oral tablet, disintegrating See Instructions, TAKE 1 TABLET BY MOUTH 3 TIMES A DAY NEEDED FOR NAUSEA/VOMITING, # 20 tablet, 1 Refills, Maintenance, 04/08/23 12:46:00 EST, [facility], 163, cm, 01/11/23 13:20:00 EDT, Height, 73, [...] capsule, 4 Refills, Maintenance, 03/23/23 11:47:00 EST, [facility]/pharmacy #[id number], 163, cm, 01/11/23 13:20:00 EDT, Height, 73, kg, 01/05/23 1:41:00 EDT, DryWeight Start Date: 03/23/23 Status: Ordered Problem List Condition Confirmation Course Effective Dates Status H ealt Status Informant Abdominal pain Confirmed Active Acute [...] [place] Back Pain Scale: 83on 01/20/17; initial [place]: 4 on 01/20/17 3SOAPP-R: 16 on 01/20/17 4Pain relevant problem list includes: See below Social History Social History Type Response Smoking Status Former smoker, quit more than 30 days ago entered on: 11/05/22 Sex Patient Care team information Care Team Personnel Name: Lakeisha Acevedo RN Position: [facility] RN Member Role: Primary Care Nurse Name: Lay Kaur RN Position: [facility] AMB Nurse Member Role: Primary Care Nurse Name: Juliana Kumari RN Position: [facility] RN Member Role: Primary Care Nurse Name: Katelyn Dubois RN Position: [facility] SN RN Member Role: Primary Care Nurse Name: Jodee Alford RN Position: [facility] RN Member Role: Primary Care Nurse Name: Melissa Morris RN Position: [facility] RN Member Role: Primary Care Nurse Name: Lemuel Day RN Position: [facility] RN Member Role: Primary Care Nurse Name: Curtis Shoemaker RN Position: [facility] AMB Nurse Member Role: Primary Care Nurse Name: Gala Rae NP Position: [facility] PCO Associate Professional Member Role: Primary Care Nurse Address: Address: [address] [place] [address]- Name: Kavya Cantu RN Position: [facility] RN Member Role: Primary Care Nurse Name: Xiomara Duran RN Position: [facility] OB RN Member Role: Primary Care Nurse Name: Jane Oden MD Position: [facility] Physician - Primary Care Member Role: PCP Address: Address: [address] [place] [address] [place] [address]- [place] Name: Tatiana Mcduffie RN Position: [facility] SN RN Member Role: Primary Care Nurse Care Team Related Persons Name: CARLOS VILLALTA Address: home [address] [place] [address] Name: MELANIE VERGARA Address: home [address] [place] [address]
--- OUTSIDE RECORDS SUMMARY | 2023-11-30 06:37 | XMS_ITS | Continuity of Care Document ---
Author Organization [facility] ter Address [address] [place] [address]- Care Team Providers Care Physiological Chemist Name Role Phone Jane Oden MD Primary Care Physician Encounter [facility] Date(s): 06/29/20 - 06/30/[address] [address]- Discharge Disposition: A-D/C Home Attending Physician: Oliver Degroot MD Admitting Physician: Oliver Degroot MD Referring Physician: Not on Staff, Referring [...] toxoids (DT) 04/11/99 Given 1Result Comment: [03/28/2017] 77492-626-05 2Admin Note: VIS...05/04/2011 3Admin Note: VIS...05/04/2011 4Admin Note: [facility] 5Admin Note: [facility] Medications Augmentin 875 mg-125 mg oral tablet 1 tablet, By Mouth, Every 8 hours, for 10 days, # 30 tablet, 0 Refills, Acute 07/10/20 3:10:00 EDT,06/30/20 3:10:00 EDT, Tablet, [facility]/pharmacy #[id number], Partial fill upon patient request if the prescription is for a schedule II opioid drug., 168, cm, .. Start Date: 06/30/20 Stop Date: 07/10/20 Status: Ordered Dilaudid Inj 1 mg, Injection, IV Push Slowly, Every 15 minutes for 3 doses/times, PRN for Pain , Moderate, and SBP greater than 100, STAT, 06/29/20 23:00:00 EDT, Stop date Limited # of times Start Date: 06/29/20 Stop Date: 06/30/20 Status: Discontinued Problem List Condition Effective Dates [...] [place] Back Pain Scale: 83on 01/20/17; initial [place]: 4 on 01/20/17 2SOAPP-R: 16 on 01/20/17 3Pain relevant problem list includes: See below Results Radiology Reports * Exam Date Time Procedure Performing Provider Status 06/30/20 12:11 AM Chest 2 Views Frontal and Lat Deotte , Richelle; Chris (Verified) Notes: (Chest 2 Views Frontal and Lat) Reason For Exam: Pneumoperitinium;Other: RESULT: Chest 2 Views Frontal and Lat Chest 2 Views Frontal and Lat Hx of Present Illness: abd pain and nausea since Tuesday; Reason: Other:; Pneumoperitoneum; ClinicalQuestion(s): Other:; Upright; Special Instructions: Upright COMPARISON: Multiple prior chest x-rays, the most recent of which is dated 04/09/2017. FINDINGS: LINES AND TUBES: None. LUNGS AND PLEURA: Clear lungs. Normal pulmonary vascularity. No pleural effusion. No pneumothorax. HEART, MEDIASTINUM AND SAMM: Heart is normal in size. Normal upper mediastinal and hilar contour. BONES AND SOFT TISSUES: No acute abnormality. IMPRESSION: No acute abnormality. WSN: [id number] Ordering Physician: Yonathan Pratt Dictated By: Mel Momin MD Dictated Date/Time: 06/30/20 8:03 am Reviewed By: Mel Momin MD Signed By: Mel Momin MD Signed Date/Time: 06/30/20 8:03 am Transcribed By: PAYTON Transcribed Date/Time: 06/30/20 7:55 am Vital Signs Most recent to oldest [Reference Range]: 1 2 3 Oxygen Saturation [94-100 %] 98 % (06/30/20 12:18 AM) 100 % (06/29/20 10:32 PM) 99 % (06/29/20 7:46 PM) Pulse Rate [55-90 bpm] 86 bpm (06/30/20 12:18 AM) 79 bpm (06/29/20 10:32 PM) 121 bpm *H* (06/29/20 7:46 PM) Blood Pressure [90-138/55-84 mm Hg] 121/89mm Hg (06/30/20 12:18 AM) 154/92mm Hg *H* (06/29/20 10:32 PM) 145/96mm Hg *H* (06/29/20 7:46 PM) Respiratory Rate [16-30 br/min] 16 br/min (06/30/20 1:09 AM) 16 br/min (06/30/20 12:39 AM) 16 br/min (06/30/20 12:18 AM) Temperature [96.8-100.4 DegF] 98.3 DegF (06/29/20 10:32 PM) 99.1 DegF (06/29/20 7:46 PM) Mode of Delivery (Oxygen) Room air (06/30/20 12:18 AM) Room air (06/29/20 10:32 PM) Room air (06/29/20 7:46 PM) Blood pressure sites Arm, left (06/30/20 12:18 AM) Arm, left (06/29/20 7:46 PM) Temperature Route Oral (06/29/20 10:32 PM) Oral (06/29/20 7:46 PM) Social History Social History Type Response Smoking Status Smoker, current stat us unknown entered on: 02/21/20 Sex
--- OUTSIDE RECORDS SUMMARY | 2023-11-30 06:37 | XMS_ITS | Continuity of Care Document ---
Author Organization [facility] ter Address [address] [place] [address]- Care Team Providers Care Continuous Towel Roller Name Role Phone Jane Oden MD Primary Care Physician [phone] [facility]counter [facility] Date(s): 08/16/19 - 08/16/[address] [address]- [facility] Discharge Disposition: A-D/C Home Attending Physician: Jose Daniel Medina MD Admitting Physician: Jose Daniel Medina MD Referring Physician: Not on Staff, Referring MD Allergies, Adverse Reactions, Alerts Substance Reaction Severity Status codeine itch Active Contrast Dye SOB,hives Active NSAIDs bleeding Active Immunizations Given and Recorded Vaccine Date Status Refusal Reason Influenza Virus Vaccine (oldterm) 07/06/18 Recorde d influenza virus vaccine, inactivated 1 03/28/17 Gi claude influenza virus vaccine, inactivated 02/23/16 Give n influenza virus vaccine, inactivated 02/11/15 Give n influenza virus vaccine, inactivated 03/04/14 Gr rded influenza virus vaccine, inactivated 01/22/13 Give n influenza virus vaccine, inactivated 01/15/11 Give n pneumococcal 23-valent vaccine 06/29/14 Given tetanus/diphtheria/pertussis, acel(Tdap) 2 12/31/11 Given tetanus/diphtheria/pertussis, acel(Tdap) 3 05/20/11 Given Pneumococcal Vacc (oldterm) 4 05/21/08 Given Influenza Inactive (IM) (oldterm) 5 05/21/08 Given diphtheria-tetanus toxoids (DT) 04/11/99 Given 1Result Comment: [03/28/2017] 36871-986-65 2Admin Note: VIS...05/04/2011 3Admin Note: VIS...05/04/2011 4Admin Note: [facility] 5Admin Note: [facility] Medications atorvastatin 40 mg oral tablet 1 tablet = 40 mg, By Mouth, Daily, # 90 tablet, 3 Refills, Maintenance, Tablet, Route to Pharmacy Electronically, [id number], [facility]/pharmacy #[id number] Start Date: 12/21/17 Stop Date: 12/16/18 Status: Ordered PROzac 40 mg oral capsule See Instructions, 30 mg daily, 0 Refills, Maintenance, 09/30/15 14:37:43 EDT, Capsule Start Date: 09/30/15 Status: Ordered SEROquel XR 400 mg oral tablet, extended release 800 mg, 2, tablet, By Mouth, Daily, # 30 tablet, Refills 0, Maintenance, 02/13/18 10:03:41 EST Start Date: 02/13/18 Status: Ordered Problem List Condition Effective Dates [...] 72% ( crippled ) on 01/20/17; initial [place] Back Pain Scale: 83on 01/20/17; initial [place]: 4 on 01/20/17 2SOAPP-R: 16 on 01/20/17 3Pain relevant problem list includes: See below Vital Signs Most recent to oldest [Reference Range]: 1 2 Height 168 cm (08/16/19 1:21 PM) Weight 73.2 kg (08/16/19 1:21 PM) Oxygen Saturation [94-100 %] 100 % (08/16/19 1:21 PM) 100 % (08/16/19 1:16 PM) Pulse Rate [55-90 bpm] 87 bpm (08/16/19 1:21 PM) 100 bpm *H* (08/16/19 1:16 PM) Body Mass Index [18.5-24.99] 25.94 *H* (08/16/19 1:21 PM) Blood Pressure [90-138/55-84 mm Hg] 151/ 96mm Hg *H* (08/16/19 1:21 PM) Respiratory Rate [16-30 br/min] 18 br/mi n (08/16/19 4:19 PM) 20 br/min (08/16/19 1:21 PM) Temperature [96.8-100.4 DegF] 98.4 DegF (08/16/19 1:21 PM) Mode of Delivery (Oxygen) Room air (08/16/19 1:21 PM) Room air (08/16/19 1:16 PM) Blood pressure sites Arm, right (08/16/19 1:21 PM) Temperature Route Oral (08/16/19 1:21 PM) Dry Weight 73.2 kg (08/16/19 1:21 PM) Weight Obtained Via Standing scale (08/16/19 1:21 PM) Social History Social History Type Response Smoking Status Former smoker; Stopp ed at age: 51; entered on: 01/20/17 Sex
--- OUTSIDE RECORDS SUMMARY | 2023-11-30 06:37 | XMS_ITS | Continuity of Care Document ---
Author Organization [facility] Address [address] [place] [address]- Care Team Providers Care Advertising Layout Worker Name Role Phone Jane Oden MD Primary Care Physician [phone] Encounter [facility] Date(s): 04/01/22 - 05/01/[address] [address] Attending Physician: Jannette Turcios Admitting [...] toxoids (DT) 04/11/99 Given 1Result Comment: [03/28/2017] 65272-376-17 2Admin Note: VIS...05/04/2011 3Admin Note: VIS...05/04/2011 4Admin Note: [facility] 5Admin Note: [facility] Medications Albuterol (Eqv-ProAir HFA) 90 mcg/inh inhalation aerosol 2 puffs, Inhalation, Every 6 hours, # 8.5 each, 5 Refills, Maintenance, 02/25/22 10:25:00 EST, [facility], 25, INHALE 2 PUFFS EVERY 6 HOURS, 164, cm, 11/02/21 12:14:00 EDT, Height, 71.7, kg, 01/12/21 14:37:00 EDT, Dry Weight Start Date: 02/25/22 Status: Ordered atorvastatin 40 mg oral tablet 1 tablet, By Mouth, Daily, # 90 tablet, 1 Refills, Maintenance, 03/31/22 9:39:00 EST, [facility], 164, cm, 03/02/22 12:51:00 EST, Height, 71.7, [...] 02/15/22 15:29:00 EST, Route to Pharmacy Electronically, [facility]/pharmacy #[id number], 164, cm, 11/02/21 12:14:00 EDT, Height, 71.7, kg, 01/12/21 14:37:00 EDT, Dry Weight Start Date: 02/15/22 Status: Ordered lidocaine 2% topical gel with applicator 15 mL = 0.3 Gm, Topically, Once, # 20 mL, 0 Refills, Soft Stop, 07/23/21 15:50:00 EDT, Gel, [facility]/pharmacy #[id number], Partial fill upon patient request if the prescription is for a schedule II opioid drug., 164, cm, 07/23/21 8:17:00 EDT, Height, 71.7, kg, 1... Start Date: 07/23/21 Status: Ordered lisinopril 2.5 mg oral tablet 1, tablet, By Mouth, Daily, # 90 tablet, Refills 0, Maintenance, 03/31/22 9:39:00 EST, Route to Pharmacy Electronically, [facility], 164, cm, 03/02/22 12:51:00 EST, Height, 71.7, kg, 01/12/21 14:37:00 EDT, Dry Weight Start Date: 03/31/22 Status: Ordered omeprazole 40 mg oral enteric coated capsule 1 capsule, By Mouth, Daily, # 90 capsule, 0 Refills, Maintenance, 03/31/22 9:39:00 EST, [facility], 164, cm, 03/02/22 12:51:00 EST, Height, 71.7, kg, 01/12/21 14:37:00 EDT, Dry Weight Start Date: 03/31/22 Status: Ordered pregabalin 300 mg oral capsule 1 capsule = 300 mg, By Mouth, 2 times a day, # 60 capsule, 5 Refills, Maintenance, 06/03/21 10:51:00 EST, Capsule, [facility]/pharmacy #[id number], Partial fill upon patient request [...] 3 Refills, Maintenance, 09/21/21 8:56:00 EDT, Aerosol, [facility]/pharmacy #[id number], Partial fill upon patient request if the prescription is for a schedule II opioid drug.,164, cm, 09/21/21 8:55:00 EDT, Height, 71.7, kg, 10... Start Date: 09/21/21 Status: Ordered tiZANidine 4 mg oral capsule 1 capsule = 4 mg, By Mouth, Daily at bedtime, # 30 capsule, 0 Refills, Maintenance, 07/23/21 8:37:00 EDT, [facility]/pharmacy #[id number], Partial fill upon patient request if the [...] [place] Back Pain Scale: 83on 01/20/17; initial [place]: 4 on 01/20/17 3SOAPP-R: 16 on 01/20/17 4Pain relevant problem list includes: See below Social History Social History Type Response Smoking Status Smoker, current stat us unknown entered on: 02/21/20 Sex Patient Care team information Care Team Personnel Name: Lakeisha Acevedo RN Position: [facility] RN Member Role: Primary Care Nurse Name: Lay Kaur RN Position: [facility] YELENAO RN Member Role: Primary Care Nurse Name: Katelyn Dubois RN Position: [facility] RN Member Role: Primary Care Nurse Name: Melissa Morris RN Position: [facility] RN Member Role: Primary Care Nurse Name: Lemuel Day RN Position: [facility] RN Member Role: Primary Care Nurse Name: Curtis Shoemaker RN Position: [facility] AMB Nurse Member Role: Primary Care Nurse Name: Gala Rae NP Position: Reference Physician Member Role: Primary Care Nurse Address: Address: [address] [place] [address]- [place] Name: Xiomara Duran RN Position: [facility] OB RN Member Role: Primary Care Nurse Name: Jane Oden MD Position: [facility] Primary Care Physician Member Role: PCP Address: Address: [address] [facility] [address]- [place] Name: Tatiana Mcduffie RN Position: [facility] SN RN Member Role: Primary Care Nurse Care Team Related Persons Name: CARLOS VILLALTA Address: home [address] [place] [address] Name: MELANIE VERGARA Address: [address] [place] [address]
--- OUTSIDE RECORDS SUMMARY | 2023-11-30 06:37 | XMS_ITS | Continuity of Care Document ---
Author Organization [facility] ter Address [address] [place] [address]- Care Team Providers Care Eeg Technologist Name Role Phone Jaen Oden MD Primary Care Physician [facility] Date[facility] 11[facility]20 - 12/13/[address] [address] Attending Physician: Jane Oden MD Admitting Physician: [...] toxoids (DT) 04/11/99 Given 1Result Comment: [03/28/2017] [id number] 2Admin Note: VIS...05/04/2011 3Admin Note: VIS...05/04/2011 4Admin Note: [facility] 5Admin Note: [facility] Problem List Condition Effective Dates Status [...] crippled ) on 01/20/17; initial [place] Back Pain Scale: 83on 01/20/17; initial [place]: 4 on 01/20/17 2SOAPP-R: 16 on 01/20/17 3Pain relevant problem list includes: See below Social History Social History Type Response Smoking Status Smoker, current stat us unknown entered on: 02/21/20 Sex
--- OUTSIDE RECORDS SUMMARY | 2023-11-30 06:37 | XMS_ITS | Continuity of Care Document ---
Author Organization [facility] Address [address] [place] [address]- Care Team Providers Care Motor Vehicle Emissions Inspector Name Role Phone Cecille CHANCE, Jane Primary Care Physician [facility] Date(s): 02/03/23 - 03/05/23 [facility] [address] [place] [address]- [place] Allergies, Adverse Reactions, Alerts Substance Reaction [...] toxoids (DT) 04/11/99 Given 1Result Comment: [03/28/2017] 27548-719-01 2Admin Note: VIS...05/04/2011 3Admin Note: VIS...05/04/2011 4Admin Note: [facility] 5Admin Note: [facility] Medications Albuterol (Eqv-ProAir HFA) 90 mcg/inh inhalation aerosol 2 puffs, Inhalation, Every 6 hours, # 8.5 each, 2 Refills, Maintenance, 02/14/23 3:52:00 EST, [facility]/pharmacy #[id number], 25, 2 puffs Inhalation Every 6 hours, 163, cm, 01/11/23 13:20:00 EDT, Height, 73, kg,01/05/23 1:41:00 EDT, Dry Weight Start Date: 02/14/23 Status: Ordered atorvastatin 20 mg oral tablet 1 tablet = 20 mg, By Mouth, Daily, # 90 tablet, 1 Refills, Maintenance, 01/04/23 9:13:00 EDT, Tablet, [facility]/pharmacy #[id number], Partial fill upon patient request if the prescription is for a schedule II opioid drug., 163, cm, 12/20/22 7:59:00 EDT, Height, 7... Start Date: 01/04/23 Stop Date: 07/03/23 Status: Ordered FLUoxetine 20 mg oral capsule 1, capsule, By Mouth, Daily, # 90 capsule, Refills 1, Maintenance, 01/07/23 15:04:00 EDT, Route to Pharmacy Electronically, [facility]ORE [facility], 163, cm, 01/05/23 1:41:00 EDT, Height, 73, kg, 01/05/23 1:41:00 EDT, Dry Weight Start Date: 01/07/23 Status: Ordered Golytely - oral powder for reconstitution 240 mL, By Mouth, Every 10 minutes, # 1 each, 0 Refills, Maintenance, 12/02/22 8:36:00 EDT, REC Powder, [facility]/pharmacy #[id number], Partial fill upon patient request if the prescription is for a schedule II opioid drug., 240 mL By Mouth Every 10 minutes, 165,... Start Date: 12/02/22 Status: Ordered lisinopril 5 mg oral tablet 5 mg, 1, tablet, By Mouth, Daily, # 90 tablet, Refills 1, Tot. Refills 1, Maintenance, 01/04/23 9:13:00 EDT, Route to Pharmacy Electronically, [facility]/pharmacy #[id number], Partial fill upon patient request ifthe prescription is for a schedule II opioid drug.,... Start Date: 01/04/23 Stop Date: 07/03/23 Status: Ordered omeprazole 40 mg oral enteric coated capsule 1 capsule, By Mouth, Daily, # 90 capsule, 0 Refills, Maintenance, 12/16/22 10:33:00 EDT, [facility]/pharmacy #[id number], 163, cm, 12/09/22 8:10:00 EDT, Height, 71.5, kg, 12/09/22 8:10:00 EDT, Dry Weight Start Date: 12/16/22 Stop Date: 03/16/23 Status: Ordered ondansetron 4 mg oral tablet, disintegrating 1 tablet, By Mouth, 3 times a day, PRN NEEDED FOR NAUSEA/VOMITING, # 20 tablet, 1 Refills, Maintenance, 01/31/23 19:45:00 EDT, [facility] STORE [facility], 163, cm, 01/11/23 13:20:00 EDT, Height, 73, [...] [place] Back Pain Scale: 83on 01/20/17; initial [place]: 4 on 01/20/17 3SOAPP-R: 16 on 01/20/17 4Pain relevant problem list includes: See below Social History Social History Type Response Smoking Status Former smoker, quit more than 30 days ago entered on: 11/05/22 Sex Patient Care team information Care Team Personnel Name: Lakeisha Acevedo RN Position: [facility] RN Member Role: Primary Care Nurse Name: Lay Kaur RN Position: [facility] AMB Nurse Member Role: Primary Care Nurse Name: Juliana Kumari RN Position: [facility] RN Member Role: Primary Care Nurse Name: Katelyn Dubois RN Position: [facility] RN Member Role: Primary Care Nurse Name: Jodee Alford RN Position: [facility] RN Member Role: Primary Care Nurse Name: Melissa Morris RN Position: [facility] RN Member Role: Primary Care Nurse Name: Lemuel Day RN Position: [facility] RN Member Role: Primary Care Nurse Name: Curtis Shoemaker RN Position: [facility] AMB Nurse Member Role: Primary Care Nurse Name: Gala Rae NP Position: [facility] PCO Associate Professional Member Role: Primary Care Nurse Address: Address: [address] [place] [address] Name: Kavya Cantu RN Position: [facility] RN Member Role: Primary Care Nurse Name: Xiomara Duran RN Position: [facility] OB RN Member Role: Primary Care Nurse Name: Jane Oden MD Position: [facility] Physician - Primary Care Member Role: PCP Address: Address: [address] [place] [address]- Name: Tatiana Mcduffie RN Position: [facility] SN RN Member Role: Primary Care Nurse Care Team Related Persons Name: PAWAN CARLOS Address: [address] [place] [address] Name: MELANIE VERGARA Address: [address] [place] [address]
--- OUTSIDE RECORDS SUMMARY | 2023-11-30 06:37 | XMS_ITS | Continuity of Care Document ---
Author Organization [facility] ter Address [address] [place] [address]- Care Team Providers Care Encoding Clerk Name Role Phone Jane Oden MD Primary Care Physician [phone] Encounter [facility] Date(s): 12/18/21 - 01/23/[address] [id number] Attending Physician: Sam CHANCE, Dusty Laureano Admitting Physician: Sam CHANCE, Dusty Laureano Referring Physician: Hortensia Grover DO Allergies, Adverse [...] toxoids (DT) 04/11/99 Given 1Result Comment: [03/28/2017] 71487-583-22 2Admin Note: VIS...05/04/2011 3Admin Note: VIS...05/04/2011 4Admin Note: [facility] 5Admin Note: [facility] Medications Albuterol (Eqv-ProAir HFA) 90 mcg/inh inhalation aerosol 2 puffs, Inhalation, Every 6 hours, # 8.5 each, 5 Refills, [id number], 25, INHALE 2 PUFFS EVERY 6 HOURS, 164, cm, 09/21/21 8:55:00 EDT, Height, 71.7, kg, 01/12/21 14:37:00 EDT, Dry Weight Start Date: 10/01/21 Status: Ordered atorvastatin 40 mg oral tablet 1 tablet = 40 mg, By Mouth, Daily, # 90 tablet, 1 Refills, Maintenance, 11/02/21 12:16:00 EDT, Tablet, [facility]/pharmacy #[id number], Partial fill upon patient request if the prescription is for a schedule II opioid drug., 164, cm, 11/02/21 12:14:00 EDT, Height,... Start Date: 11/02/21 Status: Ordered B 100 Complex By Mouth, Daily, 0 Refills, Maintenance, 01/02/21 15:10:00 EDT, Partial fill upon patient request if the prescription is for a schedule II opioid drug. Start Date: 01/02/21 Status: Ordered FLUoxetine 20 mg oral capsule 1, capsule, By Mouth, Daily, # 90 capsule, Refills 1, Route to Pharmacy Electronically, [id number], 164, cm, 07/23/21 8:17:00 EDT, Height, 71.7, kg, 01/12/21 14:37:00 EDT, Dry Weight Start Date: 09/10/21 Status: Ordered lidocaine 2% topical gel with applicator 15 mL = 0.3 Gm, Topically, Once, # 20 mL, 0 Refills, Soft Stop, 07/23/21 15:50:00 EDT, Gel, [facility]/pharmacy #[id number], Partial fill upon patient request if the prescription is for a schedule II opioid drug., 164, cm, 07/23/21 8:17:00 EDT, Height, 71.7, kg, 1... Start Date: 07/23/21 Status: Ordered lisinopril 2.5 mg oral tablet 2.5 mg, 1, tablet, By Mouth, Daily, # 90 tablet, Refills 1, Tot. Refills 1, Maintenance, 11/03/21 15:55:00 EDT, Route to Pharmacy Electronically, [facility]/pharmacy #[id number], Partial fill upon patient requestif the prescription is for a schedule II opioid manuela... Start Date: 11/03/21 Stop Date: 05/02/22 Status: Ordered omeprazole 40 mg oral enteric coated capsule 1 capsule, By Mouth, Daily, # 90 capsule, 0 Refills, Maintenance, 01/15/22 10:08:00 EDT, [facility], 164, cm, 11/02/21 12:14:00 EDT, Height, 71.7, kg, 01/12/21 14:37:00 EDT, Dry Weight Start Date: 01/15/22 Status: Ordered Percocet 10 mg-325 mg oral tablet 1 tablet, By Mouth, 2 times a day, PRN Pain , Severe, may take less - this is for short term treatment, # 20 tablet, 0 Refills, Acute 03/05/22 13:27:00 EST, 11/02/21 13:26:00 EDT, [id number] fill upon patient request if the prescripti... Start Date: 11/02/21 Stop Date: 03/05/22 Status: Ordered pregabalin 300 mg oral capsule [...] disorder Confirmed Active Bone pain Confirmed Active Abnormal CT scan, pelvis Confirmed Active Epigastric pain Confirmed Active Fibromyalgia Confirmed Active Limitation due to disability 1 Confirmed Active Encounter for diagnostic colonoscopy due to change in bowel habits Confirmed Active Drug or alcohol risk assessment 2 Confirmed Active BRBPR (bright red blood per rectum) Confirmed Active History of appendectomy Confirmed Active History of medical problems 3 Confirmed Active Ileus Confirmed Active Low back pain Confirmed Active Lumbar postlaminectomy syndrome Confirmed Active Migraine Confirmed Active Nausea Confirmed Active Rectal bleeding Confirmed Active Seizure Confirmed Active Tobacco abuse Confirmed Active 1initial Oswestry Disability Index: 72% ( crippled ) on 01/20/17; initial [place] Back Pain Scale: 83on 01/20/17; initial [place]: 4 on 01/20/17 2SOAPP-R: 16 on 01/20/17 3Pain relevant problem list includes: See below Social History Social History Type Response Smoking Status Smoker, current stat us unknown entered on: 02/21/20 Sex Patient Care team information Personnel Name: Jane Oden MD Address: Address: [address] [place] [address] [place] [address]- [place]
--- OUTSIDE RECORDS SUMMARY | 2023-11-30 06:37 | XMS_ITS | Continuity of Care Document ---
Author Organization [facility] Address [address] [place] [address]- Care Team Providers Care Research Interviewer Name Role Phone Cecille CHANCE, Jane Primary Care Physician [phone] Encounter [facility] Date(s): 05/31/23 - 06/30/23 [facility] [address] [place] [place] [address]- [place] Allergies, Adverse Reactions, Alerts Substance Reaction [...] toxoids (DT) 04/11/99 Given 1Result Comment: [03/28/2017] 45072-606-36 2Admin Note: VIS...05/04/2011 3Admin Note: VIS...05/04/2011 4Admin Note: [facility] 5Admin Note: [facility] Medications Albuterol (Eqv-ProAir HFA) 90 mcg/inh inhalation aerosol 2 puffs, Inhalation, Every 6 hours, # 8.5 each, 2 Refills, Maintenance, 05/02/23 13:19:00 EST, [facility], 25, INHALE 2 PUFFS BY MOUTH EVERY 6 HOURS, 163, cm, 01/11/23 13:20:00 EDT, Height, 73, kg, 01/05/23 1:41:00 EDT, Dry Weight Start Date: 05/02/23 Status: Ordered atorvastatin 20 mg oral tablet 1 tablet, By Mouth, Daily, # 90 tablet, 1 Refills, Maintenance, 06/06/23 17:36:00 EST, [facility], 163, cm, 05/30/23 11:34:00 EST, Height, 63.6, [...] 01/07/23 15:04:00 EDT, Route to Pharmacy Electronically, [facility], 163, cm, 01/05/23 1:41:00 EDT, Height, 73, kg, 01/05/23 1:41:00 EDT, Dry Weight Start Date: 01/07/23 Status: Ordered FLUoxetine 20 mg oral capsule See Instructions, TAKE 1 CAPSULE BY MOUTH EVERY DAY, # 90 capsule, Refills 1, Maintenance, 249:21:00 EST, Instructions Replace Required Details, Route to Pharmacy Electronically, [facility], 163, cm, 05/30/23 11:34:00 EST, Height, 63.6, kg... Start Date: 06/07/23 Status: Ordered Golytely - oral powder for reconstitution 240 mL, By Mouth, Every 10 minutes, # 1 each, 0 Refills, Maintenance, 12/02/22 8:36:00 EDT, REC Powder, [facility]/pharmacy #[id number], Partial fill upon patient request if the prescription is for a schedule II opioid drug., 240 mL By Mouth Every 10 minutes, 165,... Start Date: 12/02/22 Status: Ordered Lidoderm 5% film 1 patch, Topically, Daily, remove patches after 12 hours, # 10 patch, 0 Refills, Maintenance, 05/19/23 16:40:00 EST, [facility]/pharmacy #[id number], Partial fill upon patient request if the prescription is for aschedule II opioid drug., 1 patch Topically Daily,x... Start Date: 05/19/23 Stop Date: 05/29/23 Status: Ordered lisinopril 5 mg oral tablet 1, tablet, By Mouth, Daily, # 90 tablet, Refills 1, Maintenance, 06/06/23 17:36:00 EST, Route to Pharmacy Electronically, [facility], 163, cm, 05/30/23 11:34:00 EST, Height, 63.6, kg, 05/19/23 9:09:00 EST, Dry Weight Start Date: 06/06/23 Status: Ordered omeprazole 40 mg oral enteric coated capsule 1 capsule, By Mouth, Daily, # 90 capsule, 1 Refills, Maintenance, 06/06/23 17:36:00 EST, [facility], 163, cm, 05/30/23 11:34:00 EST, Height, 63.6, [...] [place] Back Pain Scale: 83on 01/20/17; initial [place]: 4 on 01/20/17 3SOAPP-R: 16 on 01/20/17 4Pain relevant problem list includes: See below Social History Social History Type Response Smoking Status Former smoker, quit more than 30 days ago entered on: 11/05/22 Sex Patient Care team information Care Team Personnel Name: Lakeisha Acevedo RN Position: [facility] RN Member Role: Primary Care Nurse Name: Lay Kaur RN Position: [facility] AMB Nurse Member Role: Primary Care Nurse Name: Juliana Kumari RN Position: [facility] RN Member Role: Primary Care Nurse Name: Katelyn Dubois RN Position: [facility] SN RN Member Role: Primary Care Nurse Name: Jodee Alford RN Position: [facility] RN Member Role: Primary Care Nurse Name: Melissa Morris RN Position: [facility] RN Member Role: Primary Care Nurse Name: Lemuel Day RN Position: [facility] RN Member Role: Primary Care Nurse Name: Curtis Shoemaker RN Position: [facility] AMB Nurse Member Role: Primary Care Nurse Name: Gala Rae NP Position: [facility] PCO Associate Professional Member Role: Primary Care Nurse Address: Address: [address] Name: Kavya Cantu RN Position: [facility] RN Member Role: Primary Care Nurse Name: Xiomara Duran RN Position: [facility] OB RN Member Role: Primary Care Nurse Name: Jane Oden MD Position: [facility] Physician - Primary Care Member Role: PCP Address: Address: [address] [place] [address]- Name: Cheryle Garcia RN Position: [facility] RN Member Role: Primary Care Nurse Care Team Related Persons Name: PAWAN CARLOS Address: home [address] [place] [address] Name: MELANIE VERGARA Address: [address] [place] [address]
--- OUTSIDE RECORDS SUMMARY | 2023-11-30 06:37 | XMS_ITS | Continuity of Care Document ---
Author Organization [facility] Address [address] [place] [address]- Care Team Providers Care Layboy Tender Name Role Phone Jane Oden MD Primary Care Physician [phone] Encounter [facility] Date(s): 06/22/23 - 07/22/23 [facility] [address] [place] [id number] Attending Physician: Jannette Turcios Admitting Physician: Jannette Turcios Referring Physician: AdmJannette jose Allergies, Adverse Reactions, Alerts Substance Reaction Severity [...] toxoids (DT) 04/11/99 Given 1Result Comment: [03/28/2017] [id number] 2Admin Note: VIS...05/04/2011 3Admin Note: VIS...05/04/2011 4Admin Note: [facility] 5Admin Note: [facility] Medications Albuterol (Eqv-ProAir HFA) 90 mcg/inh inhalation aerosol 2 puffs, Inhalation, Every 6 hours, # 8.5 each, 5 Refills, Maintenance, 07/21/23 9:37:00 EDT, [facility], 25, INHALE 2 PUFFS BY MOUTH EVERY 6 HOURS, 163, cm, 07/11/23 9:51:00 EDT, Height, 65.1, kg, 07/11/23 8:46:00 EDT, Dry Weight Start Date: 07/21/23 Status: Ordered atorvastatin 20 mg oral tablet 1 tablet, By Mouth, Daily, # 90 tablet, 1 Refills, Maintenance, 06/06/23 17:36:00 EST, [facility], 163, cm, 05/30/23 11:34:00 EST, Height, 63.6, [...] 01/07/23 15:04:00 EDT, Route to Pharmacy Electronically, [facility], 163, cm, 01/05/23 1:41:00 EDT, Height, 73, kg, 01/05/23 1:41:00 EDT, Dry Weight Start Date: 01/07/23 Status: Ordered FLUoxetine 20 mg oral capsule See Instructions, TAKE 1 CAPSULE BY MOUTH EVERY DAY, # 90 capsule, Refills 1, Maintenance, :21:00 EST, Instructions Replace Required Details, Route to Pharmacy Electronically, [facility], 163, cm, 05/30/23 11:34:00 EST, Height, 63.6, [...] patch, 0 Refills, Maintenance, 05/19/23 16:40:00 EST, [id number], Partial fill upon patient request if the prescription is for aschedule II opioid drug., 1 patch Topically Daily,x... Start Date: 05/19/23 Stop Date: 05/29/23 Status: Ordered lisinopril 5 mg oral tablet 1, tablet, By Mouth, Daily, # 90 tablet, Refills 1, Maintenance, 06/06/23 17:36:00 EST, Route to Pharmacy Electronically, [facility] 245[facility], 163, cm, 05/30/23 11:34:00 EST, Height, 63.6, kg, 05/19/23 9:09:00 EST, Dry Weight Start Date: 06/06/23 Status: Ordered omeprazole 40 mg oral enteric coated capsule 1 capsule, By Mouth, Daily, # 90 capsule, 1 Refills, Maintenance, 06/06/23 17:36:00 EST, [facility], 163, cm, 05/30/23 11:34:00 EST, Height, 63.6, [...] capsule, 4 Refills, Maintenance, 03/23/23 11:47:00 EST, [facility]/pharmacy #[id number], 163, cm, 01/11/23 13:20:00 EDT, Height, [...] [place] Back Pain Scale: 83on 01/20/17; initial [place]: 4 on 01/20/17 3SOAPP-R: 16 on 01/20/17 4Pain relevant problem list includes: See below Social History Social History Type Response Smoking Status Former smoker, quit more than 30 days ago entered on: 11/05/22 Sex Patient Care team information Care Team Personnel Name: Lakeisha Acevedo RN Position: [facility] RN Member Role: Primary Care Nurse Name: Lay Kaur RN Position: [facility] Nurse Member Role: Primary Care Nurse Name: Juliana Kumari RN Position: [facility] RN Member Role: Primary Care Nurse Name: Katelyn Dubois RN Position: [facility] SN RN Member Role: Primary Care Nurse Name: Jodee Alford RN Position: [facility] RN Member Role: Primary Care Nurse Name: Melissa Morris RN Position: [facility] RN Member Role: Primary Care Nurse Name: Lemuel Day RN Position: [facility] RN Member Role: Primary Care Nurse Name: Curtis Shoemaker RN Position: [facility] AMB Nurse Member Role: Primary Care Nurse Name: Gala Rae NP Position: [facility] PCO Associate Professional Member Role: Primary Care Nurse Address: Address: [address] [place] [address]- [place] Name: Kavya Cantu RN Position: [facility] RN Member Role: Primary Care Nurse Name: Xiomara Duran RN Position: [facility] OB RN Member Role: Primary Care Nurse Name: Jane Oden MD Position: [facility] Physician - Primary Care Member Role: PCP Address: Address: [address] [place] [address]- Name: Tatiana Mcduffei RN Position: [facility] NA[facility] Office Staff Member Role: Primary Care Nurse Name: Cheryle Garcia RN Position: [facility] RN Member Role: Primary Care Nurse Care Team Related Persons Name: LISETTECARLOS MARTI Address: home [address] [place] [address] Name: MELANIE VERGARA Address: [address] [place] [address]
--- OUTSIDE RECORDS SUMMARY | 2023-11-30 06:37 | XMS_ITS | Continuity of Care Document ---
Author Organization [facility] Address [address] [place] [address]- Care Team Providers Care It Communications Specialist Name Role Phone Jane Oden MD Primary Care Physician Encounter [facility] Date(s): 01/14/23 - 03/27/23 [facility] [address] [place] [id number] Attending Physician: Eric Barkley MD Admitting Physician: Eric Barkley MD Referring Physician: Jane Oden MD Allergies, [...] toxoids (DT) 04/11/99 Given 1Result Comment: [03/28/2017] 79434-514-20 2Admin Note: VIS...05/04/2011 3Admin Note: VIS...05/04/2011 4Admin Note: [facility] 5Admin Note: [facility] Medications Albuterol (Eqv-ProAir HFA) 90 mcg/inh inhalation aerosol 2 puffs, Inhalation, Every 6 hours, # 8.5 each, 2 Refills, Maintenance, 02/14/23 3:52:00 EST, [facility]/pharmacy #[id number], 25, 2 puffs Inhalation Every 6 hours, 163, cm, 01/11/23 13:20:00 EDT, Height, 73, kg,01/05/23 1:41:00 EDT, Dry Weight Start Date: 02/14/23 Status: Ordered atorvastatin 20 mg oral tablet 1 tablet = 20 mg, By Mouth, Daily, # 90 tablet, 1 Refills, Maintenance, 01/04/23 9:13:00 EDT, Tablet, [facility]/pharmacy #[id number], Partial fill upon patient request if the prescription is for a schedule II opioid drug., 163, cm, 12/20/22 7:59:00 EDT, Height, 7... Start Date: 01/04/23 Stop Date: 07/03/23 Status: Ordered FLUoxetine 20 mg oral capsule 1, capsule, By Mouth, Daily, # 90 capsule, Refills 1, Maintenance, 01/07/23 15:04:00 EDT, Route to Pharmacy Electronically, [facility] 26776, 163, cm, 01/05/23 1:41:00 EDT, Height, 73, kg, 01/05/23 1:41:00 EDT, Dry Weight Start Date: 01/07/23 Status: Ordered Golytely - oral powder for reconstitution 240 mL, By Mouth, Every 10 minutes, # 1 each, 0 Refills, Maintenance, 12/02/22 8:36:00 EDT, REC Powder, [facility]/pharmacy #[id number], Partial fill upon patient request if the prescription is for a schedule II opioid drug., 240 mL By Mouth Every 10 minutes, 165,... Start Date: 12/02/22 Status: Ordered lisinopril 5 mg oral tablet 5 mg, 1, tablet, By Mouth, Daily, # 90 tablet, Refills 1, Tot. Refills 1, Maintenance, 01/04/23 9:13:00 EDT, Route to Pharmacy Electronically, [facility]/pharmacy #[id number], Partial fill upon patient request ifthe prescription is for a schedule II opioid drug.,... Start Date: 01/04/23 Stop Date: 07/03/23 Status: Ordered omeprazole 40 mg oral enteric coated capsule 1 capsule, By Mouth, Daily, # 90 capsule, 0 Refills, Maintenance, 03/16/23 10:33:00 EST, [facility]/pharmacy #[id number], 163, cm, 01/11/23 13:20:00 EDT, Height, 73, kg, 01/05/23 1:41:00 EDT, Dry Weight Start Date: 03/16/23 Stop Date: 06/14/23 Status: Ordered ondansetron 4 mg oral tablet, disintegrating 1 tablet, By Mouth, 3 times a day, PRN NEEDED FOR NAUSEA/VOMITING, # 20 tablet, 1 Refills, Maintenance, 03/08/23 15:13:00 EST, [facility]/pharmacy #[id number], 163, cm, 01/11/23 13:20:00 EDT, Height, 73, kg, 01/05/23 1:41:00 EDT, Dry Weight Start Date: 03/08/23 Status: Ordered Percocet 2.5 mg-325 mg oral tablet 1 tablet, By Mouth, Every 4 hours, PRN as needed for pain, can take 1-2 tablets as necessary, # 30 tablet, 0 Refills, Maintenance, 12/02/22 10:00:00 EDT, Tablet, [facility]/pharmacy #[id number], Partial fill uponpatient request if the prescription is for a schedu... Start Date: 12/02/22 Status: Ordered predniSONE 10 mg oral tablet See Instructions, 2 tabs/d for 2d then 1 tab/d for 4d then stop, # 8 tablet, 0 Refills, Maintenance, 01/06/23 16:51:00 EDT, Tablet, [facility]/pharmacy #[id number], Partial fill upon patient request if [...] [place] Back Pain Scale: 83on 01/20/17; initial [place]: 4 on 01/20/17 3SOAPP-R: 16 on 01/20/17 4Pain relevant problem list includes: See below Social History Social History Type Response Smoking Status Former smoker, quit more than 30 days ago entered on: 11/05/22 Sex Patient Care team information Care Team Personnel Name: Lakeisha Acevedo RN Position: [facility] RN Member Role: Primary Care Nurse Name: Lay Kaur RN Position: [facility] AMB Nurse Member Role: Primary Care Nurse Name: Juliana Kumari RN Position: [facility] RN Member Role: Primary Care Nurse Name: Katelyn Dubois RN Position: [facility] RN Member Role: Primary Care Nurse Name: Jodee Alford RN Position: [facility] RN Member Role: Primary Care Nurse Name: Melissa Morris RN Position: [facility] RN Member Role: Primary Care Nurse Name: Lemuel Day RN Position: [facility] RN Member Role: Primary Care Nurse Name: Curtis Shoemaker RN Position: [facility] AMB Nurse Member Role: Primary Care Nurse Name: Gala Rae NP Position: [facility] PCO Associate Professional Member Role: Primary Care Nurse Address: Address: [address] [address]- [place] Name: Kavya Cantu RN Position: [facility] RN Member Role: Primary Care Nurse Name: Xiomara Duran RN Position: [facility] OB RN Member Role: Primary Care Nurse Name: Jane Oden MD Position: [facility] Physician - Primary Care Member Role: PCP Address: Address: [address] [facility] [place] [address]- Name: Tatiana Mcduffie RN Position: [facility] SN RN Member Role: Primary Care Nurse Care Team Related Persons Name: CARLOS VILLALTA Address: home [address] [place] [address] Name: MELANIE VERGARA Address: home [address] [place] [address]
--- OUTSIDE RECORDS SUMMARY | 2023-11-30 06:37 | XMS_ITS | Continuity of Care Document ---
Author Organization [facility] Address [address] [place] [address]- Care Team Providers Care Roof Service Technician Name Role Phone Jane Oden MD Primary Care Physician Encounter [facility] Date(s): 03/02/22 - 04/01/22 [facility] [address] [place] [id number]- Attending Physician: Jannette Turcios Admitting Physician: Jannette [...] toxoids (DT) 04/11/99 Given 1Result Comment: [03/28/2017] 54113-411-12 2Admin Note: VIS...05/04/2011 3Admin Note: VIS...05/04/2011 4Admin Note: [facility] 5Admin Note: [facility] Medications Albuterol (Eqv-ProAir HFA) 90 mcg/inh inhalation aerosol 2 puffs, Inhalation, Every 6 hours, # 8.5 each, 5 Refills, Maintenance, 02/25/22 10:25:00 EST, [id number], 25, INHALE 2 PUFFS EVERY 6 HOURS, 164, cm, 11/02/21 12:14:00 EDT, Height, 71.7, kg, 01/12/21 14:37:00 EDT, Dry Weight Start Date: 02/25/22 Status: Ordered atorvastatin 40 mg oral tablet 1 tablet, By Mouth, Daily, # 90 tablet, 1 Refills, Maintenance, 03/31/22 9:39:00 EST, [id number], 164, cm, 03/02/22 12:51:00 EST, Height, 71.7, [...] 02/15/22 15:29:00 EST, Route to Pharmacy Electronically, [facility]/pharmacy #[id number], 164, cm, 11/02/21 12:14:00 EDT, Height, 71.7, kg, 01/12/21 14:37:00 EDT, Dry Weight Start Date: 02/15/22 Status: Ordered lidocaine 2% topical gel with applicator 15 mL = 0.3 Gm, Topically, Once, # 20 mL, 0 Refills, Soft Stop, 07/23/21 15:50:00 EDT, Gel, [facility]/pharmacy #[id number], Partial fill upon patient request if the prescription is for a schedule II opioid drug., 164, cm, 07/23/21 8:17:00 EDT, Height, 71.7, kg, 1... Start Date: 07/23/21 Status: Ordered lisinopril 2.5 mg oral tablet 1, tablet, By Mouth, Daily, # 90 tablet, Refills 0, Maintenance, 03/31/22 9:39:00 EST, Route to Pharmacy Electronically, [facility] ST[id number], 164, cm, 03/02/22 12:51:00 EST, Height, 71.7, kg, 01/12/21 14:37:00 EDT, Dry Weight Start Date: 03/31/22 Status: Ordered omeprazole 40 mg oral enteric coated capsule 1 capsule, By Mouth, Daily, # 90 capsule, 0 Refills, Maintenance, 03/31/22 9:39:00 EST, [id number], 164, cm, 03/02/22 12:51:00 EST, Height, 71.7, kg, 01/12/21 14:37:00 EDT, Dry Weight Start Date: 03/31/22 Status: Ordered pregabalin 300 mg oral capsule 1 capsule = 300 mg, By Mouth, 2 times a day, # 60 capsule, 5 Refills, Maintenance, 06/03/21 10:51:00 EST, Capsule, [facility]/pharmacy #[id number], Partial fill upon patient request [...] capsule, 0 Refills, Maintenance, 07/23/21 8:37:00 EDT, [facility]/pharmacy #[id number], Partial fill upon patient request if the [...] [place] Back Pain Scale: 83on 01/20/17; initial [place]: 4 on 01/20/17 3SOAPP-R: 16 on 01/20/17 4Pain relevant problem list includes: See below Social History Social History Type Response Smoking Status Smoker, current stat us unknown entered on: 02/21/20 Sex Patient Care team information Care Team Personnel Name: Jazmin Robledo RN Position: [facility] RN Member Role: Primary Care Nurse Name: Lakeisha Acevedo RN Position: [facility] RN Member Role: Primary Care Nurse Name: Lay Kaur RN Position: [facility] [place] RN Member Role: Primary Care Nurse Name: Katelyn Dubois RN Position: [facility] RN Member Role: Primary Care Nurse Name: Melissa Morris RN Position: [facility] RN Member Role: Primary Care Nurse Name: Lemuel Day RN Position: [facility] RN Member Role: Primary Care Nurse Name: Curtis Shoemaker RN Position: [facility] AMB Nurse Member Role: Primary Care Nurse Name: Gala Rae NP Position: Reference Physician Member Role: Primary Care Nurse Address: Address: [address] [place] [phone]- Name: Xiomara Duran RN Position: [facility] OB RN Member Role: Primary Care Nurse Name: Jane Oden MD Position: [facility] Primary Care Physician Member Role: PCP Address: Address: [address] [place] [address] [place] [address]- [place] Name: Tatiana Mcduffie RN Position: [facility] SN RN Member Role: Primary Care Nurse Care Team Related Persons Name: CARLOS VILLALTA Address: [address] [place] [address] Name: MELANIE VERGARA Address: [address] [place] [address]
--- OUTSIDE RECORDS SUMMARY | 2023-11-30 06:37 | XMS_ITS | Continuity of Care Document ---
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 Mon-CSSRS: Yes (11/23/23) Suicidal Thoughts Past Month - CSSRS: Yes (11/23/23) Suicidal Thoughts Since Last Asked-CSSRS: No (11/23/23) Suicide Behavior Lifetime - CSSRS: Yes (11/23/23) Suicide Behavior Past 3 Months - CSSRS: Yes (11/23/23) Suicide Behavior Since Last Asked-CSSRS: No (11/23/23) Suicide Intent w/Plan Last Asked-CSSRS: Yes (11/23/23) Suicide Intent w/Plan Past Month - CSSRS: Yes (11/23/23) Wish to be Past Month - CSSRS: Yes (11/23/23) Assessment/Plan ?? ASSESSMENT In brief, this is a 63-year-old female with past medical history significant for??daily cannabis use, CKD, multiple back surgeries, HTN, fibromyalgia, depression, anxiety who initially presented to [facility]??after on??overdose on alprazolam following her daughter's . At this point in time, the patient has been medically cleared and referred to??crisis clinicians??for evaluation and assistance with disposition for potential inpatient psychiatric hospitalization. The emergencypsychiatry service was consulted for assistance with medication management. Reviewed data including: medical records, crisis evaluations, test results. Initial psychiatric evaluation revealed patientto be reporting an exacerbation of her chronic depressive symptoms due to her daughter's unexpecteddeath due to surgical complications. She has lost nine pounds in the last week, has noticed that she is violent and agitated for the first time in her life (combative with EMS and ED staff), has insomnia, took all 15 pills of alprazolam 0.5 mg that she was prescribed. Told EMS that she wanted to but is currently denying suicidal ideation and insisting that she needs discharge. Also reporting that she wants to hurt somebody, anybody . Denies other psychiatric symptoms. Substance use includes use of marijuana edibles multiple times daily to manage chronic pain. There is concern for patientrisk of harm to self due to her poor judgment, her grief reaction to the of her daughter, recent suicide attempt. Although patient has received outpatient treatment for depression for a long time, this is a new problem in that she has never attempted suicide in the past. Asked the patient about treatment-related preferences. Explained to the patient the differential diagnosis, risks of untreated illness, treatment options, and benefits and risks of treatment. She does not want to go to aninpatient psychiatric unit, stating that she will need to be injected and tied down before that happens. Explained the process to her as well as the concerning risk factors but she remains adamant.See below for detailed treatment recommendations. Disposition as per crisis services. ?? DIAGNOSES Major depressive disorder, recurrent, severe Suicide attempt via benzodiazepine overdose Cannabis use disorder Chronic pain ?? RECOMMENDATIONS -Disposition as per??[facility], albeit currently a bed search for inpatient psychiatric hospitalization. -Continue home medications: ? -fluoxetine 20 mg PO daily -Hold PRN alprazolam due to recent toxic ingestion -Start??hydroxyzine 50 mg PO??q6h PRN anxiety -Start trazodone 50 mg PO nightly PRN insomnia, may repeat x 1 -Start??quetiapine 50 mg PO??q4h PRN agitation. The preference is for PO medications, but if the patient refuses the oral medications and there is sufficient acute safety concern, can judiciously utilize??haloperidol 5 mg,??lorazepam 2 mg, and??diphenhydramine 50 mg IM??q6h PRN severe agitation. -Would note that these medications are only being utilized in the ER while the patient awaits placement. Long-term need for these medications will need to be assessed by the patient's future treatingpsychiatrist. -Avoid medical jargon. -Seclusion or restraint may only be used as interventions of last resort in the management of severe agitation in patient. If they are used, seclusion and restraint episodes should be as short as possible, dignified, and as safe as possible for all involved. Patient preference should always be considered when feasible. -Follow-up baseline labs including Hepatic Function Panel, TSH with reflex T4 to rule out organic etiology of presenting symptoms and to help guide treatment decisions. ? Thank you for allowing us to participate in this patient's care. We will continue to follow the patient as needed by the primary team. Please feel free to contact the Psychiatry consult service ([id number] or page [phone]) with any questions or concerns.? Recommendations??sent via Tra[employer] to Dr. Gasper Saeed. ? Medina Marrero BA MSN PMHNP- Emergency Psychiatry Services Division of Consultation-Liaison Psychiatry [facility] ? Problem List/Past Medical History Ongoing Abdominal pain Abnormal CT scan, pelvis Acute [...] postlaminectomy syndrome Migraine Nausea Rectal bleeding Seizure Spinal fusion X4 TL - Tubal ligation Tobacco abuse Procedure/Surgical History Colonoscopy, flexible; diagnostic, including collection of specimen(s) by brushing or washing, whenperformed (separate procedure): 12/09/22 EGD - Esophagogastroduodenoscopy: 12/09/22 Upper gastrointestinal endoscopy including esophagus, stomach, and either the duodenum and/or jejunum as appropriate; diagnostic, with or without collection of specimen(s) by brushing or washing (separate procedure): 05/21/13 hardware removal of spinal ??x 1 appendectomy spinal fusions x 4 colonoscopy 2011 Laminectomy for implantation of neurostimulator electrodes, plate/paddle, epidural Colonoscopy and biopsy of colon Medications Albuterol (Eqv-ProAir HFA) 90 mcg/inh inhalation aerosol, 2 puffs, Inhalation, Every 6 hours Ativan Inj, 2 mg, Intramuscular, Once atorvastatin 20 mg oral tablet, 20 mg, By Mouth, Daily at bedtime atorvastatin 20 mg oral tablet, 1 tablet, By Mouth, Daily dicyclomine 20 mg oral tablet, 20 mg= 1 tablet, By Mouth, 4 times a day, PRN, 1 refills famotidine 20 mg oral tablet, 20 mg, By Mouth, Daily ferrous sulfate 325 mg oral enteric coated tablet, 325 mg, By Mouth, Daily ferrous sulfate 325 mg oral tablet, 325 mg= 1 tablet, By Mouth, Daily, 1 refills FLUoxetine 20 mg oral capsule, 1 capsule, By Mouth, Daily, 1 refills FLUoxetine 20 mg oral capsule, 20 mg, By Mouth, Daily Golytely - oral powder for reconstitution, 240 mL, By Mouth, Every 10 minutes Ibuprofen Tablet, 400 mg, By Mouth, Once, PRN Lidoderm 5% film, 1 patch, Topically, Daily lisinopril 5 mg oral tablet, 5 mg, By Mouth, Daily lisinopril 5 mg oral tablet, 1 tablet, By Mouth, Daily NaCL 0.9% 100 mL, 100 mL, IV Infusion omeprazole 40 mg oral enteric coated capsule, 1 capsule, By Mouth, Daily, 1 refills ondansetron 4 mg oral tablet, disintegrating, 1 tablet, By Mouth, 3 times a day, PRN, 1 refills ondansetron 4 mg oral tablet, disintegrating, 4 mg= 1 tablet, By Mouth, 3 times a day, PRN Pepcid 20 mg oral tablet, 20 mg= 1 tablet, By Mouth, Daily at bedtime Percocet 2.5 mg-325 mg oral tablet, 1 tablet, By Mouth, Every 4 hours, PRN predniSONE 10 mg oral tablet, See Instructions pregabalin 300 mg oral capsule, 300 mg= 1 capsule, By Mouth, 2 times a day, 5 refills Spiriva Respimat 60 ACT 2.5 mcg/inh inhalation aerosol, 5 mcg= 2 puffs, Inhalation, Daily, 3 refills Tears Naturale Forte preserved ophthalmic solution, 1 drops, Eyes, Both, 2 times a day, PRN Tums E-X 750 mg oral tablet, chewable, 1500 mg= 2 tablet, Chew, 2 times a day, PRN Tylenol 325 mg oral tablet, 650 mg, By Mouth, Every 6 hours, PRN Vitamin B12 500 mcg/mL injectable solution, 1000 mcg, Intramuscular, Every 28 days Xanax 0.5 mg oral tablet, 0.5 mg= 1 tablet, By Mouth, 3 times a day, PRN Zyprexa Inj, 10 mg, Intramuscular, Once Allergies Contrast Dye??(SOB,hives) NSAIDs??(bleeding) codeine??(itch) Social History Alcohol Use: Past. Electronic Cigarette/Vaping Electronic Cigarette Use: Never, used to smoke 2 pack a day for 20 years and stopped last 2011. Employment/School Status: Disabled. Exercise Self assessment: Fair condition. Regular exercise: No. Home/Environment Living situation: Home/Independent. Lives with: Spouse, grandchildren. Nutrition/Health Diet: Regular. Caffeine intake amount: TEA. Sexual Sexually involved in last 6 months: No. Substance Abuse Use: Past. Type: Marijuana. Other: does not have state certificate. Tobacco Use: Former smoker, quit more than 30 days ago. Family History CAD - Coronary artery disease: Mother and Other. Dementia: Father. Diabetes mellitus type II: Mother. Thyroid disease: Mother. Immunizations Vaccine Date Status tetanus-diphtheria toxoids (Td) 06/21/2023 Given influenza virus vaccine, inactivated 06/03/2021 Given influenza virus vaccine, inactivated 02/06/2020 Given Influenza Virus Vaccine (oldterm) 07/06/2018 Recorded influenza virus vaccine, inactivated 03/28/2017 Given Comments : [03/28/2017] [id number] influenza virus vaccine, inactivated 02/23/2016 Given influenza virus vaccine, inactivated 02/11/2015 Given pneumococcal 23-valent vaccine 06/29/2014 Given influenza virus vaccine, inactivated 03/04/2014 Recorded influenza virus vaccine, inactivated 01/22/2013 Given tetanus/diphtheria/pertussis, acel(Tdap) 12/31/2011 Given Comments : VIS...05/04/2011 tetanus/diphtheria/pertussis, acel(Tdap) 05/20/2011 Given Comments : VIS...05/04/2011 influenza virus vaccine, inactivated 01/15/2011 Given Pneumococcal Vacc (oldterm) 05/21/2008 Given Comments : [facility] Influenza Inactive (IM) (oldterm) 05/21/2008 Given Comments : [facility] Pneumococcal Vaccine (oldterm) - Not Given Comments : Patient Refused diphtheria-tetanus toxoids (DT) 04/11/1999 Given Health Maintenance Health Maintenance ?Pending??(in the next year) ?OverDue ?Cervical Smear Screening due?02/17/16?and every 5?years ?Mammography Screening due?11/26/22?and every 2?years ?Due In Future?Depression Screening not due until?06/20/24?and every 1?years ?Chronic Obstructive Pulmonary Disease - Spirometry Evaluation not due until?09/16/24?One-time only ?Basic Metabolic Panel not due until?11/22/24?and every 1?years ?Satisfied??(in the past 1 year) ?Satisfied?5 yr Lipids Screening on?08/23/23.?Satisfied by [facility], [facility] ?Basic Metabolic Panel on?11/23/23.?Satisfied by [employer] , [facility] ?Colorectal Cancer Screening on?12/09/22. ?Depression Screening on?06/21/23.?Satisfied by Richelle Salguero MA ?Diabetes Screening on?11/23/23.?Satisfied by [employer] , [facility] ?Health Care Proxy on?05/30/23.?Satisfied by Richelle Salguero MA ?? Follow-Up Added Follow Up ?Time Frame ?Comments [facility]?Call this number??[phone], in the next??day to set up a follow-up appointment within 1 week. Patient Education WebMD Ignite Patient Education - Broken Wrist (Wrist Fracture)?? Patient Instructions DIAGNOSIS:??You have a broken bone in your left wrist (left??ulnar styloid fracture);??as well as being seen in the emergency department for??taking??your Ativan ? Your specific PATIENT CARE INSTRUCTIONS (what to do / when to return): ? For your left wrist fracture you will need to find out with [facility]??in 1 week.?? Keep on your wrist splint??on your left hand, and attempt to limit the movement in that left wrist. ??[facility] will help evaluate your wrist??and follow-up with that ensuring that it heals properly. ? Please follow up with your PCP within 2-3 days. Please use the resources given to you in the Emergency Department. ?? Return to the Emergency Department if you experience thoughts of hurting yourself or others, audio or visual hallucinations, or for any other concerning symptoms ?? If you have any emotional distress or thoughts of suicide you can call [phone] If you want to get connected to treatment you can call [phone]; this is the [place] behavioral health help line and can help you get treatment outside of the emergency room. Or you can return to the emergency department if you feel like you need help emergently.? MEDICATIONS (what medications you should start (or stop) taking): For pain medication you can take Acetaminophen 650 mg every 6 hours.?? Lab Results % Iron Saturation: 30 % (10/25/23) Abs. Baso: 0.1 k/mm3 (11/23/23) Abs. Eo: 0.1 k/mm3 (11/23/23) Abs. Imm Gran: 0 k/mm3 (11/23/23) Abs. Lymph: 1.1 k/mm3 (11/23/23) Abs. [place]:??0.2 k/mm3??Low (11/23/23) Abs. Neut: 4.8 k/mm3 (11/23/23) Abs. NRBC: 0 k/mm3 (11/23/23) Acetaminophen Level:??<5??Low (11/23/23) AG Ratio: 1.6 (11/21/23) Albumin: 4.2 Gm/dL (11/21/23) Alkaline Phosphatase:??131 units/L??High (11/21/23) ALT (SGPT):??111 units/L??High (11/21/23) Anion Gap:??20??High (11/23/23) AST (SGOT): 26 units/L (11/21/23) Baso %: 0.9 % (11/23/23) Bicarbonate Level:??15 mmol/L??Low (11/23/23) Bilirubin, Total: 0.5 mg/dL (11/21/23) BUN: 18 mg/dL (11/23/23) Calcium: 9.4 mg/dL (11/23/23) Chloride: 104 mmol/L (11/23/23) COVID-19 by RT-PCR: NEGATIVE (11/24/23) Creatinine-Blood:??1.01 mg/dL??High (11/23/23) Eos %: 1.3 % (11/23/23) Est Creatinine Clearance: 50.23 mL/min (11/23/23) Estimated GFR Creatinine: 63 ML/MIN/1.73 M2 (11/23/23) Ethanol, Serum or Plasma: NONE DETECTED (11/23/23) Ferritin Level: 47 ng/mL (10/25/23) Glucose Level: 75 mg/dL (11/23/23) Hct: 43.2 % (11/23/23) Hgb: 14.6 Gm/dL (11/23/23) High Sensitivity Troponin (HSTnT): <6 (11/21/23) Hold Blue Top: SPECIMEN DISCARDED AFTER 4 HOURS. (11/21/23) Hold Gel Top: SPECIMEN DISCARDED AFTER 1 WEEK (11/21/23) Hold [place] Top: SPECIMEN DISCARDED AFTER 1 WEEK (11/21/23) Imm Gran: 0.3 % (11/23/23) Iron Binding Capacity, Estimated Total: 307 ug/dL (10/25/23) Iron Binding Capacity, Unsaturated: 215 ug/dL (10/25/23) Iron Level: 92 ug/dL (10/25/23) Lipase: 30 units/L (11/21/23) Lymph %: 18 % (11/23/23) Magnesium: 2 mg/dL (11/23/23) MCH: 29.3 pg (11/23/23) MCHC: 33.8 g/dL (11/23/23) MCV: 86.6 femtoliters (11/23/23) [place] %:??3.6 %??Low (11/23/23) MPV: 9.5 femtoliters (11/23/23) Neut %: 75.9 % (11/23/23) Nucleated RBC (Automated): 0 #/100 WBC'S (11/23/23) Platelet Count: 264 k/mm3 (11/23/23) Potassium: 4 mmol/L (11/23/23) Protein, Total: 6.8 Gm/dL (11/21/23) RBC: 4.99 m/mm3 (11/23/23) RDW-SD: 40.5 femtoliters (11/23/23) Salicylate Level:??<0.3??Low (11/23/23) Sodium: 139 mmol/L (11/23/23) Vitamin B12 Level: 1132 pg/mL (10/25/23) WBC: 6.3 k/mm3 (11/23/23) Diagnostic Results Result type:?Wrist Comp Min 3 Views Left Result date:?November 23, 2023 16:52 EDT Result status:?Auth (Verified) Result title:?XR Wrist Comp Min 3 Views Left Performed by:?Ludy Hopkins MD on November 23, 2023 16:58 EDT Verified by:?Ludy Hopkins MD on November 23, 2023 16:58 EDT Encounter info:?[id number], [facility], Emergency, 11/23/2023 -? * Final Report * ?? Reason For Exam with Pain;Trauma ?? RESULT: Wrist Comp Min 3 Views Left Wrist Comp Min 3 Views Left ?? Hx of Present Illness: [place]. Pt found by bystanders who gave three doses of nasal narcan. Pt woke up, initially very combative, restrained by ems. Ptreports SI attempt by taking xanax. Daughter 8 days ago. Pt states; Reason: Trauma; with Pain;Clinical Question(s): Fracture ?? COMPARISON: None. ?? FINDINGS: ?? There is an acute nondisplaced fracture of the ulnar styloid process. Normal carpal configuration. Normal alignment. No dislocation. ? No arthritic change.? No focal soft tissue abnormality. ?? IMPRESSION:? Nondisplaced ulnar styloid process fracture.?? WSN: [id number] ? Ordering Physician: Cheryle Grover ?? Signature Line Dictated By: ?Ludy Hopkins MD Dictated Date/Time: ?11/23/23 4:58 pm Reviewed By: ?Ludy Hopkins MD Signed By: ? Ludy Hopkins MD Signed Date/Time: ? 11/23/23 4:58 pm Transcribed By: ? CSB Transcribed Date/Time: ?11/23/23 4:56 pm ? Wrist Comp Min 3 Views Left This document has an image Note * Scarlett Barillas DO: PERFORM Event Display: Patient Education Leaflets Authored Date: [id number] Broken Wrist (Wrist Fracture) ?? Broken Wrist (Wrist Fracture) - Video Your wrist is a complex joint made up of many bones, allowing you to move your hand up and down, and side to side, as well as to rotate. A fracture can occur in any of these bones when enough force is applied???when you fall on an outstretched hand, for example. In this video, you'll find out othercauses, as well as how a wrist fracture is treated. To view the video go to this web address: [email or web address] Or, scan this QR code with your smart phone Last Reviewed Date: 2019 ?? [phone] The [employer]. All rights reserved. This information is not intended as a substitute for professional medical care. Always follow your healthcare professional's instructions. ?? Patient Care team information Care Team Personnel Name: Lakeisha Acevedo RN Position: [facility] RN Member Role: Primary Care Nurse Name: Lay aKur RN Position: [facility] Care Nurse Name: Gala Rae NP Position: [facility] PCO Associate Professional Member Role: Primary Care Nurse Address: Address: [address] [place] [address] - Name: Kavya Cantu RN Position: [facility] RN Member Role: Primary Care Nurse Name: Xiomara Duran RN Position: [facility] OB RN Member Role: Primary Care Nurse Name: Jane Oden MD Position: [facility] Physician - Primary Care Member Role: PCP Address: Address: [address] [place] [address] - Name: Tatiana Mcduffie RN Position: [facility] NAJ[facility] Office Staff Member Role: Primary Care Nurse Name: Cheryle Garcia RN Position: [facility] RN Member Role: Primary Care Nurse Care Team Related Persons Name: FÉLIX ADDISON Address: home [address] [place] [address] Name: MELANIE VERGARA Address: home [address] [place] [address]
--- OUTSIDE RECORDS SUMMARY | 2023-11-30 06:37 | XMS_ITS | Continuity of Care Document ---
Author Organization [facility] ter Address [address] [place] [address]- Care Team Providers Care Pets Salesperson Name Role Phone Cecille CHANCE, Jane Primary Care Physician [phone] [facility] - 12/09/[address] [address] Discharge Disposition: A-D/C Home Attending Physician: Niranjan Hernandez MD Admitting Physician: Niranjan Hernandez MD Referring Physician: Niranjan Hernandez MD Allergies, Adverse Reactions, Alerts Substance Reaction [...] toxoids (DT) 04/11/99 Given 1Result Comment: [03/28/2017] 40099-190-33 2Admin Note: VIS...05/04/2011 3Admin Note: VIS...05/04/2011 4Admin Note: [facility] 5Admin Note: [facility] Medications Albuterol (Eqv-ProAir HFA) 90 mcg/inh inhalation aerosol 2 puffs, Inhalation, Every 6 hours, # 8.5 each, 5 Refills, Maintenance, 08/03/22 15:13:00 EDT, [facility]/pharmacy #[id number], 25, 2 puffs Inhalation [...] 07/26/22 14:00:00 EDT, Route to Pharmacy Electronically, [id number], 163, cm, 07/01/22 9:42:00 EDT, Height, 75, kg, 07/01/22 9:42:00 EDT, Dry Weight Start Date: 07/26/22 Status: Ordered Golytely - oral powder for reconstitution 240 mL, By Mouth, Every 10 minutes, # 1 each, 0 Refills, Maintenance, 12/02/22 8:36:00 EDT, REC Powder, [facility]/pharmacy #[id number], Partial fill upon patient [...] Daily, # 30 capsule, 0 Refills, Maintenance, 11/22/22 10:58:00 EDT, [facility] ST[id number], 165, cm, 11/12/22 8:53:00 EDT, Height, 75, kg, 11/05/22 4:28:00 EDT, Dry Weight Start Date: 11/22/22 Status: Ordered ondansetron 4 mg oral tablet, disintegrating 1 tablet = 4 mg, By Mouth, 3 times a day, PRN as needed for nausea/vomiting, # 20 tablet, 1 Refills, Acute 12/17/22 16:41:00 EDT, 11/16/22 16:40:00 EDT, DIS Tablet, [facility]/pharmacy #[id number], Partial fill upon patient request if the prescription is for a delia... Start Date: 11/16/22 Stop Date: 12/17/22 Status: Ordered oxyCODONE 5 mg oral tablet 5 mg, 1, tablet, By Mouth, 2 times a day, PRN, take less, watch out for sedation, # 10 tablet, Refills 0, Tot. Refills 0, Acute 01/16/23 16:42:00 EDT, as needed for pain, 11/16/22 16:41:00 EDT, Routeto Pharmacy Electronically, [facility]/pharmacy #[id number], Par... Start Date: 11/16/22 Stop Date: 01/16/23 Status: Ordered Percocet 2.5 mg-325 mg oral tablet 1 tablet, By Mouth, Every 4 hours, PRN as needed for pain, can take 1-2 tablets as necessary, # 30 tablet, 0 Refills, Maintenance, 12/02/22 10:00:00 EDT, Tablet, [facility]/pharmacy #[id number], Partial fill uponpatient request if the [...] capsule, 1 Refills, Maintenance, 12/01/22 17:59:00 EDT, [id number], 165, cm, 11/12/22 8:53:00 EDT, Height, [...] [place] Back Pain Scale: 83on 01/20/17; initial [place]: 4 on 01/20/17 3SOAPP-R: 16 on 01/20/17 4Pain relevant problem list includes: See below Procedures Procedure Date Related Diagnosis Body Site Status Colonoscopy, flexible; diagn ostic, including collection of specimen(s) by brushing or washing, when performed (separate procedure) 12/09/22 Completed EGD - Esophagogastroduodenoscopy 12/09/22 Completed Vital Signs Most recent to oldest [Reference Range]: 1 2 3 Height 163 cm (12/09/22 8:10 AM) Oxygen Saturation [94-100 %] 100 % (12/09/22 9:53 AM) 100 % (12/09/22 9:45 AM) 100 % (12/09/22 8:10 AM) Pulse Rate [55-90 bpm] 66 bpm (12/09/22 9:53 AM) 73 bpm (12/09/22 9:45 AM) 74 bpm (12/09/22 8:10 AM) Blood Pressure [90-138/55-84 mm Hg] 114/78mm Hg (12/09/22 9:53 AM) 111/72mm Hg (12/09/22 9:45 AM) 165/97mm Hg *H* (12/09/22 8:10 AM) Respiratory Rate [16-30 br/min] 16 br/min (12/09/22 9:53 AM) 16 br/min (12/09/22 9:45 AM) 16 br/min (12/09/22 8:10 AM) Temperature [96.8-100.4 DegF] 97.4 DegF (12/09/22 8:10 AM) Liters per Minute 6 L/min (12/09/22 9:45 AM) Mode of Delivery (Oxygen) Room air (12/09/22 9:53 AM) Simple face mask (12/09/22 9:45 AM) Room air (12/09/22 8:10 AM) Blood pressure sites Arm, left (12/09/22 9:53 AM) Arm, left (12/09/22 9:45 AM) Arm, left (12/09/22 8:10 AM) Temperature Route Temporal (12/09/22 8:10 AM) Dry Weight 71.5 kg (12/09/22 8:10 AM) Social History Social History Type Response Smoking Status Former smoker, quit more than 30 days ago entered on: 11/05/22 Sex Note * Yaakov Lares RN: PERFORM Event Display: Discharge/Transfer Note Hospital Authored Date: [id number] Nursing Discharge Note Entered On: 12/09/2022 9:59 EDT Performed On: 12/09/2022 9:58 EDT by Yaakov Lares RN Nursing Discharge Note 2 Discharge Time : 12/09/2022 11:07 EDT Yaakov Lares RN - 12/09/2022 11:12 EDT Discharge Level of Care at Discharge : Home/Prison/Foster Care Patient Left Unit Via : Wheelchair Patient Accompanied Off Unit with : Significant other DC Instructions Provided & Signed by Pt : Yes Patient Understands D/C Instructions : Yes Patient Instructions Discharge Signed : Yes Did Pt have Specialty Bed or Wound Vac : No Yaakov Lares RN - 12/09/2022 9:58 EDT * Yaakov Lares RN: PERFORM Event Display: Patient Education/Instruction Authored Date: [id number] Inpatient Adult Discharge Instructions [address] [address] Name: ANGELICA VERGARA : 1960 Visit: 12/09/2022 06:59:00 Current Date: 12/09/2022 10:00 Account: [id number] Inpatient Adult Discharge Instructions We would like [...] and their families. Surveys are administered by [employer] ?? If further treatment with your primary care physician or another doctor is recommended, it is important for you to keep the appointment. Call your primary care physician or return to the Emergency Department immediately if your condition worsens, fails to improve, or new symptoms develop. If you need to find a doctor, you can call [facility] for a referral at [phone] or toll free at [phone]) or log in to [email or web address].. ?? [facility], in keeping with [facility] guidance, no longer requires face masks for staff, patientsor visitors in most situations. Similiar to time spent indoors at other locations, there is the chance that you were exposed to repiratory viruses during your time with us (such as flu or COVID-19). If you develop symptoms concerning for a viral respiratory infection, please seek testing (and treatment if indicated) from your medical provider or home test kit. ?? You can view and manage your care through the patient portal or by using a health care madi of your choosing. [employer] is a website that allows you to securely view your medical information including your hospital discharge summary, office visit summaries, medications and follow-up visits. You can also request appointments, renew medications, and request access to your medical information using a health care madi of your choosing, or just ask a question. You can enroll at [email or web address] or register during your next office visit. You have been discharged from [facility], Patient Care Unit: ENDO. If you have any questions regarding these instructions after you leave, please call us and we will be happy to assist you. [facility] Your Care Team Attending Physician Niranjan Hernandez MD Reason for Admission MELENA HEMAT ABD PAIN Tests Performed Below is a partial list of the tests performed during your hospitalization. You may have had other tests and procedures not included in this list. Please discuss all test results with your provider. Primary Care Provider Jane Oden MD Advance Directive Health Care Proxy on File Yes - Health Care Proxy Discharge Vitals Temperature: 97.4 DegF Height: 163 cm Pulse Rate: 66 bpm ?? Respiratory Rate: 16 br/min ?? Systolic Blood Pressure: 114 mm Hg ?? Diastolic Blood Pressure: 78 mm Hg ?? Oxygen Saturation: 100 % ?? Studies Pending All tests and labs ordered during this hospital stay have been completed unless listed below. Please discuss all pending results with your provider listed above in these instructions. ?? No incomplete studies found What to do next Instructions From Your Doctor Discharge Orders Scheduled Follow-Up Appointments Tuesday 1:20 PM EST ?? With: Jane Oden MD Where: Primary Care [address] [address]- Status: Pending You Need to Schedule the Following Appointments Follow Up with??Jane Oden MD Where: ?? Discharge Medications ANGELICA VERGARA :1960 Visit Date:12/09/2022 Medications: Please continue your medications until treatment is completed or stopped by your provider. Medications not listed below should be discontinued. Discuss any questions related to medications with your provider. What How Much When Instructions Next Dose Unchanged Albuterol (Albuterol (Eqv- ProAir HFA) 90 mcg/ inh inhalation aerosol) 2 puff(s) Inhalation Every 6 hours Unchanged Atorvastatin (atorvastatin 20 mg oral tablet) 1 tab(s) Oral Daily Unchanged Fluoxetine (FLUoxetine 20 mg oral capsule) 1 capsule Oral Daily Unchanged Lisinopril (lisinopril 5 mg oral tablet) 1 tab(s) Oral Daily Unchanged Omeprazole (omeprazole 40 mg oral enteric coated capsule) 1 capsule Oral Daily Unchanged Ondansetron (ondansetron 4 mg oral tablet, disintegrating) 1 tab(s) Oral 3 times a day as needed for as needed for nausea/vomiting Unchanged Oxycodone (oxyCODONE 5 mg oral tablet) 1 tab(s) Oral Twice a day as needed for as needed for pain take less, watch out for sedation ?? Unchanged Oxycodone / Acetaminophen (Percocet 2.5 mg-325 mg oral tablet) 1 tab(s) Oral Every 4 hours as needed for as needed for pain can take 1-2 tablets as necessary ?? Unchanged PEG Electrolyte Solution (Golytely - oral powder for reconstitution) 240 Milliliter Oral Every 10 minutes Unchanged Pregabalin (pregabalin 300 mg oral capsule) 1 capsule Oral Twice a day Unchanged Pregabalin (pregabalin 300 mg oral capsule) See instructions TAKE 1 CAPSULE BY MOUTH TWICE A DAY ?? Test Results Below is a partial list of the most recent Laboratory test results done prior to this discharge. You may have had other tests and procedures not included in this list. Please discuss all test resultswith your provider. Allergies (NKA means No Known Allergies) Contrast [...] Educational Leaflet Providered with your Discharge Instructions. Surgery Medical Daystay Surgical Overnight Discharge Instructions?? Valuables and Belongings I fully understand and agree that [facility] accepts no responsibility for all my personal [...] Review of Valuable and Belonging List: With patient Date for Pt to Sign Valuables/Belongings: 12/09/22 08:10:00 ?? Valuables & Belongings ?? Clothes Electronic devices Jewelry Monetary Items Personal devices Miscellaneous Medications (Valuables) Valuables at Bedside Pants, Shirt, Shoes, Undergarments ? Valuables Sent Home ? Valuables Sent to Security ? Other Discharge Information ? Case Management Discharge Plan?? Discharge Plan?? Discharge Level of Care at Discharge: Home/Prison/Foster Care ?? Pulmonary Rehab Status?? Pulmonary Rehab Discharge Status?? Respiratory Rate: 16 br/min ? Common Emergency Awareness Tips IS [...] are strongly encouraged to quit. Please call [facility] at [phone] or [phone] ([phone]) or log in to [email or web address] for referrals to smoking cessation programs. ?? 497 Suicide & Crisis Lifeline is available 01/11 if you or someone you know needs to find a reason to keep living. By calling 080 you'll be connected to a skilled, trained counselor at a crisis center in your area. INPATIENT DISCHARGE INSTRUCTIONS SIGNATURE PAGE ANGELICA VERGARA Location:[facility] Registration Date and Time:12/09/2022 06:59 EDT Primary Care Physician: Jane Oden MD, Attending Physician: Mary CHANCE, Niranjan, I ANGELICA VERGARA, have received the above patient education materials/instructions and have verbalized understanding. If ambulance or transport services are being used I further acknowledge being given a choice of service. ?? If you need to contact me, please call me at this number: . Patient/Traffic Maintenance Officer Name: Patient/Traffic Maintenance Officer Signature: Relationship to Patient: Witness Name/Signature: Date: * Luda HOWELL, Yaakov Ramirez: PERFORM Event Display: Patient Education Leaflets Authored Date: [id number] Surgery Medical Daystay Surgical Overnight Discharge Instructions ?? 295 Medical Daystay/Surgical Overnight Discharge Instructions ? Since your coordination and judgment may be altered by medication and/or anesthesia, a responsible adult must drive you home from the hospital. ? If you have received medication for pain or sedation while under our care, you should not drive, operate machinery, drink alcohol, or sign any legal documents for 24 hours.?? You should have someone with you at home tonight. ? Remain at home the day of discharge.?? You may be up and about unless otherwise instructed by your physician. ? You may resume your daily prescription medication schedule.?? Any depressant medication should be avoided for 24 hours unless otherwise instructed by your surgeon or anesthesiologist. ? Call your physician for a follow-up appointment.? If you experience unusual or severe pain not relied by your pain medication, excessive bleedingor drainage, persistent nausea and vomiting, excessive swelling or redness, foul odor from incisionsite or fever over 100.6F, you need to call your physician. ? A follow-up phone call by a nurse will be made the day after your procedure.?? If you have stayed with us over night, you will not be receiving a follow-up phone call. ? Nausea and vomiting are a common side effect of prescription pain medication.?? We recommend that pills are not taken on an empty stomach.?? While taking any prescription pain medication you should not drive or drink alcohol. ? Patient Care team information Care Team Personnel Name: Lakeisha Acevedo RN Position: [facility] RN Member Role: Primary Care Nurse Name: Lay Kaur RN Position: [facility] AMB Nurse Member Role: Primary Care Nurse Name: Juliana Kumari RN Position: [facility] RN Member Role: Primary Care Nurse Name: Katelyn Dubois RN Position: [facility] SN RN Member Role: Primary Care Nurse Name: Jodee Alford RN Position: [facility] RN Member Role: Primary Care Nurse Name: Melissa Morris RN Position: [facility] RN Member Role: Primary Care Nurse Name: Lemuel Day RN Position: [facility] RN Member Role: Primary Care Nurse Name: Curtis Shoemaker RN Position: [facility] AMB Nurse Member Role: Primary Care Nurse Name: Gala Rae NP Position: Reference Physician Member Role: Primary Care Nurse Address: Address: [address] [place] [address]- Name: Kavya Cantu RN Position: [facility] RN Member Role: Primary Care Nurse Name: Xiomara Duran RN Position: [facility] OB RN Member Role: Primary Care Nurse Name: Jane Oden MD Position: [facility] Physician - Primary Care Member Role: PCP Address: Address: [address] [facility] [place] [address]- Name: Tatiana Mcduffie RN Position: [facility] SN RN Member Role: Primary Care Nurse Care Team Related Persons Name: CARLOS VILLALTA Address: home [address] [place] [address] Name: MELANIE VERGARA Address: home [address] [place] [address]
--- OUTSIDE RECORDS SUMMARY | 2023-11-30 06:37 | XMS_ITS | Continuity of Care Document ---
Author Organization [facility] ter Address [address] [place] [address]- Care Team Providers Care Front End Engineer Name Role Phone Jane Oden MD Primary Care Physician [facility] Date[facility]s): [facility]21 - 01/12/[address] [address] Discharge Disposition: A-D/C Home Attending Physician: Isaias Cason MD Admitting Physician: Isaias Cason MD Referring Physician: Isaias Cason MD Allergies, Adverse Reactions, Alerts Substance Reaction [...] toxoids (DT) 04/11/99 Given 1Result Comment: [03/28/2017] 40404-487-51 2Admin Note: VIS...05/04/2011 3Admin Note: VIS...05/04/2011 4Admin Note: [facility] 5Admin Note: [facility] Medications acetaminophen-oxyCODONE 325 mg-5 mg oral tablet 1, tablet, By Mouth, Every 4 hours, PRN, # 30 tablet, Refills 0, Tot. Refills 0, Acute, Pain , Moderate, 01/19/21 16:03:00 EDT, 01/12/21 16:03:00 EDT, Route to Pharmacy Electronically, [facility]/pharmacy #[id number] Tablet, Partial fill upon patient request if th... Start Date: 01/12/21 Stop Date: 01/19/21 Status: Ordered B 100 Complex By Mouth, Daily, 0 Refills, Maintenance, 01/02/21 15:10:00 EDT, Partial fill upon patient request if the prescription is for a schedule II opioid drug. Start Date: 01/02/21 Status: Ordered HYDROmorphone Inj (PACU ONLY) 0.2 mg, Injection, IV Push Slowly, Every 5 minutes, up to a maximum of 2 mg, Hold for: RR less than8 OR Sedation Scale of C, PRN for Pain , Severe, Routine, 01/12/21 18:01:00 EDT Start Date: 01/12/21 Stop Date: 01/19/21 Status: Ordered Problem List Condition Effective Dates [...] [place] Back Pain Scale: 83on 01/20/17; initial [place]: 4 on 01/20/17 2SOAPP-R: 16 on 01/20/17 3Pain relevant problem list includes: See below Procedures Procedure Date Related Diagnosis Body Site Status Laminectomy for implantation of neurostimulator electrodes, plate/paddle, epidural Completed Vital Signs Most recent to oldest [Reference Range]: 1 2 3 Height 162.56 cm (01/12/21 2:37 PM) 162.56 cm (01/02/21 3:30 PM) Weight 71.7 kg (01/12/21 2:37 PM) 69.55 kg (01/02/21 3:30 PM) Oxygen Saturation [94-100 %] 100 % (01/12/21 8:57 PM) 94 % (01/12/21 6:45 PM) 100 % (01/12/21 6:30 PM) Pulse Rate [55-90 bpm] 60 bpm (01/12/21 2:37 PM) Body Mass Index [18.5-24.99] 27.13 *H* (01/12/21 2:37 PM) 26.32 *H* (01/02/21 3:30 PM) Blood Pressure [90-138/55-84 mm Hg] 132/78mm Hg (01/12/21 8:57 PM) 143/80mm Hg *H* (01/12/21 6:45 PM) 135/74mm Hg (01/12/21 6:30 PM) Respiratory Rate [16-30 br/min] 15 br/min *L* (01/12/21 8:57 PM) 16 br/min (01/12/21 7:12 PM) 18 br/min (01/12/21 7:02 PM) Temperature [96.8-100.4 DegF] 98 DegF (01/12/21 8:57 PM) 98.9 DegF (01/12/21 5:45 PM) 98.9 DegF (01/12/21 2:37 PM) Liters per Minute 4 L/min (01/12/21 6:00 PM) 4 L/min (01/12/21 5:45 PM) Mode of Delivery (Oxygen) Room air (01/12/21 8:57 PM) Room air (01/12/21 7:45 PM) Room air (01/12/21 6:45 PM) Blood pressure sites Arm, left (01/12/21 5:45 PM) Temperature Route Oral (01/12/21 8:57 PM) Temporal (01/12/21 5:45 PM) Temporal (01/12/21 2:37 PM) Dry Weight 71.7 kg (01/12/21 2:37 PM) Weight Obtained Via Standing scale (01/12/21 2:37 PM) Dry Weight Obtained Via Standing scale (01/12/21 2:37 PM) Social History Social History Type Response Smoking Status Smoker, current stat us unknown entered on: 02/21/20 Sex
--- OUTSIDE RECORDS SUMMARY | 2023-11-30 06:37 | XMS_ITS | Continuity of Care Document ---
Author Organization [facility] Address [address] [place] [address]- Care Team Providers Care Brush Material Preparer Name Role Phone Jane Oden MD Primary Care Physician [phone] [facility]): [facility] - 04/28/22 [facility] [address] [facility] [address] [place] [address]- Attending Physician: Jannette Turcios Admitting Physician: Jannette [...] toxoids (DT) 04/11/99 Given 1Result Comment: [03/28/2017] 11469-246-95 2Admin Note: VIS...05/04/2011 3Admin Note: VIS...05/04/2011 4Admin Note: [facility] 5Admin Note: [facility] Medications Albuterol (Eqv-ProAir HFA) 90 mcg/inh inhalation aerosol 2 puffs, Inhalation, Every 6 hours, # 8.5 each, 5 Refills, Maintenance, 02/25/22 10:25:00 EST, [id number], 25, INHALE 2 PUFFS EVERY 6 HOURS, 164, cm, 11/02/21 12:14:00 EDT, Height, 71.7, kg, 01/12/21 14:37:00 EDT, Dry Weight Start Date: 02/25/22 Status: Ordered atorvastatin 40 mg oral tablet 1 tablet, By Mouth, Daily, # 90 tablet, 1 Refills, Maintenance, 03/31/22 9:39:00 EST, [id number], 164, cm, 03/02/22 12:51:00 EST, Height, 71.7, [...] 02/15/22 15:29:00 EST, Route to Pharmacy Electronically, [facility]/pharmacy #[id number], 164, cm, 11/02/21 12:14:00 EDT, Height, 71.7, kg, 01/12/21 14:37:00 EDT, Dry Weight Start Date: 02/15/22 Status: Ordered lidocaine 2% topical gel with applicator 15 mL = 0.3 Gm, Topically, Once, # 20 mL, 0 Refills, Soft Stop, 07/23/21 15:50:00 EDT, Gel, [facility]/pharmacy #[id number], Partial fill upon patient request if the prescription is for a schedule II opioid drug., 164, cm, 07/23/21 8:17:00 EDT, Height, 71.7, kg, 1... Start Date: 07/23/21 Status: Ordered lisinopril 2.5 mg oral tablet 1, tablet, By Mouth, Daily, # 90 tablet, Refills 0, Maintenance, 03/31/22 9:39:00 EST, Route to Pharmacy Electronically, [facility] 640[facility], 164, cm, 03/02/22 12:51:00 EST, Height, 71.7, kg, 01/12/21 14:37:00 EDT, Dry Weight Start Date: 03/31/22 Status: Ordered omeprazole 40 mg oral enteric coated capsule 1 capsule, By Mouth, Daily, # 90 capsule, 0 Refills, Maintenance, 03/31/22 9:39:00 EST, [facility], 164, cm, 03/02/22 12:51:00 EST, Height, 71.7, kg, 01/12/21 14:37:00 EDT, Dry Weight Start Date: 03/31/22 Status: Ordered pregabalin 300 mg oral capsule 1 capsule = 300 mg, By Mouth, 2 times a day, # 60 capsule, 5 Refills, Maintenance, 06/03/21 10:51:00 EST, Capsule, [facility]/pharmacy #[id number], Partial fill upon patient request [...] capsule, 0 Refills, Maintenance, 07/23/21 8:37:00 EDT, [facility]/pharmacy #[id number], Partial fill upon patient request if the [...] [place] Back Pain Scale: 83on 01/20/17; initial [place]: 4 on 01/20/17 3SOAPP-R: 16 on 01/20/17 4Pain relevant problem list includes: See below Social History Social History Type Response Smoking Status Smoker, current stat us unknown entered on: 02/21/20 Sex Patient Care team information Care Team Personnel Name: Lakeisha Acevedo RN Position: [facility] RN Member Role: Primary Care Nurse Name: Lay Kaur RN Position: [facility] NGH[place] RN Member Role: Primary Care Nurse Name: Katelyn Dubois RN Position: [facility] RN Member Role: Primary Care Nurse Name: Melissa Morris RN Position: [facility] RN Member Role: Primary Care Nurse Name: Lemuel Day RN Position: [facility] RN Member Role: Primary Care Nurse Name: Curtis Shoemaker RN Position: [facility] AMB Nurse Member Role: Primary Care Nurse Name: Gala Rae NP Position: Reference Physician Member Role: Primary Care Nurse Address: Address: [address] [place] [address]- Name: Xiomara Duran RN Position: [facility] OB RN Member Role: Primary Care Nurse Name: Jane Oden MD Position: [facility] Primary Care Physician Member Role: PCP Address: Address: [address] [facility] [place] [address]- Name: Tatiana Mcduffie RN Position: [facility] SN RN Member Role: Primary Care Nurse Care Team Related Persons Name: CARLOS VILLALTA Address: [address] [place] [address] Name: MELANIE VERGARA Address: [address] [place] [address]
--- OUTSIDE RECORDS SUMMARY | 2023-11-30 06:37 | XMS_ITS | Continuity of Care Document ---
Author Organization [facility] ter Address [address] [place] [address]- Care Team Providers Care Shale Processing Technician Name Role Phone Jane Oden MD Primary Care Physician [phone] [place] [facility] [place] 01/04[place]23 - 01/05/[address] [address]- Encounter Diagnosis Community acquired pneumonia(Final) - 01/05/23 Discharge Disposition: A-D/C Home Attending Physician: Keven Pryor MD Admitting Physician: Keven Pryor MD Referring Physician: Not on Staff, Referring [...] toxoids (DT) 04/11/99 Given 1Result Comment: [03/28/2017] 14782-106-07 2Admin Note: VIS...05/04/2011 3Admin Note: VIS...05/04/2011 4Admin Note: [facility] 5Admin Note: [facility] Medications Albuterol (Eqv-ProAir HFA) 90 mcg/inh inhalation aerosol 2 puffs, Inhalation, Every 6 hours, # 8.5 each, 5 Refills, Maintenance, 08/03/22 15:13:00 EDT, [facility]/pharmacy #[id number], 25, 2 puffs Inhalation Every 6 hours, 163, cm, 07/01/22 9:42:00 EDT, Height, 75, kg,07/01/22 9:42:00 EDT, Dry Weight Start Date: 08/03/22 Status: Ordered atorvastatin 20 mg oral tablet 1 tablet = 20 mg, By Mouth, Daily, # 90 tablet, 1 Refills, Maintenance, 01/04/23 9:13:00 EDT, Tablet, [facility]/pharmacy #[id number], Partial fill upon patient request if the prescription is for a schedule II opioid drug., 163, cm, 12/20/22 7:59:00 EDT, Height, 7... Start Date: 01/04/23 Stop Date: 07/03/23 Status: Ordered doxycycline monohydrate 100 mg oral capsule 1 capsule = 100 mg, By Mouth, 2 times a day, for 10 days, # 20 capsule, 0 Refills, Acute 01/15/23 11:31:00 EDT, 01/05/23 11:31:00 EDT, Capsule, [facility]/pharmacy #[id number], Partial fill upon patient request if the prescription is for a schedule II opioid drug.... Start Date: 01/05/23 Stop Date: 01/15/23 Status: Ordered FLUoxetine 20 mg oral capsule 1, capsule, By Mouth, Daily, # 90 capsule, Refills 1, Maintenance, 07/26/22 14:00:00 EDT, Route to Pharmacy Electronically, [facility] STORE [id number], 163, cm, 07/01/22 9:42:00 EDT, Height, 75, kg, 07/01/22 9:42:00 EDT, Dry Weight Start Date: 07/26/22 Status: Ordered Golytely - oral powder for reconstitution 240 mL, By Mouth, Every 10 minutes, # 1 each, 0 Refills, Maintenance, 12/02/22 8:36:00 EDT, REC Powder, [facility]/pharmacy #[id number], Partial fill upon patient request if the prescription is for a schedule II opioid drug., 240 mL By Mouth Every 10 minutes, 165,... Start Date: 12/02/22 Status: Ordered lisinopril 5 mg oral tablet 5 mg, 1, tablet, By Mouth, Daily, # 90 tablet, Refills 1, Tot. Refills 1, Maintenance, 01/04/23 9:13:00 EDT, Route to Pharmacy Electronically, [facility]/pharmacy #[id number], Partial fill upon patient request ifthe [...] 16:41:00 EDT, Routeto Pharmacy Electronically, [facility]/pharmacy #[id number], Par... Start Date: 11/16/22 Stop Date: 01/16/23 Status: Ordered Percocet 2.5 mg-325 mg oral tablet 1 tablet, By Mouth, Every 4 hours, PRN as needed for pain, can take 1-2 tablets as necessary, # 30 tablet, 0 Refills, Maintenance, 12/02/22 10:00:00 EDT, Tablet, [facility]/pharmacy [id number], Partial fill uponpatient request if the prescription is for a schedu... Start Date: 12/02/22 Status: Ordered Percocet-5/325 325 mg-5 mg oral tablet 1 tablet, Tablet, By Mouth, Once, Routine, 01/05/23 12:00:00 EDT, Stop date 01/05/23 12:00:00 EDT Start Date: 01/05/23 Stop Date: 01/05/23 Status: Completed pregabalin 300 mg oral capsule 1 capsule [...] capsule, 1 Refills, Maintenance, 12/01/22 17:59:00 EDT, [facility]/pharmacy #[id number], 165, cm, 11/12/22 8:53:00 EDT, Height, [...] [place] Back Pain Scale: 83on 01/20/17; initial [place]: 4 on 01/20/17 3SOAPP-R: 16 on 01/20/17 4Pain relevant problem list includes: See below Results Radiology Reports * Exam Date Time Procedure Performing Provider Status 01/04/23 3:32 PM Chest 2 Views Frontal and Lat Ifrah Barry; Auth (Verified) Notes: (Chest 2 Views Frontal and Lat) Reason For Exam: Chest Pain;Other: RESULT: Chest 2 Views Frontal and Lat Examination: Chest performed on 01/04/2023. History: Chest pain. Findings: Frontal and lateral views of the chest are compared to a prior study dated 07/21/2021. The cardiac and mediastinal silhouettes are within normal limits. Patchy opacities are demonstratedthroughout the right lung, new from the prior study. The osseous and soft tissue structures are unremarkable. A spinal stimulator is seen. Impression: Airspace disease within the right lung likely representing pneumonia. Follow-up to complete radiographic resolution after treatment is recommended. An actionable message (Yellow) has been communicated via the EverPresent system on 01/04/2023 3:37 PM, Message ID [id number]. WSN: [id number] Ordering Physician: Jose Daniel Medina Dictated By: Elizabeth Veras MD Dictated Date/Time: 01/04/23 3:37 pm Reviewed By: Elizabeth Veras MD Signed By: Elizabeth Veras MD Signed Date/Time: 01/04/23 3:37 pm Transcribed By: PAYTON Transcribed Date/Time: 01/04/23 3:36 pm Vital Signs Most recent to oldest [Reference Range]: 1 2 3 Height 163 cm (01/05/23 1:41 AM) 163 cm (01/04/23 2:31 PM) Oxygen Saturation [94-100 %] 99 % (01/05/23 1:00 PM) 97 % (01/05/23 12:07 PM) 100 % (01/05/23 11:41 AM) Pulse Rate [55-90 bpm] 81 bpm (01/05/23 1:00 PM) 91 bpm *H* (01/05/23 12:07 PM) 78 bpm (01/05/23 11:41 AM) Blood Pressure [90-138/55-84 mm Hg] 103/77mm Hg (01/05/23 1:00 PM) 139/81mm Hg *H* (01/05/23 12:07 PM) 157/145mm Hg *H* (01/05/23 9:56 AM) Respiratory Rate [16-30 br/min] 16 br/min (01/05/23 1:00 PM) 14 br/min *L* (01/05/23 12:30 PM) 15 br/min *L* (01/05/23 12:07 PM) Temperature [96.8-100.4 DegF] 97.7 DegF (01/05/23 7:49 AM) 97.7 DegF (01/05/23 5:41 AM) 98.4 DegF (01/05/23 3:45 AM) Mode of Delivery (Oxygen) Room air (01/05/23 1:00 PM) Room air (01/05/23 12:07 PM) Room air (01/05/23 11:41 AM) Blood pressure sites Arm, left (01/05/23 12:07 PM) Arm, left (01/05/23 9:56 AM) Arm, right (01/05/23 7:49 AM) Temperature Route Oral (01/05/23 7:49 AM) Oral (01/05/23 5:41 AM) Oral (01/05/23 3:45 AM) Dry Weight 73 kg (01/05/23 1:41 AM) 73 kg (01/04/23 2:31 PM) Dry Weight Obtained Via Patient/family s tated (01/04/23 2:31 PM) Social History Social History Type Response Smoking Status Former smoker, quit more than 30 days ago entered on: 11/05/22 Sex EKG study * Event Display: EKG Authored Date: * Event Display: ECG 12-Lead Authored Date: Please click on pdf link to open report * Event Display: ECG 12-Lead Authored Date: Ventricular Rate: 93 BPM Atrial Rate: 93 BPM P-R Interval: 120 ms QRS Duration: 70 ms Q-T Interval: 344 ms QTC Calculation(Bazett): 427 ms P Micro: 30 degrees R Micro: -1 degrees T Micro: 28 degrees Normal sinus rhythm Normal ECG When compared with ECG of 03-NOV-2022 08:49, No significant change was found Confirmed by ELLIOTT PARK ([id number]) on 01/04/2023 4:17:59 PM Dietrich: ELLIOTT PARK Patient Care team information Care Team Personnel Name: Lakeisha Acevedo RN Position: [facility] RN Member Role: Primary Care Nurse Name: Lay Kaur RN Position: [facility] AMB Nurse Member Role: Primary Care Nurse Name: Juliana Kumari RN Position: [facility] RN Member Role: Primary Care Nurse Name: Katelyn Dubois RN Position: [facility] SN RN Member Role: Primary Care Nurse Name: Jodee Alford RN Position: [facility] RN Member Role: Primary Care Nurse Name: Melissa Morris RN Position: [facility] RN Member Role: Primary Care Nurse Name: Lemuel Day RN Position: [facility] RN Member Role: Primary Care Nurse Name: Curtis Shoemakre RN Position: [facility] AMB Nurse Member Role: Primary Care Nurse Name: Gala Rae NP Position: Reference Physician Member Role: Primary Care Nurse Address: Address: [address] [place] [address]- [place] Name: Kavya Cantu RN Position: [facility] RN Member Role: Primary Care Nurse Name: Xiomara Duran RN Position: [facility] OB RN Member Role: Primary Care Nurse Name: Jane Oden MD Position: [facility] Physician - Primary Care Member Role: PCP Address: Address: [address] [place] [address] [place] [address]- [place] Name: Tatiana Mcduffie RN Position: [facility] SN RN Member Role: Primary Care Nurse Name: Yao Tavarez Position: [facility] ED TA [facility] Member Role: Patient Care Provider Name: Teresita Hong RN Position: [facility] ED RN W/OE and Tasks Member Role: Patient Care Provider Name: Keven Pryor MD Position: [facility] ED Medicine MD Member Role: Admitting Physician Address: Address: [address] [facility] [place] [address]- [place] Care Team Related Persons Name: CARLOS VILLALTA Address: home [address] [place] [address] Name: MELANIE VERGARA Address: home [address] [place] [address]
--- OUTSIDE RECORDS SUMMARY | 2023-11-30 06:37 | XMS_ITS | Continuity of Care Document ---
Author Organization [facility] Address [address] [place] [address]- Care Team Providers Care Jig Filler Name Role Phone Jane Oden MD Primary Care Physician Encounter [facility] [place] Date(s): 12/29/21 - 04/28/22 [facility] [address] [place] [address]- Attending Physician: Yosef Bertrand MD Admitting Physician: Yosef Bertrand MD Referring Physician: Jane Oden MD Allergies, [...] toxoids (DT) 04/11/99 Given 1Result Comment: [03/28/2017] 43802-641-50 2Admin Note: VIS...05/04/2011 3Admin Note: VIS...05/04/2011 4Admin Note: [facility] 5Admin Note: [facility] Medications Albuterol (Eqv-ProAir HFA) 90 mcg/inh inhalation aerosol 2 puffs, Inhalation, Every 6 hours, # 8.5 each, 5 Refills, Maintenance, 02/25/22 10:25:00 EST, [facility], 25, INHALE 2 PUFFS EVERY 6 HOURS, 164, cm, 11/02/21 12:14:00 EDT, Height, 71.7, kg, 01/12/21 14:37:00 EDT, Dry Weight Start Date: 02/25/22 Status: Ordered atorvastatin 40 mg oral tablet 1 tablet, By Mouth, Daily, # 90 tablet, 1 Refills, Maintenance, 03/31/22 9:39:00 EST, [facility], 164, cm, 03/02/22 12:51:00 EST, Height, 71.7, [...] 02/15/22 15:29:00 EST, Route to Pharmacy Electronically, [facility]/pharmacy #[id number], 164, cm, 11/02/21 12:14:00 EDT, Height, 71.7, kg, 01/12/21 14:37:00 EDT, Dry Weight Start Date: 02/15/22 Status: Ordered lidocaine 2% topical gel with applicator 15 mL = 0.3 Gm, Topically, Once, # 20 mL, 0 Refills, Soft Stop, 07/23/21 15:50:00 EDT, Gel, [facility]/pharmacy #[id number], Partial fill upon patient request if the prescription is for a schedule II opioid drug., 164, cm, 07/23/21 8:17:00 EDT, Height, 71.7, kg, 1... Start Date: 07/23/21 Status: Ordered lisinopril 2.5 mg oral tablet 1, tablet, By Mouth, Daily, # 90 tablet, Refills 0, Maintenance, 03/31/22 9:39:00 EST, Route to Pharmacy Electronically, [facility], 164, cm, 03/02/22 12:51:00 EST, Height, 71.7, kg, 01/12/21 14:37:00 EDT, Dry Weight Start Date: 03/31/22 Status: Ordered omeprazole 40 mg oral enteric coated capsule 1 capsule, By Mouth, Daily, # 90 capsule, 0 Refills, Maintenance, 03/31/22 9:39:00 EST, [facility], 164, cm, 03/02/22 12:51:00 EST, Height, 71.7, kg, 01/12/21 14:37:00 EDT, Dry Weight Start Date: 03/31/22 Status: Ordered pregabalin 300 mg oral capsule 1 capsule = 300 mg, By Mouth, 2 times a day, # 60 capsule, 5 Refills, Maintenance, 06/03/21 10:51:00 EST, Capsule, [facility]/pharmacy #[id number], Partial fill upon patient request [...] capsule, 0 Refills, Maintenance, 07/23/21 8:37:00 EDT, [facility]/pharmacy #[id number], Partial fill upon patient request if the [...] [place] Back Pain Scale: 83on 01/20/17; initial [place]: 4 on 01/20/17 3SOAPP-R: 16 on 01/20/17 4Pain relevant problem list includes: See below Social History Social History Type Response Smoking Status Smoker, current stat us unknown entered on: 02/21/20 Sex Patient Care team information Care Team Personnel Name: Lakeisha Acevedo RN Position: [facility] RN Member Role: Primary Care Nurse Name: Lay Kaur RN Position: [facility] NGH[place] RN Member Role: Primary Care Nurse Name: Katelyn Dubois RN Position: [facility] RN Member Role: Primary Care Nurse Name: eMlissa Morris RN Position: [facility] RN Member Role: Primary Care Nurse Name: Lemuel Day RN Position: [facility] RN Member Role: Primary Care Nurse Name: Curtis Shoemaker RN Position: [facility] AMB Nurse Member Role: Primary Care Nurse Name: Gala Rae NP Position: Reference Physician Member Role: Primary Care Nurse Address: Address: [address] [place] [address]- Name: Xiomara Duran RN Position: [facility] OB RN Member Role: Primary Care Nurse Name: Jane Oden MD Position: [facility] Primary Care Physician Member Role: PCP Address: Address: [address] [place] [address] [place] [address]- Name: Tatiana Mcduffie RN Position: [facility] SN RN Member Role: Primary Care Nurse Care Team Related Persons Name: CARLOS VILLALTA Address: home [address] [place] [address] Name: MELANIE VERGARA Address: home [address] [place] [address]
--- OUTSIDE RECORDS SUMMARY | 2023-11-30 06:37 | XMS_ITS | Continuity of Care Document ---
Author Organization [facility] Address [address] [place] [address]- Care Team Providers Care Senior Sales Compensation Analyst Name Role Phone Jane Oden MD Primary Care Physician [phone] Encounter [facility] Date(s): 01/28/23 - 02/27/23 [facility] [address] [place] [address]- [place] Allergies, Adverse Reactions, Alerts Substance Reaction [...] toxoids (DT) 04/11/99 Given 1Result Comment: [03/28/2017] 64994-680-12 2Admin Note: VIS...05/04/2011 3Admin Note: VIS...05/04/2011 4Admin Note: [facility] 5Admin Note: [facility] Medications Albuterol (Eqv-ProAir HFA) 90 mcg/inh inhalation aerosol 2 puffs, Inhalation, Every 6 hours, # 8.5 each, 2 Refills, Maintenance, 02/14/23 3:52:00 EST, [facility]/pharmacy #[id number], 25, [...] Electronically, [facility] STORE 27065, 163, cm, 01/05/23 1:41:00 EDT, Height, 73, [...] capsule, 0 Refills, Maintenance, 12/16/22 10:33:00 EDT, [facility]/pharmacy #[id number], 163, cm, 12/09/22 8:10:00 EDT, Height, 71.5, kg, 12/09/22 8:10:00 EDT, Dry Weight Start Date: 12/16/22 Stop Date: 03/16/23 Status: Ordered ondansetron 4 mg oral tablet, disintegrating 1 tablet, By Mouth, 3 times a day, PRN NEEDED FOR NAUSEA/VOMITING, # 20 tablet, 1 Refills, Maintenance, 01/31/23 19:45:00 EDT, [facility] STORE 26497, 163, cm, 01/11/23 13:20:00 EDT, Height, 73, [...] Isl Back Pain Scale: 83on 01/20/17; initial [place]: 4 on 01/20/17 3SOAPP-R: 16 on 01/20/17 4Pain relevant problem list includes: See below Social History Social History Type Response Smoking Status Former smoker, quit more than 30 days ago entered on: 11/05/22 Sex Patient Care team information Care Team Personnel Name: Lakeisha Acevedo RN Position: [facility] RN Member Role: Primary Care Nurse Name: Lay Kaur RN Position: [facility] AMB Nurse Member Role: Primary Care Nurse Name: Juliana Kumari RN Position: [facility] RN Member Role: Primary Care Nurse Name: Katelyn Dubois RN Position: [facility] RN Member Role: Primary Care Nurse Name: Jodee Alford RN Position: [facility] RN Member Role: Primary Care Nurse Name: Melissa Morris RN Position: [facility] RN Member Role: Primary Care Nurse Name: Lemuel Day RN Position: [facility] RN Member Role: Primary Care Nurse Name: Curtis Shoemaker RN Position: [facility] AMB Nurse Member Role: Primary Care Nurse Name: Gala Rae NP Position: [facility] PCO Associate Professional Member Role: Primary Care Nurse Address: Address: [address] [place] [address] Name: Kavya Cantu RN Position: [facility] RN Member Role: Primary Care Nurse Name: Xiomara Duran RN Position: [facility] OB RN Member Role: Primary Care Nurse Name: Jane Oden MD Position: [facility] Physician - Primary Care Member Role: PCP Address: Address: [address] [place] [address]- Name: Tatiana Mcduffie RN Position: [facility] SN RN Member Role: Primary Care Nurse Care Team Related Persons Name: PAWAN CARLOS Address: [address] [place] [address] Name: MELANIE VERGARA Address: [address] [place] [address]
--- OUTSIDE RECORDS SUMMARY | 2023-11-30 06:37 | XMS_ITS | Continuity of Care Document ---
Author Organization [facility] Address [address] [place] [address]- Care Team Providers Care Billing Coordinator Name Role Phone Jane Oden MD Primary Care Physician [phone] [id number] Date(s): 06/22/23 - 10/23/23 [facility] Care [address] [place] [address]- Discharge Disposition: A-D/C Home Attending Physician: Hilaria Hernandez MD Admitting Physician: Hilaria Hernandez MD Referring Physician: Jane Oden MD Allergies, [...] toxoids (DT) 1/1/00 Given 1Result Comment: [03/28/2017] 63407-232-24 2Admin Note: VIS...05/04/2011 3Admin Note: VIS...05/04/2011 4Admin Note: [facility] 5Admin Note: [facility] Medications Albuterol (Eqv-ProAir HFA) 90 mcg/inh inhalation aerosol 2 puffs, Inhalation, Every 6 hours, # 8.5 each, 5 Refills, Maintenance, 07/21/23 9:37:00 EDT, [facility] 476[facility], 25, INHALE 2 PUFFS BY MOUTH EVERY 6 HOURS, 163, cm, 07/11/23 9:51:00 EDT, Height, 65.1, kg, 07/11/23 8:46:00 EDT, Dry Weight Start Date: 07/21/23 Status: Ordered atorvastatin 20 mg oral tablet 1 tablet, By Mouth, Daily, # 90 tablet, 1 Refills, Maintenance, 06/06/23 17:36:00 EST, [facility] 69429, 163, cm, 05/30/23 11:34:00 EST, Height, 63.6, [...] 01/07/23 15:04:00 EDT, Route to Pharmacy Electronically, [facility] 52118, 163, cm, 01/05/23 1:41:00 EDT, Height, 73, kg, 01/05/23 1:41:00 EDT, Dry Weight Start Date: 01/07/23 Status: Ordered FLUoxetine 20 mg oral capsule See Instructions, TAKE 1 CAPSULE BY MOUTH EVERY DAY, # 90 capsule, Refills 1, Maintenance, 249:21:00 EST, Instructions Replace Required Details, Route to Pharmacy Electronically, [facility] 36305, 163, cm, 05/30/23 11:34:00 EST, Height, 63.6, kg... Start Date: 06/07/23 Status: Ordered Golytely - oral powder for reconstitution 240 mL, By Mouth, Every 10 minutes, # 1 each, 0 Refills, Maintenance, 12/02/22 8:36:00 EDT, REC Powder, [facility]/pharmacy #[id number], Partial fill upon patient request if the prescription is for a schedule II opioid drug., 240 mL By Mouth Every 10 minutes, 165,... Start Date: 12/02/22 Status: Ordered Lidoderm 5% film 1 patch, Topically, Daily, remove patches after 12 hours, # 10 patch, 0 Refills, Maintenance, 05/19/23 16:40:00 EST, [facility]/pharmacy #[id number], Partial fill upon patient request if the prescription is for aschedule II opioid drug., 1 patch Topically Daily,x... Start Date: 05/19/23 Stop Date: 05/29/23 Status: Ordered lisinopril 5 mg oral tablet 1, tablet, By Mouth, Daily, # 90 tablet, Refills 1, Maintenance, 06/06/23 17:36:00 EST, Route to Pharmacy Electronically, [facility] 71148, 163, cm, 05/30/23 11:34:00 EST, Height, 63.6, kg, 05/19/23 9:09:00 EST, Dry Weight Start Date: 06/06/23 Status: Ordered omeprazole 40 mg oral enteric coated capsule 1 capsule, By Mouth, Daily, # 90 capsule, 1 Refills, Maintenance, 06/06/23 17:36:00 EST, [facility]7082, 163, cm, 05/30/23 11:34:00 EST, Height, 63.6, kg, 05/19/23 9:09:00 EST, Dry Weight Start Date: 06/06/23 Status: Ordered ondansetron 4 mg oral tablet, disintegrating 1 tablet, By Mouth, 3 times a day, PRN NEEDED FOR NAUSEA AND VOMITING, # 20 tablet, 1 Refills, Maintenance, 09/21/23 21:31:00 EDT, [id number], 162.5, cm, 08/23/23 9:29:00 EDT, Height, [...] [place] Back Pain Scale: 83on 01/20/17; initial [place]: 4 on 01/20/17 3SOAPP-R: 16 on 01/20/17 4Pain relevant problem list includes: See below Vital Signs Most recent to oldest [Reference Range]: 1 Height 162.5 cm (08/23/23 9:29 AM) Weight 67.4 kg (08/23/23 9:29 AM) Oxygen Saturation [94-100 %] 100 % (08/23/23 9:29 AM) Pulse Rate [55-90 bpm] 63 bpm (08/23/23 9:29 AM) Body Mass Index [18.5-24.99 kg/m2] 25.52 kg/m2 *H* (08/23/23 9:29 AM) Blood Pressure [90-138/55-84 mm Hg] 148/ 83mm Hg *H* (08/23/23 9:29 AM) Temperature [96.8-100.4 DegF] 97.8 DegF (08/23/23 9:29 AM) Mode of Delivery (Oxygen) Room air (08/23/23 9:29 AM) Blood pressure sites Arm, right (08/23/23 9:29 AM) Temperature Route Temporal (08/23/23 9:29 AM) Dry Weight 67.4 kg (08/23/23 9:29 AM) Weight Obtained Via Standing scale (08/23/23 9:29 AM) Dry Weight Obtained Via Standing scale (08/23/23 9:29 AM) Social History Social History Type Response Smoking Status Former smoker, quit more than 30 days ago entered on: 08/19/23 Sex Patient Care team information Care Team Personnel Name: Lakeisha Acevedo RN Position: [facility] RN Member Role: Primary Care Nurse Name: Lay Kaur RN Position: [facility] AMB Nurse Member Role: Primary Care Nurse Name: Juliana Kumari RN Position: [facility] RN Member Role: Primary Care Nurse Name: Katelyn Dubois RN Position: [facility] SN RN Member Role: Primary Care Nurse Name: Jodee Alford RN Position: [facility] RN Member Role: Primary Care Nurse Name: Melissa Morris RN Position: [facility] RN Member Role: Primary Care Nurse Name: Lemuel Day RN Position: [facility] RN Member Role: Primary Care Nurse Name: Curtis Shoemaker RN Position: [facility] AMB Nurse Member Role: Primary Care Nurse Name: Gala Rae NP Position: [facility] PCO Associate Professional Member Role: Primary Care Nurse Address: Address: [place] [address]- [place] Name: Kavya Cantu RN Position: [facility] RN Member Role: Primary Care Nurse Name: Xiomara Duran RN Position: [facility] OB RN Member Role: Primary Care Nurse Name: Jane Oden MD Position: [facility] Physician - Primary Care Member Role: PCP Address: Address: [address] [facility] [place] [address]- Name: Tatiana Mcduffie RN Position: [facility] NAJMA Office Staff Member Role: Primary Care Nurse Name: Cheryle Garcia RN Position: [facility] RN Member Role: Primary Care Nurse Name: Javon Vega MD Position: [facility] Physician - Oncology Med Service: Hematology & Oncology Address: Address: [address] [place] [address] [place] [address]- Care Team Related Persons Name: CARLOS VILLALTA Address: home [address] [place] [address] Name: MELANIE VERGARA Address: home [address] [place] [address]
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
== END 2023-11-26 21:51 | disposition short-term general hospital (02) | DRG 881 ==
PROVIDERS: Physician Assistant; Registered Nurse Community Health; Admitting Provider Clinical Nurse Specialist Psychiatric/Mental Health, Adult; Visit Provider Clinical Nurse Specialist Psychiatric/Mental Health, Adult
DX: F43.21 Adjustment disorder with depressed mood (principal); R45.851 Suicidal ideations; N17.9 Acute kidney failure, unspecified; F43.12 Post-traumatic stress disorder, chronic; Z63.4 Disappearance and death of family member; M54.50 Low back pain, unspecified; N18.30 Chronic kidney disease, stage 3 unspecified; E78.5 Hyperlipidemia, unspecified; M79.7 Fibromyalgia; J44.9 Chronic obstructive pulmonary disease, unspecified; R11.2 Nausea with vomiting, unspecified; F12.90 Cannabis use, unspecified, uncomplicated; I12.9 Hypertensive chronic kidney disease with stage 1 through stage 4 chronic kidney disease, or unspecified chronic kidney disease; G89.29 Other chronic pain; Z96.82 Presence of neurostimulator; Z87.891 Personal history of nicotine dependence; Z79.51 Long term (current) use of inhaled steroids; Z79.899 Other long term (current) drug therapy
CPT/HCPCS: 36415; 36600; 71250; 72070; 72100; 73110; 74018; 74176; 80048; 80053; 80061; 80307; 81001; 82040; 82436; 82550; 82607; 82746; 82803; 83036; 83605; 83735; 83935; 84100; 84133; 84300; 84439; 84443; 84540; 85025; 87040; 93005; J0131; J1644; J1836; J2060; J2405; J2543; J2765; S9485

== ENCOUNTER → 2023-11-25 19:57 | Outpatient (BNV) | payer MEDICARE, MEDICAID, SELFPAY | PROVIDERS: Admitting Provider Clinical Nurse Specialist Psychiatric/Mental Health, Adult; Visit Provider Physician Assistant | DX: M54.50 Low back pain, unspecified (principal); G89.29 Other chronic pain; R11.2 Nausea with vomiting, unspecified | CPT/HCPCS: 99223; 99499 ==

== ENCOUNTER → 2023-11-25 19:57 | Outpatient (BNV) | payer MEDICARE, MEDICAID, SELFPAY | PROVIDERS: Admitting Provider Clinical Nurse Specialist Psychiatric/Mental Health, Adult; Visit Provider Psychiatry & Neurology Psychiatry | DX: F43.21 Adjustment disorder with depressed mood (principal); F43.12 Post-traumatic stress disorder, chronic | CPT/HCPCS: 90792; 99238; 99499 ==

== ENCOUNTER 2023-11-26 22:10 | Inpatient (IN) | payer MEDICARE, MEDICAID, SELFPAY ==
--- NOTE | 2023-11-26 | ECG_ITS ---
Test Reason : QTC? Blood Pressure : / mmHG Vent. Rate : 109 BPM Atrial Rate : 109 BPM P-R Int : 126 ms QRS Dur : 062 ms QT Int : 330 ms P-R-T Axes : 076 053 060 degrees QTc Int : 444 ms Sinus tachycardia Nonspecific T wave abnormality Abnormal ECG When compared with ECG of 26-NOV-2023 15:48, No significant change was found Referred By: Juan Joshi Electronically Signed By:MARIELA PAYTON
--- NOTE | ~2023-11-26 | CT_ITS ---
EXAMINATION: CT CHEST WITHOUT CONTRAST CT ABDOMEN AND PELVIS WITHOUT CONTRAST CLINICAL INFORMATION: Metabolic acidosis. COMPARISON: No pertinent prior studies are available for comparison. TECHNIQUE: Multidetector volumetric imaging was performed from the thoracic inlet through the pubic symphysis. Sagittal and coronal images were reformatted. This CT examination was performed using dose optimization techniques as appropriate, variously including the following: *Automated exposure control *Adjustment of mA and/or kV according to patient size (this includes techniques or standardized protocols for targeted exams where dose is matched to indication/reason for exam; i.e. extremities or head) *Use of iterative reconstruction technique DOSE: 572 mGy-cm FINDINGS: -CHEST- LUNG: The lungs are clear without focal opacity or nodule. There is a paraseptal emphysema are evident at the lung bases laterally, right greater than left. MEDIASTINUM: Heart is normal in size. Central vascular structures are unremarkable. No hilar or mediastinal adenopathy. Small hiatal hernia. Atherosclerotic calcifications are present at the coronary arteries. PERICARDIUM/PLEURA: No significant effusion. No pleural mass. Foci of pleural parenchymal scarring are evident at the apices, more pronounced posteriorly. CHEST WALL/AXILLA: Unremarkable. -ABDOMEN/PELVIS- LIVER, GALLBLADDER, BILIARY TREE: The liver is normal in size, shape, and attenuation. No focal hepatic lesion or biliary ductal dilatation is present. The gallbladder is unremarkable with no evidence of radiopaque gallstones, gallbladder wall thickening, or obvious pericholecystic inflammatory changes. PANCREAS: Normal; no mass or surrounding fluid. SPLEEN: Normal size. No focal lesion. ADRENAL GLANDS: Normal; no mass. KIDNEYS AND URETERS: The kidneys are normal in size, shape, and attenuation. No hydronephrosis, hydroureter, or calculi seen. No perinephric stranding. BLADDER: Unremarkable. GASTROINTESTINAL TRACT: Small hiatal hernia. Stomach, small bowel, and colon are normal in caliber. Anastomotic suture line is present at the rectosigmoid junction. Mild to moderate colonic diverticulosis, most notably in the descending and sigmoid colon. No intraperitoneal free fluid or free air. ABDOMINAL WALL: No significant hernia is appreciated. VASCULATURE: Atherosclerotic calcifications are present in the abdominal aorta and iliac arteries. Aorta is normal in size. LYMPH NODES: No lymphadenopathy. . PELVIC VISCERA: The uterus and adnexa are unremarkable. OSSEUS STRUCTURES: Solid osseous fusion at L4-S1. Moderate to severe degenerative disc disease at L3-L4. Bones are osteopenic. Mild osteoarthritis in both hips and SI joints. No acute osseous findings. CT/CT abdomen pelvis wo IV con IMPRESSION: 1. No acute abnormalities are identified in the chest, abdomen, and pelvis. 2. Small hiatal hernia. 3. Mild to moderate colonic diverticulosis without evidence of acute diverticulitis.
[2023-11-26 22:10] VITALS: O2SAT 99
--- NOTE | 2023-11-26 22:19 | P.HPCC_ITS ---
History of Present Illness Date of Service: 11/26/23 Attending physician on admission: Yobani Smith Chief Complaint: Met acidosis ?The patient is a 63-year-old female with a past medical history of chronic kidney disease,? COPD, history of diverticulitis s/p? bowel resection, lymphedema, hypertension, chronic lower back pain with spinal cord stimulator,? anxiety, depression who was admitted into inpatient psych today as a transfer from [facility]. Reportedly her daughter 9 days ago and attempted suicide with benzo overdose.?? Hospital medicine earlier today due to? acute on chronic nausea and vomiting,? it was reported she was followed by [facility] due to this? and was attributed to cannabis use.? ?Tonight,? patient had muliple epidoses of vomiting and unable to tolerate p.o.. She reports not vomiting while at [facility]. Venous gas 7./03/02,? with serum bicarb 9,? anion gap 23,? BUN 26, creatinine 1.48 ?Patient will be transferred to ICU for management of metabolic acidosis? Review of Systems 2 Review of Systems: As per HPI, all other system review are negative [facility] Past Medical History Medical History (Updated 11/26/23 @ 23:08 by Juan Joshi NP) Anxiety Depression Chronic low back pain Fibromyalgia Migraine Nausea and vomiting COPD (chronic obstructive pulmonary disease) Hyperlipidemia Hypertension CKD (chronic kidney disease), stage III Diverticulitis Surgical History Surgical History S/P insertion of spinal cord stimulator History of laminectomy History of colon resection Social History Social History Household Members: Spouse Housing: House Do you presently have visiting nurse or other home services: No Comment: 1:1 sitter for recent statements of SI Patient Tobacco Use Status: Never used Tobacco Smoked in Last 30 Days: No Use of substances other than those prescribed or required for medical reasons: Yes Substance Use Type: Marijuana Substance Use Type Other:: edibles Substance Use Frequency: Daily Last Used Substance: Weeks (ago) Last Used Substance Other:: 1 week ago Currently Displaying Signs/Symptoms of Drug Intoxication Withdrawal: No Any prior treatment program specific to substance use: No Have you been hit, kicked, punched, or otherwise hurt by someone within the past year? If so, by whom?: No Do you feel safe in your current relationship?: Yes Is there a partner from a previous relationship who is making you feel unsafe now?: No Are you made to feel afraid or neglected: No [facility] Practices: declined Advance Directives: No Advance Directives Information Provided: Yes (Patient would like Félix) Do you have a plan to hurt others: No Plan Recently lost weight without trying: Yes How much weight loss: 2-13 pounds Eating poorly because of decreased appetite: Yes Nutrition screen score: 4 Nutrition Risks: Acute nausea or vomiting x1 week and Poor intake 0-25% >4 days Patient : No : No Poor oral hygiene: No Meds Allergies Allergy/AdvReac Type Severity Reaction Status Date / Time codeine Allergy Severe Itching Verified 11/25/23 15:11 NSAIDS (Non-Steroidal AdvReac Severe bleeding Verified 11/25/23 15:11 Anti-Inflamma contrast dye AdvReac Severe Anaphylaxis Uncoded 11/25/23 23:43 Active Medications: Current Medications Heparin Sodium (Porcine) (Heparin Sodium,Porcine 5,000 Unit/Ml Vial) 5,000 unit SUBCUT Q8H CRISTINA Home Medications ?Medication ?Instructions ?Recorded ?Confirmed ?Last Taken ?Type famotidine 20 mg tablet 20 mg PO BEDTIME 11/25/23 11/27/23 Unknown History lisinopril 5 mg tablet 5 mg PO DAILY 11/25/23 11/27/23 Unknown History oxycodone-acetaminophen 5 mg-325 1 tab PO Q6H PRN severe pain 11/25/23 11/27/23 11/25/23 13:31 History mg tablet melatonin 3 mg tablet 9 mg PO BEDTIME 11/27/23 11/27/23 Unknown History omeprazole 40 mg capsule,delayed 40 mg PO DAILY@0630 11/27/23 11/27/23 Unknown History release Physical Exam 2 Vital Signs: ?General:? Alert oriented x3 no acute distress.? Speaking full sentences.? Speech is well articulated, thought process is coherent.? Following all commands. ?HEENT:? Head is normocephalic, atraumatic, pupils equal round reactive to light accommodation bilaterally.? Extraocular movements appear intact.? Buccal mucosa is dry, Neck is supple ?Cardiac:? Clear S1-S2, no murmurs rubs or gallops. ?Pulmonary:? Clear to auscultation, no wheezes, rales or rhonchi. ?Abdomen:? ?Abdomen soft, with diffuse mild tenderness, non-distended. Normal bowel sounds. No pulsatile mass. No hepatosplenomegaly. ?Musculoskeletal:? Moving all 4 extremities upon request a major joints, there is no crepitus or tenderness.? The strength is 5/5 bilaterally and throughout all 4 extremities.? ?Neurologic:? cranial nerves 2-12 are grossly intact.? No focal deficits noted.Motor strength as above.?? ?Skin:? Intact, no lesions, edema, erythema, clubbing or cyanosis.? No ulcers. Vascular:? 2+ pulses upper and lower extremities distally.? Results Labs 11/27/23 05:55 11/27/23 05:55 Assessment and Plan (1) Metabolic acidosis: Status: Acute (2) Intractable vomiting with nausea: Status: Acute (3) CHANG (acute kidney injury): Status: Acute (4) Suicidal overdose: Status: Acute (5) Depression: Status: Acute (6) Anxiety: Status: Acute Plan 63-year-old female with a past medical history of chronic kidney disease,? COPD, history of diverticulitis s/p? bowel resection, lymphedema, hypertension, chronic lower back pain with spinal cord stimulator,? anxiety, depression? admitted to ICU for metabolic acidosis Neuro:?No acute issues Cardiac:?? ?No acute issues Pulmonary:? no acute issues?? Renal:? CHANG-? has CKD, baseline creat is around 1. most likely related to hypoperfusion/ severe dehydration, nonoliguric.? Continue IV fluid.? Continue to check renal induces and urine output GI:?Metabolic acidosis: ? unclear source, ? possible? starvation ketosis vs D- lactic acidosis,? as patient has had intractable nausea and vomiting, and unable to take p.o and hx of bowel resection. Start bicarb drip,? Will add UA, urine Na,k,cl, urea. ? CT of the chest and abdomen,? unable to give contrast as patient is allergic ?Intractable nausea and vomiting:? continue? antiemetics Endo:?No acute issues ID:? ? leukocytosis:? patient has leukocytes but no? evidence of acute infection.? This is likely due to severe dehydration, but will give? empiric Zosyn until CT is done and blood cultures are? resulted Heme/Onc:? No acute issues. Psych: ? SI:? patient was admitted due to recent suicidal ideation and overdose.? Denies suicidal ideations at this moment.? Continue with sitter.? Miscellaneous:? No acute issues. Prophylaxis: subcu heparin Diet: NPO?? Critical care time:? no critical care time CODE: FULL
[2023-11-26 22:30] VITALS: BP 169/96; PULSE 116; RESP 15; TEMP 36.8; O2SAT 99
[2023-11-26] MEDS: Sodium Bicarbonate 8.4% 100 MEQ in Dextrose 5 % 900 ML IV (22:55)
[2023-11-26 23:11] VITALS: BP 164/101; PULSE 115; RESP 12; O2SAT 98
[2023-11-26] MEDS: Heparin Sodium,Porcine 5,000 UNIT/ML VIAL 5000 UNIT SUBCUT (23:13)
[2023-11-26 23:16] VITALS: BMI 23.9
[2023-11-26 23:20] VITALS: BP 170/108
[2023-11-27] VITALS (19 sets, daily range): BP systolic 115–179; BP diastolic 59–99; PULSE 83–111; RESP 11–20; TEMP 36.3–37.1; O2SAT 94–99; BMI 24.3
[2023-11-27 00:28] LABS: Venous Blood Gas Refer to POC result
[2023-11-27] MEDS: Piperacillin Sodium/Tazobactam 4.5 GM in 0.9 % Sodium Chloride 100 ML IV ×2 (00:28→08:51)
[2023-11-27 00:35] LABS: VBG Base Excess -14.8 mmol/L; VBG HCO3 11 mmol/L (22-26); VBG pCO2 27 mmHg; VBG pH 7.21 (7.32-7.43); VBG pO2 57 mmHg
[2023-11-27] MEDS: ondansetron HCL 4 MG/2 ML VIAL IVPUSH ×3 (00:36→12:54)
[2023-11-27 00:44] LABS: Appearance Urine Clear; Color Urine Yellow; Glucose Urine UA Negative (Negative); Leukocyte Esterase Urine Negative (Negative); Nitrite Urine Negative (Negative); UMIC TRIGGER UACC YES; Urine Blood Trace (Negative); Urine Ketones >=160 mg/dL (Negative); Urine Protein 30 (1+) mg/dL (Neg-Trace)
[2023-11-27 00:53] LABS: Potassium Urine Random 62.5 mmol/L
[2023-11-27 00:57] LABS: Bacteria Urine None Seen (None Seen); Hyaline Casts Urine 0-2 /LPF (0-2); RBC Urine 0-2 /HPF (0-2); Squamous Epithelial Cell Urine 0-2 /HPF (0-2); WBC Urine 0-5 /HPF (0-5)
[2023-11-27 00:58] LABS: Osmolality Urine 658 mosm/kg (373-1093)
[2023-11-27 01:00] LABS: Amphetamine Screen Urine Not Detected (Not Detect); Barbiturates, Urine Not Detected (Not Detect); Benzodiazepines Screen Urine POSITIVE (Not Detect); Buprenorphine Scr Not Detected (Not Detect); Cannabinoid Screen Urine POSITIVE (Not Detect); Cocaine Screen Urine Not Detected (Not Detect); Fentanyl, urine Not Detected (Not Detect); Methadone Screen, Urine Not Detected (Not Detect); Opiate Screen Urine Not Detected (Not Detect); Oxycodone Screen Urine Positive (Not Detect); Phencyclidine Screen Urine Not Detected (Not Detect)
[2023-11-27] MEDS: metroNIDAZOLE/NS 500 MG/100 ML PIGGYBACK 100 MG IV ×3 (01:22→15:30)
[2023-11-27] MEDS: Acetaminophen 1,000 MG/100 ML PIGGYBACK 400 MG IV (01:23)
[2023-11-27 06:01] LABS: VBG Base Excess -7.2 mmol/L; VBG HCO3 16 mmol/L (22-26); VBG pCO2 28 mmHg; VBG pH 7.36 (7.32-7.43); VBG pO2 43 mmHg
[2023-11-27 06:01] LABS: MANUAL DIFF FLAG NO
[2023-11-27 06:03] LABS: Basophils Percent Auto 0.3 % (0-2); Hematocrit 41.3 % (37.0-47.0); Hemoglobin 14.3 g/dl (12.0-16.0); Imm Gran Abs Auto 0.03 X10*3/uL (0.00-0.03); Imm Gran Pct Auto 0.3 % (0.0-0.4); Lymphocytes Absolute Auto 1.1 X10*3/uL (1.2-4.9); Lymphocytes Percent Auto 11.5 % (20-40); Mean Corpuscular HGB Conc 34.6 g/dl (31.0-35.0); Mean Corpuscular Hemoglobin 29.7 pg (27.0-33.0); Mean Corpuscular Volume 85.9 fL (80.0-98.0); Mean Platelet Volume 9.5 fL (9.4-12.3); Monocytes Absolute Auto 0.6 X10*3/uL (0.1-1.2); Monocytes Percent Auto 6.3 % (2-11); Neutrophils Absolute Auto 7.5 x10*3/uL (2.0-8.3); Neutrophils Percent Auto 81.6 % (45-73); Platelet Count 321 X10*3/uL (160-400); Red Blood Count 4.81 X10*6/uL (4.20-5.50); Red Cell Distribution Width 13.4 % (11.0-16.0); White Blood Count 9.2 X10*3/uL (4.8-10.8)
[2023-11-27 06:07] LABS: Venous Blood Gas Refer to POC result
[2023-11-27 06:18] LABS: Lactic Acid 1.2 mmol/L (0.5-2.0)
[2023-11-27 06:25] LABS: Alanine Aminotransferase 37 U/L (0-31); Albumin Level 4.2 g/dL (3.5-5.0); Alkaline Phosphatase 117 U/L (39-117); Anion Gap 16 (12-20); Aspartate Amino Transferase 20 U/L (5-31); Bilirubin Total 0.5 mg/dL (0.0-1.0); Blood Urea Nitrogen 25 mg/dL (9-16); Calcium 9.3 mg/dL (8.4-10.2); Carbon Dioxide 18 mmol/L (22-29); Chloride 109 mmol/L (96-108); Estimated Glomerular Filt Rate 43; Glucose Random 147 mg/dL (60-115); Phosphorus 3.6 mg/dL (2.7-4.5); Potassium 4.2 mmol/L (3.3-5.1); Sodium 139 mmol/L (135-145); Total Protein 6.7 g/dL (6.5-8.0)
[2023-11-27] MEDS: Heparin Sodium,Porcine 5,000 UNIT/ML VIAL 5000 UNIT SUBCUT ×3 (06:27→20:45)
--- NOTE | 2023-11-27 06:32 | PC.NURSE ---
Mental Retardation Nurse assumed care of patient 22:00. Patient transported from via wheelchair to ED CT for ordered scans of abdomen and pelvis. Patient was then transported to ICU, admitted for metabolic acidosis, initial pH 7.18. Pt is A&Ox4. Pt reported to this engineering writer during assessment that she ?took too much Xanax and just wanted to sleep? after the recent unexpected passing of her daughter. Per handoff report received, the patient [place] with concern for [place] and given narcan after which she became combative and was transported to [facility] for SI attempt; the patient was then transferred here for inpatient psych admission. Patient is calm and cooperative for this engineering writer. Pt denies SI/HI at this time. 1:[address] Initially sinus tach 110?s on tele, improved to SR-ST 90?s to low 100?s. Pt hypertensive 170?s with pain reported, IV tylenol given x1 with +effect. EKG done per INJECTION MACHINE OPERATOR to assess QTC. Pt c/o nausea x1 without vomiting, given prn zofran with +effect. Remains NPO for nausea, frequent vomiting x12 episodes during the day per handoff report. Pt reports poor appetite/po intake, with the last ?actual meal eaten? was , November 16. PO care provided. U/A and other urine labs ordered, obtained via straight cath per INJECTION MACHINE OPERATOR order. D5W with bicarb ordered and initiated. Repeat VBG done showing pH 7.21, last 7.36 this morning, provider notified. BCx and other labs ordered and obtained prior to initiating empiric abx as per INJECTION MACHINE OPERATOR. BMP ordered this morning and phlebotomy requested to draw by engineering writer, INJECTION MACHINE OPERATOR made aware. Morning labs ordered and obtained. Patient resting in bed appears comfortable, breathing is even and unlabored without distress on RA. Please see shift assessments, tasks, and MAR for full details.
--- NOTE | 2023-11-27 08:31 | PHA.MEDREC ---
Pharmacy Consult ? Medication Reconciliation Pharmacy has completed the medication reconciliation Utilized discharge packet from 11/26/23..
[2023-11-27] MEDS: Sodium Bicarbonate 8.4% 100 MEQ in Dextrose 5 % 900 ML IV (08:42)
--- NOTE | 2023-11-27 10:21 | P.PNCC_ITS ---
Subjective Subjective Date of Service: 11/27/23 Interval History: 63-year-old lady with underlying history of CKD, COPD, diverticulitis status post bowel resection, lymphedema,, chronic low back pain status post spinal cord stimulator, depression admitted on 11/26/2023 to psychiatric unit. On initial workup patient with metabolic acidosis of unclear etiology progressing over the course of the 1st day of admission requiring transferred to intensive care unit. On further workup, no evidence of L-lactate, ketones, beta hydroxybutyrate, but with an elevated urine anion gap, likely from D-lactate acidosis. Started on bicarbonate drip and metronidazole. No events overnight. Critical Care Time (minutes): 0 Physical Exam 2 Vital Signs: Vital Signs: Last Vital Signs Temp 98.8 F 11/27/23 07:00 Pulse 83 11/27/23 09:00 Resp 19 11/27/23 09:00 BP 121/63 11/27/23 09:00 Pulse Ox 99 11/27/23 09:00 O2 Del Method Room Air 11/27/23 09:00 BMI result Body Mass Index 24.3 Const: General: no acute distress, alert and awake Eyes: Sclerae: sclerae normal EOM: EOMs intact bilaterally Neck: Neck: Yes no lymphadenopathy, Yes trachea midline and Yes supple Resp: Effort & Inspection: normal respiratory effort and no respiratory distress Auscultation: clear to auscultation bilaterally Cardio: Rate: regular rate Rhythm: regular rhythm Heart sounds: no gallops, no murmurs and no rubs GI: Palpation (GI): Soft to palpation and Other GI palpation findings present ( Nontender) Auscultation: normal bowel sounds Extrem: General: Yes no pedal edema, No clubbing and No cyanosis Objective Data Labs 11/27/23 05:55 11/27/23 05:55 Labs: Laboratory Results - last 24 hr 11/26/23 11/27/23 11/27/23 23:40 00:20 00:25 WBC RBC Hgb Hct MCV MCH MCHC RDW Plt Count MPV Immature Gran % (Auto) Neut % (Auto) Lymph % (Auto) [place] % (Auto) Eos % (Auto) Baso % (Auto) Lymph # (Auto) [place] # (Auto) Eos # (Auto) Baso # (Auto) Abs Immat Gran (auto) Absolute Neuts (auto) Absolute Nucleated RBC Nucleated RBC % (auto) VBG pH 7.21 L VBG pCO2 27 VBG pO2 57 VBG HCO3 11 L VBG O2 Saturation 85.0 VBG Base Excess -14.8 Sodium Cancelled Potassium Cancelled Chloride Cancelled Carbon Dioxide Cancelled Anion Gap Cancelled BUN Cancelled Creatinine Cancelled Estim Creat Clear Calc Cancelled Estimated GFR Cancelled Random Glucose Cancelled Lactic Acid Calcium Cancelled Phosphorus Magnesium Total Bilirubin AST ALT Alkaline Phosphatase Total Protein Albumin Urine Color Yellow Urine Appearance Clear Urine pH 6.0 Ur Specific [place] 1.020 Urine Protein 30 (1+) H Urine Glucose (UA) Negative Urine Ketones >=160 Urine Blood Trace H Urine Nitrite Negative Ur Leukocyte Esterase Negative Urine RBC 0-2 Urine WBC 0-5 Ur Squamous Epith Cells 0-2 Urine Bacteria None Seen Hyaline Casts 0-2 Urine Osmolality 658 Ur Random Sodium 99.0 Ur Random Potassium 62.5 Ur Random Chloride 56.0 Urine Opiates Screen Not Detected Ur Buprenorphine Scrn Not Detected Ur Oxycodone Screen Positive H Urine Methadone Screen Not Detected Urine Fentanyl Screen Not Detected Ur Barbiturates Screen Not Detected Ur Phencyclidine Scrn Not Detected Ur Amphetamines Screen Not Detected U Benzodiazepines Scrn POSITIVE H Urine Cocaine Screen Not Detected U Marijuana (THC) Screen POSITIVE H 11/27/23 11/27/23 05:49 05:55 WBC 9.2 RBC 4.81 Hgb 14.3 Hct 41.3 MCV 85.9 MCH 29.7 MCHC 34.6 RDW 13.4 Plt Count 321 MPV 9.5 Immature Gran % (Auto) 0.3 Neut % (Auto) 81.6 H Lymph % (Auto) 11.5 L [place] % (Auto) 6.3 Eos % (Auto) 0.0 Baso % (Auto) 0.3 Lymph # (Auto) 1.1 L [place] # (Auto) 0.6 Eos # (Auto) 0.0 Baso # (Auto) 0.0 Abs Immat Gran (auto) 0.03 Absolute Neuts (auto) 7.5 Absolute Nucleated RBC 0.000 Nucleated RBC % (auto) 0.0 VBG pH 7.36 VBG pCO2 28 VBG pO2 43 VBG HCO3 16 L VBG O2 Saturation 77.0 VBG Base Excess -7.2 Sodium 139 Potassium 4.2 Chloride 109 H Carbon Dioxide 18 L Anion Gap 16 BUN 25 H Creatinine 1.26 Estim Creat Clear Calc 40.0 Estimated GFR 43 Random Glucose 147 H Lactic Acid 1.2 Calcium 9.3 Phosphorus 3.6 Magnesium 2.0 Total Bilirubin 0.5 AST 20 ALT 37 H Alkaline Phosphatase 117 Total Protein 6.7 Albumin 4.2 Urine Color Urine Appearance Urine pH Ur Specific [place] Urine Protein Urine Glucose (UA) Urine Ketones Urine Blood Urine Nitrite Ur Leukocyte Esterase Urine RBC Urine WBC Ur Squamous Epith Cells Urine Bacteria Hyaline Casts Urine Osmolality Ur Random Sodium Ur Random Potassium Ur Random Chloride Urine Opiates Screen Ur Buprenorphine Scrn Ur Oxycodone Screen Urine Methadone Screen Urine Fentanyl Screen Ur Barbiturates Screen Ur Phencyclidine Scrn Ur Amphetamines Screen U Benzodiazepines Scrn Urine Cocaine Screen U Marijuana (THC) Screen Progress Note: A&P Assessment and plan (1) Metabolic acidosis: Status: Acute (2) CHANG (acute kidney injury): Status: Acute Plan Assessment: 63-year-old lady with an asymptomatic metabolic acidosis likely secondary to D-lactate overproduction in the GI tract Plan: Neuro: No acute issues. Cardiac: No acute issues. Pulmonary: No acute issues. Renal: Metabolic acidosis, likely secondary to D-lactate, improving on bicarbonate drip and metronidazole. Continue to monitor pH. Endo: No acute issues. GI: No acute issues. ID: No acute issues Heme/Onc: No acute issues. Psych: No acute issues. Miscellaneous: No acute issues. Prophylaxis: Heparin Diet: Regular Quality Stroke Does the patient have a stroke diagnosis?: No VTE Prior VTE?: No VTE Risk Level:: Medical - moderate - high VTE Device Contraindication: N/A - Device Ordered VTE Drug Contraindication: N/A - Med Ordered
[2023-11-27] MEDS: amLODIPine Besylate 10 MG TABLET PO (10:49)
--- NOTE | 2023-11-27 13:09 | PM.EVENT ---
Event Note Date of Service: 11/27/23 Event Note: Discussed case with ICU attending. tx to med floor. Treated for metabolic acidosis. IV bicarb needs sitter for SI Time Spent With Patient Time: Total time managing care of this patient today ____ minutes.
--- NOTE | 2023-11-27 14:18 | MHC.CM.PN ---
Patient admitted to ICU from inpatient psych. Patient was transferred to inpatient psych on 11/25 from [facility]. Met with patient in regards to discharge planning. Patient lives with her , and uses a cane for mobility. Patient's is her paid caregiver through [employer]. PCP verified as Jane Oden. Copy of HCP obtained from [facility]. IMM explained and signed. Anticipate patient will return to inpatient psych when medically stable. Continue to monitor for d/c needs.
[2023-11-27] MEDS: Famotidine/PF 20 MG/2 ML VIAL IVPUSH (15:31)
[2023-11-27] MEDS: diazePAM 5 MG TABLET PO ×2 (15:51→20:44)
[2023-11-27] MEDS: oxyCODONE HCl Immed Release 5 MG TABLET PO (19:23)
[2023-11-27] MEDS: Acetaminophen 325 MG TABLET PO (19:23)
[2023-11-27] MEDS: Pregabalin 150 MG CAPSULE 300 MG PO (20:44)
[2023-11-27] MEDS: Melatonin 3 MG TABLET 9 MG PO (20:44)
[2023-11-27] MEDS: guanFACINE HCl ER 1 MG TAB.ER.24H PO (20:45)
[2023-11-27] MEDS: Famotidine 20 MG TABLET PO (20:45)
[2023-11-28] MEDS: metroNIDAZOLE/NS 500 MG/100 ML PIGGYBACK 100 MG IV ×4 (00:57→23:43)
[2023-11-28 03:09] VITALS: BP 132/65; PULSE 96; RESP 16; TEMP 36.2; O2SAT 99
[2023-11-28] MEDS: Heparin Sodium,Porcine 5,000 UNIT/ML VIAL 5000 UNIT SUBCUT ×2 (05:43→14:48)
[2023-11-28 06:41] LABS: MANUAL DIFF FLAG NO
[2023-11-28 06:43] LABS: Basophils Percent Auto 0.8 % (0-2); Eosinophils Absolute Auto 0.1 X10*3/uL (0.0-0.4); Hematocrit 36.8 % (37.0-47.0); Hemoglobin 13.2 g/dl (12.0-16.0); Imm Gran Abs Auto 0.02 X10*3/uL (0.00-0.03); Imm Gran Pct Auto 0.4 % (0.0-0.4); Lymphocytes Absolute Auto 1.8 X10*3/uL (1.2-4.9); Lymphocytes Percent Auto 35.6 % (20-40); Mean Corpuscular HGB Conc 35.9 g/dl (31.0-35.0); Mean Corpuscular Hemoglobin 30.1 pg (27.0-33.0); Mean Platelet Volume 9.1 fL (9.4-12.3); Monocytes Absolute Auto 0.4 X10*3/uL (0.1-1.2); Monocytes Percent Auto 7.8 % (2-11); Neutrophils Absolute Auto 2.8 x10*3/uL (2.0-8.3); Neutrophils Percent Auto 54.4 % (45-73); Platelet Count 228 X10*3/uL (160-400); Red Blood Count 4.38 X10*6/uL (4.20-5.50); Red Cell Distribution Width 13.5 % (11.0-16.0); White Blood Count 5.1 X10*3/uL (4.8-10.8)
[2023-11-28 06:52] LABS: VBG Base Excess -0.3 mmol/L; VBG HCO3 24 mmol/L (22-26); VBG pCO2 38 mmHg; VBG pO2 92 mmHg
[2023-11-28 07:14] LABS: Venous Blood Gas Refer to POC result
[2023-11-28 07:27] LABS: Albumin Level 3.8 g/dL (3.5-5.0); Anion Gap 11 (12-20); Blood Urea Nitrogen 19 mg/dL (9-16); Calcium 9.5 mg/dL (8.4-10.2); Chloride 110 mmol/L (96-108); Creatinine Clr Calc Pharmacy 55.9; Estimated Glomerular Filt Rate > 60; Glucose Random 104 mg/dL (60-115); Magnesium 2.4 mg/dL (1.6-2.6); Phosphorus 2.5 mg/dL (2.7-4.5); Sodium 141 mmol/L (135-145)
[2023-11-28 07:36] VITALS: BP 137/98; PULSE 81; RESP 18; TEMP 36.1; O2SAT 98
[2023-11-28 07:37] LABS: Carbon Dioxide 22 mmol/L (22-29); Potassium 3.3 mmol/L (3.3-5.1)
[2023-11-28] MEDS: Tiotropium Bromide 2.5 mcg 1 PUFF/2.5 MCG MIST.INHAL 2 PUFF INHALE (08:10)
[2023-11-28] MEDS: Fluticasone/Vilanterol 200/25 BLST.W.DEV 1 PUFF INHALE (08:10)
[2023-11-28 08:16] VITALS: PULSE 89; RESP 17; O2SAT 98
[2023-11-28] MEDS: guanFACINE HCl ER 1 MG TAB.ER.24H PO ×2 (08:22→20:26)
[2023-11-28] MEDS: FLUoxetine HCl 20 MG CAPSULE PO (08:22)
[2023-11-28] MEDS: diazePAM 5 MG TABLET PO ×3 (08:23→20:26)
[2023-11-28] MEDS: Pregabalin 150 MG CAPSULE 300 MG PO ×2 (08:23→20:26)
[2023-11-28] MEDS: Atorvastatin Calcium 20 MG TABLET PO (08:23)
[2023-11-28] MEDS: amLODIPine Besylate 10 MG TABLET PO (08:23)
[2023-11-28] MEDS: Famotidine/PF 20 MG/2 ML VIAL IVPUSH (08:24)
[2023-11-28] MEDS: oxyCODONE HCl Immed Release 5 MG TABLET PO ×3 (09:30→23:57)
[2023-11-28] MEDS: Potassium Phosphate/NS 15 MMOL/250 ML PLAST..BAG 62.5 MMOL IV (09:39)
--- NOTE | 2023-11-28 13:09 | MHC.CARE ---
Patient evaluated by the CARE Team, disposition is return to inpatient psychiatric treatment. She will remain in the hospital until an a bed is secured. Patient in agreement. Elizabeth Johnson NP updated with plan.
--- NOTE | 2023-11-28 13:16 | HO.PM.IMPN ---
Subjective Subjective Date of Service: 11/28/23 Review of Systems Follow up feeling better today No SI Physical Exam Vital Signs: Vital Signs: Last Vital Signs Temp 96.9 F 11/28/23 07:36 Pulse 89 11/28/23 08:16 Resp 17 11/28/23 08:16 BP 137/98 H 11/28/23 07:36 Pulse Ox 98 11/28/23 07:36 O2 Del Method Room Air 11/28/23 07:36 BMI result Body Mass Index 24.3 Appearing in no acute distress lung sounds are clear to auscultation heart regular rate rhythm, clear S1, S2 positive bowel sounds, abdomen is soft, nontender neuro patient is alert x3, no focal deficits Objective Data Active Medications Acetaminophen (Acetaminophen 325 Mg Tablet) 325 mg PO Q6H PRN PRN Reason: Pain, Severe (Pain Scale 7-10) Last Admin: 11/27/23 19:23 Dose: 325 mg Documented By: SHARON Albuterol Sulfate (Albuterol Sulfate 90 Mcg 8 Gm Inhaler) 2 puff INHALE Q6H PRN PRN Reason: Dyspnea Alprazolam (Alprazolam 0.5 Mg Tablet) 0.5 mg PO TID PRN PRN Reason: insomnia Amlodipine Besylate (Amlodipine Besylate 10 Mg Tablet) 10 mg PO DAILY [facility]; Protocol Last Admin: 11/28/23 08:23 Dose: 10 mg Documented By: ALTHEA Atorvastatin Calcium (Atorvastatin Calcium 20 Mg Tablet) 20 mg PO DAILY [facility] Last Admin: 11/28/23 08:23 Dose: 20 mg Documented By: ALTHEA Diazepam (Diazepam 5 Mg Tablet) 5 mg PO TID [facility] Last Admin: 11/28/23 08:23 Dose: 5 mg Documented By: ALTHEA Famotidine (Famotidine/Pf 20 Mg/2 Ml Vial) 20 mg IVPUSH DAILY [facility] Last Admin: 11/28/23 08:24 Dose: 20 mg Documented By: ALTHEA Famotidine (Famotidine 20 Mg Tablet) 20 mg PO BEDTIME [facility] Last Admin: 11/27/23 20:45 Dose: 20 mg Documented By: SHARON Ferrous Sulfate (Ferrous Sulfate 324 Mg Tablet.) 324 mg PO DAILY [facility] Last Admin: 11/28/23 08:22 Dose: Not Given Documented By: ALTHEA Non-Admin Reason: Patient Refused Fluoxetine HCl (Fluoxetine Hcl 20 Mg Capsule) 20 mg PO DAILY [facility] Last Admin: 11/28/23 08:22 Dose: 20 mg Documented By: ALTHEA Fluticasone/Vilanterol (Fluticasone/Vilanterol 200/25 Blst.W.Dev) 1 puff INHALE RDAILY [facility] Last Admin: 11/28/23 08:10 Dose: 1 puff Documented By: DORINA Guanfacine HCl (Guanfacine Hcl Er 1 Mg Tab.Er.24h) 1 mg PO BID [facility] Last Admin: 11/28/23 08:22 Dose: 1 mg Documented By: ALTHEA Heparin Sodium (Porcine) (Heparin Sodium,Porcine 5,000 Unit/Ml Vial) 5,000 unit SUBCUT Q8H [facility] Last Admin: 11/28/23 05:43 Dose: 5,000 unit Documented By: SHARON Hydroxyzine HCl (Hydroxyzine Hcl 25 Mg Tablet) 25 mg PO Q6H PRN PRN Reason: Anxiety Metronidazole (Flagyl) 500 mg in 100 mls @ 100 mls/hr IV 0000,0800,1600 [facility] Last Infusion: 11/28/23 09:30 Dose: Infused Documented By: ALTHEA Melatonin (Melatonin 3 Mg Tablet) 9 mg PO BEDTIME [facility] Last Admin: 11/27/23 20:44 Dose: 9 mg Documented By: SHARON Ondansetron HCl (Ondansetron Hcl 4 Mg/2 Ml Vial) 4 mg IVPUSH Q4H PRN PRN Reason: Nausea and Vomiting Last Admin: 11/27/23 12:54 Dose: 4 mg Documented By: CLIFF Oxycodone HCl (Oxycodone Hcl Immed Release 5 Mg Tablet) 5 mg PO Q6H PRN PRN Reason: severe pain Last Admin: 11/28/23 09:30 Dose: 5 mg Documented By: ALTHEA Pregabalin (Pregabalin 150 Mg Capsule) 300 mg PO BID [facility] Last Admin: 11/28/23 08:23 Dose: 300 mg Documented By: ALTHEA Tiotropium [place] (Tiotropium [place] 2.5 Mcg 1 Puff/2.5 Mcg Mist.Inhal) 2 puff INHALE RDAILY [facility] Last Admin: 11/28/23 08:10 Dose: 2 puff Documented By: DORINA Trazodone HCl (Trazodone Hcl 50 Mg Tablet) 50 mg PO BEDTIME MRX1 PRN PRN Reason: Insomnia Labs 11/28/23 06:34 11/28/23 06:34 Labs: Laboratory Results - last 24 hr 11/28/23 11/28/23 06:34 06:41 MCV 84.0 MCH 30.1 MCHC 35.9 H RDW 13.5 Plt Count 228 D MPV 9.1 L Immature Gran % (Auto) 0.4 Neut % (Auto) 54.4 Lymph % (Auto) 35.6 [place] % (Auto) 7.8 Eos % (Auto) 1.0 Baso % (Auto) 0.8 Lymph # (Auto) 1.8 [place] # (Auto) 0.4 Eos # (Auto) 0.1 Baso # (Auto) 0.0 Abs Immat Gran (auto) 0.02 Absolute Neuts (auto) 2.8 Absolute Nucleated RBC 0.000 Nucleated RBC % (auto) 0.0 VBG pH 7.40 VBG pCO2 38 VBG pO2 92 VBG HCO3 24 VBG O2 Saturation 98.0 VBG Base Excess -0.3 Anion Gap 11 L Estim Creat Clear Calc 55.9 Estimated GFR > 60 Random Glucose 104 Calcium 9.5 Phosphorus 2.5 L Magnesium 2.4 Albumin 3.8 Microbiology Microbiology Results: Microbiology 11/27/23 00:28 Blood Culture - Preliminary Blood - Venous No growth after 24 hours. Assessment and Plan (1) Suicidal overdose: Status: Acute Plan 63-year-old woman admitted to psychiatric unit on 11/26/2023. Initial workup showed metabolic acidosis of unclear etiology progressing over the course of the 1st day of admission requiring transfer to the intensive care unit. She was started on bicarbonate and Flagyl with good reduction in her CO2 numbers. She was stable enough to be transferred back to medical floor the following day. Metabolic acidosis. Resolved No evidence of lactic acid, ketones, beta hydroxybutyrate, question D lactate acidosis treated with bicarbonate drip for bicarbonate as low as 9 Suicidal ideation Has had a sitter in the room, denied any suicide ideation today Seen by care team and plan for admission when bed available. Nausea and vomiting. Resolved Was on IV Pepcid Hypertension Continue amlodipine Normocytic anemia No signs of bleeding Continue iron supplementation PTSD/anxiety/depression Morning the of her daughter who 2 weeks ago of a sudden medical cause Continue psychiatric medications Hyperlipidemia Continue statin DVT prophylaxis with heparin Attending Dr. Garcia Full code Quality Stroke Does the patient have a stroke diagnosis?: No VTE Prior VTE?: No VTE Risk Level:: Medical - moderate - high VTE Device Contraindication: N/A - Device Ordered VTE Drug Contraindication: N/A - Med Ordered
[2023-11-28] MEDS: Acetaminophen 325 MG TABLET PO ×2 (14:47→23:56)
[2023-11-28 15:09] VITALS: BP 122/81; PULSE 115; RESP 18; TEMP 36.2; O2SAT 97
--- NOTE | 2023-11-28 15:36 | PC.NURSE ---
Pt. was crying stated that her mother is dying process in one of [facility] halfway. She also stated that her sister is denying her access even to face time her mother (mother is unresponsive). Pt stated she just wanted to see her mother's face but the sister said she would upset their mother because the pt. is not stable herself.
[2023-11-28 20:00] VITALS: BP 117/76; PULSE 78; RESP 18; TEMP 36.1; O2SAT 94
[2023-11-28] MEDS: Melatonin 3 MG TABLET 9 MG PO (20:26)
[2023-11-28] MEDS: Famotidine 20 MG TABLET PO (20:26)
[2023-11-29] VITALS: BP 119/77; PULSE 81; RESP 16; TEMP 36; O2SAT 98
[2023-11-29 00:50] VITALS: RESP 16
[2023-11-29] MEDS: Heparin Sodium,Porcine 5,000 UNIT/ML VIAL 5000 UNIT SUBCUT ×2 (06:12→14:41)
--- NOTE | 2023-11-29 07:37 | P.DS_ITS ---
DS: Providers Provider Date of Service: 11/29/23 Date of admission: 11/26/23 22:10 Primary care physician: Unknown Physician Consults: 11/27/23 14:52 Consult for Sitter Routine Reason for consultation: SI 11/28/23 09:18 Consult to Care Team Routine Comment: Reason for consultation: medically clear DS: Diagnosis Discharge Diagnosis (1) Suicidal overdose: Status: Acute DS: Summary Hospital Course Hospital Course: HP as per admitting provider. The patient is a 63-year-old female with a past medical history of chronic kidney disease,? COPD, history of diverticulitis s/p? bowel resection, lymphedema, hypertension, chronic lower back pain with spinal cord stimulator,? anxiety, depression who was admitted into inpatient psych today as a transfer from [facility]. Reportedly her daughter 9 days ago and attempted suicide with benzo overdose.??Hospital medicine earlier today due to? acute on chronic nausea and vomiting,? it was reported she was followed by [facility] GI due to this? and was attributed to cannabis use.?Tonight,? patient had muliple epidoses of vomiting and unable to tolerate p.o.. She reports not vomiting while at [facility]. Venous gas 7.18//10,? with serum bicarb 9,? anion gap 23,? BUN 26, creatinine 1.48. Patient will be transferred to ICU for management of metabolic acidosis? 63-year-old woman admitted to the ICU, transferred from psychiatric bed from [facility]. Patient had multiple episodes of vomiting and unable to tolerate p.o.. Her initial venous gas was noted to be 7.18///10 serum bicarb of 9 and anion gap of 23. She was transferred to the ICU for management of metabolic acidosis. She received bicarb and ABG/VBG corrected. Patient was transferred to medical floor and seen by the care team. Plan is to transfer to psychiatric bed for further psychiatric treatment of severe anxiety and depression and suicide ideation. PTSD/anxiety/depression. Mourning the of her daughter who 2 weeks ago of a sudden medical cause. Continue psychiatric medications Normocytic anemia. Stable HH HLD. Statin Time Attestation Discharge Coordination Time (in mins): 32 Quality: Safe Use of Opioids Does Pt have an Active Cancer Diagnosis on the Problem List?: No Quality: Stroke Does the patient have a stroke diagnosis?: No Physical Exam Vital Signs: Vital Signs: Last Vital Signs Temp 96.8 F 11/29/23 00:00 Pulse 81 11/29/23 00:00 Resp 16 11/29/23 00:50 BP 119/77 11/29/23 00:00 Pulse Ox 98 11/29/23 00:00 O2 Del Method Room Air 11/29/23 00:00 BMI result Body Mass Index 24.3 Appearing in no acute distress head is normocephalic atraumatic eyes pupils are PERRLA sclera is anicteric mouth throat mucous membranes are intact and moist neck is supple no lymphadenopathy, no JVD noted lung sounds are clear to auscultation heart regular rate rhythm, clear S1, S2 positive bowel sounds, abdomen is soft, nontender neuro patient is alert x3, no focal deficits DS: Data Data Completed and Pending Labs on day of discharge: Laboratory Results - last 24 hr 11/28/23 06:34 Potassium 3.3 D Carbon Dioxide 22 Preliminary micro results at discharge 11/27/23 00:28 Blood Culture - Preliminary Blood - Venous No growth after 48 hours. Discharge Plan Discharge Anticipated Discharge Date/Time: 11/29/23 11:18 Patient Disposition: Xfer Psychiatric Hosp Discharge Diagnosis: metabolic acidosis anxiety depression SI Discharge Medications: Continued oxycodone-acetaminophen 5-325 mg tablet 1 tab PO Q6H PRN (Reason: severe pain) Patient Comments: disregard above ORIGINAL instructions Rx Instructions: Can take 1-2 tabs as necessary famotidine 20 mg tablet 20 mg PO BEDTIME lisinopril 5 mg tablet 5 mg PO DAILY albuterol sulfate [Ventolin HFA] 90 mcg/actuation Hfa Aerosol Inhaler 2 puff inhalation Q6H PRN (Reason: Dyspnea) Qty: 8.5 0RF Spiriva Respimat 2.5 mcg/actuation Mist 2 puff inhalation RDAILY Qty: 4 0RF ferrous sulfate 324 mg (65 mg iron) Tablet,Delayed Release (Dr/Ec) 324 mg PO DAILY Qty: 1 0RF atorvastatin 20 mg Tablet 20 mg PO DAILY Qty: 1 0RF guanfacine 1 mg Tablet Extended Release 24 Hr 1 mg PO BID Qty: 1 0RF trazodone 50 mg Tablet 50 mg PO BEDTIME MRX1 PRN (Reason: Insomnia) Qty: 1 0RF alprazolam 0.5 mg Tablet 0.5 mg PO TID PRN (Reason: insomnia) Qty: 1 0RF diazepam 2 mg Tablet 5 mg PO TID Qty: 1 0RF hydroxyzine HCl 25 mg Tablet 25 mg PO Q6H PRN (Reason: Anxiety) Qty: 1 0RF ondansetron 4 mg Tablet,Disintegrating 4 mg translingual Q6H PRN (Reason: Nausea And Vomiting) Qty: 1 0RF fluoxetine 20 mg Capsule 20 mg PO DAILY Qty: 1 0RF pregabalin [Lyrica] 150 mg Capsule 300 mg PO BID Qty: 1 0RF fluticasone furoate-vilanterol [Breo Ellipta] 200-25 mcg/dose Blister With Device 1 inh inhalation RDAILY Qty: 1 0RF melatonin 3 mg Tablet 9 mg PO BEDTIME omeprazole 40 mg capsule,delayed release(DR/EC) 40 mg PO DAILY@0630 Discharge Orders: Discharge Order (Routine); Ordered 11/29/23 Ordered By: Elizabeth Johnson Diet: Advance to usual diet Activity on Discharge: As tolerated Stand Alone Forms: Patient Portal Discharge page Print Language: [place] [facility] Concerns: metabolic acidosis anxiety depression SI Plan of Treatment: Transfer to for further psychiatric care Assessment: See discharge summary
[2023-11-29 08:00] VITALS: BP 154/90; PULSE 100; RESP 17; O2SAT 100
[2023-11-29] MEDS: Tiotropium Bromide 2.5 mcg 1 PUFF/2.5 MCG MIST.INHAL 2 PUFF INHALE (08:39)
[2023-11-29] MEDS: Fluticasone/Vilanterol 200/25 BLST.W.DEV 1 PUFF INHALE (08:39)
[2023-11-29 08:41] VITALS: PULSE 84; RESP 17; O2SAT 99
[2023-11-29] MEDS: guanFACINE HCl ER 1 MG TAB.ER.24H PO (08:44)
[2023-11-29] MEDS: amLODIPine Besylate 10 MG TABLET PO (08:44)
[2023-11-29] MEDS: Pregabalin 150 MG CAPSULE 300 MG PO (08:44)
[2023-11-29] MEDS: FLUoxetine HCl 20 MG CAPSULE PO (08:44)
[2023-11-29] MEDS: metroNIDAZOLE/NS 500 MG/100 ML PIGGYBACK 100 MG IV (08:44)
[2023-11-29] MEDS: diazePAM 5 MG TABLET PO ×2 (08:44→14:41)
[2023-11-29] MEDS: Atorvastatin Calcium 20 MG TABLET PO (08:45)
[2023-11-29] MEDS: oxyCODONE HCl Immed Release 5 MG TABLET PO ×2 (08:51→14:41)
--- NOTE | 2023-11-29 11:42 | MHC.CM.PN ---
PT TRANSFERED TO INPT PSYCH
--- NOTE | 2023-11-29 13:11 | MHC.CARE ---
Call to [employer] ([phone]) and spoke to Ailyn Ren At this time it is unclear if the previous authorization stands, she will call back within the day after she hears back from the assigned from the original admission: Urszula Perry [phone] x [phone] This is not a barrier to the admission and patient can be transferred to the unit.
[2023-11-29 19:52] LABS: Urea, Random Urine 689 mg/dL
== END 2023-11-29 14:55 | DRG 918 ==
LOC: HO.ICU 11-27 13:08 → HO.S3 11-27 14:19
PROVIDERS: Internal Medicine Pulmonary Disease; Admitting Provider Registered Nurse Community Health; PCP Internal Medicine; Visit Provider Nurse Practitioner Acute Care
DX: T42.4X2A Poisoning by benzodiazepines, intentional self-harm, initial encounter (principal); E87.20 Acidosis, unspecified; N17.9 Acute kidney failure, unspecified; M54.9 Dorsalgia, unspecified; G89.29 Other chronic pain; I12.9 Hypertensive chronic kidney disease with stage 1 through stage 4 chronic kidney disease, or unspecified chronic kidney disease; F43.10 Post-traumatic stress disorder, unspecified; E78.5 Hyperlipidemia, unspecified; D63.1 Anemia in chronic kidney disease; R11.2 Nausea with vomiting, unspecified; F12.90 Cannabis use, unspecified, uncomplicated; E86.0 Dehydration; Z91.041 Radiographic dye allergy status; J44.9 Chronic obstructive pulmonary disease, unspecified; F32.A Depression, unspecified; N18.30 Chronic kidney disease, stage 3 unspecified; F41.9 Anxiety disorder, unspecified; Z96.82 Presence of neurostimulator; Z87.891 Personal history of nicotine dependence; Z79.51 Long term (current) use of inhaled steroids; Z79.899 Other long term (current) drug therapy
CPT/HCPCS: 36415; 36600; 71250; 74176; 80048; 80053; 80307; 81001; 82040; 82436; 82803; 83605; 83735; 83935; 84100; 84133; 84300; 84540; 85025; 87040; 93005; J0131; J1644; J1836; J2405; J2543; S9485

== ENCOUNTER → 2023-11-26 22:10 | Outpatient (BNV) | payer MEDICARE, MEDICAID, SELFPAY | PROVIDERS: Admitting Provider Registered Nurse Community Health; Visit Provider Internal Medicine Pulmonary Disease | DX: E87.21 Acute metabolic acidosis (principal); N17.9 Acute kidney failure, unspecified | CPT/HCPCS: 99221 ==

== ENCOUNTER → 2023-11-26 22:10 | Outpatient (BNV) | payer MEDICARE, MEDICAID, SELFPAY | PROVIDERS: Admitting Provider Registered Nurse Community Health; Visit Provider Registered Nurse Community Health | DX: N17.9 Acute kidney failure, unspecified (principal); T50.902A Poisoning by unspecified drugs, medicaments and biological substances, intentional self-harm, initial encounter; E87.21 Acute metabolic acidosis; R11.2 Nausea with vomiting, unspecified | CPT/HCPCS: 99233 ==

== ENCOUNTER → 2023-11-26 22:10 | Outpatient (BNV) | payer MEDICARE, MEDICAID, SELFPAY | PROVIDERS: Admitting Provider Registered Nurse Community Health; Visit Provider Nurse Practitioner Acute Care | DX: T50.902A Poisoning by unspecified drugs, medicaments and biological substances, intentional self-harm, initial encounter (principal) | CPT/HCPCS: 99232; 99239; 99499 ==

== ENCOUNTER 2023-11-29 13:32 | Inpatient (IN) | payer MEDICARE, SELFPAY ==
--- NOTE | ~2023-11-29 | XR_ITS ---
EXAMINATION: XR WRIST, LEFT CLINICAL INFORMATION: Status post fall COMPARISON: None available. TECHNIQUE: PA, lateral, and oblique views of the left wrist. FINDINGS: The bones and soft tissues are unremarkable aside from degenerative changes at the first and second CMC joints. No fracture. Alignment is anatomic with otherwise normal joint spaces. No erosions or abnormal soft tissue calcifications. XR/XR wrist LT min 3V IMPRESSION: No evidence of an acute injury. Degenerative changes as described above. Electronically signed by: Adolfo Willson MD 12/05/2023 07:32 PM EDT
--- NOTE | ~2023-11-29 | XR_ITS ---
EXAMINATION: XR WRIST, LEFT CLINICAL INFORMATION: Recent wrist fracture. COMPARISON: None available. TECHNIQUE: 4 view of the left wrist. FINDINGS: Reportedly recent fracture has been documented elsewhere. There is an equivocal lucency through the ulnar styloid with less than 1 mm of offset. There is regional osteopenia. There is marked narrowing of the carpometacarpal region radially. There are proliferative osteophytes. There may be some cystic or erosive change at the first carpometacarpal joint. XR/XR wrist LT w scaphoid IMPRESSION: Faint lucency through the ulnar styloid could represent a healing fracture. There may be mild overlying soft tissue swelling. Direct comparison with previous would be helpful Electronically signed by: Guy Badillo MD 12/01/2023 05:21 PM EDT
[2023-11-29 15:22] VITALS: BP 101/62; PULSE 93; RESP 16; TEMP 36.3; O2SAT 98
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
[2023-11-29 18:08] VITALS: BMI 24.9
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
[2023-11-29 20:00] VITALS: BP 85/52; PULSE 75; RESP 17; TEMP 36.4; O2SAT 99
[2023-11-29 21:30] VITALS: BP 92/56; PULSE 72
[2023-11-29] MEDS: diazePAM 5 MG TABLET PO (21:44)
[2023-11-29] MEDS: Pregabalin 150 MG CAPSULE 300 MG PO (21:44)
[2023-11-29] MEDS: oxyCODONE HCl Immed Release 5 MG TABLET PO (21:44)
[2023-11-29] MEDS: guanFACINE HCl ER 1 MG TAB.ER.24H PO (21:46)
[2023-11-29] MEDS: hydrOXYzine HCL 25 MG TABLET PO (21:46)
[2023-11-29] MEDS: Melatonin 3 MG TABLET 9 MG PO (21:46)
[2023-11-30 07:48] VITALS: BP 89/56; PULSE 68; RESP 14; TEMP 36.6; O2SAT 100
[2023-11-30] MEDS: diazePAM 5 MG TABLET PO ×2 (09:37→20:22)
[2023-11-30] MEDS: FLUoxetine HCl 20 MG CAPSULE PO (09:37)
[2023-11-30] MEDS: Omeprazole 40 MG CAPSULE.DR PO (09:38)
[2023-11-30] MEDS: guanFACINE HCl ER 1 MG TAB.ER.24H PO ×2 (09:38→20:23)
[2023-11-30] MEDS: Pregabalin 150 MG CAPSULE 300 MG PO ×2 (09:38→20:22)
[2023-11-30] MEDS: Atorvastatin Calcium 20 MG TABLET PO (09:39)
[2023-11-30] MEDS: Fluticasone/Vilanterol 200/25 BLST.W.DEV 1 PUFF INHALE (09:43)
[2023-11-30] MEDS: Tiotropium Bromide 2.5 mcg 1 PUFF/2.5 MCG MIST.INHAL 2 PUFF INHALE (09:46)
[2023-11-30 09:47] VITALS: BP 119/62; PULSE 72; RESP 16
[2023-11-30] MEDS: oxyCODONE HCl Immed Release 5 MG TABLET PO ×2 (09:50→15:58)
--- NOTE | 2023-11-30 13:06 | HO.PSYCHPN ---
Subjective Subjective Date of Service: 11/30/23 Reason For Visit: Transfer; SA Interim History: calm, motivated, flexible. DC xanax and begin taper of valium from 5 TID to 5 BID. agrees to increase prozac to 40 mg daily. D/C lisinopril due to hypotension. reports she slept well last night. per staff, no notable events or behaviors. Mental Status Exam Mental Status Exam Narrative: adequately dressed in street clothes, adequately groomed. cooperative. no PMA/PMR. speech nml rate, amount, loudness, tone, latency. thoughts linear and logical. affect flexible, normo-intense, non-labile. mood getting better. no SI/SIBI/HI/AVH expressed. Diagnostics Vital Signs (24Hr): Vital Signs - 24 hr 11/29/23 15:22 11/29/23 20:00 11/29/23 21:30 Temperature 97.4 F 97.5 F Pulse Rate 93 75 72 Respiratory Rate 16 17 Blood Pressure 101/62 85/52 L 92/56 L Pulse Oximetry 98 99 Oxygen Delivery Method Room Air Room Air 11/30/23 07:48 11/30/23 09:47 Temperature 97.9 F Pulse Rate 68 72 Respiratory Rate 14 16 Blood Pressure 89/56 L 119/62 Pulse Oximetry 100 Oxygen Delivery Method Room Air BMI result Body Mass Index 24.9 Medications Medications Current Medications Acetaminophen (Acetaminophen 325 Mg Tablet) 650 mg PO Q6H PRN PRN Reason: Headache/Pain Mild Scale (1-3) Al Hydroxide/Mg Hydroxide (Magnesium Hydrox/Alum Hydrox 30 Ml Oral.Susp) 30 ml PO Q6H PRN PRN Reason: Heartburn/Nausea Albuterol Sulfate (Albuterol Sulfate 90 Mcg 8 Gm Inhaler) 2 puff INHALE Q6H PRN PRN Reason: Dyspnea Atorvastatin Calcium (Atorvastatin Calcium 20 Mg Tablet) 20 mg PO DAILY [facility] Last Admin: 11/30/23 09:39 Dose: 20 mg Diazepam (Diazepam 5 Mg Tablet) 5 mg PO BID [facility] Fluoxetine HCl (Fluoxetine Hcl 20 Mg Capsule) 40 mg PO DAILY [facility] Fluticasone/Vilanterol (Fluticasone/Vilanterol 200/25 Blst.W.Dev) 1 puff INHALE RDAILY [facility] Last Admin: 11/30/23 09:43 Dose: 1 puff Guanfacine HCl (Guanfacine Hcl Er 1 Mg Tab.Er.24h) 1 mg PO BID [facility] Last Admin: 11/30/23 09:38 Dose: 1 mg Magnesium Hydroxide (Milk Of Magnesia 30 Ml Oral.Susp) 30 ml PO DAILY PRN PRN Reason: Constipation Melatonin (Melatonin 3 Mg Tablet) 9 mg PO BEDTIME [facility] Last Admin: 11/29/23 21:46 Dose: 9 mg Nicotine Polacrilex (Nicotine Polacrilex 2 Mg Gum) 4 mg BUCCAL Q2H PRN PRN Reason: Nicotine Cravings Omeprazole (Omeprazole 40 Mg Capsule.Dr) 40 mg PO DAILY@0630 [facility] Last Admin: 11/30/23 09:38 Dose: 40 mg Ondansetron HCl (Ondansetron Odt 4 Mg Tab.Rapdis) 4 mg TRANSLINGU Q6H PRN PRN Reason: Nausea And Vomiting Oxycodone HCl (Oxycodone Hcl Immed Release 5 Mg Tablet) 5 mg PO Q6H PRN PRN Reason: severe pain (pain scale 1-10) Last Admin: 11/30/23 09:50 Dose: 5 mg Pregabalin (Pregabalin 150 Mg Capsule) 300 mg PO BID [facility] Last Admin: 11/30/23 09:38 Dose: 300 mg Tiotropium [place] (Tiotropium [place] 2.5 Mcg 1 Puff/2.5 Mcg Mist.Inhal) 2 puff INHALE RDAILY [facility] Last Admin: 11/30/23 09:46 Dose: 2 puff Allergies Allergies Allergy/AdvReac Type Severity Reaction Status Date / Time codeine Allergy Severe Itching Verified 11/25/23 15:11 NSAIDS (Non-Steroidal AdvReac Severe bleeding Verified 11/25/23 15:11 Anti-Inflamma contrast dye AdvReac Severe Anaphylaxis Uncoded 11/25/23 23:43 Assessment & Plan Assessment & Plan (1) Anxiety: Status: Acute Code(s): F41.9 - Anxiety disorder, unspecified (2) Depression: Status: Acute Code(s): F32.A - Depression, unspecified (3) Suicidal overdose: Status: Acute Code(s): T50.902A - Poisoning by unspecified drugs, medicaments and biological substances, intentional self-harm, initial encounter (4) Grief reaction: Status: Acute Code(s): F43.21 - Adjustment disorder with depressed mood (5) Chronic post-traumatic stress disorder (PTSD): Status: Acute Code(s): F43.12 - Post-traumatic stress disorder, chronic (6) Chronic low back pain: Status: Acute Code(s): M54.50 - Low back pain, unspecified; G89.29 - Other chronic pain Plan 11/28: valium 5 TID for severe anxiety. guanfacine ER 1 mg BID for anxiety/BP. refer for PHP at discharge. 11/29: DC xanax and initiate valium taper to 5 BID from 5 TID. DC lisinopril and continue guanfacine for anxiety as well as BP. increase prozac to 40 mg daily. Reason for continued inpatient stay Substantial Risk for: harm to self, inability to function and rapid decompensation Time Spent With Patient Time: Total time managing care of this patient today __25__ minutes.
--- NOTE | 2023-11-30 15:00 | MHC.CLN ---
NUTRITION CONSULT FOR REPORTED WEIGHT LOSS. PRIOR TO ADMIT, PATIENT WITH POOR INTAKE DUE TO VOMITING, GRIEF, SI. INTAKE X 2 MOST RECENT DAYS 75-100% AND NO EMESIS NOTED. ADDING ENSURE BID TO PROMOTE NUTRITIONAL INTAKE. SUPPLEMENT PROVIDES 700 KCALS, 40 G PROTEIN. UNABLE TO VERIFY WEIGHT PRIOR TO 11/25/23. PLEASE CONSULT RD IF POOR PO INTAKE.
[2023-11-30 20:00] VITALS: BP 109/63; PULSE 70; RESP 16; TEMP 36.4; O2SAT 97
[2023-11-30] MEDS: Melatonin 3 MG TABLET 9 MG PO (20:22)
[2023-11-30] MEDS: Acetaminophen 325 MG TABLET 650 MG PO (20:26)
[2023-12-01] MEDS: oxyCODONE HCl Immed Release 5 MG TABLET PO ×2 (01:54→09:15)
[2023-12-01] MEDS: Omeprazole 40 MG CAPSULE.DR PO (06:23)
[2023-12-01 07:10] VITALS: BP 109/60; PULSE 67; RESP 16; TEMP 36.5; O2SAT 100
[2023-12-01] MEDS: diazePAM 5 MG TABLET PO ×2 (09:13→21:32)
[2023-12-01] MEDS: Acetaminophen 325 MG TABLET 650 MG PO ×2 (09:14→15:21)
[2023-12-01] MEDS: Atorvastatin Calcium 20 MG TABLET PO (09:15)
[2023-12-01] MEDS: Pregabalin 150 MG CAPSULE 300 MG PO ×2 (09:15→21:30)
[2023-12-01] MEDS: guanFACINE HCl ER 1 MG TAB.ER.24H PO ×2 (09:15→21:31)
[2023-12-01] MEDS: FLUoxetine HCl 20 MG CAPSULE 40 MG PO (09:16)
[2023-12-01] MEDS: Fluticasone/Vilanterol 200/25 BLST.W.DEV 1 PUFF INHALE (09:19)
[2023-12-01] MEDS: Tiotropium Bromide 2.5 mcg 1 PUFF/2.5 MCG MIST.INHAL 2 PUFF INHALE (09:20)
[2023-12-01] MEDS: Magnesium Hydrox/Alum Hydrox 30 ML ORAL.SUSP PO (12:16)
--- NOTE | 2023-12-01 14:13 | PM.CNOR ---
History of Present Illness HPI Consult date: 12/01/23 Chief complaint: Transfer; SA Narrative: Patient is a 63-year-old female who is admitted to the hospital for psychiatric diagnoses who has an approximately one-week history of wrist pain secondary to restraint use at [facility] ED. the patient reports that, at that time, she was placed in restraints and her hand was ?slammed down on the bed?, and she has been experiencing pain ever since. The patient reports that x-rays were taken at [facility], and that she was told by 1 doctor that there was a fracture in her wrist. Patient was placed in a velcro wrist splint that time. The patient reports that she continues to experience significant discomfort in both the radial and ulnar aspects of the left wrist. Patient reports that she has been compliant with wearing the Velcro wrist splint. Patient does report that she has had numbness and tingling in the left thumb and index finger for approximately the last 1-2 hours. No other acute complaints or concerns at this time. Review of Systems Review of Systems: Yes all other systems are reviewed and are negative [facility] Past Medical History Medical History (Updated 12/01/23 @ 14:54 by NEGRITA Padron) Anxiety Depression Chronic low back pain Fibromyalgia Migraine Nausea and vomiting COPD (chronic obstructive pulmonary disease) Hyperlipidemia Hypertension CKD (chronic kidney disease), stage III Diverticulitis Surgical History Surgical History S/P insertion of spinal cord stimulator History of laminectomy History of colon resection Social History Social History Household Members: Family Housing: House Do you presently have visiting nurse or other home services: No Comment: 1:1 sitter Patient Tobacco Use Status: Former Tobacco user Smoked in Last 30 Days: No Patient Interested in Nicotine Replacement: No (pt last smoked 10 yrs ago) Patient Given Instructions on How to Stop Smoking: No (Pt is not a current smoker) Second Hand Smoke Exposure: No Use of substances other than those prescribed or required for medical reasons: Yes Substance Use Type: Marijuana Substance Use Frequency: Occasionally Last Used Substance: Unknown Currently Displaying Signs/Symptoms of Drug Intoxication Withdrawal: No Any prior treatment program specific to substance use: No Have you been hit, kicked, punched, or otherwise hurt by someone within the past year? If so, by whom?: No Do you feel safe in your current relationship?: Yes Is there a partner from a previous relationship who is making you feel unsafe now?: No Are you made to feel afraid or neglected: No Advance Directives: Yes Advance Directives on File: Yes Advance Directives Date on File: 11/27/23 Do you have thoughts of harming others: None Do you have a plan to hurt others: No Plan Recently lost weight without trying: Yes How much weight loss: 14-23 pounds Eating poorly because of decreased appetite: Yes Nutrition screen score: 5 Nutrition Risks: No Nutritional Risk Patient : No : No Poor oral hygiene: No service: No Sexual orientation: Straight/Heterosexual Meds Allergies Allergy/AdvReac Type Severity Reaction Status Date / Time codeine Allergy Severe Itching Verified 11/25/23 15:11 NSAIDS (Non-Steroidal AdvReac Severe bleeding Verified 11/25/23 15:11 Anti-Inflamma contrast dye AdvReac Severe Anaphylaxis Uncoded 11/25/23 23:43 Active Medications: Current Medications Acetaminophen (Acetaminophen 325 Mg Tablet) 650 mg PO Q6H PRN PRN Reason: Headache/Pain Mild Scale (1-3) Last Admin: 12/01/23 09:14 Dose: 650 mg Al Hydroxide/Mg Hydroxide (Magnesium Hydrox/Alum Hydrox 30 Ml Oral.Susp) 30 ml PO Q6H PRN PRN Reason: Heartburn/Nausea Last Admin: 12/01/23 12:16 Dose: 30 ml Albuterol Sulfate (Albuterol Sulfate 90 Mcg 8 Gm Inhaler) 2 puff INHALE Q6H PRN PRN Reason: Dyspnea Atorvastatin Calcium (Atorvastatin Calcium 20 Mg Tablet) 20 mg PO DAILY [facility] Last Admin: 12/01/23 09:15 Dose: 20 mg Diazepam (Diazepam 5 Mg Tablet) 5 mg PO BID [facility] Last Admin: 12/01/23 09:13 Dose: 5 mg Fluoxetine HCl (Fluoxetine Hcl 20 Mg Capsule) 40 mg PO DAILY [facility] Last Admin: 12/01/23 09:16 Dose: 40 mg Fluticasone/Vilanterol (Fluticasone/Vilanterol 200/25 Blst.W.Dev) 1 puff INHALE RDAILY [facility] Last Admin: 12/01/23 09:19 Dose: 1 puff Guanfacine HCl (Guanfacine Hcl Er 1 Mg Tab.Er.24h) 1 mg PO BID [facility] Last Admin: 12/01/23 09:15 Dose: 1 mg Magnesium Hydroxide (Milk Of Magnesia 30 Ml Oral.Susp) 30 ml PO DAILY PRN PRN Reason: Constipation Melatonin (Melatonin 3 Mg Tablet) 9 mg PO BEDTIME [facility] Last Admin: 11/30/23 20:22 Dose: 9 mg Nicotine Polacrilex (Nicotine Polacrilex 2 Mg Gum) 4 mg BUCCAL Q2H PRN PRN Reason: Nicotine Cravings Omeprazole (Omeprazole 40 Mg Capsule.Dr) 40 mg PO DAILY@629 [facility] Last Admin: 12/01/23 06:23 Dose: 40 mg Ondansetron HCl (Ondansetron Odt 4 Mg Tab.Rapdis) 4 mg TRANSLINGU Q6H PRN PRN Reason: Nausea And Vomiting Oxycodone HCl (Oxycodone Hcl Immed Release 5 Mg Tablet) 7.5 mg PO Q6H PRN PRN Reason: severe pain (pain scale 1-10) Pregabalin (Pregabalin 150 Mg Capsule) 300 mg PO BID [facility] Last Admin: 12/01/23 09:15 Dose: 300 mg Tiotropium [place] (Tiotropium [place] 2.5 Mcg 1 Puff/2.5 Mcg Mist.Inhal) 2 puff INHALE RDAILY [facility] Last Admin: 12/01/23 09:20 Dose: 2 puff Home Medications ?Medication ?Instructions ?Recorded ?Confirmed ?Last Taken ?Type famotidine 20 mg tablet 20 mg PO BEDTIME 11/25/23 11/29/23 Unknown History lisinopril 5 mg tablet 5 mg PO DAILY 11/25/23 11/29/23 Unknown History oxycodone-acetaminophen 5 mg-325 1 tab PO Q6H PRN severe pain 11/25/23 11/29/23 11/25/23 13:31 History mg tablet melatonin 3 mg tablet 9 mg PO BEDTIME 11/27/23 11/29/23 Unknown History omeprazole 40 mg capsule,delayed 40 mg PO DAILY@0630 11/27/23 11/29/23 Unknown History release Physical Exam Vital Signs: Vital Signs: Last Vital Signs Temp 97.7 F 12/01/23 07:10 Pulse 67 12/01/23 07:10 Resp 16 12/01/23 07:10 BP 109/60 12/01/23 07:10 Pulse Ox 100 12/01/23 07:10 O2 Del Method Room Air 12/01/23 07:10 BMI result Body Mass Index 24.9 Extrem: Other: Patient is alert, oriented, and in no acute distress. Neuro: Patient reports diminished sensation to the tips of the left thumb and left index finger, and states that this has been ongoing for the last 1-2 hours. Vascular: Cap refill brisk Pain: Patient has significant tenderness to palpation to both the radial and ulnar styloids No anatomical snuffbox tenderness No tenderness to palpation of the DRUJ No tenderness to palpation to any digit of the left hand ROM: Patient is able to supinate the wrist fully without difficulty Patient is able to pronate to approximately 30-40 degrees past neutral, but reports significant pain beyond this point. Patient is able to make a closed fist without difficulty Patient is able to flex and extend at the elbow without difficulty There is noted to be laxity of the left DRUJ when compared to the right. Skin: No lacerations or abrasions. General: Old ecchymosis noted on the dorsal left wrist No edema, erythema, evidence of infection noted Psych: Appears grossly normal Affect normal Attitude cooperative Results Labs Labs: All other labs normal. Diagnostic results Wrist/Hand x-ray: report reviewed and image reviewed (X-rays obtained today and independently reviewed by me, Demetrio Kaufman PA-C, demonstrate minimally displaced fracture of the left ulnar styloid, with a questionable area on the left radial styloid concerning for potential nondisplaced fracture. ) Assessment and Plan (1) Fracture of styloid process of left ulna: Qualifiers: Encounter type: initial encounter Fracture type: closed Fracture alignment: nondisplaced Qualified Code(s): S52.615A - Nondisplaced fracture of left ulna styloid process, initial encounter for closed fracture Status: Acute (2) Radial styloid fracture: Qualifiers: Encounter type: initial encounter Fracture type: closed Fracture alignment: nondisplaced Laterality: left Qualified Code(s): S52.515A - Nondisplaced fracture of left radial styloid process, initial encounter for closed fracture Status: Acute Plan 1. Left ulnar styloid fracture, minimally displaced 2. Left radial styloid fracture, nondisplaced Date of injury approximately 11/24/2023 The patient is discussed with Dr. Bills, who was unavailable since the patient has time, and a collaborative treatment plan was formed: Patient is educated about this condition, and the typical recovery course Patient is educated that she should continue to wear her left arm Velcro wrist splint like a cast, only removing for bathing Patient is also educated that she can perform gentle pronosupination with the left wrist, but should avoid any forceful pronosupination, such as opening heavy doors. Patient is also advised that she should not be holding anything heavier than a cell phone in her left hand Patient will follow-up in our outpatient clinic upon discharge from the hospital No further acute orthopedic intervention indicated while hospitalized Patient will follow-up with Dr. Bills in clinic after discharge from hospital Please feel free to contact Orthopedics with any acute concerns while hospitalized. Procedures Date of Service Date of Service: 12/01/23
--- NOTE | 2023-12-01 14:58 | HO.PSYCHPN ---
Subjective Subjective Date of Service: 12/01/23 Reason For Visit: Transfer; SA Interim History: calm, pleasant, cooperative. reports she is feeling worlds better physically than when she was admitted, mentally, too. does c/o left wrist pain, site of Fx. asking for more pain meds. MD agrees to increase dosing to 7.5 mg each while pt is in hospital, but NOT at discharge. interested in PHP. per staff, dep 7 anx 6. ate 50% bfast, not much lunch. up x1 overnight. slept about 7 hours. Mental Status Exam Mental Status Exam Narrative: adequately dressed in street clothes, adequately groomed. cooperative. no PMA/PMR. speech nml rate, amount, loudness, tone, latency. thoughts linear and logical. affect flexible, normo-intense, non-labile. mood better. no SI/SIBI/HI/AVH expressed. Diagnostics Vital Signs (24Hr): Vital Signs - 24 hr 11/30/23 20:00 12/01/23 07:10 Temperature 97.6 F 97.7 F Pulse Rate 70 67 Respiratory Rate 16 16 Blood Pressure 109/63 109/60 Pulse Oximetry 97 100 Oxygen Delivery Method Room Air Room Air BMI result Body Mass Index 24.9 Medications Medications Current Medications Acetaminophen (Acetaminophen 325 Mg Tablet) 650 mg PO Q6H PRN PRN Reason: Headache/Pain Mild Scale (1-3) Last Admin: 12/01/23 09:14 Dose: 650 mg Al Hydroxide/Mg Hydroxide (Magnesium Hydrox/Alum Hydrox 30 Ml Oral.Susp) 30 ml PO Q6H PRN PRN Reason: Heartburn/Nausea Last Admin: 12/01/23 12:16 Dose: 30 ml Albuterol Sulfate (Albuterol Sulfate 90 Mcg 8 Gm Inhaler) 2 puff INHALE Q6H PRN PRN Reason: Dyspnea Atorvastatin Calcium (Atorvastatin Calcium 20 Mg Tablet) 20 mg PO DAILY [facility] Last Admin: 12/01/23 09:15 Dose: 20 mg Diazepam (Diazepam 5 Mg Tablet) 5 mg PO BID [facility] Last Admin: 12/01/23 09:13 Dose: 5 mg Fluoxetine HCl (Fluoxetine Hcl 20 Mg Capsule) 40 mg PO DAILY [facility] Last Admin: 12/01/23 09:16 Dose: 40 mg Fluticasone/Vilanterol (Fluticasone/Vilanterol 200/25 Blst.W.Dev) 1 puff INHALE RDAILY [facility] Last Admin: 12/01/23 09:19 Dose: 1 puff Guanfacine HCl (Guanfacine Hcl Er 1 Mg Tab.Er.24h) 1 mg PO BID [facility] Last Admin: 12/01/23 09:15 Dose: 1 mg Magnesium Hydroxide (Milk Of Magnesia 30 Ml Oral.Susp) 30 ml PO DAILY PRN PRN Reason: Constipation Melatonin (Melatonin 3 Mg Tablet) 9 mg PO BEDTIME [facility] Last Admin: 11/30/23 20:22 Dose: 9 mg Nicotine Polacrilex (Nicotine Polacrilex 2 Mg Gum) 4 mg BUCCAL Q2H PRN PRN Reason: Nicotine Cravings Omeprazole (Omeprazole 40 Mg Capsule.Dr) 40 mg PO DAILY@0630 [facility] Last Admin: 12/01/23 06:23 Dose: 40 mg Ondansetron HCl (Ondansetron Odt 4 Mg Tab.Rapdis) 4 mg TRANSLINGU Q6H PRN PRN Reason: Nausea And Vomiting Oxycodone HCl (Oxycodone Hcl Immed Release 5 Mg Tablet) 7.5 mg PO Q6H PRN PRN Reason: severe pain (pain scale 1-10) Pregabalin (Pregabalin 150 Mg Capsule) 300 mg PO BID [facility] Last Admin: 12/01/23 09:15 Dose: 300 mg Tiotropium [place] (Tiotropium [place] 2.5 Mcg 1 Puff/2.5 Mcg Mist.Inhal) 2 puff INHALE RDAILY [facility] Last Admin: 12/01/23 09:20 Dose: 2 puff Allergies Allergies Allergy/AdvReac Type Severity Reaction Status Date / Time codeine Allergy Severe Itching Verified 11/25/23 15:11 NSAIDS (Non-Steroidal AdvReac Severe bleeding Verified 11/25/23 15:11 Anti-Inflamma contrast dye AdvReac Severe Anaphylaxis Uncoded 11/25/23 23:43 Assessment & Plan Assessment & Plan (1) Fracture of styloid process of left ulna: Qualifiers: Encounter type: initial encounter Fracture type: closed Fracture alignment: nondisplaced Qualified Code(s): S52.615A - Nondisplaced fracture of left ulna styloid process, initial encounter for closed fracture Status: Acute Code(s): S52.612A - Displaced fracture of left ulna styloid process, initial encounter for closed fracture (2) Radial styloid fracture: Qualifiers: Encounter type: initial encounter Fracture type: closed Fracture alignment: nondisplaced Laterality: left Qualified Code(s): S52.515A - Nondisplaced fracture of left radial styloid process, initial encounter for closed fracture Status: Acute Code(s): S52.513A - Displaced fracture of unspecified radial styloid process, initial encounter for closed fracture Assessment and Plan: 1. Left ulnar styloid fracture, minimally displaced 2. Left radial styloid fracture, nondisplaced Date of injury approximately 11/24/2023 The patient is discussed with Dr. Bills, who was unavailable since the patient has time, and a collaborative treatment plan was formed: Patient is educated about this condition, and the typical recovery course Patient is educated that she should continue to wear her left arm Velcro wrist splint like a cast, only removing for bathing Patient is also educated that she can perform gentle pronosupination with the left wrist, but should avoid any forceful pronosupination, such as opening heavy doors. Patient is also advised that she should not be holding anything heavier than a cell phone in her left hand Patient will follow-up in our outpatient clinic upon discharge from the hospital No further acute orthopedic intervention indicated while hospitalized Patient will follow-up with Dr. Bills in clinic after discharge from hospital Please feel free to contact Orthopedics with any acute concerns while hospitalized. (3) Anxiety: Status: Acute Code(s): F41.9 - Anxiety disorder, unspecified (4) Grief reaction: Status: Acute Code(s): F43.21 - Adjustment disorder with depressed mood (5) Chronic post-traumatic stress disorder (PTSD): Status: Acute Code(s): F43.12 - Post-traumatic stress disorder, chronic Plan 11/28: valium 5 TID for severe anxiety. guanfacine ER 1 mg BID for anxiety/BP. refer for PHP at discharge. 11/29: DC xanax and initiate valium taper to 5 BID from 5 TID. DC lisinopril and continue guanfacine for anxiety as well as BP. increase prozac to 40 mg daily. 11/30: feeling better both physically and mentally. c/o left wrisst pain, site of Fx. increase oxycodone to 7.5 mg each dose. pt aware MD will NOT Rx higher dose at discharge. seen by ortho, see recs above. essentially, continue current mgmt of wrist, F/U outpatient. interested in PHP referral. plan to taper valium again tomorrow. Reason for continued inpatient stay Substantial Risk for: harm to self, inability to function and rapid decompensation Time Spent With Patient Time: Total time managing care of this patient today __25__ minutes.
[2023-12-01] MEDS: oxyCODONE HCl Immed Release 5 MG TABLET 7.5 MG PO ×2 (15:20→21:31)
[2023-12-01 20:00] VITALS: BP 112/60; PULSE 76; RESP 16; TEMP 36.4; O2SAT 100
[2023-12-01] MEDS: Melatonin 3 MG TABLET 9 MG PO (21:31)
[2023-12-02] MEDS: Omeprazole 40 MG CAPSULE.DR PO (06:38)
[2023-12-02 07:40] VITALS: BP 89/56; PULSE 63; RESP 12; TEMP 36.4; O2SAT 100
[2023-12-02] MEDS: Tiotropium Bromide 2.5 mcg 1 PUFF/2.5 MCG MIST.INHAL 2 PUFF INHALE (08:50)
[2023-12-02] MEDS: Fluticasone/Vilanterol 200/25 BLST.W.DEV 1 PUFF INHALE (08:50)
[2023-12-02] MEDS: diazePAM 5 MG TABLET PO (08:53)
[2023-12-02] MEDS: FLUoxetine HCl 20 MG CAPSULE 40 MG PO (08:53)
[2023-12-02] MEDS: guanFACINE HCl ER 1 MG TAB.ER.24H PO ×2 (08:53→21:01)
[2023-12-02] MEDS: Atorvastatin Calcium 20 MG TABLET PO (08:53)
[2023-12-02] MEDS: Pregabalin 150 MG CAPSULE 300 MG PO ×2 (08:55→21:02)
[2023-12-02] MEDS: oxyCODONE HCl Immed Release 5 MG TABLET 7.5 MG PO ×3 (08:59→23:50)
--- NOTE | 2023-12-02 13:32 | HO.PSYCHPN ---
Subjective Subjective Date of Service: 12/02/23 Reason For Visit: Transfer; Interim History: calm, cooperative, pleasant. interested in tuesday discharge. agreeable to valium taper over w/e. no questions or concerns otherwise, feeling well on medications. per staff, dep/anx. social. variable PO intake. improved. hopeful. concerned about wrist. Mental Status Exam Mental Status Exam Narrative: adequately dressed in street clothes, adequately groomed. cooperative. no PMA/PMR. speech nml rate, amount, loudness, tone, latency. thoughts linear and logical. affect flexible, normo-intense, non-labile. mood better. no SI/SIBI/HI/AVH expressed. Diagnostics Vital Signs (24Hr): Vital Signs - 24 hr 12/01/23 20:00 12/02/23 07:40 Temperature 97.6 F 97.5 F Pulse Rate 76 63 Respiratory Rate 16 12 Blood Pressure 112/60 89/56 L Pulse Oximetry 100 100 Oxygen Delivery Method Room Air Room Air BMI result Body Mass Index 24.9 Imaging Radiology Impressions: ITS Impressions Wrist X-Ray 12/01/23 13:28 IMPRESSION: Faint lucency through the ulnar styloid could represent a healing fracture. There may be mild overlying soft tissue swelling. Direct comparison with previous would be helpful Electronically signed by: Guy Badillo MD 12/01/2023 05:21 PM EDT Medications Medications Current Medications Acetaminophen (Acetaminophen 325 Mg Tablet) 650 mg PO Q6H PRN PRN Reason: Headache/Pain Mild Scale (1-3) Last Admin: 12/01/23 15:21 Dose: 650 mg Al Hydroxide/Mg Hydroxide (Magnesium Hydrox/Alum Hydrox 30 Ml Oral.Susp) 30 ml PO Q6H PRN PRN Reason: Heartburn/Nausea Last Admin: 12/01/23 12:16 Dose: 30 ml Albuterol Sulfate (Albuterol Sulfate 90 Mcg 8 Gm Inhaler) 2 puff INHALE Q6H PRN PRN Reason: Dyspnea Atorvastatin Calcium (Atorvastatin Calcium 20 Mg Tablet) 20 mg PO DAILY [facility] Last Admin: 12/02/23 08:53 Dose: 20 mg Diazepam (Diazepam 2 Mg Tablet) 2 mg PO BID [facility] Stop: 12/04/23 09:01 Diazepam (Diazepam 2 Mg Tablet) 2 mg PO DAILY [facility] Fluoxetine HCl (Fluoxetine Hcl 20 Mg Capsule) 40 mg PO DAILY [facility] Last Admin: 12/02/23 08:53 Dose: 40 mg Fluticasone/Vilanterol (Fluticasone/Vilanterol 200/25 Blst.W.Dev) 1 puff INHALE RDAILY [facility] Last Admin: 12/02/23 08:50 Dose: 1 puff Guanfacine HCl (Guanfacine Hcl Er 1 Mg Tab.Er.24h) 1 mg PO BID [facility] Last Admin: 12/02/23 08:53 Dose: 1 mg Magnesium Hydroxide (Milk Of Magnesia 30 Ml Oral.Susp) 30 ml PO DAILY PRN PRN Reason: Constipation Melatonin (Melatonin 3 Mg Tablet) 9 mg PO BEDTIME [facility] Last Admin: 12/01/23 21:31 Dose: 9 mg Nicotine Polacrilex (Nicotine Polacrilex 2 Mg Gum) 4 mg BUCCAL Q2H PRN PRN Reason: Nicotine Cravings Omeprazole (Omeprazole 40 Mg Capsule.Dr) 40 mg PO DAILY@0630 [facility] Last Admin: 12/02/23 06:38 Dose: 40 mg Ondansetron HCl (Ondansetron Odt 4 Mg Tab.Rapdis) 4 mg TRANSLINGU Q6H PRN PRN Reason: Nausea And Vomiting Oxycodone HCl (Oxycodone Hcl Immed Release 5 Mg Tablet) 7.5 mg PO Q6H PRN PRN Reason: severe pain (pain scale 1-10) Last Admin: 12/02/23 08:59 Dose: 7.5 mg Pregabalin (Pregabalin 150 Mg Capsule) 300 mg PO BID [facility] Last Admin: 12/02/23 08:55 Dose: 300 mg Tiotropium [place] (Tiotropium [place] 2.5 Mcg 1 Puff/2.5 Mcg Mist.Inhal) 2 puff INHALE RDAILY [facility] Last Admin: 12/02/23 08:50 Dose: 2 puff Allergies Allergies Allergy/AdvReac Type Severity Reaction Status Date / Time codeine Allergy Severe Itching Verified 11/25/23 15:11 NSAIDS (Non-Steroidal AdvReac Severe bleeding Verified 11/25/23 15:11 Anti-Inflamma contrast dye AdvReac Severe Anaphylaxis Uncoded 11/25/23 23:43 Assessment & Plan Assessment & Plan (1) Fracture of styloid process of left ulna: Qualifiers: Encounter type: initial encounter Fracture type: closed Fracture alignment: nondisplaced Qualified Code(s): S52.615A - Nondisplaced fracture of left ulna styloid process, initial encounter for closed fracture Status: Acute Code(s): S52.612A - Displaced fracture of left ulna styloid process, initial encounter for closed fracture (2) Radial styloid fracture: Qualifiers: Encounter type: initial encounter Fracture type: closed Fracture alignment: nondisplaced Laterality: left Qualified Code(s): S52.515A - Nondisplaced fracture of left radial styloid process, initial encounter for closed fracture Status: Acute Code(s): S52.513A - Displaced fracture of unspecified radial styloid process, initial encounter for closed fracture Assessment and Plan: 1. Left ulnar styloid fracture, minimally displaced 2. Left radial styloid fracture, nondisplaced Date of injury approximately 11/24/2023 The patient is discussed with Dr. Bills, who was unavailable since the patient has time, and a collaborative treatment plan was formed: Patient is educated about this condition, and the typical recovery course Patient is educated that she should continue to wear her left arm Velcro wrist splint like a cast, only removing for bathing Patient is also educated that she can perform gentle pronosupination with the left wrist, but should avoid any forceful pronosupination, such as opening heavy doors. Patient is also advised that she should not be holding anything heavier than a cell phone in her left hand Patient will follow-up in our outpatient clinic upon discharge from the hospital No further acute orthopedic intervention indicated while hospitalized Patient will follow-up with Dr. Bills in clinic after discharge from hospital Please feel free to contact Orthopedics with any acute concerns while hospitalized. (3) Anxiety: Status: Acute Code(s): F41.9 - Anxiety disorder, unspecified (4) Grief reaction: Status: Acute Code(s): F43.21 - Adjustment disorder with depressed mood (5) Chronic post-traumatic stress disorder (PTSD): Status: Acute Code(s): F43.12 - Post-traumatic stress disorder, chronic Plan 11/28: valium 5 TID for severe anxiety. guanfacine ER 1 mg BID for anxiety/BP. refer for PHP at discharge. 11/29: DC xanax and initiate valium taper to 5 BID from 5 TID. DC lisinopril and continue guanfacine for anxiety as well as BP. increase prozac to 40 mg daily. 11/30: feeling better both physically and mentally. c/o left wrisst pain, site of Fx. increase oxycodone to 7.5 mg each dose. pt aware MD will NOT Rx higher dose at discharge. seen by ortho, see recs above. essentially, continue current mgmt of wrist, F/U outpatient. interested in PHP referral. plan to taper valium again tomorrow. 12/01: feeling much better. planning for PHP. asking for tuesday DC. taper valium through weekend (ordered). Reason for continued inpatient stay Substantial Risk for: inability to function and rapid decompensation Time Spent With Patient Time: Total time managing care of this patient today __25__ minutes.
[2023-12-02 20:00] VITALS: BP 100/60; PULSE 70; RESP 16; TEMP 36.6; O2SAT 100
[2023-12-02] MEDS: Melatonin 3 MG TABLET 9 MG PO (21:02)
[2023-12-02] MEDS: diazePAM 2 MG TABLET PO (21:02)
[2023-12-02] MEDS: Milk of Magnesia 30 ML ORAL.SUSP PO (21:05)
[2023-12-02] MEDS: Magnesium Hydrox/Alum Hydrox 30 ML ORAL.SUSP PO (23:50)
[2023-12-03] MEDS: Acetaminophen 325 MG TABLET 650 MG PO ×3 (02:38→20:43)
[2023-12-03] MEDS: Omeprazole 40 MG CAPSULE.DR PO (06:24)
[2023-12-03] MEDS: oxyCODONE HCl Immed Release 5 MG TABLET 7.5 MG PO ×3 (06:28→20:42)
[2023-12-03 07:30] VITALS: BP 89/54; PULSE 69; RESP 14; TEMP 36.5; O2SAT 98
--- NOTE | 2023-12-03 08:27 | P.PNPSI_ITS ---
Subjective Subjective Date of Service: 12/03/23 Reason For Visit: Transfer; SA Subjective Notes: Conditional Voluntary Medical Problems Affecting Mental Status: Yes (broken wrist pain/disrupting sleep) Interim History: 63 yo WF continues improved- says od was not planned out [facility] Feels current meds best she has been on co trouble with pain but doesn't seem in pain from wrist in day- Medication Compliance: Yes Side effects from medications: No Attending Groups: Intermittent Review of Systems Acute medical concerns: No Medical Review of Systems: unchanged Mental Status Exam Mental Status Exam Patient Appearance: Unkempt Patient Orientation: Person, Place, Time and Situation Level of Consciousness: Awake Patient Behavior: Appropriate, Talkative and Cooperative Mood Description: Anxious Affect Description: Appropriate Patient Cognition Impaired: No Ability to Follow Directions: Good Speech Pattern: Clear Hallucinations: None Delusions: Not Present Thought Process: Intact and Goal Oriented Thought Content: positive for Intact Depressive Symptoms: Increased Anxiety and Difficulty Sleeping Judgement: Fair Diagnostics Vital Signs (24Hr): Vital Signs - 24 hr 12/02/23 20:00 12/03/23 07:30 Temperature 97.8 F 97.7 F Pulse Rate 70 69 Respiratory Rate 16 14 Blood Pressure 100/60 89/54 L Pulse Oximetry 100 98 Oxygen Delivery Method Room Air Room Air BMI result Body Mass Index 24.9 Imaging Radiology Impressions: ITS Impressions Wrist X-Ray 12/01/23 13:28 IMPRESSION: Faint lucency through the ulnar styloid could represent a healing fracture. There may be mild overlying soft tissue swelling. Direct comparison with previous would be helpful Electronically signed by: Guy Badlilo MD 12/01/2023 05:21 PM EDT Medications Medications Current Medications Acetaminophen (Acetaminophen 325 Mg Tablet) 650 mg PO Q6H PRN PRN Reason: Headache/Pain Mild Scale (1-3) Last Admin: 12/03/23 02:38 Dose: 650 mg Al Hydroxide/Mg Hydroxide (Magnesium Hydrox/Alum Hydrox 30 Ml Oral.Susp) 30 ml PO Q6H PRN PRN Reason: Heartburn/Nausea Last Admin: 12/02/23 23:50 Dose: 30 ml Albuterol Sulfate (Albuterol Sulfate 90 Mcg 8 Gm Inhaler) 2 puff INHALE Q6H PRN PRN Reason: Dyspnea Atorvastatin Calcium (Atorvastatin Calcium 20 Mg Tablet) 20 mg PO DAILY [facility] Last Admin: 12/02/23 08:53 Dose: 20 mg Diazepam (Diazepam 2 Mg Tablet) 2 mg PO BID [facility] Stop: 12/04/23 09:01 Last Admin: 12/02/23 21:02 Dose: 2 mg Diazepam (Diazepam 2 Mg Tablet) 2 mg PO DAILY [facility] Fluoxetine HCl (Fluoxetine Hcl 20 Mg Capsule) 40 mg PO DAILY [facility] Last Admin: 12/02/23 08:53 Dose: 40 mg Fluticasone/Vilanterol (Fluticasone/Vilanterol 200/25 Blst.W.Dev) 1 puff INHALE RDAILY [facility] Last Admin: 12/02/23 08:50 Dose: 1 puff Guanfacine HCl (Guanfacine Hcl Er 1 Mg Tab.Er.24h) 1 mg PO BID [facility] Last Admin: 12/02/23 21:01 Dose: 1 mg Magnesium Hydroxide (Milk Of Magnesia 30 Ml Oral.Susp) 30 ml PO DAILY PRN PRN Reason: Constipation Last Admin: 12/02/23 21:05 Dose: 30 ml Melatonin (Melatonin 3 Mg Tablet) 9 mg PO BEDTIME [facility] Last Admin: 12/02/23 21:02 Dose: 9 mg Nicotine Polacrilex (Nicotine Polacrilex 2 Mg Gum) 4 mg BUCCAL Q2H PRN PRN Reason: Nicotine Cravings Omeprazole (Omeprazole 40 Mg Capsule.Dr) 40 mg PO DAILY@0630 [facility] Last Admin: 12/03/23 06:24 Dose: 40 mg Ondansetron HCl (Ondansetron Odt 4 Mg Tab.Rapdis) 4 mg TRANSLINGU Q6H PRN PRN Reason: Nausea And Vomiting Oxycodone HCl (Oxycodone Hcl Immed Release 5 Mg Tablet) 7.5 mg PO Q6H PRN PRN Reason: severe pain (pain scale 1-10) Last Admin: 12/03/23 06:28 Dose: 7.5 mg Pregabalin (Pregabalin 150 Mg Capsule) 300 mg PO BID [facility] Last Admin: 12/02/23 21:02 Dose: 300 mg Tiotropium [place] (Tiotropium [place] 2.5 Mcg 1 Puff/2.5 Mcg Mist.Inhal) 2 puff INHALE RDAILY [facility] Last Admin: 12/02/23 08:50 Dose: 2 puff Allergies Allergies Allergy/AdvReac Type Severity Reaction Status Date / Time codeine Allergy Severe Itching Verified 11/25/23 15:11 NSAIDS (Non-Steroidal AdvReac Severe bleeding Verified 11/25/23 15:11 Anti-Inflamma contrast dye AdvReac Severe Anaphylaxis Uncoded 11/25/23 23:43 Assessment & Plan Assessment & Plan (1) Fracture of styloid process of left ulna: Qualifiers: Encounter type: initial encounter Fracture alignment: nondisplaced Fracture type: closed Qualified Code(s): S52.615A - Nondisplaced fracture of left ulna styloid process, initial encounter for closed fracture Status: Acute Code(s): S52.612A - Displaced fracture of left ulna styloid process, initial encounter for closed fracture (2) Radial styloid fracture: Qualifiers: Encounter type: initial encounter Fracture alignment: nondisplaced Fracture type: closed Laterality: left Qualified Code(s): S52.515A - Nondisplaced fracture of left radial styloid process, initial encounter for closed fracture Status: Acute Code(s): S52.513A - Displaced fracture of unspecified radial styloid process, initial encounter for closed fracture Assessment and Plan: 1. Left ulnar styloid fracture, minimally displaced 2. Left radial styloid fracture, nondisplaced Date of injury approximately 11/24/2023 The patient is discussed [facility] and a collaborative treatment plan was formed: Patient is educated about this condition, and the typical recovery course Patient is educated that she should continue to wear her left arm Velcro wrist splint like a cast, only removing for bathing Patient is also educated that she can perform gentle pronosupination with the left wrist, but should avoid any forceful pronosupination, such as opening heavy doors. Patient is also advised that she should not be holding anything heavier than a cell phone in her left hand Patient will follow-up in our outpatient clinic upon discharge from the hospital No further acute orthopedic intervention indicated while hospitalized Patient will follow-up with Dr. Bills in clinic after discharge from hospital Please feel free to contact Orthopedics with any acute concerns while hospitalized. 12/02- reports firing all her [facility] people and moving every thing to [facility] providers- (3) Grief reaction: Status: Acute Code(s): F43.21 - Adjustment disorder with depressed mood Assessment and Plan: responding well to current meds= (4) Chronic post-traumatic stress disorder (PTSD): Status: Acute Code(s): F43.12 - Post-traumatic stress disorder, chronic Plan 11/28: valium 5 TID for severe anxiety. guanfacine ER 1 mg BID for anxiety/BP. refer for PHP at discharge. 11/29: DC xanax and initiate valium taper to 5 BID from 5 TID. DC lisinopril and continue guanfacine for anxiety as well as BP. increase prozac to 40 mg daily. 11/30: feeling better both physically and mentally. c/o left wrisst pain, site of Fx. increase oxycodone to 7.5 mg each dose. pt aware MD will NOT Rx higher dose at discharge. seen by ortho, see recs above. essentially, continue current mgmt of wrist, F/U outpatient. interested in PHP referral. plan to taper valium again tomorrow. 12/01: feeling much better. planning for PHP. asking for tuesday DC. taper valium through weekend (ordered). Patient educated on: medication risk/benefits and medical condition Informed Consent: understands Reason for continued inpatient stay Substantial Risk for: harm to self, rapid decompensation and med/psych decompensation Time Spent With Patient Time: Total time managing care of this patient today ____ minutes.
[2023-12-03] MEDS: Tiotropium Bromide 2.5 mcg 1 PUFF/2.5 MCG MIST.INHAL 2 PUFF INHALE (09:10)
[2023-12-03] MEDS: Atorvastatin Calcium 20 MG TABLET PO (09:10)
[2023-12-03] MEDS: Pregabalin 150 MG CAPSULE 300 MG PO ×2 (09:10→20:42)
[2023-12-03] MEDS: Fluticasone/Vilanterol 200/25 BLST.W.DEV 1 PUFF INHALE (09:10)
[2023-12-03] MEDS: FLUoxetine HCl 20 MG CAPSULE 40 MG PO (09:11)
[2023-12-03] MEDS: diazePAM 2 MG TABLET PO ×2 (09:11→20:43)
[2023-12-03] MEDS: guanFACINE HCl ER 1 MG TAB.ER.24H PO ×2 (09:11→20:42)
[2023-12-03] MEDS: Ondansetron ODT 4 MG TAB.RAPDIS TRANSLINGU (14:18)
[2023-12-03 19:59] VITALS: BP 85/54; PULSE 64; RESP 14; TEMP 36.5; O2SAT 98
[2023-12-03] MEDS: Melatonin 3 MG TABLET 9 MG PO (20:42)
[2023-12-03] MEDS: Albuterol Sulfate 90 MCG 8 GM INHALER 2 PUFF INHALE (20:52)
[2023-12-04] MEDS: oxyCODONE HCl Immed Release 5 MG TABLET 7.5 MG PO ×3 (03:30→15:54)
[2023-12-04] MEDS: Acetaminophen 325 MG TABLET 650 MG PO ×3 (03:30→15:54)
[2023-12-04] MEDS: Omeprazole 40 MG CAPSULE.DR PO (06:30)
[2023-12-04 07:05] VITALS: BP 102/59; PULSE 62; RESP 12; TEMP 36.4; O2SAT 96
[2023-12-04] MEDS: FLUoxetine HCl 20 MG CAPSULE 40 MG PO (08:25)
[2023-12-04] MEDS: diazePAM 2 MG TABLET PO (08:26)
[2023-12-04] MEDS: Pregabalin 150 MG CAPSULE 300 MG PO ×2 (08:26→20:37)
[2023-12-04] MEDS: Fluticasone/Vilanterol 200/25 BLST.W.DEV 1 PUFF INHALE (08:27)
[2023-12-04] MEDS: guanFACINE HCl ER 1 MG TAB.ER.24H PO ×2 (08:27→20:37)
[2023-12-04] MEDS: Atorvastatin Calcium 20 MG TABLET PO (08:27)
[2023-12-04] MEDS: Tiotropium Bromide 2.5 mcg 1 PUFF/2.5 MCG MIST.INHAL 2 PUFF INHALE (08:27)
[2023-12-04 19:15] VITALS: BP 81/57; PULSE 77; TEMP 36.3; O2SAT 100
[2023-12-04 19:57] VITALS: BP 88/58
[2023-12-04] MEDS: Magnesium Hydrox/Alum Hydrox 30 ML ORAL.SUSP PO (20:01)
[2023-12-04 20:05] VITALS: BP 78/48
[2023-12-04] MEDS: oxyCODONE HCl Immed Release 5 MG TABLET 10 MG PO (20:37)
[2023-12-04] MEDS: Melatonin 3 MG TABLET 9 MG PO (20:37)
--- NOTE | 2023-12-04 22:21 | PC.NURSE ---
During routine 5 minute unit checks moaning heard coming from room. Upon entering room patient observed on floor by mental health counselor. Patient asking for help. On approach patient on floor stating she fell trying to get back into bed. Reports she hit her wrist on the desk as she tried to catch herself on the bedside table to keep from falling. Patient reports she hit her back on the floor however did not hit head. BP 94/65, 86, RR16. Patient complaining of pain in back and L wrist. Patient assisted up, assisted to bathroom and back to bed. Dr. Joshi notified. No new orders at this time.
--- NOTE | 2023-12-05 00:57 | PC.NURSE ---
Anna Marie does not appear to have sustained any injuries from her reported fall. a warm compress was applied to patients Left wrist for comfort. patient had received 10 mg of Oxycodone approximately 1 hour prior to event. vital signs stable except for a decreased blood pressure. s/s of orthostatic changes and safe transfers/ambulation with low blood pressure reviewed with the patient. Anna aMrie stated understanding
[2023-12-05] MEDS: Acetaminophen 325 MG TABLET 650 MG PO (01:17)
[2023-12-05 05:55] VITALS: BP 78/48; RESP 18
[2023-12-05] MEDS: oxyCODONE HCl Immed Release 5 MG TABLET 7.5 MG PO ×2 (06:07→12:27)
[2023-12-05] MEDS: Omeprazole 40 MG CAPSULE.DR PO (06:11)
[2023-12-05 07:39] VITALS: BP 83/47; PULSE 69; RESP 18; TEMP 36.6; O2SAT 96
--- NOTE | 2023-12-05 07:41 | P.PNPSI_ITS ---
Subjective Subjective Date of Service: 12/04/23 Reason For Visit: Transfer; SA Subjective Notes: Conditional Voluntary Healthcare Proxy: No Guardianship: No Medical Problems Affecting Mental Status: Yes (sleep disrupted by pain in wrist) Interim History: Pt sleeping - calls me mom when awakened by provider to meet- Then goes on to discuss how she can't get from her mom what she wants loss of pt's daughter just too much she realizes for her mother- but aware what she wants is to curl up with mom on couch with blanket and tea. Having trouble sleeping waking up 3 x night re pain- agreed to inc pt pain med just for hs- and day time med would be unchanged at [facility] Ortho on dc - they would likely ween her.. Medication Compliance: Yes Side effects from medications: No Attending Groups: Yes Review of Systems Acute medical concerns: No Medical Review of Systems: unchanged Mental Status Exam Mental Status Exam Narrative: lying in bed, mild disorientation brief on awakening ( pt had head phones on and was dreaming)_ Patient Appearance: Appropriate Patient Orientation: Person, Place, Time and Situation Level of Consciousness: Awake and Appropriate Patient Behavior: Appropriate, Talkative and Cooperative Mood Description: Calm Affect Description: Appropriate Patient Cognition Impaired: No Ability to Follow Directions: Good Speech Pattern: Clear Hallucinations: None Delusions: Not Present Thought Process: Intact and Goal Oriented Thought Content: positive for Preoccupation (improving able to think of things besides loss of daugther) Depressive Symptoms: Difficulty Sleeping Judgement: Fair Diagnostics Vital Signs (24Hr): Vital Signs - 24 hr 12/04/23 19:15 12/04/23 19:57 12/04/23 20:05 Temperature 97.4 F Pulse Rate 77 Respiratory Rate Blood Pressure 81/57 L 88/58 L 78/48 L Pulse Oximetry 100 Oxygen Delivery Method Room Air 12/05/23 05:55 Temperature Pulse Rate Respiratory Rate 18 Blood Pressure 78/48 L Pulse Oximetry Oxygen Delivery Method BMI result Body Mass Index 24.9 Imaging Radiology Impressions: ITS Impressions Wrist X-Ray 12/01/23 13:28 IMPRESSION: Faint lucency through the ulnar styloid could represent a healing fracture. There may be mild overlying soft tissue swelling. Direct comparison with previous would be helpful Electronically signed by: Guy Badillo MD 12/01/2023 05:21 PM EDT Medications Medications Current Medications Acetaminophen (Acetaminophen 325 Mg Tablet) 650 mg PO Q6H PRN PRN Reason: Headache/Pain Mild Scale (1-3) Last Admin: 12/05/23 01:17 Dose: 650 mg Al Hydroxide/Mg Hydroxide (Magnesium Hydrox/Alum Hydrox 30 Ml Oral.Susp) 30 ml PO Q6H PRN PRN Reason: Heartburn/Nausea Last Admin: 12/04/23 20:01 Dose: 30 ml Albuterol Sulfate (Albuterol Sulfate 90 Mcg 8 Gm Inhaler) 2 puff INHALE Q6H PRN PRN Reason: Dyspnea Last Admin: 12/03/23 20:52 Dose: 2 puff Atorvastatin Calcium (Atorvastatin Calcium 20 Mg Tablet) 20 mg PO DAILY [facility] Last Admin: 12/04/23 08:27 Dose: 20 mg Diazepam (Diazepam 2 Mg Tablet) 2 mg PO DAILY [facility] Fluoxetine HCl (Fluoxetine Hcl 20 Mg Capsule) 40 mg PO DAILY [facility] Last Admin: 12/04/23 08:25 Dose: 40 mg Fluticasone/Vilanterol (Fluticasone/Vilanterol 200/25 Blst.W.Dev) 1 puff INHALE RDAILY [facility] Last Admin: 12/04/23 08:27 Dose: 1 puff Guanfacine HCl (Guanfacine Hcl Er 1 Mg Tab.Er.24h) 1 mg PO BID [facility] Last Admin: 12/04/23 20:37 Dose: 1 mg Magnesium Hydroxide (Milk Of Magnesia 30 Ml Oral.Susp) 30 ml PO DAILY PRN PRN Reason: Constipation Last Admin: 12/02/23 21:05 Dose: 30 ml Melatonin (Melatonin 3 Mg Tablet) 9 mg PO BEDTIME [facility] Last Admin: 12/04/23 20:37 Dose: 9 mg Nicotine Polacrilex (Nicotine Polacrilex 2 Mg Gum) 4 mg BUCCAL Q2H PRN PRN Reason: Nicotine Cravings Omeprazole (Omeprazole 40 Mg Capsule.Dr) 40 mg PO DAILY@0630 [facility] Last Admin: 12/05/23 06:11 Dose: 40 mg Ondansetron HCl (Ondansetron Odt 4 Mg Tab.Rapdis) 4 mg TRANSLINGU Q6H PRN PRN Reason: Nausea And Vomiting Last Admin: 12/03/23 14:18 Dose: 4 mg Oxycodone HCl (Oxycodone Hcl Immed Release 5 Mg Tablet) 7.5 mg PO Q6H PRN PRN Reason: severe pain (pain scale 1-10) Last Admin: 12/05/23 06:07 Dose: 7.5 mg Oxycodone HCl (Oxycodone Hcl Immed Release 5 Mg Tablet) 10 mg PO BEDTIME [facility] Last Admin: 12/04/23 20:37 Dose: 10 mg Pregabalin (Pregabalin 150 Mg Capsule) 300 mg PO BID [facility] Last Admin: 12/04/23 20:37 Dose: 300 mg Tiotropium [place] (Tiotropium [place] 2.5 Mcg 1 Puff/2.5 Mcg Mist.Inhal) 2 puff INHALE RDAILY [facility] Last Admin: 12/04/23 08:27 Dose: 2 puff Allergies Allergies Allergy/AdvReac Type Severity Reaction Status Date / Time codeine Allergy Severe Itching Verified 11/25/23 15:11 NSAIDS (Non-Steroidal AdvReac Severe bleeding Verified 11/25/23 15:11 Anti-Inflamma contrast dye AdvReac Severe Anaphylaxis Uncoded 11/25/23 23:43 Assessment & Plan Assessment & Plan (1) Fracture of styloid process of left ulna: Qualifiers: Encounter type: initial encounter Fracture alignment: nondisplaced Fracture type: closed Qualified Code(s): S52.615A - Nondisplaced fracture of left ulna styloid process, initial encounter for closed fracture Status: Acute Code(s): S52.612A - Displaced fracture of left ulna styloid process, initial encounter for closed fracture Assessment and Plan: 12/03 agreed to inc hs dose from 7.5 to 10 of ir oxy - to facilitate not waking up for pain or dec night pain (2) Radial styloid fracture: Qualifiers: Encounter type: initial encounter Fracture alignment: nondisplaced Fracture type: closed Laterality: left Qualified Code(s): S52.515A - Nondisplaced fracture of left radial styloid process, initial encounter for closed fracture Status: Acute Code(s): S52.513A - Displaced fracture of unspecified radial styloid process, initial encounter for closed fracture Assessment and Plan: 1. Left ulnar styloid fracture, minimally displaced 2. Left radial styloid fracture, nondisplaced Date of injury approximately 11/24/2023 The patient is discussed with Dr. Bills, who was unavailable since the patient has time, and a collaborative treatment plan was formed: Patient is educated about this condition, and the typical recovery course Patient is educated that she should continue to wear her left arm Velcro wrist splint like a cast, only removing for bathing Patient is also educated that she can perform gentle pronosupination with the left wrist, but should avoid any forceful pronosupination, such as opening heavy doors. Patient is also advised that she should not be holding anything heavier than a cell phone in her left hand Patient will follow-up in our outpatient clinic upon discharge from the hospital No further acute orthopedic intervention indicated while hospitalized Patient will follow-up with Dr. Bills in clinic after discharge from hospital Please feel free to contact Orthopedics with any acute concerns while hospitalized. (3) Grief reaction: Status: Acute Code(s): F43.21 - Adjustment disorder with depressed mood Assessment and Plan: ongoing seems to be managing to think of things outside loss and more future oriented 12/03 (4) Chronic post-traumatic stress disorder (PTSD): Status: Acute Code(s): F43.12 - Post-traumatic stress disorder, chronic Plan 11/28: valium 5 TID for severe anxiety. guanfacine ER 1 mg BID for anxiety/BP. refer for PHP at discharge. 11/29: DC xanax and initiate valium taper to 5 BID from 5 TID. DC lisinopril and continue guanfacine for anxiety as well as BP. increase prozac to 40 mg daily. 11/30: feeling better both physically and mentally. c/o left wrisst pain, site of Fx. increase oxycodone to 7.5 mg each dose. pt aware MD will NOT Rx higher dose at discharge. seen by ortho, see recs above. essentially, continue current mgmt of wrist, F/U outpatient. interested in PHP referral. plan to taper valium again tomorrow. 12/01: feeling much better. planning for PHP. asking for tuesday DC. taper valium through weekend (ordered). 824- reports firing all her [facility] people and moving every thing to [facility] [place] providers 12/03 - inc hs pain med, no other change CTP meds seem to be helping her- and treatment- Patient educated on: medication risk/benefits, therapeutic strategies and medical condition Informed Consent: understands Reason for continued inpatient stay Substantial Risk for: rapid decompensation Time Spent With Patient Time: Total time managing care of this patient today ____ minutes.
[2023-12-05 08:46] VITALS: BP 92/54
[2023-12-05] MEDS: FLUoxetine HCl 20 MG CAPSULE 40 MG PO (08:56)
[2023-12-05] MEDS: Pregabalin 150 MG CAPSULE 300 MG PO ×2 (08:56→20:26)
[2023-12-05] MEDS: diazePAM 2 MG TABLET PO (08:56)
[2023-12-05] MEDS: guanFACINE HCl ER 1 MG TAB.ER.24H PO ×2 (08:56→20:26)
[2023-12-05] MEDS: Atorvastatin Calcium 20 MG TABLET PO (08:56)
[2023-12-05] MEDS: Fluticasone/Vilanterol 200/25 BLST.W.DEV 1 PUFF INHALE (08:57)
[2023-12-05] MEDS: Tiotropium Bromide 2.5 mcg 1 PUFF/2.5 MCG MIST.INHAL 2 PUFF INHALE (08:57)
[2023-12-05 12:30] VITALS: BP 88/60; PULSE 72
--- NOTE | 2023-12-05 12:48 | P.PNPSI_ITS ---
Subjective Subjective Date of Service: 12/05/23 Reason For Visit: Transfer; SA Subjective Notes: Conditional Voluntary Interim History: Patient seen psychiatric follow-up coverage for Dr. Mcadams. Patient did fall last night no clear vital signs at this time she stated she tripped over her cane which got caught something no significant pain at this time. She did say she fell on her hand left side going down no significant pain when seen mood generally has reportedly been stable feel safe for discharge tomorrow Medication Compliance: Yes Review of Systems Patient status post fall blood pressure in the 90s but no orthostatic changes Diagnostics Vital Signs (24Hr): Vital Signs - 24 hr 12/04/23 19:15 12/04/23 19:57 12/04/23 20:05 Temperature 97.4 F Pulse Rate 77 Respiratory Rate Blood Pressure 81/57 L 88/58 L 78/48 L Pulse Oximetry 100 Oxygen Delivery Method Room Air 12/05/23 05:55 12/05/23 07:39 12/05/23 08:46 Temperature 97.9 F Pulse Rate 69 Respiratory Rate 18 18 Blood Pressure 78/48 L 83/47 L 92/54 L Pulse Oximetry 96 Oxygen Delivery Method Room Air BMI result Body Mass Index 24.9 Imaging Radiology Impressions: ITS Impressions Wrist X-Ray 12/01/23 13:28 IMPRESSION: Faint lucency through the ulnar styloid could represent a healing fracture. There may be mild overlying soft tissue swelling. Direct comparison with previous would be helpful Electronically signed by: Guy Badillo MD 12/01/2023 05:21 PM EDT Medications Medications Current Medications Acetaminophen (Acetaminophen 325 Mg Tablet) 650 mg PO Q6H PRN PRN Reason: Headache/Pain Mild Scale (1-3) Last Admin: 12/05/23 01:17 Dose: 650 mg Al Hydroxide/Mg Hydroxide (Magnesium Hydrox/Alum Hydrox 30 Ml Oral.Susp) 30 ml PO Q6H PRN PRN Reason: Heartburn/Nausea Last Admin: 12/04/23 20:01 Dose: 30 ml Albuterol Sulfate (Albuterol Sulfate 90 Mcg 8 Gm Inhaler) 2 puff INHALE Q6H PRN PRN Reason: Dyspnea Last Admin: 12/03/23 20:52 Dose: 2 puff Atorvastatin Calcium (Atorvastatin Calcium 20 Mg Tablet) 20 mg PO DAILY [facility] Last Admin: 12/05/23 08:56 Dose: 20 mg Diazepam (Diazepam 2 Mg Tablet) 2 mg PO DAILY [facility] Last Admin: 12/05/23 08:56 Dose: 2 mg Fluoxetine HCl (Fluoxetine Hcl 20 Mg Capsule) 40 mg PO DAILY [facility] Last Admin: 12/05/23 08:56 Dose: 40 mg Fluticasone/Vilanterol (Fluticasone/Vilanterol 200/25 Blst.W.Dev) 1 puff INHALE RDAILY [facility] Last Admin: 12/05/23 08:57 Dose: 1 puff Guanfacine HCl (Guanfacine Hcl Er 1 Mg Tab.Er.24h) 1 mg PO BID [facility] Last Admin: 12/05/23 08:56 Dose: 1 mg Magnesium Hydroxide (Milk Of Magnesia 30 Ml Oral.Susp) 30 ml PO DAILY PRN PRN Reason: Constipation Last Admin: 12/02/23 21:05 Dose: 30 ml Melatonin (Melatonin 3 Mg Tablet) 9 mg PO BEDTIME [facility] Last Admin: 12/04/23 20:37 Dose: 9 mg Nicotine Polacrilex (Nicotine Polacrilex 2 Mg Gum) 4 mg BUCCAL Q2H PRN PRN Reason: Nicotine Cravings Omeprazole (Omeprazole 40 Mg Capsule.Dr) 40 mg PO DAILY@0630 [facility] Last Admin: 12/05/23 06:11 Dose: 40 mg Ondansetron HCl (Ondansetron Odt 4 Mg Tab.Rapdis) 4 mg TRANSLINGU Q6H PRN PRN Reason: Nausea And Vomiting Last Admin: 12/03/23 14:18 Dose: 4 mg Oxycodone HCl (Oxycodone Hcl Immed Release 5 Mg Tablet) 7.5 mg PO Q6H PRN PRN Reason: severe pain (pain scale 1-10) Last Admin: 12/05/23 12:27 Dose: 7.5 mg Oxycodone HCl (Oxycodone Hcl Immed Release 5 Mg Tablet) 10 mg PO BEDTIME [facility] Last Admin: 12/04/23 20:37 Dose: 10 mg Pregabalin (Pregabalin 150 Mg Capsule) 300 mg PO BID [facility] Last Admin: 12/05/23 08:56 Dose: 300 mg Tiotropium [place] (Tiotropium [place] 2.5 Mcg 1 Puff/2.5 Mcg Mist.Inhal) 2 puff INHALE RDAILY [facility] Last Admin: 12/05/23 08:57 Dose: 2 puff Allergies Allergies Allergy/AdvReac Type Severity Reaction Status Date / Time codeine Allergy Severe Itching Verified 11/25/23 15:11 NSAIDS (Non-Steroidal AdvReac Severe bleeding Verified 11/25/23 15:11 Anti-Inflamma contrast dye AdvReac Severe Anaphylaxis Uncoded 11/25/23 23:43 Assessment & Plan Assessment & Plan (1) Fracture of styloid process of left ulna: Qualifiers: Encounter type: initial encounter Fracture alignment: nondisplaced Fracture type: closed Qualified Code(s): S52.615A - Nondisplaced fracture of left ulna styloid process, initial encounter for closed fracture Status: Acute Code(s): S52.612A - Displaced fracture of left ulna styloid process, initial encounter for closed fracture Assessment and Plan: 12/03 agreed to inc hs dose from 7.5 to 10 of ir oxy - to facilitate not waking up for pain or dec night pain (2) Radial styloid fracture: Qualifiers: Encounter type: initial encounter Fracture alignment: nondisplaced Fracture type: closed Laterality: left Qualified Code(s): S52.515A - Nondisplaced fracture of left radial styloid process, initial encounter for closed fracture Status: Acute Code(s): S52.513A - Displaced fracture of unspecified radial styloid process, initial encounter for closed fracture Assessment and Plan: 1. Left ulnar styloid fracture, minimally displaced 2. Left radial styloid fracture, nondisplaced Date of injury approximately 11/24/2023 The patient is discussed with Dr. Bills, who was unavailable since the patient has time, and a collaborative treatment plan was formed: Patient is educated about this condition, and the typical recovery course Patient is educated that she should continue to wear her left arm Velcro wrist splint like a cast, only removing for bathing Patient is also educated that she can perform gentle pronosupination with the left wrist, but should avoid any forceful pronosupination, such as opening heavy doors. Patient is also advised that she should not be holding anything heavier than a cell phone in her left hand Patient will follow-up in our outpatient clinic upon discharge from the hospital No further acute orthopedic intervention indicated while hospitalized Patient will follow-up with Dr. Bills in clinic after discharge from hospital Please feel free to contact Orthopedics with any acute concerns while hospitalized. (3) Grief reaction: Status: Acute Code(s): F43.21 - Adjustment disorder with depressed mood Assessment and Plan: ongoing seems to be managing to think of things outside loss and more future oriented 12/03 (4) Chronic post-traumatic stress disorder (PTSD): Status: Acute Code(s): F43.12 - Post-traumatic stress disorder, chronic Plan 11/28: valium 5 TID for severe anxiety. guanfacine ER 1 mg BID for anxiety/BP. refer for PHP at discharge. 11/29: DC xanax and initiate valium taper to 5 BID from 5 TID. DC lisinopril and continue guanfacine for anxiety as well as BP. increase prozac to 40 mg daily. 11/30: feeling better both physically and mentally. c/o left wrisst pain, site of Fx. increase oxycodone to 7.5 mg each dose. pt aware MD will NOT Rx higher dose at discharge. seen by ortho, see recs above. essentially, continue current mgmt of wrist, F/U outpatient. interested in PHP referral. plan to taper valium again tomorrow. 12/01: feeling much better. planning for PHP. asking for tuesday DC. taper valium through (ordered). 824- reports firing all her [facility] people and moving every thing to [facility] [place] providers 12/03 - inc hs pain med, no other change CTP meds seem to be helping her- and treatment- 12/05/2023 Patient status post fall last night reportedly tripping on cane when she was trying to get staff's attention regarding her roommate who was reportedly yelling when seen patient's gait seems okay no orthostatic changes blood pressure in the 90s systolic will lower guanfacine to 1 mg extended release at bedtime patient on significant doses of Lyrica oxycodone which will make her more prone to falls. Patient is scheduled for discharge tomorrow seems stable for discharge. Check orthostatics monitor gait stability consider lowering of oxycodone and Lyrica xr l wrist showed no acute changes Reason for continued inpatient stay Substantial Risk for: rapid decompensation and med/psych decompensation Time Spent With Patient Time: Total time managing care of this patient today ____ minutes.
[2023-12-05 20:00] VITALS: BP 105/50; PULSE 77; RESP 18; TEMP 36.5; O2SAT 98
[2023-12-05] MEDS: Melatonin 3 MG TABLET 9 MG PO (20:26)
[2023-12-05] MEDS: oxyCODONE HCl Immed Release 5 MG TABLET 10 MG PO (20:26)
[2023-12-05 22:00] VITALS: BP 105/50; PULSE 77
[2023-12-06] MEDS: oxyCODONE HCl Immed Release 5 MG TABLET 7.5 MG PO (04:26)
[2023-12-06] MEDS: Acetaminophen 325 MG TABLET 650 MG PO (04:27)
[2023-12-06 06:50] VITALS: BP 84/47; PULSE 53
[2023-12-06] MEDS: Omeprazole 40 MG CAPSULE.DR PO (06:53)
[2023-12-06 07:28] VITALS: BP 110/51; PULSE 57; RESP 18; TEMP 36.5; O2SAT 100
[2023-12-06] MEDS: Fluticasone/Vilanterol 200/25 BLST.W.DEV 1 PUFF INHALE (08:37)
[2023-12-06] MEDS: Tiotropium Bromide 2.5 mcg 1 PUFF/2.5 MCG MIST.INHAL 2 PUFF INHALE (08:37)
[2023-12-06] MEDS: diazePAM 2 MG TABLET PO (08:38)
[2023-12-06] MEDS: Atorvastatin Calcium 20 MG TABLET PO (08:38)
[2023-12-06] MEDS: FLUoxetine HCl 20 MG CAPSULE 40 MG PO (08:38)
[2023-12-06] MEDS: Pregabalin 150 MG CAPSULE 300 MG PO (08:38)
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
== END 2023-12-06 11:39 | disposition home or self-care (01) | DRG 881 ==
PROVIDERS: Admitting Provider Psychiatry & Neurology Psychiatry; Visit Provider Psychiatry & Neurology Psychiatry
DX: F43.21 Adjustment disorder with depressed mood (principal); S52.612A Displaced fracture of left ulna styloid process, initial encounter for closed fracture; S52.515A Nondisplaced fracture of left radial styloid process, initial encounter for closed fracture; X58.XXXA Exposure to other specified factors, initial encounter; F41.9 Anxiety disorder, unspecified; M54.50 Low back pain, unspecified; G89.29 Other chronic pain; Z91.51 Personal history of suicidal behavior; F43.12 Post-traumatic stress disorder, chronic; Z63.4 Disappearance and death of family member; Z96.82 Presence of neurostimulator; Z87.891 Personal history of nicotine dependence; Z79.51 Long term (current) use of inhaled steroids; Z79.899 Other long term (current) drug therapy
CPT/HCPCS: 73110

== ENCOUNTER → 2023-11-29 13:32 | Outpatient (BNV) | payer MEDICARE, SELFPAY | PROVIDERS: Admitting Provider Psychiatry & Neurology Psychiatry | DX: S52.615A Nondisplaced fracture of left ulna styloid process, initial encounter for closed fracture (principal); S52.515A Nondisplaced fracture of left radial styloid process, initial encounter for closed fracture | CPT/HCPCS: 99222 ==

== ENCOUNTER → 2023-11-29 13:32 | Outpatient (BNV) | payer MEDICARE, SELFPAY | PROVIDERS: Admitting Provider Psychiatry & Neurology Psychiatry; Visit Provider Psychiatry & Neurology Psychiatry | DX: F43.21 Adjustment disorder with depressed mood (principal); F43.12 Post-traumatic stress disorder, chronic; S52.615A Nondisplaced fracture of left ulna styloid process, initial encounter for closed fracture; S52.515A Nondisplaced fracture of left radial styloid process, initial encounter for closed fracture | CPT/HCPCS: 99232 ==

== ENCOUNTER → 2023-11-29 13:32 | Outpatient (BNV) | payer MEDICARE, MEDICAID, SELFPAY | PROVIDERS: Admitting Provider Psychiatry & Neurology Psychiatry; Visit Provider Psychiatry & Neurology Psychiatry | DX: F32.2 Major depressive disorder, single episode, severe without psychotic features (principal); F41.9 Anxiety disorder, unspecified; T50.902A Poisoning by unspecified drugs, medicaments and biological substances, intentional self-harm, initial encounter; F43.12 Post-traumatic stress disorder, chronic | CPT/HCPCS: 90792; 99232; 99239 ==

== ENCOUNTER 2023-12-13 08:50 | Outpatient (REF) | payer MEDICARE, SELFPAY | END 2023-12-13 08:51 | disposition home or self-care (01) | LOC: HO.HOSX 08:50 | PROVIDERS: Visit Provider Orthopaedic Surgery | DX: S63.502A Unspecified sprain of left wrist, initial encounter (principal); M25.532 Pain in left wrist; R20.0 Anesthesia of skin; R20.2 Paresthesia of skin; F43.12 Post-traumatic stress disorder, chronic; M79.7 Fibromyalgia | CPT/HCPCS: 99212 ==

== ENCOUNTER 2023-12-13 14:11 | Outpatient (AMB) | payer MEDICARE, SELFPAY ==
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
== END 2023-12-13 16:20 | disposition home or self-care (01) ==
PROVIDERS: Visit Provider Orthopaedic Surgery
DX: S63.502A Unspecified sprain of left wrist, initial encounter (principal); M25.532 Pain in left wrist; R20.0 Anesthesia of skin; R20.2 Paresthesia of skin; F43.12 Post-traumatic stress disorder, chronic; M79.7 Fibromyalgia
CPT/HCPCS: 99213

== ENCOUNTER 2023-12-16 12:45 | Outpatient (RCR) | payer MEDICARE, MEDICAID, SELFPAY ==
--- NOTE | 2023-12-15 12:58 | HO.PHP ---
Anna Marie contacted the program and left a voicemail stating that her mother has last night and she will not be able to attend the program today. Anna Marie disclosed that she is very much interested in continuing and asked if she could start the program tomorrow. PHP staff member contacted Anna Marie and left a voicemail sharing her condolences and informed her that she is able to start the program tomorrow.
--- NOTE | 2023-12-16 11:40 | HO.PHP ---
Anna Marie was not in morning meeting as she suggested she would be in program this morning. This health technical writer called her multiple times, and left a message. After that, her / healthcare proxy was called. First attempt the number was not in service, there was an additional number in chart that had a busy signal when called. This health technical writer then spoke to Officer Manuel (dispatcher) to initiate a wellness check. Officer Rupert (sp?) [id number] conducted wellness check with no findings. Anna Marie called this health technical writer back shortly after apologizing and affirmed she is safe. She will be in attendance to program on Tuesday.
--- NOTE | 2023-12-19 14:00 | HO.PHP ---
Anna Marie contacted the program stating she did not want to start PHP programming at this time. She let staff know she would call back in the future if she was interested.
== END 2023-12-16 23:59 | disposition home or self-care (01) ==
LOC: HO.PHPA 12:45
PROVIDERS: Visit Provider Psychiatry & Neurology Psychiatry
DX: F32.2 Major depressive disorder, single episode, severe without psychotic features (principal); F40.00 Agoraphobia, unspecified; F43.12 Post-traumatic stress disorder, chronic; F11.21 Opioid dependence, in remission
CPT/HCPCS: 90791

== ENCOUNTER 2024-01-16 11:25 | Inpatient (IN) | payer MEDICARE, SELFPAY ==
--- NOTE | ~2024-01-16 | US_ITS ---
EXAMINATION: DUPLEX DOPPLER MESENTERIC ARTERIES CLINICAL INFORMATION: Abdominal pain. Nausea and vomiting COMPARISON: CT from 01/16/2024 TECHNIQUE: Duplex Doppler ultrasound evaluation of the abdominal aorta and mesenteric arteries. FINDINGS: AORTA: Normal in caliber with scattered atherosclerotic plaque. Normal arterial waveforms. Proximal to SMA: 64.3 cm/s Distal to SMA: 78.3 cm/s CELIAC: Inspiration supine: 98.5 cm/s Inspiration erect: 112 cm/s Expiration supine: 120 cm/s Expiration erect: 87.4 cm/s SUPERIOR MESENTERIC ARTERY: Proximal: 180 cm/s Mid: 57.5 cm/s Distal: 122 cm/s INFERIOR MESENTERIC ARTERY: Not visualized SPLENIC ARTERY: 136 cm/s HEPATIC ARTERY: 225 cm/s US/US SMA IMPRESSION: Duplex Doppler ultrasound of the mesenteric arteries without significant stenosis. Electronically signed by: Orlando Olson MD 01/17/2024 02:30 PM EDT Workstation: [id number]
--- NOTE | ~2024-01-16 | US_ITS ---
EXAMINATION: US ABDOMEN LIMITED CLINICAL INFORMATION: Abdominal pain. COMPARISON: None available. TECHNIQUE: Real-time imaging of the gallbladder and common bile duct FINDINGS: GALLBLADDER: The gallbladder is physiologically distended with some echogenic bile. No gallbladder wall thickening or pericholecystic fluid. COMMON BILE DUCT: Normal in caliber measuring 0.6 cm in diameter. FREE FLUID: None. US/US abdomen limited IMPRESSION: Echogenic bile in the gallbladder. No gallbladder wall thickening or pericholecystic fluid. Electronically signed by: Isaias Crocker MD 01/16/2024 03:27 PM EDT
--- NOTE | ~2024-01-16 | CT_ITS ---
EXAMINATION: CT ABDOMEN AND PELVIS WITHOUT CONTRAST CLINICAL INFORMATION: Diffuse abdominal pain COMPARISON: 11/26/2023, CT abdomen pelvis TECHNIQUE: Multidetector volumetric imaging was performed from the superior aspect of the liver through the pubic symphysis. Sagittal and coronal reformatted images were obtained on the technologist's workstation. This CT examination was performed using dose optimization techniques as appropriate, variously including the following: *Automated exposure control *Adjustment of mA and/or kV according to patient size (this includes techniques or standardized protocols for targeted exams where dose is matched to indication/reason for exam; i.e. extremities or head) *Use of iterative reconstruction technique DLP: 484 mGy-cm FINDINGS: LUNG BASES: Emphysematous changes are present at the lung bases with bullae, right greater than left. LIVER, GALLBLADDER, AND BILIARY TREE: The liver is normal in size, shape, and attenuation. No focal hepatic lesion or biliary ductal dilatation is present. The gallbladder is unremarkable with no evidence of radiopaque gallstones, gallbladder wall thickening, or obvious pericholecystic inflammatory changes. PANCREAS: Unremarkable. SPLEEN: Unremarkable. ADRENAL GLANDS: Unremarkable. KIDNEYS AND URETERS: The kidneys are normal in size, shape, and attenuation. No hydronephrosis, hydroureter, or calculi seen. No perinephric stranding. BLADDER: Unremarkable. GASTROINTESTINAL TRACT: There is a tiny hiatal hernia present. The small and large bowel are unremarkable aside from some scattered colonic diverticula without diverticulitis. The appendix has been removed. ABDOMINAL WALL: No significant hernia is appreciated. LYMPH NODES: No retroperitoneal lymphadenopathy. VASCULAR: Calcific atherosclerotic changes are present in the aorta and iliofemoral vessels. There is no evidence of an abdominal aortic aneurysm. PELVIC VISCERA: An anteverted retroflexed uterus is present. An abnormal adnexal mass or free intraperitoneal fluid is not seen. OSSEOUS STRUCTURES: There are interbody cages at L5-S1 . Degenerative changes are present in the spine. A spinal stimulator is present with the generator in the left buttock and the leads extending into the thoracic spine. CT/CT abdomen pelvis wo IV con IMPRESSION: 1. A cause for the patient's diffuse abdominal pain has not been found. 2. Incidental note made of emphysema, colonic diverticulosis without diverticulitis, appendectomy and degenerative changes in the spine. Fleischner guidelines were followed. Electronically signed by: Adolfo Willson MD 01/16/2024 09:15 PM EDT RP
--- NOTE | ~2024-01-16 | CT_ITS ---
EXAMINATION: CT ABDOMEN AND PELVIS WITH CONTRAST CLINICAL INFORMATION: Severe left lower quadrant pain COMPARISON: Prior CT abdomen and pelvis dated 01/16/2024 TECHNIQUE: Multidetector volumetric images were obtained from the superior aspect of the liver through the pubic symphysis following administration 85 mL of Omnipaque 350 intravenous contrast. Sagittal and coronal reformatted images were obtained on the technologist's workstation. Oral contrast: No This CT examination was performed using dose optimization techniques as appropriate, variously including the following: *Automated exposure control *Adjustment of mA and/or kV according to patient size (this includes techniques or standardized protocols for targeted exams where dose is matched to indication/reason for exam; i.e. extremities or head) *Use of iterative reconstruction technique DLP: 328 mGy-cm FINDINGS: LUNG BASES: Emphysematous changes noted with areas of fibrosis and bullous formation present. No pleural effusion. LIVER, GALLBLADDER, AND BILIARY TREE: The liver is normal in size, shape, and attenuation. No focal hepatic lesion or biliary ductal dilatation is present. The gallbladder is unremarkable with no evidence of radiopaque gallstones, gallbladder wall thickening, or obvious pericholecystic inflammatory changes. PANCREAS: Unremarkable. SPLEEN: Unremarkable. ADRENAL GLANDS: Unremarkable. KIDNEYS AND URETERS: There is a small cyst in the mid left kidney for which no further workup is needed. This cyst appears simple at 6 mm. No solid mass. No calcification or hydronephrosis or perinephric collection. BLADDER: Unremarkable. GASTROINTESTINAL TRACT: Postsurgical changes are seen at the rectosigmoid. Sutures intact. There is mild diverticular disease in the sigmoid. No diverticulitis. No bowel obstruction or right or left lower quadrant inflammatory change. The vermiform appendix is not seen. Surgical clips are seen at the base of the cecum. ABDOMINAL WALL: No significant hernia is appreciated. LYMPH NODES: Normal. VASCULAR: There are atherosclerotic but nonaneurysmal. PELVIC VISCERA: Unremarkable. OSSEOUS STRUCTURES: Interbody cages at L5-S1 again observed. This creates some streak artifact. There is degenerative change observed throughout the lumbar spine particularly, L3-4. No change. No fracture. The spinal stimulator is present with the generator situated in the left buttock standing up into the thoracic spine region. This is unchanged as well. CT/CT abdomen pelvis w IV con IMPRESSION: Postsurgical changes noted. No acute findings. No significant change from the study of 01/16/2024. Fleischner guidelines were followed. Electronically signed by: Mauro Martins MD 01/18/2024 04:55 PM EDT RP
[2024-01-16 12:02] VITALS: BP 99/78; PULSE 71; RESP 19; TEMP 36.4; O2SAT 98; BMI 23.3
--- NOTE | 2024-01-16 12:02 | ED.GIBLEED ---
HPI - GI Bleed General Chief complaint: Abdominal Pain Stated complaint: abd pain bloody stools nausea Time Seen by Provider: 01/16/24 16:46 Source: patient Mode of arrival: ambulatory Limitations: no limitations History of Present Illness ED Provider: Dr. Rosa Maria Gomes HPI Narrative: Patient comes to the emergency room complaining of 3 days of diarrhea and abdominal pain. Patient states that initially started out as abdominal discomfort, some distention. Patient has been having diarrhea, couple of times had bloody diarrhea. Patient states that now her stool is meehan. Patient states that the whole abdomen hurts at this time. Patient denies nausea vomiting. Patient denies chest pain or shortness of breath, denies being on blood thinners. Related Data Home Medications ?Medication ?Instructions ?Recorded ?Confirmed omeprazole 40 mg capsule,delayed 40 mg PO DAILY@0630 11/27/23 11/29/23 release Previous Rx's ?Medication ?Instructions ?Recorded albuterol sulfate 90 mcg/actuation 2 puff inhalation Q6H PRN Dyspnea 11/26/23 aerosol inhaler (Ventolin HFA) #8.5 grams atorvastatin 20 mg tablet 20 mg PO DAILY #1 tab 11/26/23 ondansetron 4 mg disintegrating 4 mg translingual Q6H PRN Nausea 11/26/23 tablet And Vomiting #1 tab fluoxetine 20 mg capsule 40 mg (2 x 20 mg) PO DAILY 30 days 12/06/23 #60 caps fluticasone furoate 200 1 inh inhalation RDAILY 30 days #1 12/06/23 mcg-vilanterol 25 mcg/dose ea inhalation powder (Breo Ellipta) guanfacine 1 mg tablet,extended 1 mg PO BEDTIME 30 days #30 tabs 12/06/23 release 24 hr tiotropium bromide 2.5 2 puff inhalation RDAILY 30 days 12/06/23 mcg/actuation mist for inhalation #4 grams (Spiriva Respimat) Allergies Allergy/AdvReac Type Severity Reaction Status Date / Time codeine Allergy Severe Itching Verified 01/16/24 12:02 NSAIDS (Non-Steroidal AdvReac Severe bleeding Verified 01/16/24 12:02 Anti-Inflamma contrast dye AdvReac Severe Anaphylaxis Uncoded 01/16/24 12:02 Review of Systems Review of Systems: Constitutional : No Weight loss, No Fever, No Chills, No Night Sweats, No Fatigue, No Malaise ENT/Mouth : No Hearing loss, No Ear Pain, No Nasal Congestion, No Sinus Pain, No Hoarseness, No sore throat, No Rhinorrhea, No Swallowing Difficulty Eyes: No Eye Pain, No Swelling, No Redness, No Foreign Body, No Discharge, No Vision Changes Cardiovascular : No Chest Pain, No SOB, No Dyspnea on Exertion, No Orthopnea, No Edema, No Palpitations Respiratory : No Cough, No Sputum, No Wheezing, No Smoke Exposure, No Dyspnea Gastrointestinal : No Nausea, No Vomiting, complaining of a mixed of bloody diarrhea and now meehan colored stool, diffuse abdominal pain and distension Genitourinary : no irregular bleeding, No Dysuria, No Urinary Frequency, No Hematuria, No Urinary Incontinence, No Urgency, No Flank Pain, No Urinary Flow Changes, No Hesitancy Musculoskeletal : No joint pain, No Myalgias, No Joint Swelling Skin : No Skin Lesions, No rash Neuro : No Weakness, No Numbness, No Paresthesias, No Loss of Consciousness, No Dizziness, No Headache Psych : No Anxiety/Panic, No Depression, No SI/HI/AH/VH, No Social Issues, Heme/Lymph: No Bruising, No Bleeding,No Lymphadenopathy Endocrine : No Polyuria, No Polydipsia, No Temperature Intolerance [facility] Past Medical History Medical History Anxiety Depression Chronic low back pain Fibromyalgia Migraine Nausea and vomiting COPD (chronic obstructive pulmonary disease) Hyperlipidemia Hypertension CKD (chronic kidney disease), stage III Diverticulitis Surgical History S/P insertion of spinal cord stimulator History of laminectomy History of colon resection Social History Social History Household Members: Significant Other Housing: House Do you presently have visiting nurse or other home services: No Alcohol intake: never Comment: 1:1 sitter Patient Tobacco Use Status: Former Tobacco user Smoked in Last 30 Days: Yes Second Hand Smoke Exposure: No Use of substances other than those prescribed or required for medical reasons: No Substance Use Type: Marijuana Advance Directives: Yes Advance Directives on File: Yes Advance Directives Date on File: 11/27/23 Do you have a plan to hurt others: No Plan Patient : No service: No Sexual orientation: Straight/Heterosexual Physical Exam Vital Signs: Vital Signs: Last Vital Signs Temp 98.2 F 01/16/24 20:00 Pulse 58 01/16/24 20:00 Resp 16 01/16/24 22:15 BP 167/59 H 01/16/24 20:00 Pulse Ox 96 01/16/24 20:00 O2 Del Method Room Air 01/16/24 20:00 BMI result Body Mass Index 23.3 Const: Other: Appearance: Alert. Oriented X3. No acute distress. Eyes: Pupils equal, round and reactive to light. ENT: Pharynx normal. Neck: Normal inspection. Neck supple. No lymph nodes noted. No crepitus CVS: Normal heart rate and rhythm. Pulses normal. Normal S1 and S2 Respiratory: No respiratory distress. Breath sounds normal. No Wheezing. No rales Abdomen: Soft , distended, diffusely tender, no rebound or guarding, negative Milan's sign, negative pain at McBurney's point Skin: Skin warm and dry. Normal skin color. Normal skin turgor. Extremities: No lower extremity edema. No Lacerations. No Rash Neuro: Oriented X 3. No motor deficit. No sensory deficit. Moving all extremities. No slurred speech. CN 2 through 12 grossly intact Psych: calm, cooperative, normal affect Course Course Course Narrative: This is a Rapid Medical Examination (RME) performed by Drake Liang PA-C in triage. Full HPI, ROS, assessment and treatment plan per primary provider in the Main ED. 63 yo female with history of diverticulitis with history of colonic resection in the past, hx COPD, CKD who presents to the ER for evaluation of 8/10 LLQ abdominal pain and bloody diarrhea for the last 3 days. reporting 3-4 episodes of meehan stools with blood mixed in. no vomiting but nauseated and dry heaving. not on anticoagulation. unable to tolerate PO. LLQ tenderness and guarding on exam, decreased bowel sounds. Plan: labs, will need CT scan Medications Administered Generic Name Dose Route Start Last Admin Trade Name Freq PRN Reason Stop Dose Admin Morphine Sulfate 2 mg 01/16/24 21:57 01/16/24 22:15 Morphine Sulfate 2 Mg/Ml Cartridge IVPUSH 2 mg Q4H PRN Administration Pain, Severe (Pain Scale 7-10) Protocol Discontinued Medications Generic Name Dose Route Start Last Admin Trade Name Demetrius PRN Reason Stop Dose Admin Lactated Ringer's 1,000 mls @ 999 mls/hr 01/16/24 18:00 01/16/24 19:30 Lr IV 01/16/24 19:00 Infused .Q1H1M CRISTINA Infusion Morphine Sulfate 2 mg 01/16/24 17:58 01/16/24 18:20 Morphine Sulfate 2 Mg/Ml Cartridge IVPUSH 01/16/24 17:59 2 mg ONCE ONE Administration Protocol Ondansetron HCl 4 mg 01/16/24 17:58 01/16/24 18:20 Ondansetron Hcl 4 Mg/2 Ml Vial IVPUSH 01/16/24 17:59 4 mg ONCE ONE Administration Pantoprazole Sodium 80 mg 01/16/24 21:41 01/16/24 22:15 Pantoprazole Sodium 40 Mg/10 Ml Vial IVPUSH 01/16/24 21:42 80 mg ONCE ONE Administration Medical Decision Making Medical Decision Making [facility] Narrative: -on physical exam, patient has diffuse abdominal pain, since it started out as left lower quadrant. -my interpretation of labs, normal hematology and chemistry, LFTs are significantly elevated which is new for the patient, T bili and D bili within normal limits, AST 675, ALT 906, alk-phos 113 within normal limits, lipase a bit elevated 139. -ultrasound of the abdomen showed echogenic vial in the gallbladder, no gallbladder thickening or pericholecystic fluid -given the elevated LFTs, more labs are pending including Tylenol and acetaminophen levels -I reviewed patient's past medical history. In November, patient was admitted for benzodiazepine overdose/suicide attempt since her daughter 9 days prior to it. Patient is adamant today that she did not ingest any large amount of medications. Patient admits that she has been taking Tylenol every 4-6 hours to help with the abdominal pain but with no intention of hurting herself, denies aspirin or ibuprofen overdose Acetaminophen levels and salicylate levels negative, hepatitis serology pending, lipase [address] scan, no obvious abnormality. -CT scan does not show any acute abnormalities -patient's occult blood test was guaiac positive. H and H stable. At this time, no signs of active GI bleed -patient continues having abdominal pain despite several doses of morphine. -I discussed the patient with Dr. Woodard, patient being admitted Differential Diagnosis Differential Diagnoses: The differential diagnosis associated with the presentation includes (Cholecystitis, pancreatitis, hepatitis) Admission/Observation Consideration of admission/observation: Escalation of care including admission/observation considered Consult Healthcare Provider Management of the patient was discussed with: Hospitalist Lab Data MDM Lab Attestation statement: I reviewed the patient's lab results. 01/16/24 12:12 01/16/24 12:12 Labs: Lab Results 01/16/24 01/16/24 01/16/24 Range/Units 12:12 14:23 17:11 WBC 5.5 (4.8-10.8) X10*3/uL RBC 4.90 (4.20-5.50) X10*6/uL Hgb 14.7 (12.0-16.0) g/dl Hct 42.8 (37.0-47.0) % MCV 87.3 (80.0-98.0) fL MCH 30.0 (27.0-33.0) pg MCHC 34.3 (31.0-35.0) g/dl RDW 14.6 (11.0-16.0) % Plt Count 192 (160-400) X10*3/uL MPV 9.7 (9.4-12.3) fL Immature Gran % (Auto) 0.4 (0.0-0.4) % Neut % (Auto) 80.1 H (45-73) % Lymph % (Auto) 13.4 L (20-40) % [place] % (Auto) 4.5 (2-11) % Eos % (Auto) 0.7 (0-4) % Baso % (Auto) 0.9 (0-2) % Lymph # (Auto) 0.7 L (1.2-4.9) X10*3/uL [place] # (Auto) 0.3 (0.1-1.2) X10*3/uL Eos # (Auto) 0.0 (0.0-0.4) X10*3/uL Baso # (Auto) 0.1 (0.0-0.2) X10*3/uL Abs Immat Gran (auto) 0.02 (0.00-0.03) X10*3/uL Absolute Neuts (auto) 4.4 (2.0-8.3) x10*3/uL Absolute Nucleated RBC 0.000 (0.0-0.012) X10*3/uL Nucleated RBC % (auto) 0.0 (0.0-0.2) /100WBC PT 11.3 (10.9-12.4) SEC INR 1.0 (0.9-1.1) APTT 31.6 (26.0-36.8) SEC Sodium 140 (135-145) mmol/L Potassium 3.6 (3.3-5.1) mmol/L Chloride 111 H (96-108) mmol/L Carbon Dioxide 24 (22-29) mmol/L Anion Gap 9 L (12-20) BUN 17 H (9-16) mg/dL Creatinine 0.93 (0.5-1.4) mg/dL Estim Creat Clear Calc 56.4 Estimated GFR > 60 Random Glucose 82 (60-115) mg/dL Lactic Acid 0.6 (0.5-2.0) mmol/L Calcium 9.4 (8.4-10.2) mg/dL Magnesium 2.3 (1.6-2.6) mg/dL Total Bilirubin 0.7 (0.0-1.0) mg/dL Direct Bilirubin 0.3 (0.0-0.5) mg/dL AST 675 H (5-31) U/L ALT 906 H (0-31) U/L Alkaline Phosphatase 113 (39-117) U/L Total Protein 6.9 (6.5-8.0) g/dL Albumin 4.4 (3.5-5.0) g/dL Lipase 159 H (8-78) U/L Urine Color Urine Appearance Urine pH (5.0-9.0) Ur Specific [place] (1.005-1.025) Urine Protein (Neg-Trace) mg/dL Urine Glucose (UA) (Negative) mg/dL Urine Ketones (Negative) mg/dL Urine Blood (Negative) Urine Nitrite (Negative) Ur Leukocyte Esterase (Negative) Urine RBC (0-2) /HPF Urine WBC (0-5) /HPF Ur Squamous Epith Cells (0-2) /HPF Urine Bacteria (None Seen) Hyaline Casts (0-2) /LPF Stool Occult Blood POSITIVE (NEGATIVE) Salicylates < 5.0 L (15-30) mg/dL Acetaminophen < 3 < 3 (<30) mcg/mL 01/16/24 Range/Units 18:12 WBC (4.8-10.8) X10*3/uL RBC (4.20-5.50) X10*6/uL Hgb (12.0-16.0) g/dl Hct (37.0-47.0) % MCV (80.0-98.0) fL MCH (27.0-33.0) pg MCHC (31.0-35.0) g/dl RDW (11.0-16.0) % Plt Count (160-400) X10*3/uL MPV (9.4-12.3) fL Immature Gran % (Auto) (0.0-0.4) % Neut % (Auto) (45-73) % Lymph % (Auto) (20-40) % [place] % (Auto) (2-11) % Eos % (Auto) (0-4) % Baso % (Auto) (0-2) % Lymph # (Auto) (1.2-4.9) X10*3/uL [place] # (Auto) (0.1-1.2) X10*3/uL Eos # (Auto) (0.0-0.4) X10*3/uL Baso # (Auto) (0.0-0.2) X10*3/uL Abs Immat Gran (auto) (0.00-0.03) X10*3/uL Absolute Neuts (auto) (2.0-8.3) x10*3/uL Absolute Nucleated RBC (0.0-0.012) X10*3/uL Nucleated RBC % (auto) (0.0-0.2) /100WBC PT (10.9-12.4) SEC INR (0.9-1.1) APTT (26.0-36.8) SEC Sodium (135-145) mmol/L Potassium (3.3-5.1) mmol/L Chloride (96-108) mmol/L Carbon Dioxide (22-29) mmol/L Anion Gap (12-20) BUN (9-16) mg/dL Creatinine (0.5-1.4) mg/dL Estim Creat Clear Calc Estimated GFR Random Glucose (60-115) mg/dL Lactic Acid (0.5-2.0) mmol/L Calcium (8.4-10.2) mg/dL Magnesium (1.6-2.6) mg/dL Total Bilirubin (0.0-1.0) mg/dL Direct Bilirubin (0.0-0.5) mg/dL AST (5-31) U/L ALT (0-31) U/L Alkaline Phosphatase (39-117) U/L Total Protein (6.5-8.0) g/dL Albumin (3.5-5.0) g/dL Lipase (8-78) U/L Urine Color Yellow Urine Appearance Clear Urine pH 6.0 (5.0-9.0) Ur Specific [place] 1.020 (1.005-1.025) Urine Protein Trace (Neg-Trace) mg/dL Urine Glucose (UA) Negative (Negative) mg/dL Urine Ketones 40 (Negative) mg/dL Urine Blood Negative (Negative) Urine Nitrite Negative (Negative) Ur Leukocyte Esterase Trace H (Negative) Urine RBC 0-2 (0-2) /HPF Urine WBC 0-5 (0-5) /HPF Ur Squamous Epith Cells 3-5 (0-2) /HPF Urine Bacteria None Seen (None Seen) Hyaline Casts 0-2 (0-2) /LPF Stool Occult Blood (NEGATIVE) Salicylates (15-30) mg/dL Acetaminophen (<30) mcg/mL Independent Interpretation I performed an independent interpretation of an: Ultrasound and CT Scan Radiology Impression Discussion of test interpretation with radiology: I have reviewed the radiologist's reading. Radiologist Impression: GALLBLADDER: The gallbladder is physiologically distended with some echogenic bile. No gallbladder wall thickening or pericholecystic fluid. COMMON BILE DUCT: Normal in caliber measuring 0.6 cm in diameter. FREE FLUID: None. US/US abdomen limited IMPRESSION: Echogenic bile in the gallbladder. No gallbladder wall thickening or pericholecystic fluid. Critical Care Time Critical Care Time Critical Care Time: Yes Total Critical Care Time: 60 Attestation: I have personally provided critical care time. Time includes review of lab data, radiology results, discussion with consultants, and monitoring for potential decompensation. Intervention performed as documented. Discharge Plan Discharge Clinical Impression: Abdominal pain, LFT elevation, GI bleed Patient Disposition: Admitted As Inpatient Prescriptions: No Action albuterol sulfate [Ventolin HFA] 90 mcg/actuation Hfa Aerosol Inhaler 2 puff inhalation Q6H PRN (Reason: Dyspnea) Qty: 8.5 0RF atorvastatin 20 mg Tablet 20 mg PO DAILY Qty: 1 0RF ondansetron 4 mg Tablet,Disintegrating 4 mg translingual Q6H PRN (Reason: Nausea And Vomiting) Qty: 1 0RF omeprazole 40 mg capsule,delayed release(DR/EC) 40 mg PO DAILY@0630 guanfacine 1 mg Tablet Extended Release 24 Hr 1 mg PO BEDTIME 30 Days Qty: 30 0RF fluoxetine 20 mg Capsule 40 mg PO DAILY 30 Days Qty: 60 0RF Spiriva Respimat 2.5 mcg/actuation Mist 2 puff inhalation RDAILY 30 Days Qty: 4 0RF fluticasone furoate-vilanterol [Breo Ellipta] 200-25 mcg/dose Blister With Device 1 inh inhalation RDAILY 30 Days Qty: 1 0RF Print Language: Gambian
[2024-01-16 12:17] LABS: MANUAL DIFF FLAG NO
[2024-01-16 12:19] LABS: Basophils Absolute Auto 0.1 X10*3/uL (0.0-0.2); Basophils Percent Auto 0.9 % (0-2); Eosinophils Percent Auto 0.7 % (0-4); Hematocrit 42.8 % (37.0-47.0); Hemoglobin 14.7 g/dl (12.0-16.0); Imm Gran Abs Auto 0.02 X10*3/uL (0.00-0.03); Imm Gran Pct Auto 0.4 % (0.0-0.4); Lymphocytes Absolute Auto 0.7 X10*3/uL (1.2-4.9); Lymphocytes Percent Auto 13.4 % (20-40); Mean Corpuscular HGB Conc 34.3 g/dl (31.0-35.0); Mean Corpuscular Volume 87.3 fL (80.0-98.0); Mean Platelet Volume 9.7 fL (9.4-12.3); Monocytes Absolute Auto 0.3 X10*3/uL (0.1-1.2); Monocytes Percent Auto 4.5 % (2-11); Neutrophils Absolute Auto 4.4 x10*3/uL (2.0-8.3); Neutrophils Percent Auto 80.1 % (45-73); Platelet Count 192 X10*3/uL (160-400); Red Cell Distribution Width 14.6 % (11.0-16.0); White Blood Count 5.5 X10*3/uL (4.8-10.8)
[2024-01-16 12:26] LABS: Prothrombin Time 11.3 SEC (10.9-12.4)
[2024-01-16 12:29] LABS: Partial Thromboplastin Time 31.6 SEC (26.0-36.8)
[2024-01-16 12:36] LABS: Alanine Aminotransferase 906 U/L (0-31); Albumin Level 4.4 g/dL (3.5-5.0); Alkaline Phosphatase 113 U/L (39-117); Anion Gap 9 (12-20); Aspartate Amino Transferase 675 U/L (5-31); Bilirubin Direct 0.3 mg/dL (0.0-0.5); Bilirubin Total 0.7 mg/dL (0.0-1.0); Blood Urea Nitrogen 17 mg/dL (9-16); Calcium 9.4 mg/dL (8.4-10.2); Carbon Dioxide 24 mmol/L (22-29); Chloride 111 mmol/L (96-108); Creatinine Clr Calc Pharmacy 56.4; Estimated Glomerular Filt Rate > 60; Glucose Random 82 mg/dL (60-115); Lipase 159 U/L (8-78); Magnesium 2.3 mg/dL (1.6-2.6); Potassium 3.6 mmol/L (3.3-5.1); Sodium 140 mmol/L (135-145); Total Protein 6.9 g/dL (6.5-8.0)
[2024-01-16 14:39] LABS: Lactic Acid 0.6 mmol/L (0.5-2.0)
[2024-01-16 14:53] LABS: Acetaminophen LAB < 3 mcg/mL (<30)
[2024-01-16 17:06] VITALS: BP 153/82; PULSE 63; RESP 15; TEMP 36.7; O2SAT 96
[2024-01-16 17:20] LABS: OBS1 POSITIVE (NEGATIVE)
[2024-01-16 17:21] LABS: OBS Int Ctl Valid YES
[2024-01-16 17:43] LABS: Acetaminophen LAB < 3 mcg/mL (<30); Salicylate < 5.0 mg/dL (15-30)
--- NOTE | 2024-01-16 17:58 | ECG_ITS ---
Test Reason : ABD PAIN Blood Pressure : / mmHG Vent. Rate : 058 BPM Atrial Rate : 058 BPM P-R Int : 110 ms QRS Dur : 074 ms QT Int : 458 ms P-R-T Axes : 040 007 054 degrees QTc Int : 449 ms Sinus bradycardia with short [place] Otherwise normal ECG When compared with ECG of 26-NOV-2023 23:25, Vent. rate has decreased BY 51 BPM Referred By: Rosa Maria Gomes Electronically Signed By:KERRI MOTTA MD
[2024-01-16] MEDS: Morphine Sulfate 2 MG/ML CARTRIDGE IVPUSH ×2 (18:20→22:15)
[2024-01-16] MEDS: ondansetron HCL 4 MG/2 ML VIAL IVPUSH (18:20)
[2024-01-16] MEDS: Lactated Ringers 1,000 ML 999 ML IV (18:21)
[2024-01-16 18:23] VITALS: BP 138/75; PULSE 54; RESP 18; TEMP 36.8; O2SAT 97
[2024-01-16 18:23] LABS: Appearance Urine Clear; Color Urine Yellow; Glucose Urine UA Negative (Negative); Leukocyte Esterase Urine Trace (Negative); Nitrite Urine Negative (Negative); UMIC TRIGGER UACC YES; Urine Blood Negative (Negative); Urine Ketones 40 mg/dL (Negative); Urine Protein Trace mg/dL (Neg-Trace)
[2024-01-16 20:00] VITALS: BP 167/59; PULSE 58; RESP 18; TEMP 36.8; O2SAT 96
[2024-01-16 20:11] LABS: Bacteria Urine None Seen (None Seen); Hyaline Casts Urine 0-2 /LPF (0-2); RBC Urine 0-2 /HPF (0-2); WBC Urine 0-5 /HPF (0-5)
--- NOTE | 2024-01-16 21:43 | PM.IMHP ---
History of Present Illness Date of Service: 01/16/24 Chief Complaint: Abdominal pain This is a 63-year-old female with pertinent history of COPD not on home oxygen, chronic low back pain status post spinal cord stimulator, mood disorder, gastroesophageal reflux disease, CKD stage 3, history of diverticulitis status post bowel resection, mixed hyperlipidemia who presents to the emergency department for evaluation of abdominal pain. Patient states her symptoms started 3 days prior to presentation. She has been having left-sided abdominal pain which is constant, nonradiating and without any relieving factors. Unable to tolerate p.o. intake due to nausea. Also started to have diarrhea 3-4 episodes per day. Two days prior to presentation, started having bloody diarrhea. No sick contacts. No precipitating factor. No fever, chills, chest pain, palpitations, shortness of breath, changes in urinary habits. In the emergency department, stool occult positive and AST/ALT found to be elevated Review of Systems Constitutional: Constitutional: Reports poor appetite Cardiovascular: Cardiovascular: Reports no additional cardiovascular complaints Respiratory: Respiratory: Reports no additional respiratory complaints Gastrointestinal: Gastrointestinal: Reports abdominal pain, Reports diarrhea and Reports nausea Genitourinary: Genitourinary: Reports no additional female genitourinary complaints [facility] Medical History Anxiety Depression Chronic low back pain Fibromyalgia Migraine Nausea and vomiting COPD (chronic obstructive pulmonary disease) Hyperlipidemia Hypertension CKD (chronic kidney disease), stage III Diverticulitis Pertinent family history: No significant history of early CAD Surgical History S/P insertion of spinal cord stimulator History of laminectomy History of colon resection Social History Household Members: Significant Other Housing: House Do you presently have visiting nurse or other home services: No Alcohol intake: never Comment: 1:1 sitter Patient Tobacco Use Status: Former Tobacco user Smoked in Last 30 Days: Yes Second Hand Smoke Exposure: No Use of substances other than those prescribed or required for medical reasons: No Substance Use Type: Marijuana Advance Directives: Yes Advance Directives on File: Yes Advance Directives Date on File: 11/27/23 Do you have a plan to hurt others: No Plan Patient : No service: No Sexual orientation: Straight/Heterosexual Meds Allergies Allergy/AdvReac Type Severity Reaction Status Date / Time codeine Allergy Severe Itching Verified 01/16/24 12:02 NSAIDS (Non-Steroidal AdvReac Severe bleeding Verified 01/16/24 12:02 Anti-Inflamma contrast dye AdvReac Severe Anaphylaxis Uncoded 01/16/24 12:02 Active Medications: Current Medications Morphine Sulfate (Morphine Sulfate 2 Mg/Ml Cartridge) 2 mg IVPUSH Q5M PRN; Protocol PRN Reason: Chest Pain Home Medications ?Medication ?Instructions ?Recorded ?Confirmed ?Last Taken ?Type omeprazole 40 mg capsule,delayed 40 mg PO DAILY@0630 11/27/23 11/29/23 Unknown History release Physical Exam Vital Signs and Narrative: Vital Signs: Last Vital Signs Temp 98.2 F 01/16/24 20:00 Pulse 58 01/16/24 20:00 Resp 18 01/16/24 20:00 BP 167/59 H 01/16/24 20:00 Pulse Ox 96 01/16/24 20:00 O2 Del Method Room Air 01/16/24 20:00 BMI result Body Mass Index 23.3 Middle-aged female lying in bed in no distress Neck supple, no JVD Regular rate and rhythm, S1-S2 heard Regular breath sounds bilaterally, no wheezing or crackles appreciated Abdomen with left-sided tenderness, no guarding, no rigidity, no rebound tenderness Patient is awake, alert and oriented to self, place, time and person ; no focal motor deficit Psych: Normal mood No pedal edema Results Labs 01/16/24 12:12 01/16/24 12:12 Labs: Laboratory Results - last 24 hr 01/16/24 01/16/24 01/16/24 12:12 14:23 17:11 MCV 87.3 MCH 30.0 MCHC 34.3 RDW 14.6 Plt Count 192 MPV 9.7 Immature Gran % (Auto) 0.4 Neut % (Auto) 80.1 H Lymph % (Auto) 13.4 L [place] % (Auto) 4.5 Eos % (Auto) 0.7 Baso % (Auto) 0.9 Lymph # (Auto) 0.7 L [place] # (Auto) 0.3 Eos # (Auto) 0.0 Baso # (Auto) 0.1 Abs Immat Gran (auto) 0.02 Absolute Neuts (auto) 4.4 Absolute Nucleated RBC 0.000 Nucleated RBC % (auto) 0.0 PT 11.3 INR 1.0 APTT 31.6 Anion Gap 9 L Estim Creat Clear Calc 56.4 Estimated GFR > 60 Random Glucose 82 Lactic Acid 0.6 Calcium 9.4 Magnesium 2.3 Total Bilirubin 0.7 Direct Bilirubin 0.3 AST 675 H ALT 906 H Alkaline Phosphatase 113 Total Protein 6.9 Albumin 4.4 Lipase 159 H Urine Color Urine Appearance Urine pH Ur Specific [place] Urine Protein Urine Glucose (UA) Urine Ketones Urine Blood Urine Nitrite Ur Leukocyte Esterase Urine RBC Urine WBC Ur Squamous Epith Cells Urine Bacteria Hyaline Casts Stool Occult Blood POSITIVE Salicylates < 5.0 L Acetaminophen < 3 < 3 01/16/24 18:12 MCV MCH MCHC RDW Plt Count MPV Immature Gran % (Auto) Neut % (Auto) Lymph % (Auto) [place] % (Auto) Eos % (Auto) Baso % (Auto) Lymph # (Auto) [place] # (Auto) Eos # (Auto) Baso # (Auto) Abs Immat Gran (auto) Absolute Neuts (auto) Absolute Nucleated RBC Nucleated RBC % (auto) PT INR APTT Anion Gap Estim Creat Clear Calc Estimated GFR Random Glucose Lactic Acid Calcium Magnesium Total Bilirubin Direct Bilirubin AST ALT Alkaline Phosphatase Total Protein Albumin Lipase Urine Color Yellow Urine Appearance Clear Urine pH 6.0 Ur Specific [place] 1.020 Urine Protein Trace Urine Glucose (UA) Negative Urine Ketones 40 Urine Blood Negative Urine Nitrite Negative Ur Leukocyte Esterase Trace H Urine RBC 0-2 Urine WBC 0-5 Ur Squamous Epith Cells 3-5 Urine Bacteria None Seen Hyaline Casts 0-2 Stool Occult Blood Salicylates Acetaminophen Imaging Radiologist's Impressions: Impressions Abdomen Ultrasound 01/16/24 14:24 IMPRESSION: Echogenic bile in the gallbladder. No gallbladder wall thickening or pericholecystic fluid. Electronically signed by: Isaias Crocker MD 01/16/2024 03:27 PM EDT Abdomen/Pelvis CT 01/16/24 19:14 IMPRESSION: 1. A cause for the patient's diffuse abdominal pain has not been found. 2. Incidental note made of emphysema, colonic diverticulosis without diverticulitis, appendectomy and degenerative changes in the spine. Fleischner guidelines were followed. Electronically signed by: Adolfo Willson MD 01/16/2024 09:15 PM EDT RP Assessment and Plan (1) Abdominal pain: Status: Acute (2) Elevated liver transaminase level: Status: Acute (3) Bloody diarrhea: Status: Acute Plan This is a 63-year-old female with pertinent history of COPD not on home oxygen, chronic low back pain status post spinal cord stimulator, mood disorder, gastroesophageal reflux disease, CKD stage 3, history of diverticulitis status post bowel resection, mixed hyperlipidemia who presents to the emergency department for evaluation of abdominal pain. #. Abdominal pain with elevated transaminases and bloody diarrhea: Will admit patient with cardiac monitoring. Tylenol level okay. Hepatitis level pending. Stool studies and C diff pending. Imaging without any acute abnormalities. Consulted Gastroenterology, appreciate assistance. Initiating IV Protonix. #. COPD not on home oxygen: No exacerbation during admission. Continue home inhalers #. Mood disorder: Continue home mood stabilizers #. Mixed hyperlipidemia: Hold statin Med rec pending DVT prophylaxis: Mechanical Full code Admit as inpatient and will require two night minimum hospital stay for monitoring of symptoms, liver enzymes (as above), which is not possible in a lesser acute setting. Specialist consult pending Quality Stroke Does the patient have a stroke diagnosis?: No VTE Prior VTE?: No VTE Risk Level:: Medical - moderate - high VTE Device Contraindication: N/A - Device Ordered VTE Drug Contraindication: Treatment Not Indicated
[2024-01-16 22:15] VITALS: RESP 16
[2024-01-16] MEDS: Pantoprazole Sodium 40 MG/10 ML VIAL 80 MG IVPUSH (22:15)
--- NOTE | 2024-01-16 23:18 | PC.NURSE ---
this rn assumed care at 19:00. pt is a&0x4, respirations even and unlabored, vss. pt reports pain in LLQ of abdomen and bloody stool x3days. pt abdomen soft and round but tender to touch in RLQ, LUQ and LLQ. pain radiates from LLQ with palpation. Bowel sounds active in RLQ, LUQ and LLQ, hypoactive in RUQ. pt reports nausea. hat placed in pt bathroom to collect stool sample. pt instructed to use call light when she voids. pt medicated per jun. placed pt on tele, sinus bradycardic 50-54.
[2024-01-17] VITALS (8 sets, daily range): BP systolic 102–128; BP diastolic 53–71; PULSE 52–80; RESP 16–20; TEMP 36.1–36.5; O2SAT 96–99; BMI 23.2
[2024-01-17 04:42] LABS: HBS Num1 0.38 mIU/mL (0-7.99); HBc Num1 0.14 S/CO (0.00-0.79); HBsAGNum1 0.34 S/CO (0.00-0.99); Hepatitis A Antibody IgM 0.15 Index (0-0.79); Hepatitis B Core Antibody Nonreactive (Nonreactive); Hepatitis B Surface Antigen Negative (Negative); ~HepC Num1 0.09 S/CO (0.00-0.79); ~Hepatitis A Antibody IgM Nonreactive (Nonreactive); ~Hepatitis B Surface Antibody NONREACTIVE (Nonreactive); ~Hepatitis C Antibody Nonreactive (Nonreactive)
[2024-01-17] MEDS: 0.9 % Sodium Chloride Flush 3 ML SYRINGE IVFLUSH ×3 (06:04→23:22)
[2024-01-17] MEDS: Morphine Sulfate 2 MG/ML CARTRIDGE IVPUSH (06:04)
[2024-01-17] MEDS: Pantoprazole Sodium 40 MG/10 ML VIAL IVPUSH ×2 (06:05→15:54)
[2024-01-17] MEDS: Flu Vacc TS2024-25(6mos up)/PF 0.5 ML SYRINGE IM (06:16)
[2024-01-17 06:41] LABS: MANUAL DIFF FLAG NO
[2024-01-17 06:52] LABS: Basophils Percent Auto 0.8 % (0-2); Eosinophils Absolute Auto 0.1 X10*3/uL (0.0-0.4); Eosinophils Percent Auto 2.5 % (0-4); Hematocrit 38.2 % (37.0-47.0); Hemoglobin 12.6 g/dl (12.0-16.0); Imm Gran Abs Auto 0.02 X10*3/uL (0.00-0.03); Imm Gran Pct Auto 0.6 % (0.0-0.4); Lymphocytes Absolute Auto 0.8 X10*3/uL (1.2-4.9); Lymphocytes Percent Auto 21.1 % (20-40); Mean Corpuscular Hemoglobin 29.5 pg (27.0-33.0); Mean Corpuscular Volume 89.5 fL (80.0-98.0); Monocytes Absolute Auto 0.2 X10*3/uL (0.1-1.2); Monocytes Percent Auto 5.8 % (2-11); Neutrophils Absolute Auto 2.5 x10*3/uL (2.0-8.3); Neutrophils Percent Auto 69.2 % (45-73); Platelet Count 167 X10*3/uL (160-400); Red Blood Count 4.27 X10*6/uL (4.20-5.50); Red Cell Distribution Width 14.6 % (11.0-16.0); White Blood Count 3.6 X10*3/uL (4.8-10.8)
[2024-01-17 07:07] LABS: Alanine Aminotransferase 716 U/L (0-31); Albumin Level 3.6 g/dL (3.5-5.0); Alkaline Phosphatase 97 U/L (39-117); Anion Gap 13 (12-20); Aspartate Amino Transferase 411 U/L (5-31); Bilirubin Total 0.8 mg/dL (0.0-1.0); Blood Urea Nitrogen 15 mg/dL (9-16); Carbon Dioxide 19 mmol/L (22-29); Chloride 113 mmol/L (96-108); Creatinine Clr Calc Pharmacy 66.4; Estimated Glomerular Filt Rate > 60; Glucose Random 65 mg/dL (60-115); Potassium 4.2 mmol/L (3.3-5.1); Sodium 141 mmol/L (135-145)
--- NOTE | 2024-01-17 08:34 | MHC.CM.PN ---
CM met with Patient at bedside and addressed IMM with her, providing Patient with the original and a copy has been placed on the chart. Patient lives in a one level duplex with her and [id number] lives on the other side of the duplex. 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 PCP is Dr. Jane Oden and will transport to home.
[2024-01-17 08:43] LABS: VBG Base Excess -3.1 mmol/L; VBG HCO3 23 mmol/L (22-26); VBG pCO2 45 mmHg; VBG pH 7.31 (7.32-7.43); VBG pO2 44 mmHg
[2024-01-17 08:45] LABS: Venous Blood Gas Refer to POC result
--- NOTE | 2024-01-17 09:00 | PHA.MEDREC ---
Addendum entered by Tiara Stewart RPh 01/17/24 09:28: Reviewed by [facility] Original Note: Pharmacy Consult ? Medication Reconciliation Pharmacy has completed the medication reconciliation. Confirmed medications with patient. She last took then yesterday morning.
[2024-01-17 09:17] LABS: Beta-Hydroxybutyrate 2.37 mmol/L (0.02-0.27)
[2024-01-17 09:22] LABS: Glucose, Whole Blood 61 mg/dL (60-115)
[2024-01-17] MEDS: Metoclopramide HCl 10 MG/2 ML VIAL IVPUSH (10:21)
[2024-01-17] MEDS: Lactated Ringers 1,000 ML 100 ML IVCONT ×2 (10:22→19:55)
[2024-01-17] MEDS: oxyCODONE HCl Immed Release 5 MG TABLET PO ×2 (10:22→21:14)
--- NOTE | 2024-01-17 14:15 | P.PNIM_ITS ---
Subjective Subjective Date of Service: 01/17/24 Interval History: Seen in follow-up for abdominal pain, bloody diarrhea Interval history: Reporting 11/18 nonradiating left lower quadrant pain with associated nausea. No vomiting or ongoing diarrhea. No melena, hematochezia, hematemesis. Hemodynamically stable the blood pressure is soft Review of Systems Review of Systems: Yes all other systems are reviewed and are negative Physical Exam 2 Vital Signs: Vital Signs: Last Vital Signs Temp 97.7 F 01/17/24 11:12 Pulse 58 01/17/24 11:12 Resp 18 01/17/24 11:12 BP 104/53 L 01/17/24 11:12 Pulse Ox 98 01/17/24 11:12 O2 Del Method Room Air 01/17/24 11:12 BMI result Body Mass Index 23.2 Constitutional - Awake and Alert, No apparent distress Eyes - PERRLA, EOMI Cardiovascular - S1S2, RRR, No edema Respiratory - Normal lung expansion, Normal respiratory effort, No respiratory distress, CTA bilaterally Gastrointestinal - mild distention llq with ttp and voluntary guarding, +BS; No rebound Extremities - no calf tenderness bilaterally, no swelling Skin - Warm/Dry Neurological - Alert & oriented x3 Psychological - Appropriate affect Objective Data Active Medications Acetaminophen (Acetaminophen 325 Mg Tablet) 650 mg PO Q6H PRN PRN Reason: Pain, Mild (Pain Scale 1-3), fever or headache Albuterol Sulfate (Albuterol Sulfate 90 Mcg 8 Gm Inhaler) 2 puff INHALE Q6H PRN PRN Reason: Dyspnea Atorvastatin Calcium (Atorvastatin Calcium 20 Mg Tablet) 20 mg PO DAILY CRISTINA Calcium Carbonate (Calcium Carbonate 750 Mg Tab.Chew) 750 mg PO Q4H PRN PRN Reason: Heartburn Fluoxetine HCl (Fluoxetine Hcl 20 Mg Capsule) 40 mg PO DAILY CRISTINA Hydromorphone HCl (Hydromorphone Hcl 0.5 Mg/0.5 Ml Syringe) 0.25 mg IVPUSH Q4H PRN; Protocol PRN Reason: Pain, Severe (Pain Scale 7-10) Lactated Ringer's (Lr) 1,000 mls @ 100 mls/hr IVCONT .Q10H CRISTINA Last Admin: 01/17/24 10:22 Dose: 100 mls/hr Documented By: ABY Magnesium Hydroxide (Milk Of Magnesia 30 Ml Oral.Susp) 30 ml PO DAILY PRN PRN Reason: Constipation Melatonin (Melatonin 3 Mg Tablet) 6 mg PO BEDTIME PRN PRN Reason: Insomnia Ondansetron HCl (Ondansetron Hcl 4 Mg/2 Ml Vial) 4 mg IVPUSH Q8H PRN PRN Reason: Nausea and Vomiting Oxycodone HCl (Oxycodone Hcl Immed Release 5 Mg Tablet) 5 mg PO Q6H PRN PRN Reason: Pain, Moderate(Pain Scale 4-6) Last Admin: 01/17/24 10:22 Dose: 5 mg Documented By: ABY Pantoprazole Sodium (Pantoprazole Sodium 40 Mg/10 Ml Vial) 40 mg IVPUSH BID@0630,1630 [facility] Last Admin: 01/17/24 06:05 Dose: 40 mg Documented By: NOHEMY Pregabalin (Pregabalin 150 Mg Capsule) 300 mg PO BID [facility] Sodium Chloride (0.9 % Sodium Chloride Flush 3 Ml Syringe) 3 ml IVFLUSH QSHIFT [facility] Last Admin: 01/17/24 10:22 Dose: 3 ml Documented By: ABY Tiotropium [place] (Tiotropium [place] 2.5 Mcg 1 Puff/2.5 Mcg Mist.Inhal) 2 puff INHALE RDAILY [facility] Labs 01/17/24 05:36 01/17/24 05:36 Labs: Laboratory Results - last 24 hr 01/16/24 01/16/24 01/16/24 14:23 17:11 18:12 MCV MCH MCHC RDW Plt Count MPV Immature Gran % (Auto) Neut % (Auto) Lymph % (Auto) Edwards % (Auto) Eos % (Auto) Baso % (Auto) Lymph # (Auto) Edwards # (Auto) Eos # (Auto) Baso # (Auto) Abs Immat Gran (auto) Absolute Neuts (auto) Absolute Nucleated RBC Nucleated RBC % (auto) Hold Purple Top VBG pH VBG pCO2 VBG pO2 VBG HCO3 VBG O2 Saturation VBG Base Excess Anion Gap Estim Creat Clear Calc Estimated GFR POC Glucose Random Glucose Lactic Acid 0.6 Calcium Total Bilirubin AST ALT Alkaline Phosphatase Total Protein Albumin Beta-Hydroxybutyrate Urine Color Yellow Urine Appearance Clear Urine pH 6.0 Ur Specific [place] 1.020 Urine Protein Trace Urine Glucose (UA) Negative Urine Ketones 40 Urine Blood Negative Urine Nitrite Negative Ur Leukocyte Esterase Trace H Urine RBC 0-2 Urine WBC 0-5 Ur Squamous Epith Cells 3-5 Urine Bacteria None Seen Hyaline Casts 0-2 Stool Occult Blood POSITIVE Salicylates < 5.0 L Acetaminophen < 3 < 3 Hepatitis A IgM Ab Nonreactive Hep Bs Antigen Negative Hep Bs Antibody NONREACTIVE Hep B Core Total Ab Nonreactive Hepatitis C Ab (EIA) Nonreactive 01/17/24 01/17/24 01/17/24 05:36 08:30 08:37 MCV 89.5 MCH 29.5 MCHC 33.0 RDW 14.6 Plt Count 167 MPV 10.0 Immature Gran % (Auto) 0.6 H Neut % (Auto) 69.2 Lymph % (Auto) 21.1 Edwards % (Auto) 5.8 Eos % (Auto) 2.5 Baso % (Auto) 0.8 Lymph # (Auto) 0.8 L [place] # (Auto) 0.2 Eos # (Auto) 0.1 Baso # (Auto) 0.0 Abs Immat Gran (auto) 0.02 Absolute Neuts (auto) 2.5 Absolute Nucleated RBC 0.000 Nucleated RBC % (auto) 0.0 Hold Purple Top SEE NOTE VBG pH 7.31 L VBG pCO2 45 VBG pO2 44 VBG HCO3 23 VBG O2 Saturation 73.0 VBG Base Excess -3.1 Anion Gap 13 Estim Creat Clear Calc 66.4 Estimated GFR > 60 POC Glucose Random Glucose 65 Lactic Acid Calcium 9.0 Total Bilirubin 0.8 AST 411 H ALT 716 H Alkaline Phosphatase 97 Total Protein 6.0 L Albumin 3.6 Beta-Hydroxybutyrate 2.37 H Urine Color Urine Appearance Urine pH Ur Specific [place] Urine Protein Urine Glucose (UA) Urine Ketones Urine Blood Urine Nitrite Ur Leukocyte Esterase Urine RBC Urine WBC Ur Squamous Epith Cells Urine Bacteria Hyaline Casts Stool Occult Blood Salicylates Acetaminophen Hepatitis A IgM Ab Hep Bs Antigen Hep Bs Antibody Hep B Core Total Ab Hepatitis C Ab (EIA) 01/17/24 09:17 MCV MCH MCHC RDW Plt Count MPV Immature Gran % (Auto) Neut % (Auto) Lymph % (Auto) Edwards % (Auto) Eos % (Auto) Baso % (Auto) Lymph # (Auto) Edwards # (Auto) Eos # (Auto) Baso # (Auto) Abs Immat Gran (auto) Absolute Neuts (auto) Absolute Nucleated RBC Nucleated RBC % (auto) Hold Purple Top VBG pH VBG pCO2 VBG pO2 VBG HCO3 VBG O2 Saturation VBG Base Excess Anion Gap Estim Creat Clear Calc Estimated GFR POC Glucose 61 Random Glucose Lactic Acid Calcium Total Bilirubin AST ALT Alkaline Phosphatase Total Protein Albumin Beta-Hydroxybutyrate Urine Color Urine Appearance Urine pH Ur Specific [place] Urine Protein Urine Glucose (UA) Urine Ketones Urine Blood Urine Nitrite Ur Leukocyte Esterase Urine RBC Urine WBC Ur Squamous Epith Cells Urine Bacteria Hyaline Casts Stool Occult Blood Salicylates Acetaminophen Hepatitis A IgM Ab Hep Bs Antigen Hep Bs Antibody Hep B Core Total Ab Hepatitis C Ab (EIA) Assessment and Plan (1) GI bleed: Status: Acute (2) LFT elevation: Status: Acute (3) Abdominal pain: Status: Acute Plan 63-year-old female with history of CKD stage 3, history of diverticulitis s/p bowel resection, hyperlipidemia, hypertension, chronic low back pain s/p spinal cord stimulator, and mood disorder admitted to adult Psychiatry with consult placed to hospitalist service for medical H&P. # left lower quadrant pain with bright red blood per rectum -CT abdomen pelvis negative for acute abnormality -check C diff PCR and GI panel -analgesia p.r.n. -check mesenteric Doppler per GI. Lactic acid within normal limits -GI consult -continue IV PPI for now #Acute on chronic nausea , no ongoing vomiting -follows with [facility] with negative work up. Discussed that her chronic symptoms could be related to regular cannibus use which can take 2-3 months of complete cessation to resolve and that resuming the substance could result in relapse of symptoms. Recent admission for d-lactic acidosis requiring ICU transfer -antiemetics p.r.n. -Clear liquids diet, continue IVF for now -GI consult pending # acute metabolic acidosis-compensating -pH 7.31, pCO2 45, bicarb 23 -lactic acid within normal limits. Beta hydroxybutyrate 2.37 -GI consult -continue IVF # transaminitis -LFTs trending down but still remain markedly elevated with AST for 11, ALT 716. Total bilirubin within normal limits -CT abdomen pelvis unremarkable -GI consult -trend LFTs # CKD stage 3 -renal function baseline #COPD -NO EXACERBATION. continue home inhalers #HTN -bp soft, hold antihypertensives for now #Chronic low back pain -?incorrect placement of SCS and leads following physical restraint. Discussed with pain management. Evaluate lead placement with thoracic and lumbar xr with 3 views -continue oxycodone #Fibromyalgia -lyrica #HLD -hold statin dvt prophylaxis- scps full code pt requires ongoing inpt stay due to GI bleed requiring close monitoring of blood counts, expert consultation, and close monitoring of hemodynamics Quality Stroke Does the patient have a stroke diagnosis?: No VTE Prior VTE?: No VTE Risk Level:: Medical - moderate - high VTE Device Contraindication: N/A - Device Ordered VTE Drug Contraindication: Treatment Not Indicated
--- NOTE | 2024-01-17 14:33 | PM.GICN ---
History of Present Illness Data of Consult Service Date: 01/17/24 Requesting physician: Elisa Knott Primary Care Provider: Jane Oden MD [facility] Reason for consult: LGIB This is a 63-year-old female past medical history of COPD, low back pain status post spinal cord stimulator, GERD, CKD, history of diverticulitis with partial bowel resection, who presents due to the hospital for abdominal pain and diarrhea. Patient reports onset of severe abdominal pain associated with bloody diarrhea with multiple BMs per day. Pain is mostly in left lower quadrant. This is associated with nausea but no fevers, chills. No sick contacts. No recent travel or changes in medication. She does state that the episode is reminiscent of her diverticulitis attack last year that necessitated bowel surgery at [facility]. Last colonoscopy was 2021 per her report. On arrival to the hospital she was noted to have normal vitals. Labs were significant for hemoconcentration and elevated LFTs 20 times upper normal limit. She also had a mildly elevated lipase. Lactic was normal. CT abdomen and pelvis without contrast did not show anything remarkable and gastrointestinal system. Liver also without any focal lesion. She does have significant atherosclerotic disease of her vasculature. Stool studies ordered by overnight provider and are pending. Patient states she has not had any further bowel movements since coming to the hospital. Review of Systems Review of Systems: Yes all other systems are reviewed and are negative PMFSH Past Medical History Medical History Anxiety Depression Chronic low back pain Fibromyalgia Migraine Nausea and vomiting COPD (chronic obstructive pulmonary disease) Hyperlipidemia Hypertension CKD (chronic kidney disease), stage III Diverticulitis Surgical History Surgical History S/P insertion of spinal cord stimulator History of laminectomy History of colon resection Social History Social History Household Members: Spouse Housing: House Do you presently have visiting nurse or other home services: No Alcohol intake: never Comment: 1:1 sitter Patient Tobacco Use Status: Former Tobacco user Smoked in Last 30 Days: Yes Second Hand Smoke Exposure: No Use of substances other than those prescribed or required for medical reasons: No Substance Use Type: Marijuana Currently Displaying Signs/Symptoms of Drug Intoxication Withdrawal: No Have you been hit, kicked, punched, or otherwise hurt by someone within the past year? If so, by whom?: No Do you feel safe in your current relationship?: Yes Is there a partner from a previous relationship who is making you feel unsafe now?: No Are you made to feel afraid or neglected: No Advance Directives: Yes Advance Directives on File: Yes Advance Directives Date on File: 11/27/23 Do you have a plan to hurt others: No Plan Recently lost weight without trying: No Nutrition Risks: No Nutritional Risk Patient : No : No Poor oral hygiene: No service: No Sexual orientation: Straight/Heterosexual Meds Allergies Allergy/AdvReac Type Severity Reaction Status Date / Time codeine Allergy Severe Itching Verified 01/16/24 12:02 NSAIDS (Non-Steroidal AdvReac Severe bleeding Verified 01/16/24 12:02 Anti-Inflamma contrast dye AdvReac Severe Anaphylaxis Uncoded 01/16/24 12:02 Active Medications: Current Medications Acetaminophen (Acetaminophen 325 Mg Tablet) 650 mg PO Q6H PRN PRN Reason: Pain, Mild (Pain Scale 1-3), fever or headache Albuterol Sulfate (Albuterol Sulfate 90 Mcg 8 Gm Inhaler) 2 puff INHALE Q6H PRN PRN Reason: Dyspnea Atorvastatin Calcium (Atorvastatin Calcium 20 Mg Tablet) 20 mg PO DAILY CRISTINA Calcium Carbonate (Calcium Carbonate 750 Mg Tab.Chew) 750 mg PO Q4H PRN PRN Reason: Heartburn Fluoxetine HCl (Fluoxetine Hcl 20 Mg Capsule) 40 mg PO DAILY CRISTINA Hydromorphone HCl (Hydromorphone Hcl 0.5 Mg/0.5 Ml Syringe) 0.25 mg IVPUSH Q4H PRN; Protocol PRN Reason: Pain, Severe (Pain Scale 7-10) Lactated Ringer's (Lr) 1,000 mls @ 100 mls/hr IVCONT .Q10H [facility] Last Admin: 01/17/24 10:22 Dose: 100 mls/hr Magnesium Hydroxide (Milk Of Magnesia 30 Ml Oral.Susp) 30 ml PO DAILY PRN PRN Reason: Constipation Melatonin (Melatonin 3 Mg Tablet) 6 mg PO BEDTIME PRN PRN Reason: Insomnia Ondansetron HCl (Ondansetron Hcl 4 Mg/2 Ml Vial) 4 mg IVPUSH Q8H PRN PRN Reason: Nausea and Vomiting Oxycodone HCl (Oxycodone Hcl Immed Release 5 Mg Tablet) 5 mg PO Q6H PRN PRN Reason: Pain, Moderate(Pain Scale 4-6) Last Admin: 01/17/24 10:22 Dose: 5 mg Pantoprazole Sodium (Pantoprazole Sodium 40 Mg/10 Ml Vial) 40 mg IVPUSH BID@0630,1630 [facility] Last Admin: 01/17/24 06:05 Dose: 40 mg Pregabalin (Pregabalin 150 Mg Capsule) [address] [facility] Sodium Chloride (0.9 % Sodium Chloride Flush 3 Ml Syringe) [address] [facility] Last Admin: 01/17/24 10:22 Dose: 3 ml Tiotropium [place] (Tiotropium [place] 2.5 Mcg 1 Puff/2.5 Mcg Mist.Inhal) [address] [facility] Home Medications ?Medication ?Instructions ?Recorded ?Confirmed ?Last Taken ?Type omeprazole 40 mg capsule,delayed 40 mg PO DAILY@0630 11/27/23 01/17/24 01/16/24 History release lisinopril 5 mg tablet 5 mg PO DAILY 01/17/24 01/17/24 01/16/24 History pregabalin 300 mg capsule 300 mg PO BID 01/17/24 01/17/24 01/16/24 History Physical Exam Vital Signs: Vital Signs: Last Vital Signs Temp 97.7 F 01/17/24 11:12 Pulse 58 01/17/24 11:12 Resp 18 01/17/24 11:12 BP 104/53 L 01/17/24 11:12 Pulse Ox 98 01/17/24 11:12 O2 Del Method Room Air 01/17/24 11:12 BMI result Body Mass Index 23.2 Elderly female Resting comfortably Abdomen soft, mildly tender in LLQ, guarding, nondistended No respiratory distress No lower extremity edema Results Labs 01/17/24 05:36 01/17/24 05:36 Labs: Short CBC 01/17/24 Range/Units 05:36 WBC 3.6 L (4.8-10.8) X10*3/uL Hgb 12.6 (12.0-16.0) g/dl Hct 38.2 (37.0-47.0) % Plt Count 167 (160-400) X10*3/uL BMP 01/17/24 05:36 Sodium 141 Potassium 4.2 Chloride 113 H Carbon Dioxide 19 L BUN 15 Creatinine 0.79 Calcium 9.0 Liver Function 01/17/24 Range/Units 05:36 Total Bilirubin 0.8 (0.0-1.0) mg/dL AST 411 H (5-31) U/L ALT 716 H (0-31) U/L Alkaline Phosphatase 97 (39-117) U/L Albumin 3.6 (3.5-5.0) g/dL Urine 01/16/24 Range/Units 18:12 Urine Color Yellow Urine Appearance Clear Urine pH 6.0 (5.0-9.0) Ur Specific [place] 1.020 (1.005-1.025) Urine Protein Trace (Neg-Trace) mg/dL Urine Glucose (UA) Negative (Negative) mg/dL Assessment and Plan (1) Abdominal pain: Status: Acute (2) Bloody diarrhea: Status: Acute (3) LFT elevation: Status: Acute Plan Overall presentation consistent with infectious colitis versus ischemic colitis. LFTs likely a bystander, from low-flow state ( hypoxic hepatitis ). Rapid improvement in transaminases is reassuring and also points to the same. Plan: -agree with GI panel and C diff -serial abdominal exams -mesenteric duplex -if unable to tolerate diet or abdominal pain/exam gets worse, low threshold to repeat imaging vs flex sig -otherwise can start clears and advance as tolerated -check LFTs tmrw AM Thank you for allowing me to participate in her care. Please do not hesitate to reach out for any questions or concerns. Procedures Date of Service Date of Service: 01/17/24
[2024-01-17] MEDS: HYDROmorphone HCl 0.5 MG/0.5 ML SYRINGE 0.25 MG IVPUSH ×2 (15:54→19:54)
[2024-01-17] MEDS: Pregabalin 150 MG CAPSULE 300 MG PO (19:55)
[2024-01-17 21:07] LABS: Glucose, Whole Blood 69 mg/dL (60-115)
[2024-01-18] VITALS (7 sets, daily range): BP systolic 110–170; BP diastolic 63–89; PULSE 57–70; RESP 16–20; TEMP 36.1–36.6; O2SAT 93–100
[2024-01-18 06:01] LABS: MANUAL DIFF FLAG NO
[2024-01-18 06:06] LABS: Basophils Percent Auto 1.2 % (0-2); Eosinophils Absolute Auto 0.1 X10*3/uL (0.0-0.4); Eosinophils Percent Auto 2.7 % (0-4); Hematocrit 39.2 % (37.0-47.0); Hemoglobin 13.2 g/dl (12.0-16.0); Imm Gran Abs Auto 0.02 X10*3/uL (0.00-0.03); Imm Gran Pct Auto 0.6 % (0.0-0.4); Lymphocytes Absolute Auto 0.8 X10*3/uL (1.2-4.9); Lymphocytes Percent Auto 23.2 % (20-40); Mean Corpuscular HGB Conc 33.7 g/dl (31.0-35.0); Mean Corpuscular Hemoglobin 29.3 pg (27.0-33.0); Mean Corpuscular Volume 86.9 fL (80.0-98.0); Mean Platelet Volume 9.4 fL (9.4-12.3); Monocytes Absolute Auto 0.2 X10*3/uL (0.1-1.2); Monocytes Percent Auto 5.8 % (2-11); Neutrophils Absolute Auto 2.2 x10*3/uL (2.0-8.3); Neutrophils Percent Auto 66.5 % (45-73); Platelet Count 181 X10*3/uL (160-400); Red Blood Count 4.51 X10*6/uL (4.20-5.50); Red Cell Distribution Width 14.2 % (11.0-16.0); White Blood Count 3.3 X10*3/uL (4.8-10.8)
[2024-01-18 06:19] LABS: Alanine Aminotransferase 493 U/L (0-31); Albumin Level 3.7 g/dL (3.5-5.0); Alkaline Phosphatase 101 U/L (39-117); Anion Gap 14 (12-20); Aspartate Amino Transferase 168 U/L (5-31); Bilirubin Direct 0.2 mg/dL (0.0-0.5); Bilirubin Total 0.6 mg/dL (0.0-1.0); Blood Urea Nitrogen 9 mg/dL (9-16); Calcium 9.1 mg/dL (8.4-10.2); Carbon Dioxide 22 mmol/L (22-29); Chloride 110 mmol/L (96-108); Creatinine Clr Calc Pharmacy 72.8; Estimated Glomerular Filt Rate > 60; Glucose Random 90 mg/dL (60-115); Potassium 3.8 mmol/L (3.3-5.1); Sodium 142 mmol/L (135-145)
[2024-01-18] MEDS: Lactated Ringers 1,000 ML 100 ML IVCONT (06:29)
[2024-01-18] MEDS: HYDROmorphone HCl 0.5 MG/0.5 ML SYRINGE 0.25 MG IVPUSH ×4 (06:29→20:30)
[2024-01-18] MEDS: ondansetron HCL 4 MG/2 ML VIAL IVPUSH ×2 (06:29→19:51)
[2024-01-18] MEDS: Pantoprazole Sodium 40 MG/10 ML VIAL IVPUSH (06:29)
--- NOTE | 2024-01-18 06:54 | PM.DS ---
DS: Providers Provider Date of Service: 01/18/24 Date of admission: 01/16/24 21:42 Date of discharge: 01/18/24 Primary care physician: Jane Oden MD Attending physician on admission: Nelida Woodard Consults: 01/17/24 11:21 Consult to Gastroenterology Routine Consulting Provider: Penelope Toscano Reason for consultation: gi bleed Attending physician on discharge: Yovani Hernandez Discharging clinician: Elisa Knott DS: Diagnosis Discharge Diagnosis (1) GI bleed: Status: Acute (2) LFT elevation: Status: Acute (3) Abdominal pain: Status: Acute DS: Summary Hospital Course Hospital Course: HPI on admission by Dr. Woodard 01/15: This is a 63-year-old female with pertinent history of COPD not on home oxygen, chronic low back pain status post spinal cord stimulator, mood disorder, gastroesophageal reflux disease, CKD stage 3, history of diverticulitis status post bowel resection, mixed hyperlipidemia who presents to the emergency department for evaluation of abdominal pain. Patient states her symptoms started 3 days prior to presentation. She has been having left-sided abdominal pain which is constant, nonradiating and without any relieving factors. Unable to tolerate p.o. intake due to nausea. Also started to have diarrhea 3-4 episodes per day. Two days prior to presentation, started having bloody diarrhea. No sick contacts. No precipitating factor. No fever, chills, chest pain, palpitations, shortness of breath, changes in urinary habits. In the emergency department, stool occult positive and AST/ALT found to be elevated Hospital course: Physical Exam Vital Signs: Vital Signs: Last Vital Signs Temp 96.9 F 01/18/24 03:29 Pulse 61 01/18/24 03:29 Resp 20 01/18/24 03:29 BP 126/63 01/18/24 03:29 Pulse Ox 96 01/18/24 03:29 O2 Del Method Room Air 01/18/24 03:29 BMI result Body Mass Index 23.2 DS: Data Data Completed and Pending Labs on day of discharge: Laboratory Results - last 24 hr 01/17/24 01/17/24 01/17/24 05:36 08:30 08:37 WBC RBC Hgb Hct MCV MCH MCHC RDW Plt Count MPV Immature Gran % (Auto) Neut % (Auto) Lymph % (Auto) [place] % (Auto) Eos % (Auto) Baso % (Auto) Lymph # (Auto) [place] # (Auto) Eos # (Auto) Baso # (Auto) Abs Immat Gran (auto) Absolute Neuts (auto) Absolute Nucleated RBC Nucleated RBC % (auto) Hold Purple Top SEE NOTE VBG pH 7.31 L VBG pCO2 45 VBG pO2 44 VBG HCO3 23 VBG O2 Saturation 73.0 VBG Base Excess -3.1 Sodium 141 Potassium 4.2 Chloride 113 H Carbon Dioxide 19 L Anion Gap 13 BUN 15 Creatinine 0.79 Estim Creat Clear Calc 66.4 Estimated GFR > 60 POC Glucose Random Glucose 65 Calcium 9.0 Total Bilirubin 0.8 Direct Bilirubin AST 411 H ALT 716 H Alkaline Phosphatase 97 Total Protein 6.0 L Albumin 3.6 Beta-Hydroxybutyrate 2.37 H 01/17/24 01/17/24 01/18/24 09:17 20:58 05:42 WBC 3.3 L RBC 4.51 Hgb 13.2 Hct 39.2 MCV 86.9 MCH 29.3 MCHC 33.7 RDW 14.2 Plt Count 181 MPV 9.4 Immature Gran % (Auto) 0.6 H Neut % (Auto) 66.5 Lymph % (Auto) 23.2 [place] % (Auto) 5.8 Eos % (Auto) 2.7 Baso % (Auto) 1.2 Lymph # (Auto) 0.8 L [place] # (Auto) 0.2 Eos # (Auto) 0.1 Baso # (Auto) 0.0 Abs Immat Gran (auto) 0.02 Absolute Neuts (auto) 2.2 Absolute Nucleated RBC 0.000 Nucleated RBC % (auto) 0.0 Hold Purple Top VBG pH VBG pCO2 VBG pO2 VBG HCO3 VBG O2 Saturation VBG Base Excess Sodium 142 Potassium 3.8 Chloride 110 H Carbon Dioxide 22 Anion Gap 14 BUN 9 Creatinine 0.72 Estim Creat Clear Calc 72.8 Estimated GFR > 60 POC Glucose 61 69 Random Glucose 90 Calcium 9.1 Total Bilirubin 0.6 Direct Bilirubin 0.2 AST 168 H ALT 493 H Alkaline Phosphatase 101 Total Protein 6.0 L Albumin 3.7 Beta-Hydroxybutyrate Discharge Plan Discharge Referrals: Jane Oden MD [Primary Care Provider] - 1 Week Discharge Medications: No Action albuterol sulfate [Ventolin HFA] 90 mcg/actuation Hfa Aerosol Inhaler 2 puff inhalation Q6H PRN (Reason: Dyspnea) Qty: 8.5 0RF atorvastatin 20 mg Tablet 20 mg PO DAILY Qty: 1 0RF ondansetron 4 mg Tablet,Disintegrating 4 mg translingual Q6H PRN (Reason: Nausea And Vomiting) Qty: 1 0RF omeprazole 40 mg capsule,delayed release(DR/EC) 40 mg PO DAILY@0630 fluoxetine 20 mg Capsule 40 mg PO DAILY 30 Days Qty: 60 0RF Spiriva Respimat 2.5 mcg/actuation Mist 2 puff inhalation RDAILY 30 Days Qty: 4 0RF lisinopril 5 mg tablet 5 mg PO DAILY pregabalin 300 mg capsule 300 mg PO BID Print Language: Lao
[2024-01-18] MEDS: Tiotropium Bromide 2.5 mcg 1 PUFF/2.5 MCG MIST.INHAL 2 PUFF INHALE (07:27)
[2024-01-18 07:39] LABS: Glucose, Whole Blood 87 mg/dL (60-115)
[2024-01-18] MEDS: oxyCODONE HCl Immed Release 5 MG TABLET PO ×3 (07:51→22:37)
[2024-01-18] MEDS: 0.9 % Sodium Chloride Flush 3 ML SYRINGE IVFLUSH ×3 (07:51→19:51)
[2024-01-18] MEDS: FLUoxetine HCl 20 MG CAPSULE 40 MG PO (07:51)
[2024-01-18] MEDS: Pregabalin 150 MG CAPSULE 300 MG PO ×2 (07:51→20:29)
[2024-01-18 09:11] LABS: VBG Base Excess -0.7 mmol/L; VBG HCO3 25 mmol/L (22-26); VBG pCO2 44 mmHg; VBG pH 7.35 (7.32-7.43); VBG pO2 41 mmHg
[2024-01-18 09:13] LABS: Lactic Acid 0.7 mmol/L (0.5-2.0)
[2024-01-18 09:23] LABS: Venous Blood Gas Refer to POC result
--- NOTE | 2024-01-18 10:46 | HO.PM.IMPN ---
Subjective Subjective Date of Service: 01/18/24 Interval History: Seen in follow-up for abdominal pain, bloody diarrhea Interval history: Continues reporting 11/18 nonradiating left lower quadrant pain with associated nausea. No vomiting or ongoing diarrhea. Had formed non bloody stool this am. No melena, hematochezia, hematemesis. Hemodynamically stable. H/H stable. Review of Systems Review of Systems: Yes all other systems are reviewed and are negative Physical Exam Vital Signs: Vital Signs: Last Vital Signs Temp 97.2 F 01/18/24 07:40 Pulse 63 01/18/24 07:40 Resp 20 01/18/24 07:40 BP 140/79 H 01/18/24 07:40 Pulse Ox 100 01/18/24 07:40 O2 Del Method Room Air 01/18/24 07:40 BMI result Body Mass Index 23.2 Constitutional - Awake and Alert, No apparent distress Eyes - PERRLA, EOMI Cardiovascular - S1S2, RRR, No edema Respiratory - Normal lung expansion, Normal respiratory effort, No respiratory distress, CTA bilaterally Gastrointestinal - mild distention llq with ttp and voluntary guarding, +BS; No rebound Extremities - no calf tenderness bilaterally, no swelling Skin - Warm/Dry Neurological - Alert & oriented x3 Psychological - Appropriate affect Objective Data Active Medications Acetaminophen (Acetaminophen 325 Mg Tablet) 650 mg PO Q6H PRN PRN Reason: Pain, Mild (Pain Scale 1-3), fever or headache Albuterol Sulfate (Albuterol Sulfate 90 Mcg 8 Gm Inhaler) 2 puff INHALE Q6H PRN PRN Reason: Dyspnea Calcium Carbonate (Calcium Carbonate 750 Mg Tab.Chew) 750 mg PO Q4H PRN PRN Reason: Heartburn Fluoxetine HCl (Fluoxetine Hcl 20 Mg Capsule) 40 mg PO DAILY [facility] Last Admin: 01/18/24 07:51 Dose: 40 mg Documented By: GUSTABO Hydromorphone HCl (Hydromorphone Hcl 0.5 Mg/0.5 Ml Syringe) 0.25 mg IVPUSH Q4H PRN; Protocol PRN Reason: Pain, Severe (Pain Scale 7-10) Last Admin: 01/18/24 06:29 Dose: 0.25 mg Documented By: DARSHAN Magnesium Hydroxide (Milk Of Magnesia 30 Ml Oral.Susp) 30 ml PO DAILY PRN PRN Reason: Constipation Melatonin (Melatonin 3 Mg Tablet) 6 mg PO BEDTIME PRN PRN Reason: Insomnia Ondansetron HCl (Ondansetron Hcl 4 Mg/2 Ml Vial) 4 mg IVPUSH Q8H PRN PRN Reason: Nausea and Vomiting Last Admin: 01/18/24 06:29 Dose: 4 mg Documented By: DARSHAN Oxycodone HCl (Oxycodone Hcl Immed Release 5 Mg Tablet) 5 mg PO Q6H PRN PRN Reason: Pain, Moderate(Pain Scale 4-6) Last Admin: 01/18/24 07:51 Dose: 5 mg Documented By: GUSTABO Pantoprazole Sodium (Pantoprazole Sodium 40 Mg/10 Ml Vial) 40 mg IVPUSH BID@0630,1630 [facility] Last Admin: 01/18/24 06:29 Dose: 40 mg Documented By: DARSHAN Pregabalin (Pregabalin 150 Mg Capsule) 300 mg PO BID [facility] Last Admin: 01/18/24 07:51 Dose: 300 mg Documented By: GUSTABO Sodium Chloride (0.9 % Sodium Chloride Flush 3 Ml Syringe) 3 ml IVFLUSH QSHIFT [facility] Last Admin: 01/18/24 07:51 Dose: 3 ml Documented By: GUSTABO Tiotropium [place] (Tiotropium [place] 2.5 Mcg 1 Puff/2.5 Mcg Mist.Inhal) 2 puff INHALE RDAILY [facility] Last Admin: 01/18/24 07:27 Dose: 2 puff Documented By: FREDERICK Labs 01/18/24 05:42 01/18/24 05:42 Labs: Laboratory Results - last 24 hr 01/17/24 01/18/24 01/18/24 20:58 05:42 07:35 MCV 86.9 MCH 29.3 MCHC 33.7 RDW 14.2 Plt Count 181 MPV 9.4 Immature Gran % (Auto) 0.6 H Neut % (Auto) 66.5 Lymph % (Auto) 23.2 [place] % (Auto) 5.8 Eos % (Auto) 2.7 Baso % (Auto) 1.2 Lymph # (Auto) 0.8 L [place] # (Auto) 0.2 Eos # (Auto) 0.1 Baso # (Auto) 0.0 Abs Immat Gran (auto) 0.02 Absolute Neuts (auto) 2.2 Absolute Nucleated RBC 0.000 Nucleated RBC % (auto) 0.0 VBG pH VBG pCO2 VBG pO2 VBG HCO3 VBG O2 Saturation VBG Base Excess Anion Gap 14 Estim Creat Clear Calc 72.8 Estimated GFR > 60 POC Glucose 69 87 Random Glucose 90 Lactic Acid Calcium 9.1 Total Bilirubin 0.6 Direct Bilirubin 0.2 AST 168 H ALT 493 H Alkaline Phosphatase 101 Total Protein 6.0 L Albumin 3.7 01/18/24 01/18/24 08:48 09:02 MCV MCH MCHC RDW Plt Count MPV Immature Gran % (Auto) Neut % (Auto) Lymph % (Auto) [place] % (Auto) Eos % (Auto) Baso % (Auto) Lymph # (Auto) [place] # (Auto) Eos # (Auto) Baso # (Auto) Abs Immat Gran (auto) Absolute Neuts (auto) Absolute Nucleated RBC Nucleated RBC % (auto) VBG pH 7.35 VBG pCO2 44 VBG pO2 41 VBG HCO3 25 VBG O2 Saturation 68.0 VBG Base Excess -0.7 Anion Gap Estim Creat Clear Calc Estimated GFR POC Glucose Random Glucose Lactic Acid 0.7 Calcium Total Bilirubin Direct Bilirubin AST ALT Alkaline Phosphatase Total Protein Albumin Assessment and Plan (1) GI bleed: Status: Acute (2) LFT elevation: Status: Acute (3) Abdominal pain: Status: Acute Plan 63-year-old female with history of CKD stage 3, history of diverticulitis s/p bowel resection, hyperlipidemia, hypertension, chronic low back pain s/p spinal cord stimulator, and mood disorder admitted to adult Psychiatry with consult placed to hospitalist service for medical H&P. # left lower quadrant pain -CT abdomen pelvis negative for acute abnormality -GI requested mesenteric doppler which was negative -01/17- normal nonbloody bm this morning. Given persistent pain, check ct abd pelvis w/ contrast -cancel C diff PCR and GI panel -recheck ua/uc -analgesia p.r.n. -Repeat lactic acid and VBG wnl -dc iv ppi. Contineu clears. DC IVF -GI input appreciated. Consider general surgery consult pending results #BRBPR- resolved -no ongoing diarrhea -?r/t transient viral gastroenteritis, now resolved. Plan as above for llq pain #chronic nausea , no ongoing vomiting -follows with [facility] GI with negative work up. Discussed that her chronic symptoms could be related to regular cannibus use which can take 2-3 months of complete cessation to resolve and that resuming the substance could result in relapse of symptoms. Recent admission for d-lactic acidosis requiring ICU transfer -antiemetics p.r.n. -Clear liquids diet -GI input appreciated # acute metabolic acidosis-resolved -lactic acid within normal limits. Beta hydroxybutyrate 2.37. Initial ph 7.31--> 7.35 -DC IVF # transaminitis -LFTs trending down. ?r/t viral illness such as gastroenteritis -CT abdomen pelvis unremarkable -GI consult -trend LFTs # CKD stage 3 -renal function baseline #COPD -No exacerbation. continue home inhalers #HTN -resume lisinopril #Fibromyalgia -lyrica #HLD -hold statin for now due to transaminitis dvt prophylaxis- scps full code pt requires ongoing inpt stay due to severe LLQ pain requiring imaging with contrast which will require premedication due to severe allergy with close monitoring and possible surgical consult Quality Stroke Does the patient have a stroke diagnosis?: No VTE Prior VTE?: No VTE Risk Level:: Medical - moderate - high VTE Device Contraindication: N/A - Device Ordered VTE Drug Contraindication: Treatment Not Indicated
[2024-01-18] MEDS: methylPREDNISolone Sod Succ 40 MG/ML VIAL IVPUSH ×2 (10:56→10:59)
[2024-01-18] MEDS: diphenhydrAMINE HCL 50 MG/ML VIAL IVPUSH (10:56)
[2024-01-18] MEDS: lisinopriL 5 MG TABLET PO (10:58)
[2024-01-18] MEDS: iohexoL 350 MG/ML 75 ML INFUS..BTL 85 ML IV (11:48)
[2024-01-18 15:57] LABS: Appearance Urine Clear; Color Urine Yellow; Glucose Urine UA >=1000 mg/dL (Negative); Leukocyte Esterase Urine Negative (Negative); Nitrite Urine Negative (Negative); Specific Gravity - Urine 1.025 (1.005-1.025); UMIC TRIGGER UACC YES; Urine Blood Negative (Negative); Urine Ketones Negative (Negative); Urine Protein Negative (Neg-Trace)
[2024-01-18 15:59] LABS: Bacteria Urine None Seen (None Seen); Hyaline Casts Urine 0-2 /LPF (0-2); RBC Urine 0-2 /HPF (0-2); Squamous Epithelial Cell Urine 0-2 /HPF (0-2); WBC Urine 0-5 /HPF (0-5)
[2024-01-19] VITALS (8 sets, daily range): BP systolic 107–134; BP diastolic 53–73; PULSE 52–70; RESP 16–20; TEMP 36.4–36.8; O2SAT 95–99
[2024-01-19] MEDS: HYDROmorphone HCl 0.5 MG/0.5 ML SYRINGE 0.25 MG IVPUSH ×5 (04:10→22:22)
[2024-01-19 05:56] LABS: MANUAL DIFF FLAG NO
--- NOTE | 2024-01-19 06:01 | PC.NURSE ---
Pt is AOx4, able to make needs known. She continues to have pain in her ABD and requesting PRN medication (see MAR for administration). Pt reported 3 episodes of diarrhea in approx 2 hrs. notified, ordered GI panel. Pt has not had any more episodes of diarrhea as of this note. Call cruz within reach, bed alarm on.
[2024-01-19 06:07] LABS: Basophils Percent Auto 0.3 % (0-2); Eosinophils Percent Auto 0.5 % (0-4); Hematocrit 37.3 % (37.0-47.0); Hemoglobin 12.4 g/dl (12.0-16.0); Imm Gran Abs Auto 0.02 X10*3/uL (0.00-0.03); Imm Gran Pct Auto 0.3 % (0.0-0.4); Mean Corpuscular HGB Conc 33.2 g/dl (31.0-35.0); Mean Corpuscular Volume 87.4 fL (80.0-98.0); Mean Platelet Volume 9.7 fL (9.4-12.3); Monocytes Absolute Auto 0.4 X10*3/uL (0.1-1.2); Monocytes Percent Auto 7.3 % (2-11); Neutrophils Absolute Auto 4.5 x10*3/uL (2.0-8.3); Neutrophils Percent Auto 75.6 % (45-73); Platelet Count 185 X10*3/uL (160-400); Red Blood Count 4.27 X10*6/uL (4.20-5.50); Red Cell Distribution Width 14.2 % (11.0-16.0)
[2024-01-19 06:21] LABS: Anion Gap 9 (12-20); Blood Urea Nitrogen 8 mg/dL (9-16); Calcium 9.3 mg/dL (8.4-10.2); Carbon Dioxide 29 mmol/L (22-29); Chloride 107 mmol/L (96-108); Creatinine Clr Calc Pharmacy 61.7; Estimated Glomerular Filt Rate > 60; Glucose Random 101 mg/dL (60-115); Potassium 3.6 mmol/L (3.3-5.1); Sodium 141 mmol/L (135-145)
[2024-01-19] MEDS: Tiotropium Bromide 2.5 mcg 1 PUFF/2.5 MCG MIST.INHAL 2 PUFF INHALE (07:29)
[2024-01-19] MEDS: Pregabalin 150 MG CAPSULE 300 MG PO ×2 (08:25→20:11)
[2024-01-19] MEDS: lisinopriL 5 MG TABLET PO (08:25)
[2024-01-19] MEDS: FLUoxetine HCl 20 MG CAPSULE 40 MG PO (08:25)
[2024-01-19] MEDS: 0.9 % Sodium Chloride Flush 3 ML SYRINGE IVFLUSH ×2 (08:33→17:23)
--- NOTE | 2024-01-19 09:32 | HO.PM.IMPN ---
Subjective Subjective Date of Service: 01/19/24 Interval History: still wtih abd pain Physical Exam Vital Signs: Vital Signs: Last Vital Signs Temp 98.3 F 01/19/24 07:25 Pulse 59 01/19/24 07:31 Resp 16 01/19/24 07:31 BP 120/65 01/19/24 07:25 Pulse Ox 97 01/19/24 07:25 O2 Del Method Room Air 01/19/24 07:25 BMI result Body Mass Index 23.2 Constitutional - Awake and Alert, No apparent distress Eyes - PERRLA, EOMI Cardiovascular - S1S2, RRR, No edema Respiratory - Normal lung expansion, Normal respiratory effort, No respiratory distress, CTA bilaterally Gastrointestinal - mild distention llq with ttp and voluntary guarding, +BS; No rebound Extremities - no calf tenderness bilaterally, no swelling Skin - Warm/Dry Neurological - Alert & oriented x3 Psychological - Appropriate affect Objective Data Active Medications Acetaminophen (Acetaminophen 325 Mg Tablet) 650 mg PO Q6H PRN PRN Reason: Pain, Mild (Pain Scale 1-3), fever or headache Albuterol Sulfate (Albuterol Sulfate 90 Mcg 8 Gm Inhaler) 2 puff INHALE Q6H PRN PRN Reason: Dyspnea Calcium Carbonate (Calcium Carbonate 750 Mg Tab.Chew) 750 mg PO Q4H PRN PRN Reason: Heartburn Fluoxetine HCl (Fluoxetine Hcl 20 Mg Capsule) 40 mg PO DAILY [facility] Last Admin: 01/19/24 08:25 Dose: 40 mg Documented By: LINSEY Hydromorphone HCl (Hydromorphone Hcl 0.5 Mg/0.5 Ml Syringe) 0.25 mg IVPUSH Q4H PRN; Protocol PRN Reason: Pain, Severe (Pain Scale 7-10) Last Admin: 01/19/24 08:23 Dose: 0.25 mg Documented By: LINSEY Lisinopril (Lisinopril 5 Mg Tablet) 5 mg PO DAILY [facility]; Protocol Last Admin: 01/19/24 08:25 Dose: 5 mg Documented By: LINSEY Magnesium Hydroxide (Milk Of Magnesia 30 Ml Oral.Susp) 30 ml PO DAILY PRN PRN Reason: Constipation Melatonin (Melatonin 3 Mg Tablet) 6 mg PO BEDTIME PRN PRN Reason: Insomnia Ondansetron HCl (Ondansetron Hcl 4 Mg/2 Ml Vial) 4 mg IVPUSH Q8H PRN PRN Reason: Nausea and Vomiting Last Admin: 01/18/24 19:51 Dose: 4 mg Documented By: EVELYNE Oxycodone HCl (Oxycodone Hcl Immed Release 5 Mg Tablet) 5 mg PO Q6H PRN PRN Reason: Pain, Moderate(Pain Scale 4-6) Last Admin: 01/18/24 22:37 Dose: 5 mg Documented By: EVELYNE Pregabalin (Pregabalin 150 Mg Capsule) 300 mg PO BID [facility] Last Admin: 01/19/24 08:25 Dose: 300 mg Documented By: LINSEY Sodium Chloride (0.9 % Sodium Chloride Flush 3 Ml Syringe) 3 ml IVFLUSH QSHIFT [facility] Last Admin: 01/19/24 08:33 Dose: 3 ml Documented By: LINSEY Tiotropium [place] (Tiotropium [place] 2.5 Mcg 1 Puff/2.5 Mcg Mist.Inhal) 2 puff INHALE RDAILY [facility] Last Admin: 01/19/24 07:29 Dose: 2 puff Documented By: MEGHAN Labs 01/19/24 05:31 01/19/24 05:31 Labs: Laboratory Results - last 24 hr 01/18/24 01/19/24 15:41 05:31 MCV 87.4 MCH 29.0 MCHC 33.2 RDW 14.2 Plt Count 185 MPV 9.7 Immature Gran % (Auto) 0.3 Neut % (Auto) 75.6 H Lymph % (Auto) 16.0 L [place] % (Auto) 7.3 Eos % (Auto) 0.5 Baso % (Auto) 0.3 Lymph # (Auto) 1.0 L [place] # (Auto) 0.4 Eos # (Auto) 0.0 Baso # (Auto) 0.0 Abs Immat Gran (auto) 0.02 Absolute Neuts (auto) 4.5 Absolute Nucleated RBC 0.000 Nucleated RBC % (auto) 0.0 Anion Gap 9 L Estim Creat Clear Calc 61.7 Estimated GFR > 60 Random Glucose 101 Calcium 9.3 Urine Color Yellow Urine Appearance Clear Urine pH 7.0 Ur Specific [place] 1.025 Urine Protein Negative Urine Glucose (UA) >=1000 H Urine Ketones Negative Urine Blood Negative Urine Nitrite Negative Ur Leukocyte Esterase Negative Urine RBC 0-2 Urine WBC 0-5 Ur Squamous Epith Cells 0-2 Urine Bacteria None Seen Hyaline Casts 0-2 Assessment and Plan (1) GI bleed: Status: Acute (2) LFT elevation: Status: Acute (3) Abdominal pain: Status: Acute Plan 63F PMH COPD not on home oxygen, chronic low back pain status post spinal cord stimulator, mood disorder, gastroesophageal reflux disease, CKD stage 3, history of diverticulitis status post bowel resection, mixed hyperlipidemia who presented to the emergency department for evaluation of abdominal pain left lower quadrant pain CT abdomen pelvis negative for acute abnormality GI requested mesenteric doppler which was negative follow up C diff PCR and GI panel BRBPR- resolved chronic nausea , no ongoing vomiting -follows with [facility] GI with negative work up. Discussed that her chronic symptoms could be related to regular cannibus use which can take 2-3 months of complete cessation to resolve and that resuming the substance could result in relapse of symptoms. Recent admission for d-lactic acidosis requiring ICU transfer -antiemetics p.r.n. -Clear liquids diet -GI input appreciated acute metabolic acidosis-resolved -lactic acid within normal limits. Beta hydroxybutyrate 2.37. Initial ph 7.31--> 7.35 -DC IVF transaminitis -LFTs trending down. ?r/t viral illness such as gastroenteritis -CT abdomen pelvis unremarkable -trend LFTs CKD stage 3 -renal function baseline COPD -No exacerbation. continue home inhalers HTN -resume lisinopril Fibromyalgia -lyrica HLD -hold statin for now due to transaminitis dvt prophylaxis- scps due to brbpr full code reason for continued hospitalization:abd pain Quality Stroke Does the patient have a stroke diagnosis?: No VTE Prior VTE?: No VTE Risk Level:: Medical - moderate - high VTE Device Contraindication: N/A - Device Ordered VTE Drug Contraindication: Treatment Not Indicated
[2024-01-19] MEDS: ondansetron HCL 4 MG/2 ML VIAL IVPUSH (17:21)
[2024-01-19] MEDS: oxyCODONE HCl Immed Release 5 MG TABLET PO (20:12)
[2024-01-19 21:38] LABS: CDiff Gene PCR POSITIVE (Negative)
[2024-01-19 22:21] LABS: CDIFF Internal ctrl Dots and bkg OK (V); CDiff Toxin Negative (Negative)
--- NOTE | 2024-01-19 22:33 | PM.EVENT ---
Event Note Date of Service: 01/19/24 Event Note: Patient with cdiff gene positive and toxin negative. Unclear significance. Initiating vancomycin and consulting ID Time Spent With Patient Time: Total time managing care of this patient today ____ minutes.
[2024-01-19] MEDS: vancomycin HCL 125 MG CAPSULE PO (22:43)
[2024-01-20] VITALS (8 sets, daily range): BP systolic 86–133; BP diastolic 54–90; PULSE 56–80; RESP 15–20; TEMP 36.3–37.2; O2SAT 93–100
[2024-01-20] MEDS: vancomycin HCL 125 MG CAPSULE PO ×4 (04:01→22:39)
[2024-01-20] MEDS: 0.9 % Sodium Chloride Flush 3 ML SYRINGE IVFLUSH ×3 (04:02→19:43)
[2024-01-20] MEDS: HYDROmorphone HCl 0.5 MG/0.5 ML SYRINGE 0.25 MG IVPUSH ×5 (04:02→22:45)
[2024-01-20 06:45] LABS: Hematocrit 39.3 % (37.0-47.0); Hemoglobin 12.9 g/dl (12.0-16.0); Mean Corpuscular HGB Conc 32.8 g/dl (31.0-35.0); Mean Corpuscular Hemoglobin 29.2 pg (27.0-33.0); Mean Corpuscular Volume 88.9 fL (80.0-98.0); Mean Platelet Volume 9.7 fL (9.4-12.3); Platelet Count 192 X10*3/uL (160-400); Red Blood Count 4.42 X10*6/uL (4.20-5.50); Red Cell Distribution Width 14.3 % (11.0-16.0); White Blood Count 4.5 X10*3/uL (4.8-10.8)
[2024-01-20 06:56] LABS: Alanine Aminotransferase 269 U/L (0-31); Albumin Level 3.8 g/dL (3.5-5.0); Alkaline Phosphatase 100 U/L (39-117); Anion Gap 11 (12-20); Aspartate Amino Transferase 57 U/L (5-31); Bilirubin Direct 0.2 mg/dL (0.0-0.5); Bilirubin Total 0.5 mg/dL (0.0-1.0); Blood Urea Nitrogen 8 mg/dL (9-16); Calcium 9.5 mg/dL (8.4-10.2); Carbon Dioxide 31 mmol/L (22-29); Chloride 107 mmol/L (96-108); Estimated Glomerular Filt Rate > 60; Glucose Fasting 98 mg/dL (60-99); Magnesium 2.1 mg/dL (1.6-2.6); Sodium 145 mmol/L (135-145)
[2024-01-20] MEDS: Tiotropium Bromide 2.5 mcg 1 PUFF/2.5 MCG MIST.INHAL 2 PUFF INHALE (08:16)
--- NOTE | 2024-01-20 08:42 | HO.PM.IMPN ---
Subjective Subjective Date of Service: 01/20/24 Interval History: still with abd pain and diarrhea Physical Exam Vital Signs: Vital Signs: Last Vital Signs Temp 97.4 F 01/20/24 07:41 Pulse 60 01/20/24 08:18 Resp 15 01/20/24 08:18 BP 125/68 01/20/24 07:41 Pulse Ox 94 01/20/24 07:41 O2 Del Method Room Air 01/20/24 07:41 BMI result Body Mass Index 23.2 Constitutional - Awake and Alert, No apparent distress Eyes - PERRLA, EOMI Cardiovascular - S1S2, RRR, No edema Respiratory - Normal lung expansion, Normal respiratory effort, No respiratory distress, CTA bilaterally Gastrointestinal - mild distention llq with ttp and voluntary guarding, +BS; No rebound Extremities - no calf tenderness bilaterally, no swelling Skin - Warm/Dry Neurological - Alert & oriented x3 Psychological - Appropriate affect Objective Data Active Medications Acetaminophen (Acetaminophen 325 Mg Tablet) 650 mg PO Q6H PRN PRN Reason: Pain, Mild (Pain Scale 1-3), fever or headache Albuterol Sulfate (Albuterol Sulfate 90 Mcg 8 Gm Inhaler) 2 puff INHALE Q6H PRN PRN Reason: Dyspnea Calcium Carbonate (Calcium Carbonate 750 Mg Tab.Chew) 750 mg PO Q4H PRN PRN Reason: Heartburn Fluoxetine HCl (Fluoxetine Hcl 20 Mg Capsule) 40 mg PO DAILY [facility] Last Admin: 01/19/24 08:25 Dose: 40 mg Documented By: LINSEY Hydromorphone HCl (Hydromorphone Hcl 0.5 Mg/0.5 Ml Syringe) 0.25 mg IVPUSH Q4H PRN; Protocol PRN Reason: Pain, Severe (Pain Scale 7-10) Last Admin: 01/20/24 04:02 Dose: 0.25 mg Documented By: WEN Lisinopril (Lisinopril 5 Mg Tablet) 5 mg PO DAILY [facility]; Protocol Last Admin: 01/19/24 08:25 Dose: 5 mg Documented By: LINSEY Magnesium Hydroxide (Milk Of Magnesia 30 Ml Oral.Susp) 30 ml PO DAILY PRN PRN Reason: Constipation Melatonin (Melatonin 3 Mg Tablet) 6 mg PO BEDTIME PRN PRN Reason: Insomnia Ondansetron HCl (Ondansetron Hcl 4 Mg/2 Ml Vial) 4 mg IVPUSH Q8H PRN PRN Reason: Nausea and Vomiting Last Admin: 01/19/24 17:21 Dose: 4 mg Documented By: NISHA Oxycodone HCl (Oxycodone Hcl Immed Release 5 Mg Tablet) 5 mg PO Q6H PRN PRN Reason: Pain, Moderate(Pain Scale 4-6) Last Admin: 01/19/24 20:12 Dose: 5 mg Documented By: BARTLOO Pregabalin (Pregabalin 150 Mg Capsule) 300 mg PO BID [facility] Last Admin: 01/19/24 20:11 Dose: 300 mg Documented By: BARTOLO Sodium Chloride (0.9 % Sodium Chloride Flush 3 Ml Syringe) 3 ml IVFLUSH QSHIFT [facility] Last Admin: 01/20/24 04:02 Dose: 3 ml Documented By: WEN Tiotropium [place] (Tiotropium [place] 2.5 Mcg 1 Puff/2.5 Mcg Mist.Inhal) 2 puff INHALE RDAILY [facility] Last Admin: 01/20/24 08:16 Dose: 2 puff Documented By: DORINA Vancomycin HCl (Vancomycin Hcl 125 Mg Capsule) 125 mg PO Q6H [facility] Last Admin: 01/20/24 04:01 Dose: 125 mg Documented By: WEN Labs 01/20/24 06:02 01/20/24 06:02 Labs: Laboratory Results - last 24 hr 01/19/24 01/20/24 20:10 06:02 MCV 88.9 MCH 29.2 MCHC 32.8 RDW 14.3 Plt Count 192 MPV 9.7 Absolute Nucleated RBC 0.000 Nucleated RBC % (auto) 0.0 Anion Gap 11 L Estim Creat Clear Calc 57.0 Estimated GFR > 60 Fasting Glucose 98 Calcium 9.5 Magnesium 2.1 Total Bilirubin 0.5 Direct Bilirubin 0.2 AST 57 H ALT 269 H Alkaline Phosphatase 100 Total Protein 6.0 L Albumin 3.8 C. difficile Tox B Gene POSITIVE A* C. difficile Toxin A&B Negative C. difficile Interpret SEE NOTE Assessment and Plan (1) GI bleed: Status: Acute (2) LFT elevation: Status: Acute (3) Abdominal pain: Status: Acute Plan 63F PMH COPD, chronic low back pain status post spinal cord stimulator, mood disorder, gastroesophageal reflux disease, CKD stage 3, history of diverticulitis status post bowel resection, mixed hyperlipidemia who presented to the emergency department for evaluation of abdominal pain left lower quadrant pain CT abdomen pelvis negative for acute abnormality GI requested mesenteric doppler which was negative cdif pcr positive, toxin negative - continue empiric vanco po, follow up ID, follow up stool pcr panel BRBPR- resolved chronic nausea , no ongoing vomiting follows with [facility] GI with negative work up. Discussed that her chronic symptoms could be related to regular cannibus use which can take 2-3 months of complete cessation to resolve and that resuming the substance could result in relapse of symptoms. Recent admission for d-lactic acidosis requiring ICU transfer antiemetics p.r.n. acute metabolic acidosis-resolved lactic acid within normal limits. Beta hydroxybutyrate 2.37. Initial ph 7.31--> 7.35 transaminitis LFTs trending down. ?r/t viral illness such as gastroenteritis CT abdomen pelvis unremarkable CKD stage 3 renal function baseline COPD No exacerbation. continue home inhalers HTN lisinopril Fibromyalgia lyrica HLD hold statin for now due to transaminitis dvt prophylaxis- scps due to brbpr full code reason for continued hospitalization:abd pain Quality Stroke Does the patient have a stroke diagnosis?: No VTE Prior VTE?: No VTE Risk Level:: Medical - moderate - high VTE Device Contraindication: N/A - Device Ordered VTE Drug Contraindication: Treatment Not Indicated
[2024-01-20] MEDS: FLUoxetine HCl 20 MG CAPSULE 40 MG PO (08:59)
[2024-01-20] MEDS: lisinopriL 5 MG TABLET PO (08:59)
[2024-01-20] MEDS: Pregabalin 150 MG CAPSULE 300 MG PO ×2 (08:59→19:42)
[2024-01-20 09:31] LABS: Adenovirus F 40/41 Not Detected (Not Detect.); Astrovirus Not Detected (Not Detect.); Campylobacter Not Detected (Not Detect.); Cryptosporidium Not Detected (Not Detect.); Cyclospora cayetanensis Not Detected (Not Detect.); E. coli EAEC Not Detected (Not Detect.); E. coli EPEC Not Detected (Not Detect.); E. coli ETEC Not Detected (Not Detect.); E. coli STEC Not Detected (Not Detect.); Entamoeba histolytica Not Detected (Not Detect.); Giardia lamblia Not Detected (Not Detect.); Norovirus GI/GII Not Detected (Not Detect.); Plesiomonas shigelloides Not Detected (Not Detect.); Rotavirus A Not Detected (Not Detect.); Salmonella Not Detected (Not Detect.); Sapovirus Not Detected (Not Detect.); Shigella sp./EIEC Not Detected (Not Detect.); Vibrio Not Detected (Not Detect.); Vibrio Cholerae Not Detected (Not Detect.); Yersinia enterocolitica Not Detected (Not Detect.)
--- NOTE | 2024-01-20 10:11 | MHC.CM.PN ---
Per ROUNDS discussion, Patient is not yet medically cleared for dc(abdominal pain and diarrhea); home is the goal and CM will continue to follow.
--- NOTE | 2024-01-20 10:46 | P.PNGI_ITS ---
Subjective Subjective Date of Service: 01/20/24 Interval History: Patient seen at bedside. Reports not feeling good at all. Has had multiple episodes of emesis. Continues to have knife-like sharp pain in the left lower quadrant. Critical Care Time (minutes): 0 Physical Exam 2 Vital Signs: Vital Signs: Last Vital Signs Temp 97.4 F 01/20/24 07:41 Pulse 60 01/20/24 08:18 Resp 15 01/20/24 08:18 BP 125/68 01/20/24 07:41 Pulse Ox 94 01/20/24 07:41 O2 Del Method Room Air 01/20/24 07:41 BMI result Body Mass Index 23.2 Appears in considerable distress Abdomen soft, tender to palpation, voluntary guarding Objective Data Labs 01/20/24 06:02 01/20/24 06:02 Labs: Laboratory Results - last 24 hr 01/19/24 01/20/24 20:10 06:02 WBC 4.5 L RBC 4.42 Hgb 12.9 Hct 39.3 MCV 88.9 MCH 29.2 MCHC 32.8 RDW 14.3 Plt Count 192 MPV 9.7 Absolute Nucleated RBC 0.000 Nucleated RBC % (auto) 0.0 Sodium 145 Potassium 4.0 Chloride 107 Carbon Dioxide 31 H Anion Gap 11 L BUN 8 L Creatinine 0.92 Estim Creat Clear Calc 57.0 Estimated GFR > 60 Fasting Glucose 98 Calcium 9.5 Magnesium 2.1 Total Bilirubin 0.5 Direct Bilirubin 0.2 AST 57 H ALT 269 H Alkaline Phosphatase 100 Total Protein 6.0 L Albumin 3.8 Stl C. cayetanensis PCR Not Detected Stool Rotavirus A PCR Not Detected Stl Adenov F 40/41 PCR Not Detected Stool Astrovirus (PCR) Not Detected Stool Campylobacter PCR Not Detected Stool Cryptosporidium PCR Not Detected Stl Sh Tox Pr E STEC PCR Not Detected Stool E coli O157 PCR Not applicable Stl Enterotoxigenic E PCR Not Detected Stool EPEC (PCR) Not Detected Stool EAEC (PCR) Not Detected Stl E. histolytica PCR Not Detected Stool Giardia Lamblia PCR Not Detected Stl P. shigelloides PCR Not Detected Stool Salmonella PCR Not Detected Stool Sapovirus (PCR) Not Detected Stl Shigella/EIEC PCR Not Detected St Y.enterocolitica PCR Not Detected Stool Vibrio (PCR) Not Detected Stl Vibrio cholerae PCR Not Detected Stl Norovirus GI/GII PCR Not Detected C. difficile Tox B Gene POSITIVE A* C. difficile Toxin A&B Negative C. difficile Interpret SEE NOTE Procedures Date of Service Date of Service: 01/20/24 Progress Note: A&P Assessment and plan (1) Abdominal pain: Status: Acute (2) Bloody diarrhea: Status: Acute (3) Nausea and vomiting: Status: Acute Plan Patient has had were minimal clinical improvement since admission. CT abd/pel x2 nondiagnostic. Will proceed with luminal evaluation to r/o inflammation, infection, ischemia. Plan: -clear liquid diet today -NPO after midnight for EGD and flex sigmoidoscopy tomorrow -will need 1 enema in the evening and another in preop tmrw Time Spent With Patient Time: Total time managing care of this patient today ____ minutes. Quality Stroke Does the patient have a stroke diagnosis?: No VTE Prior VTE?: No VTE Risk Level:: Medical - moderate - high VTE Device Contraindication: N/A - Device Ordered VTE Drug Contraindication: Treatment Not Indicated
[2024-01-20] MEDS: ondansetron HCL 4 MG/2 ML VIAL IVPUSH (11:24)
[2024-01-20] MEDS: oxyCODONE HCl Immed Release 5 MG TABLET PO ×2 (12:35→19:42)
--- NOTE | 2024-01-20 16:06 | PM.EVENT ---
Event Note Date of Service: 01/20/24 Event Note: hypontension due to diarrhea/emesis, not sepsis Time Spent With Patient Time: Total time managing care of this patient today ____ minutes.
[2024-01-20] MEDS: 0.9 % Sodium Chloride 1,000 ML 999 ML IV (16:18)
[2024-01-20] MEDS: Sodium Phosphate,Mono-Dibasic 133 ML ENEMA PR (19:16)
--- NOTE | 2024-01-20 19:41 | PC.NURSE ---
Enema ordered and completed, patient tolerated procedure well, patient was able to move small amount of brown liquid stool on the bedpan.
--- NOTE | 2024-01-20 21:47 | P.CNID_ITS ---
History of Present Illness Data of Consult Service Date: 01/20/24 Requesting physician: Vinay Benoit Primary Care Provider: Jane Oden MD HPI Reason for consult: Cdiff pcr positive,blood in stool She presents with hematochezia for a day as well as nausea and LLQ7/10 abdominal pain. She has had diverticultis and had bowel resection she says about a year ago. She has positive Cdiff PCR. Review of Systems 2 Review of Systems: Yes all other systems are reviewed and are negative PMFSH Past Medical History Medical History Anxiety Depression Chronic low back pain Fibromyalgia Migraine Nausea and vomiting COPD (chronic obstructive pulmonary disease) Hyperlipidemia Hypertension CKD (chronic kidney disease), stage III Diverticulitis Family History Family history: reviewed and not pertinent Surgical History Surgical History S/P insertion of spinal cord stimulator History of laminectomy History of colon resection Social History Social History Household Members: Spouse Housing: House Do you presently have visiting nurse or other home services: No Alcohol intake: never Comment: 1:1 sitter Patient Tobacco Use Status: Former Tobacco user Smoked in Last 30 Days: Yes Second Hand Smoke Exposure: No Use of substances other than those prescribed or required for medical reasons: No Substance Use Type: Marijuana Currently Displaying Signs/Symptoms of Drug Intoxication Withdrawal: No Have you been hit, kicked, punched, or otherwise hurt by someone within the past year? If so, by whom?: No Do you feel safe in your current relationship?: Yes Is there a partner from a previous relationship who is making you feel unsafe now?: No Are you made to feel afraid or neglected: No Advance Directives: Yes Advance Directives on File: Yes Advance Directives Date on File: 11/27/23 Do you have a plan to hurt others: No Plan Recently lost weight without trying: No Nutrition Risks: No Nutritional Risk Patient : No : No Poor oral hygiene: No service: No Sexual orientation: Straight/Heterosexual Meds Allergies Allergy/AdvReac Type Severity Reaction Status Date / Time codeine Allergy Severe Itching Verified 01/16/24 12:02 NSAIDS (Non-Steroidal AdvReac Severe bleeding Verified 01/16/24 12:02 Anti-Inflamma contrast dye AdvReac Severe Anaphylaxis Uncoded 01/16/24 12:02 Active Medications: Current Medications Acetaminophen (Acetaminophen 325 Mg Tablet) 650 mg PO Q6H PRN PRN Reason: Pain, Mild (Pain Scale 1-3), fever or headache Albuterol Sulfate (Albuterol Sulfate 90 Mcg 8 Gm Inhaler) 2 puff INHALE Q6H PRN PRN Reason: Dyspnea Calcium Carbonate (Calcium Carbonate 750 Mg Tab.Chew) 750 mg PO Q4H PRN PRN Reason: Heartburn Fluoxetine HCl (Fluoxetine Hcl 20 Mg Capsule) 40 mg PO DAILY [facility] Last Admin: 01/20/24 08:59 Dose: 40 mg Hydromorphone HCl (Hydromorphone Hcl 0.5 Mg/0.5 Ml Syringe) 0.25 mg IVPUSH Q4H PRN; Protocol PRN Reason: Pain, Severe (Pain Scale 7-10) Last Admin: 01/20/24 18:37 Dose: 0.25 mg Lisinopril (Lisinopril 5 Mg Tablet) 5 mg PO DAILY [facility]; Protocol Last Admin: 01/20/24 08:59 Dose: 5 mg Magnesium Hydroxide (Milk Of Magnesia 30 Ml Oral.Susp) 30 ml PO DAILY PRN PRN Reason: Constipation Melatonin (Melatonin 3 Mg Tablet) 6 mg PO BEDTIME PRN PRN Reason: Insomnia Ondansetron HCl (Ondansetron Hcl 4 Mg/2 Ml Vial) 4 mg IVPUSH Q8H PRN PRN Reason: Nausea and Vomiting Last Admin: 01/20/24 11:24 Dose: 4 mg Oxycodone HCl (Oxycodone Hcl Immed Release 5 Mg Tablet) 5 mg PO Q6H PRN PRN Reason: Pain, Moderate(Pain Scale 4-6) Last Admin: 01/20/24 19:42 Dose: 5 mg Pregabalin (Pregabalin 150 Mg Capsule) 300 mg PO BID [facility] Last Admin: 01/20/24 19:42 Dose: 300 mg Sodium Chloride (0.9 % Sodium Chloride Flush 3 Ml Syringe) 3 ml IVFLUSH QSHIFT [facility] Last Admin: 01/20/24 19:43 Dose: 3 ml Tiotropium [place] (Tiotropium [place] 2.5 Mcg 1 Puff/2.5 Mcg Mist.Inhal) 2 puff INHALE RDAILY [facility] Last Admin: 01/20/24 08:16 Dose: 2 puff Vancomycin HCl (Vancomycin Hcl 125 Mg Capsule) 125 mg PO Q6H [facility] Last Admin: 01/20/24 18:35 Dose: 125 mg Home Medications ?Medication ?Instructions ?Recorded ?Confirmed ?Last Taken ?Type omeprazole 40 mg capsule,delayed 40 mg PO DAILY@0630 11/27/23 01/17/24 01/16/24 History release lisinopril 5 mg tablet 5 mg PO DAILY 01/17/24 01/17/24 01/16/24 History pregabalin 300 mg capsule 300 mg PO BID 01/17/24 01/17/24 01/16/24 History Physical Exam 2 Vital Signs: Vital Signs: Last Vital Signs Temp 98.9 F 01/20/24 20:00 Pulse 61 01/20/24 20:00 Resp 16 01/20/24 20:00 BP 116/57 L 01/20/24 20:00 Pulse Ox 99 01/20/24 20:00 O2 Del Method Room Air 01/20/24 20:00 BMI result Body Mass Index 23.2 Const: General: cooperative HEENT: Head: Yes normal to inspection Face and sinus: Yes normal facial exam Mouth: Normal oral and palatal mucosa present Teeth and gingiva: d entition normal Eyes: General: appearance normal, both eyes and all related structures P upils: Equal, round and reactive pupils present Resp: Effort & Inspection: normal respiratory effort Cardio: Rate: regular rate Rhythm: regular rhythm GI: Other: mild LLQ pain Palpation (GI): Soft to palpation and nontender : General: Yes no CVA tenderness Back/Spine/Pelvis: Back: no CVA tenderness Skin: General skin exam: no rashes or lesions noted Neuro: General: moves all extremities Cranial nerves: Yes Equal, round and reactive pupils present Extrem: General: Yes normal to inspection Psych: Appearance: grossly normal Results Labs 01/20/24 06:02 01/20/24 06:02 Labs: Short CBC 01/20/24 Range/Units 06:02 WBC 4.5 L (4.8-10.8) X10*3/uL Hgb 12.9 (12.0-16.0) g/dl Hct 39.3 (37.0-47.0) % Plt Count 192 (160-400) X10*3/uL BMP 01/20/24 06:02 Sodium 145 Potassium 4.0 Chloride 107 Carbon Dioxide 31 H BUN 8 L Creatinine 0.92 Calcium 9.5 Liver Function 01/20/24 Range/Units 06:02 Total Bilirubin 0.5 (0.0-1.0) mg/dL Direct Bilirubin 0.2 (0.0-0.5) mg/dL AST 57 H (5-31) U/L ALT 269 H (0-31) U/L Alkaline Phosphatase 100 (39-117) U/L Albumin 3.8 (3.5-5.0) g/dL Assessment and Plan (1) GI bleed: Status: Acute (2) LFT elevation: Status: Acute (3) Bloody diarrhea: Status: Acute Plan She may have Cdiff colonization too low to detect. LFT elevation may be due to medication or virus or early shock Would agree with po Vancomycin for 10-14 days Follow GI
[2024-01-21] VITALS (11 sets, daily range): BP systolic 111–142; BP diastolic 60–88; PULSE 52–64; RESP 14–20; TEMP 36.1–36.7; O2SAT 95–100
[2024-01-21] MEDS: ondansetron HCL 4 MG/2 ML VIAL IVPUSH ×2 (01:11→22:58)
[2024-01-21] MEDS: oxyCODONE HCl Immed Release 5 MG TABLET PO (02:53)
[2024-01-21] MEDS: vancomycin HCL 125 MG CAPSULE PO ×4 (04:09→23:38)
[2024-01-21] MEDS: Tiotropium Bromide 2.5 mcg 1 PUFF/2.5 MCG MIST.INHAL 2 PUFF INHALE (07:31)
[2024-01-21 07:53] LABS: Hematocrit 36.5 % (37.0-47.0); Hemoglobin 12.2 g/dl (12.0-16.0); Mean Corpuscular HGB Conc 33.4 g/dl (31.0-35.0); Mean Corpuscular Hemoglobin 29.6 pg (27.0-33.0); Mean Corpuscular Volume 88.6 fL (80.0-98.0); Mean Platelet Volume 10.1 fL (9.4-12.3); Platelet Count 183 X10*3/uL (160-400); Red Blood Count 4.12 X10*6/uL (4.20-5.50); Red Cell Distribution Width 14.3 % (11.0-16.0); White Blood Count 3.9 X10*3/uL (4.8-10.8)
[2024-01-21 08:16] LABS: Anion Gap 12 (12-20); Blood Urea Nitrogen 8 mg/dL (9-16); Carbon Dioxide 26 mmol/L (22-29); Chloride 110 mmol/L (96-108); Creatinine Clr Calc Pharmacy 66.4; Estimated Glomerular Filt Rate > 60; Glucose Fasting 85 mg/dL (60-99); Magnesium 1.9 mg/dL (1.6-2.6); Potassium 3.6 mmol/L (3.3-5.1); Sodium 144 mmol/L (135-145)
[2024-01-21] MEDS: HYDROmorphone HCl 0.5 MG/0.5 ML SYRINGE 0.25 MG IVPUSH ×4 (08:21→22:57)
[2024-01-21] MEDS: Pregabalin 150 MG CAPSULE 300 MG PO ×2 (08:40→19:36)
[2024-01-21] MEDS: FLUoxetine HCl 20 MG CAPSULE 40 MG PO (08:40)
[2024-01-21] MEDS: lisinopriL 5 MG TABLET PO (08:40)
[2024-01-21] MEDS: 0.9 % Sodium Chloride Flush 3 ML SYRINGE IVFLUSH ×3 (08:42→19:36)
--- NOTE | 2024-01-21 10:01 | P.PNIM_ITS ---
Subjective Subjective Date of Service: 01/21/24 Interval History: seen and examined still feels the same as yesterday awaiting procedures Review of Systems Negative except HPI/interval history. Physical Exam 2 Vital Signs: Vital Signs: Last Vital Signs Temp 97.2 F 01/21/24 07:08 Pulse 64 01/21/24 07:31 Resp 14 01/21/24 07:31 BP 142/67 H 01/21/24 07:08 Pulse Ox 100 01/21/24 07:08 O2 Del Method Room Air 01/21/24 07:08 BMI result Body Mass Index 23.2 Const: Other: General - no acute distress, appears comfortable Cardiovascular - regular rate and rhythm, S1-S2 Lungs - normal respiratory effort, clear to auscultation bilaterally, no wheezing Abdomen - mild ttp with voluntary guarding Extremities - no edema bilaterally Neuro - awake and alert, no focal deficits Objective Data Active Medications Acetaminophen (Acetaminophen 325 Mg Tablet) 650 mg PO Q6H PRN PRN Reason: Pain, Mild (Pain Scale 1-3), fever or headache Albuterol Sulfate (Albuterol Sulfate 90 Mcg 8 Gm Inhaler) 2 puff INHALE Q6H PRN PRN Reason: Dyspnea Calcium Carbonate (Calcium Carbonate 750 Mg Tab.Chew) 750 mg PO Q4H PRN PRN Reason: Heartburn Fluoxetine HCl (Fluoxetine Hcl 20 Mg Capsule) 40 mg PO DAILY [facility] Last Admin: 01/21/24 08:40 Dose: 40 mg Documented By: LINSEY Hydromorphone HCl (Hydromorphone Hcl 0.5 Mg/0.5 Ml Syringe) 0.25 mg IVPUSH Q4H PRN; Protocol PRN Reason: Pain, Severe (Pain Scale 7-10) Last Admin: 01/21/24 08:21 Dose: 0.25 mg Documented By: LINSEY Lisinopril (Lisinopril 5 Mg Tablet) 5 mg PO DAILY [facility]; Protocol Last Admin: 01/21/24 08:40 Dose: 5 mg Documented By: LINSEY Magnesium Hydroxide (Milk Of Magnesia 30 Ml Oral.Susp) 30 ml PO DAILY PRN PRN Reason: Constipation Melatonin (Melatonin 3 Mg Tablet) 6 mg PO BEDTIME PRN PRN Reason: Insomnia Ondansetron HCl (Ondansetron Hcl 4 Mg/2 Ml Vial) 4 mg IVPUSH Q8H PRN PRN Reason: Nausea and Vomiting Last Admin: 01/21/24 01:11 Dose: 4 mg Documented By: WEN Oxycodone HCl (Oxycodone Hcl Immed Release 5 Mg Tablet) 5 mg PO Q6H PRN PRN Reason: Pain, Moderate(Pain Scale 4-6) Last Admin: 01/21/24 02:53 Dose: 5 mg Documented By: WEN Pregabalin (Pregabalin 150 Mg Capsule) 300 mg PO BID [facility] Last Admin: 01/21/24 08:40 Dose: 300 mg Documented By: LINSEY Sodium Chloride (0.9 % Sodium Chloride Flush 3 Ml Syringe) 3 ml IVFLUSH QSHIFT [facility] Last Admin: 01/21/24 08:42 Dose: 3 ml Documented By: LINSEY Tiotropium [place] (Tiotropium [place] 2.5 Mcg 1 Puff/2.5 Mcg Mist.Inhal) 2 puff INHALE RDAILY [facility] Last Admin: 01/21/24 07:31 Dose: 2 puff Documented By: DIONICIO Vancomycin HCl (Vancomycin Hcl 125 Mg Capsule) 125 mg PO Q6H [facility] Last Admin: 01/21/24 04:09 Dose: 125 mg Documented By: WEN Labs 01/21/24 06:56 01/21/24 06:56 Labs: Laboratory Results - last 24 hr 01/21/24 06:56 MCV 88.6 MCH 29.6 MCHC 33.4 RDW 14.3 Plt Count 183 MPV 10.1 Absolute Nucleated RBC 0.000 Nucleated RBC % (auto) 0.0 Anion Gap 12 Estim Creat Clear Calc 66.4 Estimated GFR > 60 Fasting Glucose 85 Calcium 9.0 Magnesium 1.9 Assessment and Plan (1) GI bleed: Status: Acute (2) LFT elevation: Status: Acute (3) Abdominal pain: Status: Acute Plan 63F PMH COPD, chronic low back pain status post spinal cord stimulator, mood disorder, gastroesophageal reflux disease, CKD stage 3, history of diverticulitis status post bowel resection, mixed hyperlipidemia who presented to the emergency department for evaluation of abdominal pain left lower quadrant pain CT abdomen pelvis negative for acute abnormality GI requested mesenteric doppler which was negative cdif pcr positive, toxin negative - ID input appreciated -- recs for vanco 10- 14d and to f/u with gi recs plan for endoscopic eval today BRBPR- resolved chronic nausea , no ongoing vomiting follows with [facility] with negative work up. Discussed that her chronic symptoms could be related to regular cannibus use which can take 2-3 months of complete cessation to resolve and that resuming the substance could result in relapse of symptoms. Recent admission for d-lactic acidosis requiring ICU transfer antiemetics p.r.n. acute metabolic acidosis-resolved lactic acid within normal limits. Beta hydroxybutyrate 2.37. Initial ph 7.31--> 7.35 transaminitis LFTs trending down. ?r/t viral illness such as gastroenteritis CT abdomen pelvis unremarkable CKD stage 3 renal function baseline COPD No exacerbation. continue home inhalers HTN lisinopril Fibromyalgia lyrica HLD hold statin for now due to transaminitis dvt prophylaxis- scps due to brbpr full code reason for continued hospitalization:abd pain requiring work up including endoscopy Quality Stroke Does the patient have a stroke diagnosis?: No VTE Prior VTE?: No VTE Risk Level:: Medical - moderate - high VTE Device Contraindication: N/A - Device Ordered VTE Drug Contraindication: Treatment Not Indicated
--- NOTE | 2024-01-21 10:23 | MHC.SHP ---
Pre-Procedural Eval Section A - 24 Hr Update-Section A only Date of Service: 01/21/24 The patient is an INPATIENT: Yes The patient has been examined within 24 hours of the surgical procedure. The History & Physical has been completed within 30 days and I have reviewed it.: Yes Section B - Complete if H&P > 30 days Chief Complaint: Abdominal pain Allergies: Allergies Allergy/AdvReac Type Severity Reaction Status Date / Time codeine Allergy Severe Itching Verified 01/16/24 12:02 NSAIDS (Non-Steroidal AdvReac Severe bleeding Verified 01/16/24 12:02 Anti-Inflamma contrast dye AdvReac Severe Anaphylaxis Uncoded 01/16/24 12:02 Plan Diagnosis/Plan: Unchanged I have reviewed the history and physical and performed a pertinent physical examination on my patient. No changes have occurred unless specified. Time Spent With Patient Time: Total time managing care of this patient today ____ minutes.
--- NOTE | 2024-01-21 11:50 | P.CONAN_ITS ---
HPI - Anesthesia Eval Consult details Narrative: Abdominal pain, emesis PMFSH Active Problems Active Problems: All Active Problems GI bleed (Acute) LFT elevation (Acute) Abdominal pain (Acute) Bloody diarrhea (Acute) Elevated liver transaminase level (Acute) Abdominal pain (Acute) Numbness and tingling in left hand (Acute) Left wrist pain (Acute) Left wrist sprain (Acute) COPD (chronic obstructive pulmonary disease) (Acute) CKD (chronic kidney disease), stage III (Acute) Fibromyalgia (Acute) Radial styloid fracture (Acute) Fracture of styloid process of left ulna (Acute) Grief reaction (Acute) Chronic post-traumatic stress disorder (PTSD) (Acute) Routine medical exam (Acute) Nausea and vomiting (Acute) Past Medical History Medical History Anxiety Depression Chronic low back pain Fibromyalgia Migraine Nausea and vomiting COPD (chronic obstructive pulmonary disease) Hyperlipidemia Hypertension CKD (chronic kidney disease), stage III Diverticulitis Family History Family history of problems with anesthesia: No Surgical History Surgical History S/P insertion of spinal cord stimulator History of laminectomy History of colon resection History of Problems with Anesthesia: No Social History Social History Household Members: Spouse Housing: House Do you presently have visiting nurse or other home services: No Alcohol intake: never Comment: 1:1 sitter Patient Tobacco Use Status: Former Tobacco user Smoked in Last 30 Days: Yes Second Hand Smoke Exposure: No Use of substances other than those prescribed or required for medical reasons: No Substance Use Type: Marijuana Currently Displaying Signs/Symptoms of Drug Intoxication Withdrawal: No Have you been hit, kicked, punched, or otherwise hurt by someone within the past year? If so, by whom?: No Do you feel safe in your current relationship?: Yes Is there a partner from a previous relationship who is making you feel unsafe now?: No Are you made to feel afraid or neglected: No Advance Directives: Yes Advance Directives on File: Yes Advance Directives Date on File: 11/27/23 Do you have a plan to hurt others: No Plan Recently lost weight without trying: No Nutrition Risks: No Nutritional Risk Patient : No : No Poor oral hygiene: No service: No Sexual orientation: Straight/Heterosexual Meds Allergies Allergy/AdvReac Type Severity Reaction Status Date / Time codeine Allergy Severe Itching Verified 01/16/24 12:02 NSAIDS (Non-Steroidal AdvReac Severe bleeding Verified 01/16/24 12:02 Anti-Inflamma contrast dye AdvReac Severe Anaphylaxis Uncoded 01/16/24 12:02 Active Medications: Current Medications Acetaminophen (Acetaminophen 325 Mg Tablet) 650 mg PO Q6H PRN PRN Reason: Pain, Mild (Pain Scale 1-3), fever or headache Albuterol Sulfate (Albuterol Sulfate 90 Mcg 8 Gm Inhaler) 2 puff INHALE Q6H PRN PRN Reason: Dyspnea Calcium Carbonate (Calcium Carbonate 750 Mg Tab.Chew) 750 mg PO Q4H PRN PRN Reason: Heartburn Fluoxetine HCl (Fluoxetine Hcl 20 Mg Capsule) 40 mg PO DAILY FOR[facility] Last Admin: 01/21/24 08:40 Dose: 40 mg Hydromorphone HCl (Hydromorphone Hcl 0.5 Mg/0.5 Ml Syringe) 0.25 mg IVPUSH Q4H PRN; Protocol PRN Reason: Pain, Severe (Pain Scale 7-10) Last Admin: 01/21/24 08:21 Dose: 0.25 mg Lisinopril (Lisinopril 5 Mg Tablet) 5 mg PO DAILY [facility]; Protocol Last Admin: 01/21/24 08:40 Dose: 5 mg Magnesium Hydroxide (Milk Of Magnesia 30 Ml Oral.Susp) 30 ml PO DAILY PRN PRN Reason: Constipation Melatonin (Melatonin 3 Mg Tablet) 6 mg PO BEDTIME PRN PRN Reason: Insomnia Ondansetron HCl (Ondansetron Hcl 4 Mg/2 Ml Vial) 4 mg IVPUSH Q8H PRN PRN Reason: Nausea and Vomiting Last Admin: 01/21/24 01:11 Dose: 4 mg Oxycodone HCl (Oxycodone Hcl Immed Release 5 Mg Tablet) 5 mg PO Q6H PRN PRN Reason: Pain, Moderate(Pain Scale 4-6) Last Admin: 01/21/24 02:53 Dose: 5 mg Pregabalin (Pregabalin 150 Mg Capsule) 300 mg PO BID [facility] Last Admin: 01/21/24 08:40 Dose: 300 mg Sodium Chloride (0.9 % Sodium Chloride Flush 3 Ml Syringe) 3 ml IVFLUSH QSHIFT [facility] Last Admin: 01/21/24 08:42 Dose: 3 ml Tiotropium Treece (Tiotropium Treece 2.5 Mcg 1 Puff/2.5 Mcg Mist.Inhal) 2 puff INHALE RDAILY [facility] Last Admin: 01/21/24 07:31 Dose: 2 puff Vancomycin HCl (Vancomycin Hcl 125 Mg Capsule) 125 mg PO Q6H [facility] Last Admin: 01/21/24 04:09 Dose: 125 mg Home Medications ?Medication ?Instructions ?Recorded ?Confirmed ?Last Taken ?Type omeprazole 40 mg capsule,delayed 40 mg PO DAILY@0630 11/27/23 01/17/24 01/16/24 History release lisinopril 5 mg tablet 5 mg PO DAILY 01/17/24 01/17/24 01/16/24 History pregabalin 300 mg capsule 300 mg PO BID 01/17/24 01/17/24 01/16/24 History Exam Height,Weight and Vital Signs: Height 5 ft 5 in Weight 63.3 kg Last Vital Signs Temp 97.2 F 01/21/24 07:08 Pulse 64 01/21/24 07:31 Resp 14 01/21/24 07:31 BP 142/67 H 01/21/24 07:08 Pulse Ox 100 01/21/24 07:08 O2 Del Method Room Air 01/21/24 07:08 Pertinent Lab Results Pertinent Lab Results: Laboratory Tests 01/16/24 01/16/24 01/16/24 12:12 14:23 17:11 WBC 5.5 RBC 4.90 Hgb 14.7 Hct 42.8 MCV 87.3 MCH 30.0 MCHC 34.3 RDW 14.6 Plt Count 192 MPV 9.7 Immature Gran % (Auto) 0.4 Neut % (Auto) 80.1 H Lymph % (Auto) 13.4 L Vill[place] % (Auto) 4.5 Eos % (Auto) 0.7 Baso % (Auto) 0.9 Lymph # (Auto) 0.7 L [place] # (Auto) 0.3 Eos # (Auto) 0.0 Baso # (Auto) 0.1 Abs Immat Gran (auto) 0.02 Absolute Neuts (auto) 4.4 Absolute Nucleated RBC 0.000 Nucleated RBC % (auto) 0.0 Hold Purple Top PT 11.3 INR 1.0 APTT 31.6 VBG pH VBG pCO2 VBG pO2 VBG HCO3 VBG O2 Saturation VBG Base Excess Sodium 140 Potassium 3.6 Chloride 111 H Carbon Dioxide 24 Anion Gap 9 L BUN 17 H Creatinine 0.93 Estim Creat Clear Calc 56.4 Estimated GFR > 60 POC Glucose Random Glucose 82 Fasting Glucose Lactic Acid 0.6 Calcium 9.4 Magnesium 2.3 Total Bilirubin 0.7 Direct Bilirubin 0.3 AST 675 H ALT 906 H Alkaline Phosphatase 113 Total Protein 6.9 Albumin 4.4 Lipase 159 H Beta-Hydroxybutyrate Urine Color Urine Appearance Urine pH Ur Specific [place] Urine Protein Urine Glucose (UA) Urine Ketones Urine Blood Urine Nitrite Ur Leukocyte Esterase Urine RBC Urine WBC Ur Squamous Epith Cells Urine Bacteria Hyaline Casts Stool Occult Blood POSITIVE Stl C. cayetanensis PCR Stool Rotavirus A PCR Stl Adenov F PCR Stool Astrovirus (PCR) Stool Campylobacter PCR Stool Cryptosporidium PCR Stl Sh Tox Pr E STEC PCR Stool E coli O157 PCR Stl Enterotoxigenic E PCR Stool EPEC (PCR) Stool EAEC (PCR) Stl E. histolytica PCR Stool Giardia Lamblia PCR Stl P. shigelloides PCR Stool Salmonella PCR Stool Sapovirus (PCR) Stl Shigella/EIEC PCR St Y.enterocolitica PCR Stool Vibrio (PCR) Stl Vibrio cholerae PCR Stl Norovirus GI/GII PCR Salicylates < 5.0 L Acetaminophen < 3 < 3 C. difficile Tox B Gene C. difficile Toxin A&B C. difficile Interpret Hepatitis A IgM Ab Nonreactive Hep Bs Antigen Negative Hep Bs Antibody NONREACTIVE Hep B Core Total Ab Nonreactive Hepatitis C Ab (EIA) Nonreactive 01/16/24 01/17/24 01/17/24 18:12 05:36 08:30 WBC 3.6 L RBC 4.27 Hgb 12.6 Hct 38.2 MCV 89.5 MCH 29.5 MCHC 33.0 RDW 14.6 Plt Count 167 MPV 10.0 Immature Gran % (Auto) 0.6 H Neut % (Auto) 69.2 Lymph % (Auto) 21.1 Villalba % (Auto) 5.8 Eos % (Auto) 2.5 Baso % (Auto) 0.8 Lymph # (Auto) 0.8 L [place] # (Auto) 0.2 Eos # (Auto) 0.1 Baso # (Auto) 0.0 Abs Immat Gran (auto) 0.02 Absolute Neuts (auto) 2.5 Absolute Nucleated RBC 0.000 Nucleated RBC % (auto) 0.0 Hold Purple Top SEE NOTE PT INR APTT VBG pH VBG pCO2 VBG pO2 VBG HCO3 VBG O2 Saturation VBG Base Excess Sodium 141 Potassium 4.2 Chloride 113 H Carbon Dioxide 19 L Anion Gap 13 BUN 15 Creatinine 0.79 Estim Creat Clear Calc 66.4 Estimated GFR > 60 POC Glucose Random Glucose 65 Fasting Glucose Lactic Acid Calcium 9.0 Magnesium Total Bilirubin 0.8 Direct Bilirubin AST 411 H ALT 716 H Alkaline Phosphatase 97 Total Protein 6.0 L Albumin 3.6 Lipase Beta-Hydroxybutyrate 2.37 H Urine Color Yellow Urine Appearance Clear Urine pH 6.0 Ur Specific [place] 1.020 Urine Protein Trace Urine Glucose (UA) Negative Urine Ketones 40 Urine Blood Negative Urine Nitrite Negative Ur Leukocyte Esterase Trace H Urine RBC 0-2 Urine WBC 0-5 Ur Squamous Epith Cells 3-5 Urine Bacteria None Seen Hyaline Casts 0-2 Stool Occult Blood Stl C. cayetanensis PCR Stool Rotavirus A PCR Stl Adenov F 40/ PCR Stool Astrovirus (PCR) Stool Campylobacter PCR Stool Cryptosporidium PCR Stl Sh Tox Pr E STEC PCR Stool E coli O157 PCR Stl Enterotoxigenic E PCR Stool EPEC (PCR) Stool EAEC (PCR) Stl E. histolytica PCR Stool Giardia Lamblia PCR Stl P. shigelloides PCR Stool Salmonella PCR Stool Sapovirus (PCR) Stl Shigella/EIEC PCR St Y.enterocolitica PCR Stool Vibrio (PCR) Stl Vibrio cholerae PCR Stl Norovirus GI/GII PCR Salicylates Acetaminophen C. difficile Tox B Gene C. difficile Toxin A&B C. difficile Interpret Hepatitis A IgM Ab Hep Bs Antigen Hep Bs Antibody Hep B Core Total Ab Hepatitis C Ab (EIA) 01/17/24 01/17/24 01/17/24 08:37 09:17 20:58 WBC RBC Hgb Hct MCV MCH MCHC RDW Plt Count MPV Immature Gran % (Auto) Neut % (Auto) Lymph % (Auto) [place] % (Auto) Eos % (Auto) Baso % (Auto) Lymph # (Auto) Vill[place]ba # (Auto) Eos # (Auto) Baso # (Auto) Abs Immat Gran (auto) Absolute Neuts (auto) Absolute Nucleated RBC Nucleated RBC % (auto) Hold Purple Top PT INR APTT VBG pH 7.31 L VBG pCO2 45 VBG pO2 44 VBG HCO3 23 VBG O2 Saturation 73.0 VBG Base Excess -3.1 Sodium Potassium Chloride Carbon Dioxide Anion Gap BUN Creatinine Estim Creat Clear Calc Estimated GFR POC Glucose 61 69 Random Glucose Fasting Glucose Lactic Acid Calcium Magnesium Total Bilirubin Direct Bilirubin AST ALT Alkaline Phosphatase Total Protein Albumin Lipase Beta-Hydroxybutyrate Urine Color Urine Appearance Urine pH Ur Specific [place] Urine Protein Urine Glucose (UA) Urine Ketones Urine Blood Urine Nitrite Ur Leukocyte Esterase Urine RBC Urine WBC Ur Squamous Epith Cells Urine Bacteria Hyaline Casts Stool Occult Blood Stl C. cayetanensis PCR Stool Rotavirus A PCR Stl Adenov F 40 PCR Stool Astrovirus (PCR) Stool Campylobacter PCR Stool Cryptosporidium PCR Stl Sh Tox Pr E STEC PCR Stool E coli O157 PCR Stl Enterotoxigenic E PCR Stool EPEC (PCR) Stool EAEC (PCR) Stl E. histolytica PCR Stool Giardia Lamblia PCR Stl P. shigelloides PCR Stool Salmonella PCR Stool Sapovirus (PCR) Stl Shigella/EIEC PCR St Y.enterocolitica PCR Stool Vibrio (PCR) Stl Vibrio cholerae PCR Stl Norovirus GI/GII PCR Salicylates Acetaminophen C. difficile Tox B Gene C. difficile Toxin A&B C. difficile Interpret Hepatitis A IgM Ab Hep Bs Antigen Hep Bs Antibody Hep B Core Total Ab Hepatitis C Ab (EIA) 01/18/24 01/18/24 01/18/24 05:42 07:35 08:48 WBC 3.3 L RBC 4.51 Hgb 13.2 Hct 39.2 MCV 86.9 MCH 29.3 MCHC 33.7 RDW 14.2 Plt Count 181 MPV 9.4 Immature Gran % (Auto) 0.6 H Neut % (Auto) 66.5 Lymph % (Auto) 23.2 Villalba % (Auto) 5.8 Eos % (Auto) 2.7 Baso % (Auto) 1.2 Lymph # (Auto) 0.8 L [place] # (Auto) 0.2 Eos # (Auto) 0.1 Baso # (Auto) 0.0 Abs Immat Gran (auto) 0.02 Absolute Neuts (auto) 2.2 Absolute Nucleated RBC 0.000 Nucleated RBC % (auto) 0.0 Hold Purple Top PT INR APTT VBG pH VBG pCO2 VBG pO2 VBG HCO3 VBG O2 Saturation VBG Base Excess Sodium 142 Potassium 3.8 Chloride 110 H Carbon Dioxide 22 Anion Gap 14 BUN 9 Creatinine 0.72 Estim Creat Clear Calc 72.8 Estimated GFR > 60 POC Glucose 87 Random Glucose 90 Fasting Glucose Lactic Acid 0.7 Calcium 9.1 Magnesium Total Bilirubin 0.6 Direct Bilirubin 0.2 AST 168 H ALT 493 H Alkaline Phosphatase 101 Total Protein 6.0 L Albumin 3.7 Lipase Beta-Hydroxybutyrate Urine Color Urine Appearance Urine pH Ur Specific [place] Urine Protein Urine Glucose (UA) Urine Ketones Urine Blood Urine Nitrite Ur Leukocyte Esterase Urine RBC Urine WBC Ur Squamous Epith Cells Urine Bacteria Hyaline Casts Stool Occult Blood Stl C. cayetanensis PCR Stool Rotavirus A PCR Stl Adenov F PCR Stool Astrovirus (PCR) Stool Campylobacter PCR Stool Cryptosporidium PCR Stl Sh Tox Pr E STEC PCR Stool E coli O157 PCR Stl Enterotoxigenic E PCR Stool EPEC (PCR) Stool EAEC (PCR) Stl E. histolytica PCR Stool Giardia Lamblia PCR Stl P. shigelloides PCR Stool Salmonella PCR Stool Sapovirus (PCR) Stl Shigella/EIEC PCR St Y.enterocolitica PCR Stool Vibrio (PCR) Stl Vibrio cholerae PCR Stl Norovirus GI/GII PCR Salicylates Acetaminophen C. difficile Tox B Gene C. difficile Toxin A&B C. difficile Interpret Hepatitis A IgM Ab Hep Bs Antigen Hep Bs Antibody Hep B Core Total Ab Hepatitis C Ab (EIA) 01/18/24 01/18/24 01/19/24 09:02 15:41 05:31 WBC 6.0 RBC 4.27 Hgb 12.4 Hct 37.3 MCV 87.4 MCH 29.0 MCHC 33.2 RDW 14.2 Plt Count 185 MPV 9.7 Immature Gran % (Auto) 0.3 Neut % (Auto) 75.6 H Lymph % (Auto) 16.0 L [place] % (Auto) 7.3 Eos % (Auto) 0.5 Baso % (Auto) 0.3 Lymph # (Auto) 1.0 L [place] # (Auto) 0.4 Eos # (Auto) 0.0 Baso # (Auto) 0.0 Abs Immat Gran (auto) 0.02 Absolute Neuts (auto) 4.5 Absolute Nucleated RBC 0.000 Nucleated RBC % (auto) 0.0 Hold Purple Top PT INR APTT VBG pH 7.35 VBG pCO2 44 VBG pO2 41 VBG HCO3 25 VBG O2 Saturation 68.0 VBG Base Excess -0.7 Sodium 141 Potassium 3.6 Chloride 107 Carbon Dioxide 29 Anion Gap 9 L BUN 8 L Creatinine 0.85 Estim Creat Clear Calc 61.7 Estimated GFR > 60 POC Glucose Random Glucose 101 Fasting Glucose Lactic Acid Calcium 9.3 Magnesium Total Bilirubin Direct Bilirubin AST ALT Alkaline Phosphatase Total Protein Albumin Lipase Beta-Hydroxybutyrate Urine Color Yellow Urine Appearance Clear Urine pH 7.0 Ur Specific [place] 1.025 Urine Protein Negative Urine Glucose (UA) >=1000 H Urine Ketones Negative Urine Blood Negative Urine Nitrite Negative Ur Leukocyte Esterase Negative Urine RBC 0-2 Urine WBC 0-5 Ur Squamous Epith Cells 0-2 Urine Bacteria None Seen Hyaline Casts 0-2 Stool Occult Blood Stl C. cayetanensis PCR Stool Rotavirus A PCR Stl Adenov F 40/ PCR Stool Astrovirus (PCR) Stool Campylobacter PCR Stool Cryptosporidium PCR Stl Sh Tox Pr E STEC PCR Stool E coli O157 PCR Stl Enterotoxigenic E PCR Stool EPEC (PCR) Stool EAEC (PCR) Stl E. histolytica PCR Stool Giardia Lamblia PCR Stl P. shigelloides PCR Stool Salmonella PCR Stool Sapovirus (PCR) Stl Shigella/EIEC PCR St Y.enterocolitica PCR Stool Vibrio (PCR) Stl Vibrio cholerae PCR Stl Norovirus GI/GII PCR Salicylates Acetaminophen C. difficile Tox B Gene C. difficile Toxin A&B C. difficile Interpret Hepatitis A IgM Ab Hep Bs Antigen Hep Bs Antibody Hep B Core Total Ab Hepatitis C Ab (EIA) 01/19/24 01/20/24 01/21/24 20:10 06:02 06:56 WBC 4.5 L 3.9 L RBC 4.42 4.12 L Hgb 12.9 12.2 Hct 39.3 36.5 L MCV 88.9 88.6 MCH 29.2 29.6 MCHC 32.8 33.4 RDW 14.3 14.3 Plt Count 192 183 MPV 9.7 10.1 Immature Gran % (Auto) Neut % (Auto) Lymph % (Auto) [place] % (Auto) Eos % (Auto) Baso % (Auto) Lymph # (Auto) [place] # (Auto) Eos # (Auto) Baso # (Auto) Abs Immat Gran (auto) Absolute Neuts (auto) Absolute Nucleated RBC 0.000 0.000 Nucleated RBC % (auto) 0.0 0.0 Hold Purple Top PT INR APTT VBG pH VBG pCO2 VBG pO2 VBG HCO3 VBG O2 Saturation VBG Base Excess Sodium 145 144 Potassium 4.0 3.6 Chloride 107 110 H Carbon Dioxide 31 H 26 Anion Gap 11 L 12 BUN 8 L 8 L Creatinine 0.92 0.79 Estim Creat Clear Calc 57.0 66.4 Estimated GFR > 60 > 60 POC Glucose Random Glucose Fasting Glucose 98 85 Lactic Acid Calcium 9.5 9.0 Magnesium 2.1 1.9 Total Bilirubin 0.5 Direct Bilirubin 0.2 AST 57 H ALT 269 H Alkaline Phosphatase 100 Total Protein 6.0 L Albumin 3.8 Lipase Beta-Hydroxybutyrate Urine Color Urine Appearance Urine pH Ur Specific [place] Urine Protein Urine Glucose (UA) Urine Ketones Urine Blood Urine Nitrite Ur Leukocyte Esterase Urine RBC Urine WBC Ur Squamous Epith Cells Urine Bacteria Hyaline Casts Stool Occult Blood Stl C. cayetanensis PCR Not Detected Stool Rotavirus A PCR Not Detected Stl Adenov F 40/41 PCR Not Detected Stool Astrovirus (PCR) Not Detected Stool Campylobacter PCR Not Detected Stool Cryptosporidium PCR Not Detected Stl Sh Tox Pr E STEC PCR Not Detected Stool E coli O157 PCR Not applicable Stl Enterotoxigenic E PCR Not Detected Stool EPEC (PCR) Not Detected Stool EAEC (PCR) Not Detected Stl E. histolytica PCR Not Detected Stool Giardia Lamblia PCR Not Detected Stl P. shigelloides PCR Not Detected Stool Salmonella PCR Not Detected Stool Sapovirus (PCR) Not Detected Stl Shigella/EIEC PCR Not Detected St Y.enterocolitica PCR Not Detected Stool Vibrio (PCR) Not Detected Stl Vibrio cholerae PCR Not Detected Stl Norovirus GI/GII PCR Not Detected Salicylates Acetaminophen C. difficile Tox B Gene POSITIVE A* C. difficile Toxin A&B Negative C. difficile Interpret SEE NOTE Hepatitis A IgM Ab Hep Bs Antigen Hep Bs Antibody Hep B Core Total Ab Hepatitis C Ab (EIA) Airway Mallampati Class: II TM Dist: >3cm Neck ROM: Full Loose/Missing/Broken Teeth: No Heart: RRR Lungs: CTA Assessment and Plan Assessment Anesthesia Assessment: Anesthesia Plan Discussed and Chart Reviewed Final Anesthetic Review Family History of Problems with Anesthesia: No History of Problems with Anesthesia: No NPO: Yes ASA Class: III Final Preanesthetic Review: No Changes in Pt Med Stat, Meds/Allgs Chart Reviewed, Consent Obtained/Reviewed and Anes Risks/Benef Reviewed Patient Risk: Intermediate Procedure Risk: Low Anesthetic Plan Anesthetic Plan: MAC: Disposition: Standard PACU
--- NOTE | 2024-01-21 11:53 | PC.NURSE ---
Patient off unit for procedure, transported via wheelchair
[2024-01-21] MEDS: Sodium Phosphate,Mono-Dibasic 133 ML ENEMA PR (11:55)
--- NOTE | 2024-01-21 12:32 | P.OP_ITS ---
Operative Note Operative Note Date of Service: 01/21/24 Narrative: Procedure: Esophagogastroduodenoscopy and flexible sigmoidoscopy Endoscopist: Penelope Toscano MD Indication: Abd pain, N,V,D Anesthesia Provider: Dr Missael Medrano Anesthesia Type: MAC Instrument: Olympus [id number] ?? EGD Procedure:?? The procedure, indications, preparation and potential complications were reviewed with the patient, who indicated understanding and gave written informed consent to proceed. A physical exam was performed. The endoscope was introduced through the mouth, and advanced to the second part of duodenum. The mucosa was carefully examined on slow withdrawal of the endoscope. The patient tolerated the procedure well. There were no immediate complications.? ? EGD Findings:? * Esophagus:? Normal mucosa noted in the entire esophagus. The Z line was at 35 cm. There was a small hiatal hernia with the diaphragmatic hiatus at 37 cm. * Stomach:? Normal mucosa was noted in the stomach. Retroflexion was performed the cardia with a Hill grade 3 hiatal hernia. Random cold forceps gastric biopsies were taken to rule out H Pylori infection. * Duodenum:? Normal mucosa was noted in the whole of the examined duodenum. Cold forceps biopsies were taken from duodenal bulb and second portion of the duodenum to rule out celiac sprue. Flex sig procedure: The patient was the turned for the sigmoidoscopy. A digital rectal exam was performed which was abnormal due to finding of hemorrhoids. The gastroscope was then inserted through the anus and advanced through the colon to the distal transverse colon. Mucosa was carefully examined under high definition white light as the instrument was slowly withdrawn in a retrograde panoramic fashion. Retroflexion was performed in rectum. The procedure was not difficult. There were no immediate obvious complications. The quality of the prep was BBPS: Fair Limitations: No limitations. Findings: Mucosa: Normal mucosa to the extent examined. Random biopsies from the left colon were taken to r/o microscopic colitis. Protruding lesions: * Medium internal hemorrhoids without stigmata of recent bleeding. Excavated lesions: * Moderate diverticulosis of sigmoid colon. ? Impressions:? * Normal esophagus * Hiatal hernia * Normal stomach (biopsy) * Normal duodenum (biopsy) * Normal colon mucosa (biopsy) * Diverticulosis * Hemorrhoids ?? Recommendations:?? * No obvious luminal pathology noted to explain pt's left sided pain * Trial of PO diet * Check TJ, immunoglobulins, T cell quantification to r/o autoimmune enteritis, CVID etc
--- NOTE | 2024-01-21 13:25 | PC.NURSE ---
Patient back in the room post procedure.
[2024-01-22] VITALS: BP 96/54; PULSE 64; RESP 16; TEMP 36.5; O2SAT 93
[2024-01-22 04:00] VITALS: BP 136/82; PULSE 73; RESP 20; TEMP 36.5; O2SAT 95
[2024-01-22] MEDS: vancomycin HCL 125 MG CAPSULE PO (04:40)
[2024-01-22 07:44] VITALS: BP 131/81; PULSE 86; RESP 19; TEMP 36.3; O2SAT 96
[2024-01-22] MEDS: Tiotropium Bromide 2.5 mcg 1 PUFF/2.5 MCG MIST.INHAL 2 PUFF INHALE (07:44)
[2024-01-22 07:45] VITALS: PULSE 76; RESP 14; O2SAT 93
[2024-01-22 08:27] LABS: Hematocrit 40.6 % (37.0-47.0); Hemoglobin 13.6 g/dl (12.0-16.0); Mean Corpuscular HGB Conc 33.5 g/dl (31.0-35.0); Mean Corpuscular Hemoglobin 29.4 pg (27.0-33.0); Mean Corpuscular Volume 87.9 fL (80.0-98.0); Mean Platelet Volume 9.4 fL (9.4-12.3); Platelet Count 208 X10*3/uL (160-400); Red Blood Count 4.62 X10*6/uL (4.20-5.50); Red Cell Distribution Width 14.1 % (11.0-16.0); White Blood Count 3.9 X10*3/uL (4.8-10.8)
[2024-01-22] MEDS: ondansetron HCL 4 MG/2 ML VIAL IVPUSH (08:43)
[2024-01-22] MEDS: FLUoxetine HCl 20 MG CAPSULE 40 MG PO (08:43)
[2024-01-22] MEDS: HYDROmorphone HCl 0.5 MG/0.5 ML SYRINGE 0.25 MG IVPUSH (08:43)
[2024-01-22] MEDS: lisinopriL 5 MG TABLET PO (08:43)
[2024-01-22] MEDS: 0.9 % Sodium Chloride Flush 3 ML SYRINGE IVFLUSH (08:44)
[2024-01-22] MEDS: Pregabalin 150 MG CAPSULE 300 MG PO (08:44)
--- NOTE | 2024-01-22 09:16 | P.DS_ITS ---
DS: Providers Provider Date of Service: 01/22/24 Date of admission: 01/16/24 21:42 Date of discharge: 01/22/24 Primary care physician: Jane Oden MD Consults: 01/17/24 11:21 Consult to Gastroenterology Routine Consulting Provider: Penelope Toscano Reason for consultation: gi bleed 01/19/24 22:33 Consult to Infectious Diseases Routine Consulting Provider: [facility] Reason for consultation: ?Cdiff DS: Diagnosis Discharge Diagnosis (1) GI bleed: Status: Acute (2) LFT elevation: Status: Acute (3) Abdominal pain: Status: Acute DS: Summary Hospital Course Hospital Course: HPI on admission by Dr. Woodard 01/15: This is a 63-year-old female with pertinent history of COPD not on home oxygen, chronic low back pain status post spinal cord stimulator, mood disorder, gastroesophageal reflux disease, CKD stage 3, history of diverticulitis status post bowel resection, mixed hyperlipidemia who presents to the emergency department for evaluation of abdominal pain. Patient states her symptoms started 3 days prior to presentation. She has been having left-sided abdominal pain which is constant, nonradiating and without any relieving factors. Unable to tolerate p.o. intake due to nausea. Also started to have diarrhea 3-4 episodes per day. Two days prior to presentation, started having bloody diarrhea. No sick contacts. No precipitating factor. No fever, chills, chest pain, palpitations, shortness of breath, changes in urinary habits. In the emergency department, stool occult positive and AST/ALT found to be elevated Hospital course: Patient was admitted for left lower quadrant abdominal pain and hematochezia, CT abdomen was negative, differential includes ischemic colitis, autoimmune disorder. Mesenteric Doppler was negative. Stool PCR was positive for C diff toxin negative was seen by infectious disease who felt this was likely c olonization but recommended completing 10-14 day vancomycin p.o. treatment. Patient underwent EGD and flexible sigmoidoscopy, no obvious culprit lesions found, biopsies taken and should be followed up outpatient. GI also recommended autoimmune workup which was ordered and results should be followed up outpatient. Patient's diarrhea has slowed down and is tolerating solids so will be discharged home to complete vancomycin course. Patient also noted to have transaminitis on presentation, possible viral illness versus ischemic, has significantly trended down. Statin was held and should be restarted in about 1 week and then LFTs rechecked in about 2 weeks. For CKD 3 she remained stable. For COPD continued on home inhalers. For hypertension continued on lisinopril. For fibromyalgia continue Lyrica. Patient is feeling better will be discharged home. Time Attestation Discharge Coordination Time (in mins): 35 Quality: Safe Use of Opioids Does Pt have an Active Cancer Diagnosis on the Problem List?: No Quality: Stroke Does the patient have a stroke diagnosis?: No Physical Exam Vital Signs: Vital Signs: Last Vital Signs Temp 97.3 F 01/22/24 07:44 Pulse 76 01/22/24 07:45 Resp 14 01/22/24 07:45 BP 131/81 01/22/24 07:44 Pulse Ox 96 01/22/24 07:44 O2 Del Method Room Air 01/22/24 07:44 BMI result Body Mass Index 23.2 Const: Other: General - no acute distress, appears comfortable Cardiovascular - regular rate and rhythm, S1-S2 Lungs - normal respiratory effort, clear to auscultation bilaterally, no wheezing Abdomen - mild ttp with voluntary guarding Extremities - no edema bilaterally Neuro - awake and alert, no focal deficits DS: Data Data Completed and Pending Pending studies at discharge: Pending at discharge 01/21/24 12:37 Surgical [PTH] Routine Labs on day of discharge: Laboratory Results - last 24 hr 01/22/24 08:06 WBC 3.9 L RBC 4.62 Hgb 13.6 Hct 40.6 MCV 87.9 MCH 29.4 MCHC 33.5 RDW 14.1 Plt Count 208 MPV 9.4 Absolute Nucleated RBC 0.000 Nucleated RBC % (auto) 0.0 Discharge Plan Discharge Anticipated Discharge Date/Time: 01/22/24 09:11 Patient Disposition: Home, Self-Care Discharge Diagnosis: colitis Referrals: Jane Oden MD [Primary Care Provider] - 1 Week Penelope Toscano MD [Physician] - 1 Week Discharge Medications: New vancomycin 125 mg Capsule 125 mg PO Q6H Qty: 40 0RF oxycodone 5 mg Tablet 5 mg PO Q6H PRN (Reason: Pain, Moderate(Pain Scale 4-6)) Qty: 10 0RF Rx Instructions: Partial Fill upon patient request. Continued albuterol sulfate [Ventolin HFA] 90 mcg/actuation Hfa Aerosol Inhaler 2 puff inhalation Q6H PRN (Reason: Dyspnea) Qty: 8.5 0RF ondansetron 4 mg Tablet,Disintegrating 4 mg translingual Q6H PRN (Reason: Nausea And Vomiting) Qty: 1 0RF omeprazole 40 mg capsule,delayed release(DR/EC) 40 mg PO DAILY@0630 fluoxetine 20 mg Capsule 40 mg PO DAILY 30 Days Qty: 60 0RF Spiriva Respimat 2.5 mcg/actuation Mist 2 puff inhalation RDAILY 30 Days Qty: 4 0RF lisinopril 5 mg tablet 5 mg PO DAILY pregabalin 300 mg capsule 300 mg PO BID Held atorvastatin 20 mg Tablet 20 mg PO DAILY Qty: 1 0RF Hold Instructions: Resume on 01/30/24. Discharge Orders: Discharge Order (Routine); Ordered 01/22/24 Ordered By: Vinay Benoit Diet: Advance to usual diet Activity on Discharge: As tolerated Stand Alone Forms: Patient Portal Discharge page Print Language: Marshallese Care Plan Goals: recovery Health Concerns: abd pain, cdif colonization Plan of Treatment: 10 more days vanco po, follow up with gi, restart statin in about 1 week and recheck lfts in about 2 weeks Assessment: see above
[2024-01-22 09:34] LABS: Alanine Aminotransferase 141 U/L (0-31); Albumin Level 3.7 g/dL (3.5-5.0); Alkaline Phosphatase 105 U/L (39-117); Anion Gap 13 (12-20); Aspartate Amino Transferase 22 U/L (5-31); Bilirubin Direct 0.1 mg/dL (0.0-0.5); Bilirubin Total 0.4 mg/dL (0.0-1.0); Blood Urea Nitrogen 8 mg/dL (9-16); Calcium 9.1 mg/dL (8.4-10.2); Carbon Dioxide 27 mmol/L (22-29); Chloride 106 mmol/L (96-108); Estimated Glomerular Filt Rate > 60; Glucose Random 101 mg/dL (60-115); Sodium 142 mmol/L (135-145); Total Protein 5.8 g/dL (6.5-8.0)
--- NOTE | 2024-01-22 11:13 | MHC.CM.PN ---
Pt is medically cleared for discharge home self-care, pts transported her home. Pt was discharged prior to second IMM being given.
--- NOTE | 2024-01-22 20:13 | HO.POSTANES ---
Post Anesthesia Evaluation Post Anesthesia Evaluation Date of Service: 01/22/24 Anesthesia: Monitored Mental Status: Awake Pain Control: Satisfactory Nausea/Vomiting: None Hydration: Adequate Anesthesia-Related Issues: No Anes. Related Issues
[2024-01-23 11:38] LABS: IgA 54 mg/dL (70-320); IgG 616 mg/dL (600-1540); IgM 60 mg/dL (50-300)
[2024-01-25 08:14] LABS: Anti Nuclear Antibody Screen NEGATIVE (NEGATIVE)
[2024-01-25 15:49] LABS: Absolute CD3 Count 627 cells/uL (840-3060); Absolute CD4 Count 496 cells/uL (490-1740); Absolute CD8 Count 146 cells/uL (180-1170); Absolute Lymphocytes 863 cells/uL (850-3900); Percent CD3 Cells 73 % (57-85); Percent CD4 Cells 58 % (30-61); Percent CD8 Cells 17 % (12-42)
== END 2024-01-22 11:57 | disposition home or self-care (01) | DRG 392 ==
LOC: HO.ED 22:38 → HO.EDOVER 22:42 → HO.IMC 23:44
PROVIDERS: Emergency Medicine; Internal Medicine; Physician Assistant; Admitting Provider Student in an Organized Health Care Education/Training Program; Emergency Provider Emergency Medicine; PCP Internal Medicine; Visit Provider Internal Medicine
PROC: 0DB98ZX Excision of Duodenum, Via Natural or Artificial Opening Endoscopic, Diagnostic (ICD-10-PCS; principal; 2024-01-21 10:30)
DX: A08.4 Viral intestinal infection, unspecified (principal); E87.21 Acute metabolic acidosis; K55.9 Vascular disorder of intestine, unspecified; N18.30 Chronic kidney disease, stage 3 unspecified; E78.2 Mixed hyperlipidemia; K44.9 Diaphragmatic hernia without obstruction or gangrene; I95.9 Hypotension, unspecified; K64.8 Other hemorrhoids; F39 Unspecified mood [affective] disorder; I12.9 Hypertensive chronic kidney disease with stage 1 through stage 4 chronic kidney disease, or unspecified chronic kidney disease; M79.7 Fibromyalgia; M54.50 Low back pain, unspecified; G89.29 Other chronic pain; Z96.82 Presence of neurostimulator; Z87.891 Personal history of nicotine dependence; Z23 Encounter for immunization; Z79.899 Other long term (current) drug therapy
CPT/HCPCS: 36415; 74176; 74177; 76705; 80048; 80053; 80076; 80143; 80179; 81001; 82010; 82272; 82784; 82803; 82947; 83605; 83690; 83735; 85025; 85027; 85610; 85730; 86038; 86359; 86360; 86704; 86706; 86709; 86803; 87324; 87340; 87493; 87507; 88305; 88313; 88342; 90656; 93005; 93976; 94640; 99285; J1171; J1200; J2003; J2270; J2405; J2470; J2704; J2765; J2919; J3010; J7120; Q9967

== ENCOUNTER → 2024-01-16 16:56 | Outpatient (BNV) | payer MEDICARE, SELFPAY | PROVIDERS: Emergency Provider Emergency Medicine; PCP Internal Medicine; Visit Provider Student in an Organized Health Care Education/Training Program | DX: K92.2 Gastrointestinal hemorrhage, unspecified (principal); R74.01 Elevation of levels of liver transaminase levels; R10.9 Unspecified abdominal pain | CPT/HCPCS: 99223; 99232; 99233; 99239; 99499 ==

== ENCOUNTER → 2024-01-16 17:58 | Outpatient (BNV) | payer MEDICARE, SELFPAY | PROVIDERS: Admitting Provider Student in an Organized Health Care Education/Training Program; Emergency Provider Emergency Medicine; PCP Internal Medicine; Visit Provider Internal Medicine Cardiovascular Disease | DX: I45.6 Pre-excitation syndrome (principal) | CPT/HCPCS: 93010 ==

== ENCOUNTER → 2024-01-16 21:42 | Outpatient (BNV) | payer MEDICARE, SELFPAY | PROVIDERS: Admitting Provider Student in an Organized Health Care Education/Training Program; Emergency Provider Emergency Medicine; PCP Internal Medicine; Visit Provider Internal Medicine | DX: K92.2 Gastrointestinal hemorrhage, unspecified (principal); R79.89 Other specified abnormal findings of blood chemistry; R19.7 Diarrhea, unspecified | CPT/HCPCS: 99222 ==

== ENCOUNTER → 2024-01-16 21:42 | Outpatient (BNV) | payer MEDICARE, SELFPAY | PROVIDERS: Admitting Provider Student in an Organized Health Care Education/Training Program; Emergency Provider Emergency Medicine; PCP Internal Medicine; Visit Provider Internal Medicine | DX: R10.9 Unspecified abdominal pain (principal); R11.2 Nausea with vomiting, unspecified; R19.7 Diarrhea, unspecified; K64.8 Other hemorrhoids; K57.30 Diverticulosis of large intestine without perforation or abscess without bleeding | CPT/HCPCS: 43239; 45331; 99222; 99232 ==

== ENCOUNTER 2024-02-22 09:48 | Emergency (ER) | payer MEDICARE, SELFPAY ==
--- NOTE | ~2024-02-22 | CT_ITS ---
EXAMINATION: CT ABDOMEN AND PELVIS WITH CONTRAST CLINICAL INFORMATION: Lower abdominal pain. Nausea. Bloody diarrhea. COMPARISON: CT dated January 18, 2024. TECHNIQUE: Multidetector volumetric images were obtained from the superior aspect of the liver through the pubic symphysis following administration 85 mL of Omnipaque 350 intravenous contrast without reported immediate complications. Sagittal and coronal reformatted images were obtained on the technologist's workstation. Oral contrast: No This CT examination was performed using dose optimization techniques as appropriate, variously including the following: *Automated exposure control *Adjustment of mA and/or kV according to patient size (this includes techniques or standardized protocols for targeted exams where dose is matched to indication/reason for exam; i.e. extremities or head) *Use of iterative reconstruction technique DLP: 468 mGy-cm FINDINGS: LUNG BASES: Centrilobular and paraseptal emphysematous changes in the included lungs. Small hiatal hernia. LIVER, GALLBLADDER, AND BILIARY TREE: Liver measures 15 cm. Few scattered less than 3 mm cystic lesions throughout the parenchyma, too small to be fully characterized by CT. Portal vein and hepatic veins are patent. Intrahepatic portion of the IVC appears patent. No pericholecystic fluid collection or gallbladder wall thickening. Common bile duct measures 4 mm. PANCREAS: No focal pancreatic mass. No peripancreatic fluid collection. No main pancreatic ductal dilatation. SPLEEN: Measures 9 cm. No focal mass. ADRENAL GLANDS: No nodular lesions. KIDNEYS AND URETERS: No renal mass. No hydronephrosis. Subcentimeter cysts, bilaterally. BLADDER: Fluid-filled. GASTROINTESTINAL TRACT: Numerous diverticula in the left hemicolon. Collapsed appearance of the left hemicolon/descending colon. Sutures at the rectosigmoid colon junction. Mild pericolonic edema pattern in the sigmoid colon. No peripheral enhancing fluid collection. No intestinal obstruction pattern. No ascites. No pneumoperitoneum. Status post appendectomy. No pneumatosis intestinalis. Small hiatal hernia.. ABDOMINAL WALL: Small fat-containing umbilical hernia. LYMPH NODES: No lymphadenopathy, retroperitoneal or mesenteric. VASCULAR: Calcified plaques abdominal aorta wall and iliac arteries resulting in segmental areas of narrowing lumen. No aneurysm or dissection. PELVIC VISCERA: No gross masses in the adnexa. OSSEOUS STRUCTURES: The hardening artifact secondary to intraspinal canal neurostimulator electrodes entering at the dorsal T10-11 level. Intervertebral disc spacer at L5-S1. Multilevel spondylosis resulting in grade 1 retrolisthesis L3-4 central spinal canal and bilateral neuroforamina stenosis. Fatty atrophy lumbar muscles likely denervation. CT/CT abdomen pelvis w IV con IMPRESSION: Concerning noncomplicated acute sigmoid colonic diverticulitis. Fleischner guidelines were followed. Electronically signed by: Javier Aguirre MD 02/22/2024 02:25 PM EST
[2024-02-22 10:15] VITALS: BP 171/84; PULSE 66; RESP 16; TEMP 36.5; O2SAT 99; BMI 24.6
[2024-02-22 10:31] LABS: MANUAL DIFF FLAG NO
[2024-02-22 10:32] LABS: Basophils Absolute Auto 0.1 X10*3/uL (0.0-0.2); Basophils Percent Auto 1.3 % (0-2); Eosinophils Absolute Auto 0.2 X10*3/uL (0.0-0.4); Eosinophils Percent Auto 3.3 % (0-4); Hematocrit 43.2 % (37.0-47.0); Hemoglobin 14.1 g/dl (12.0-16.0); Imm Gran Abs Auto 0.06 X10*3/uL (0.00-0.03); Imm Gran Pct Auto 1.3 % (0.0-0.4); Lymphocytes Absolute Auto 1.1 X10*3/uL (1.2-4.9); Lymphocytes Percent Auto 22.5 % (20-40); Mean Corpuscular HGB Conc 32.6 g/dl (31.0-35.0); Mean Corpuscular Volume 88.9 fL (80.0-98.0); Mean Platelet Volume 8.9 fL (9.4-12.3); Monocytes Absolute Auto 0.3 X10*3/uL (0.1-1.2); Monocytes Percent Auto 5.2 % (2-11); Neutrophils Absolute Auto 3.2 x10*3/uL (2.0-8.3); Neutrophils Percent Auto 66.4 % (45-73); Platelet Count 254 X10*3/uL (160-400); Red Blood Count 4.86 X10*6/uL (4.20-5.50); Red Cell Distribution Width 13.8 % (11.0-16.0); White Blood Count 4.8 X10*3/uL (4.8-10.8)
[2024-02-22 10:37] LABS: Prothrombin Time 11.4 SEC (10.9-12.4)
[2024-02-22 10:40] LABS: Partial Thromboplastin Time 34.1 SEC (26.0-36.8)
[2024-02-22 10:47] LABS: Albumin Level 4.1 g/dL (3.5-5.0); Alkaline Phosphatase 125 U/L (39-117); Anion Gap 12 (12-20); Aspartate Amino Transferase 133 U/L (5-31); Bilirubin Direct 0.2 mg/dL (0.0-0.5); Bilirubin Total 0.5 mg/dL (0.0-1.0); Blood Urea Nitrogen 9 mg/dL (9-16); Calcium 9.2 mg/dL (8.4-10.2); Carbon Dioxide 26 mmol/L (22-29); Chloride 109 mmol/L (96-108); Creatinine Clr Calc Pharmacy 47.5; Estimated Glomerular Filt Rate 53; Glucose Random 100 mg/dL (60-115); Lipase 36 U/L (8-78); Sodium 143 mmol/L (135-145); Total Protein 6.9 g/dL (6.5-8.0)
[2024-02-22 11:07] LABS: Alanine Aminotransferase 400 U/L (0-31)
[2024-02-22 12:00] VITALS: BP 157/73; PULSE 69; RESP 16; TEMP 36.4; O2SAT 99
--- NOTE | 2024-02-22 12:04 | ED.GENADULT ---
HPI - General Adult General Chief complaint: GI Bleed Stated complaint: Bloody Diarrhea Time Seen by Provider: 02/22/24 12:02 Source: patient Mode of arrival: ambulatory Limitations: no limitations History of Present Illness HPI narrative: This is a 63-year-old woman with a past medical history of COPD not on home oxygen, chronic low back pain status post spinal cord stimulator, mood disorder, gastroesophageal reflux, CKD, history of diverticulitis status post bowel resection, hyperlipidemia who presents for evaluation of lower abdominal pain and bloody diarrhea. She reports that she has been sick for the last 3 days. She reports associated nausea without emesis. She states no hematemesis. She states no fevers or chills. She states no flank pain. She states no dysuria or urinary frequency/urgency. She states no melena. She states taking no blood thinning medications. She is she states no chest pain or dyspnea. She states no recent travel. She states that she was seen recently by mouth ago for similar symptoms. She states that she did not follow up with Gastroenterology as an outpatient. Related Data Home Medications ?Medication ?Instructions ?Recorded ?Confirmed omeprazole 40 mg capsule,delayed 40 mg PO DAILY@0630 11/27/23 01/17/24 release lisinopril 5 mg tablet 5 mg PO DAILY 01/17/24 01/17/24 pregabalin 300 mg capsule 300 mg PO BID 01/17/24 01/17/24 Previous Rx's ?Medication ?Instructions ?Recorded albuterol sulfate 90 mcg/actuation 2 puff inhalation Q6H PRN Dyspnea 11/26/23 aerosol inhaler (Ventolin HFA) #8.5 grams atorvastatin 20 mg tablet 20 mg PO DAILY #1 tab 11/26/23 ondansetron 4 mg disintegrating 4 mg translingual Q6H PRN Nausea 11/26/23 tablet And Vomiting #1 tab fluoxetine 20 mg capsule 40 mg (2 x 20 mg) PO DAILY 30 days 12/06/23 #60 caps tiotropium bromide 2.5 2 puff inhalation RDAILY 30 days 12/06/23 mcg/actuation mist for inhalation #4 grams (Spiriva Respimat) oxycodone 5 mg tablet 5 mg PO Q6H PRN Pain, 01/22/24 Moderate(Pain Scale 4-6) #10 tabs vancomycin 125 mg capsule 125 mg PO Q6H #40 caps 01/22/24 amoxicillin 875 mg-potassium 1 tab PO BID #10 tabs 02/22/24 clavulanate 125 mg tablet ondansetron 4 mg disintegrating 4 mg PO Q8H PRN nausea and 02/22/24 tablet vomiting #20 tabs Allergies Allergy/AdvReac Type Severity Reaction Status Date / Time codeine Allergy Severe Itching Verified 02/22/24 10:17 NSAIDS (Non-Steroidal AdvReac Severe bleeding Verified 02/22/24 10:17 Anti-Inflamma contrast dye AdvReac Severe Anaphylaxis Uncoded 01/16/24 12:02 Review of Systems Review of Systems: ROS as per HPI [facility] Past Medical History Medical History Anxiety Depression Chronic low back pain Fibromyalgia Migraine Nausea and vomiting COPD (chronic obstructive pulmonary disease) Hyperlipidemia Hypertension CKD (chronic kidney disease), stage III Diverticulitis Surgical History S/P insertion of spinal cord stimulator History of laminectomy History of colon resection Social History Social History Household Members: Spouse Housing: House Do you presently have visiting nurse or other home services: No Alcohol intake: never Comment: 1:1 sitter Patient Tobacco Use Status: Former Tobacco user Second Hand Smoke Exposure: No Substance Use Type: Marijuana Advance Directives: Yes Advance Directives on File: Yes Advance Directives Date on File: 11/27/23 service: No Sexual orientation: Straight/Heterosexual Physical Exam ED Vital Signs: Vital Signs - 24 hr 02/22/24 10:15 02/22/24 12:00 Temperature 97.7 F 97.6 F Pulse Rate 66 69 Respiratory Rate 16 16 Blood Pressure 171/84 H 157/73 H Pulse Oximetry 99 99 Oxygen Delivery Method Room Air Room Air BMI result Body Mass Index 24.6 Gen: NAD, AOx3 HEENT: NCAT, EOMI, normal conjunctiva, moist oral mucosa CV: RRR Pulm: CTAB, no increased work of breathing GI: Softly distended abdomen, + bilateral lower quadrant abdominal tenderness to palpation L>R. No peritoneal rigidity Neuro: Grossly non focal Medications Administered Discontinued Medications Generic Name Dose Route Start Last Admin Trade Name Freq PRN Reason Stop Dose Admin Amoxicillin/Clavulanate Potassium 875 mg 02/22/24 14:33 02/22/24 14:52 Amoxicillin/Potassium Clav 875 Mg Tablet PO 02/22/24 14:34 875 mg ONCE ONE Administration Diphenhydramine HCl 50 mg 02/22/24 12:18 02/22/24 12:35 Diphenhydramine Hcl 50 Mg/Ml Vial IVPUSH 02/22/24 12:19 50 mg ONCE ONE Administration Sodium Chloride 1,000 mls @ 999 mls/hr 02/22/24 12:30 02/22/24 12:35 Ns IV 02/22/24 13:30 999 mls/hr .Q1H1M CRISTINA Administration Ibuprofen 600 mg 02/22/24 14:43 02/22/24 14:51 Ibuprofen 600 Mg Tablet PO 02/22/24 14:44 600 mg ONCE ONE Administration Iohexol 100 ml 02/22/24 13:44 02/22/24 13:45 Iohexol 350 Mg/Ml 100 Ml Infus..Btl IV 02/22/24 13:45 85 ml ONCE ONE Administration Morphine Sulfate 4 mg 02/22/24 12:18 02/22/24 12:36 Morphine Sulfate 4 Mg/Ml Cartridge IVPUSH 02/22/24 12:19 4 mg ONCE ONE Administration Protocol Morphine Sulfate 4 mg 02/22/24 14:43 02/22/24 14:52 Morphine Sulfate 4 Mg/Ml Cartridge IVPUSH 02/22/24 14:44 4 mg ONCE ONE Administration Protocol Ondansetron HCl 4 mg 02/22/24 12:18 02/22/24 12:35 Ondansetron Hcl 4 Mg/2 Ml Vial IVPUSH 02/22/24 12:19 4 mg ONCE ONE Administration Medical Decision Making Medical Decision Making MDM Narrative: I reviewed non-ED discharge summary from 01/22/2024 - patient presented with left-sided abdominal pain, nausea, bloody diarrhea. Stool occult was positive and AST/ALT was found to be elevated. CT abdomen was negative. Mesenteric Doppler was negative. Stool PCR was positive for C diff, but toxin negative. Patient was seen by Infectious Disease who felt this is likely colonization, but recommended a course of oral vancomycin. The patient had an EGD and flexible sigmoidoscopy with no culprit lesions found and biopsies taken. GI recommended autoimmune workup which was ordered and results will be followed as an outpatient. It was thought the transaminitis may be viral versus ischemic. I reviewed surgical pathology results from EGD biopsy collected on 01/21/2024, which demonstrated chronic inactive duodenitis, mild chronic inactive inflammation of the stomach without Helicobacter organisms seen, left colonic mucosa within normal limits, lower esophageal squamous epithelium within normal limits and no inflammation seen. Differential diagnosis includes, but is not limited to diverticulitis, viral syndrome, Crohn's disease, ulcerative colitis. Patient is afebrile and hemodynamically stable on room air. I reviewed labs and imaging studies as below. Patient is treated supportively here in the emergency room with IV fluids, antiemetics and analgesics. On re-examination, patient is well-appearing and in no acute distress. ?Patient states symptoms have significantly improved and she is tolerating p.o. intake. There is no indication for further emergent evaluation in this otherwise well-appearing patient as above. ?Patient is provided written and verbal instructions, educational materials, recommendations for outpatient follow-up, strict return precautions and teach back is performed. She is strongly encouraged to follow up with her heel shaver given that she did not have to her last hospital visit. ?Patient states understanding and agreement with plan of care. ?Patient is discharged home in stable and improved condition. 1426 - on re-examination, patient is well-appearing and in no acute distress. She reports moderate pain at this time. She states no vomiting. Will provide additional dose of morphine. We will also provide ibuprofen concomitantly for p.o. trial and additional analgesia. There is listed allergy to nonsteroidal anti-inflammatory drugs of bleeding. Further, as previously mentioned review of recent EGD in January is unremarkable for upper GI bleed. I do suspect that patient's bloody stools today are related to her diverticulitis at this time. She does not have any clinically significant bleeding. Thus, I suspect benefit of nonsteroidal anti-inflammatory drug outweighs the risk. Admission/Observation Consideration of admission/observation: Escalation of care including admission/observation considered Lab Data MDM Lab Attestation statement: I reviewed the patient's lab results. I independently reviewed and interpreted the patient's labs including CBC, coagulation studies and metabolic panel. Metabolic panel is notable for AST 133, ALT 400 and alkaline phosphatase 125, which are increased from previous at 22, 141 and 105, respectively. Although, AST and ALT are not as elevated when compared to initial presentation at time of previous presentation with AST of 65 and ALT 6. Lipase within normal limits. 02/22/24 10:25 02/22/24 10:25 Labs: Lab Results 02/22/24 Range/Units 10:25 WBC 4.8 (4.8-10.8) X10*3/uL RBC 4.86 (4.20-5.50) X10*6/uL Hgb 14.1 (12.0-16.0) g/dl Hct 43.2 (37.0-47.0) % MCV 88.9 (80.0-98.0) fL MCH 29.0 (27.0-33.0) pg MCHC 32.6 (31.0-35.0) g/dl RDW 13.8 (11.0-16.0) % Plt Count 254 (160-400) X10*3/uL MPV 8.9 L (9.4-12.3) fL Immature Gran % (Auto) 1.3 H (0.0-0.4) % Neut % (Auto) 66.4 (45-73) % Lymph % (Auto) 22.5 (20-40) % [place] % (Auto) 5.2 (2-11) % Eos % (Auto) 3.3 (0-4) % Baso % (Auto) 1.3 (0-2) % Lymph # (Auto) 1.1 L (1.2-4.9) X10*3/uL [place] # (Auto) 0.3 (0.1-1.2) X10*3/uL Eos # (Auto) 0.2 (0.0-0.4) X10*3/uL Baso # (Auto) 0.1 (0.0-0.2) X10*3/uL Abs Immat Gran (auto) 0.06 H (0.00-0.03) X10*3/uL Absolute Neuts (auto) 3.2 (2.0-8.3) x10*3/uL Absolute Nucleated RBC 0.000 (0.0-0.012) X10*3/uL Nucleated RBC % (auto) 0.0 (0.0-0.2) /100WBC PT 11.4 (10.9-12.4) SEC INR 1.0 (0.9-1.1) APTT 34.1 (26.0-36.8) SEC Sodium 143 (135-145) mmol/L Potassium 4.0 (3.3-5.1) mmol/L Chloride 109 H (96-108) mmol/L Carbon Dioxide 26 (22-29) mmol/L Anion Gap 12 (12-20) BUN 9 (9-16) mg/dL Creatinine 1.06 (0.5-1.4) mg/dL Estim Creat Clear Calc 47.5 Estimated GFR 53 Random Glucose 100 (60-115) mg/dL Calcium 9.2 (8.4-10.2) mg/dL Total Bilirubin 0.5 (0.0-1.0) mg/dL Direct Bilirubin 0.2 (0.0-0.5) mg/dL AST 133 H (5-31) U/L ALT 400 H (0-31) U/L Alkaline Phosphatase 125 H (39-117) U/L Total Protein 6.9 (6.5-8.0) g/dL Albumin 4.1 (3.5-5.0) g/dL Lipase 36 (8-78) U/L Radiology Impression Discussion of test interpretation with radiology: I have reviewed the radiologist's reading. Radiologist Impression: CT/CT abdomen pelvis w IV con IMPRESSION: Concerning noncomplicated acute sigmoid colonic diverticulitis. Fleischner guidelines were followed. Electronically signed by: Javier Aguirre MD 02/22/2024 02:25 PM [facility] Dictated By: Javier Bubsy MD Signed By: <Electronically signed by Javier Sue MD in OV> 02/22/24 1426 Discharge Plan Discharge Clinical Impression: Diverticulitis Patient Disposition: Home, Self-Care Instructions: Diverticulitis (ED), High Fiber Diet (ED), Low Fiber Diet (ED) Additional Instructions: You were seen and evaluated in the emergency room. Your vital signs were normal and you did not have fever. Your blood work was reassuring with no emergent findings. You were treated with IV fluids, nausea medicine and pain medicine. Your CT scan showed evidence an infection, diverticulitis and you were started on antibiotics. A prescription for nausea medicine and antibiotics have been sent to your pharmacy. Please be sure you take the antibiotics as prescribed until completed even if you are feeling better. Please take the nausea medicine as described/as needed. Please follow up with Gastroenterology in the next 1-2 weeks. Please note that your medical evaluation is not complete and so he follow up with your doctor. Please also follow-up with your primary care doctor in the next week for re-evaluation. Please take 500-1000 mg Tylenol every 6-8 hours (do not take more than 4000 mg of Tylenol in a 24 hours). Please take 600 mg ibuprofen every 6 hours with food and water. Please take these medications around the clock/scheduled for the next several days. As her symptoms improve with the use of antibiotics, you may decrease her use of Tylenol and ibuprofen as needed. Please follow a low-fiber diet while you are being treated for diverticulitis. Please review the information given to you regarding a low-fiber diet. After you complete your treatment for diverticulitis and finish all of your antibiotics. Please follow a high-fiber diet. Please review information given to regarding a high-fiber diet. Return to the emergency room with any new concerns or symptoms. Prescriptions: New amoxicillin-pot clavulanate 875-125 mg tablet 1 tab PO BID Qty: 10 0RF ondansetron 4 mg tablet,disintegrating 4 mg PO Q8H PRN (Reason: nausea and vomiting) Qty: 20 0RF No Action albuterol sulfate [Ventolin HFA] 90 mcg/actuation Hfa Aerosol Inhaler 2 puff inhalation Q6H PRN (Reason: Dyspnea) Qty: 8.5 0RF atorvastatin 20 mg Tablet 20 mg PO DAILY Qty: 1 0RF ondansetron 4 mg Tablet,Disintegrating 4 mg translingual Q6H PRN (Reason: Nausea And Vomiting) Qty: 1 0RF omeprazole 40 mg capsule,delayed release(DR/EC) 40 mg PO DAILY@0630 fluoxetine 20 mg Capsule 40 mg PO DAILY 30 Days Qty: 60 0RF Spiriva Respimat 2.5 mcg/actuation Mist 2 puff inhalation RDAILY 30 Days Qty: 4 0RF lisinopril 5 mg tablet 5 mg PO DAILY pregabalin 300 mg capsule 300 mg PO BID vancomycin 125 mg Capsule 125 mg PO Q6H Qty: 40 0RF oxycodone 5 mg Tablet 5 mg PO Q6H PRN (Reason: Pain, Moderate(Pain Scale 4-6)) Qty: 10 0RF Rx Instructions: Partial Fill upon patient request. Referrals: [facility] [place] G[facility] Services [Provider Group] Print Language: Setswana
[2024-02-22] MEDS: 0.9 % Sodium Chloride 1,000 ML 999 ML IV (12:35)
[2024-02-22] MEDS: ondansetron HCL 4 MG/2 ML VIAL IVPUSH (12:35)
[2024-02-22] MEDS: diphenhydrAMINE HCL 50 MG/ML VIAL IVPUSH (12:35)
[2024-02-22] MEDS: Morphine Sulfate 4 MG/ML CARTRIDGE IVPUSH ×2 (12:36→14:52)
[2024-02-22] MEDS: iohexoL 350 MG/ML 100 ML INFUS..BTL IV (13:45)
[2024-02-22] MEDS: Ibuprofen 600 MG TABLET PO (14:51)
[2024-02-22] MEDS: Amoxicillin/Potassium Clav 875 MG TABLET PO (14:52)
[2024-02-22 15:36] VITALS: BP 151/89; PULSE 56; RESP 16; TEMP 36.7; O2SAT 98
[2024-02-22] MEDS: Acetaminophen 325 MG TABLET 650 MG PO (15:38)
== END 2024-02-22 15:40 | disposition home or self-care (01) ==
PROVIDERS: Emergency Provider Emergency Medicine; PCP Internal Medicine
DX: K57.32 Diverticulitis of large intestine without perforation or abscess without bleeding (principal); R19.2 Visible peristalsis; J44.9 Chronic obstructive pulmonary disease, unspecified; M54.50 Low back pain, unspecified; R10.9 Unspecified abdominal pain; R11.0 Nausea; Z79.899 Other long term (current) drug therapy
CPT/HCPCS: 36415; 74177; 80048; 80076; 83690; 85025; 85610; 85730; 96361; 96374; 96375; 96376; 99284; J1200; J2270; J2405; Q9967

== ENCOUNTER → 2024-02-22 12:20 | Outpatient (BNV) | payer MEDICARE, SELFPAY | PROVIDERS: Emergency Provider Emergency Medicine; PCP Internal Medicine; Visit Provider Radiology Diagnostic Radiology | DX: K92.1 Melena (principal) | CPT/HCPCS: 74177 ==

== ENCOUNTER 2024-02-29 13:43 | Outpatient (AMB) | payer MEDICARE, SELFPAY ==
[2024-02-29 13:49] VITALS: BP 97/59; PULSE 75; BMI 24.2
--- NOTE | 2024-02-29 13:49 | MHC.OFFVIS ---
Vital Signs 02/29/24 13:49 Height 5 ft 4 in Weight 141 lb 1.533 oz BMI 24.2 BP 97/59 L Blood Pressure Location Lt brachial Position Sitting Pulse 75 Intake Visit Reasons: Post Op EGD f/U Intake Note: Anna Marie presents in the office as a EGD follow up. CC: She states that she is here because she is not feeling well. She states that this is an ED follow up due to her being there last week but the procedures were done a month ago. Etcher Electrolytic Required: No Allergies codeine Allergy (Severe, Verified 02/29/24 13:54) Itching NSAIDS (Non-Steroidal Anti-Inflamma Adverse Reaction (Severe, Verified 02/29/24 13:54) bleeding contrast dye Adverse Reaction (Severe, Uncoded 02/29/24 13:54) Anaphylaxis HPI Comments Details: 63-year-old female with medical history of COPD, lower back pain, history of complicated diverticulitis with partial bowel resection [facility] (2022), who was seen in consultation in 01/29/2024 for severe abdominal pain with nausea, vomiting and diarrhea. At that time, presentation suspicious for infectious versus ischemic colitis versus diverticulitis. CT scan normal. Infectious panel normal. EGD/flex sig showed diverticulosis but otherwise normal mucosa. Path: Mild duodenitis and gastritis. No H pylori. Normal colon. She again had an ER visit last week for similar pain, and at that time CT scan did capture sigmoid diverticulitis, uncomplicated. She was discharged on oral antibiotics. Patient reports persistent wake left-sided discomfort, with diarrhea. No nausea or vomiting. Able to tolerate p.o.. She does note that abdominal pain gets worse with the urge to defecate. [facility] Medical History (Updated 02/29/24 @ 16:17 by Penelope Toscano MD) Routine medical exam Anxiety Depression Chronic low back pain Fibromyalgia Migraine Nausea and vomiting COPD (chronic obstructive pulmonary disease) Hyperlipidemia Hypertension CKD (chronic kidney disease), stage III Diverticulitis Surgical History (Updated 02/29/24 @ 13:55 by LUIS Hill) Hx of colonoscopy History of esophagogastroduodenoscopy (EGD) S/P insertion of spinal cord stimulator History of laminectomy History of colon resection Family History (Updated 02/29/24 @ 13:55 by LUIS Hill) Maternal Grandfather Colon cancer Social History Household Members: Spouse Housing: House Do you presently have visiting nurse or other home services: No Alcohol intake: never Comment: 1:1 sitter Patient Tobacco Use Status: Former Tobacco user Second Hand Smoke Exposure: No Substance Use Type: Marijuana Advance Directives Date on File: 11/27/23 service: No Sexual orientation: Straight/Heterosexual Review of Systems Const All systems reviewed & are unremarkable except as noted in HPI and below Physical Exam Vital Signs: Last Vital Signs Pulse 75 02/29/24 13:49 BP 97/59 L 02/29/24 13:49 BMI result Body Mass Index 24.2 Gen appear: No acute distress HEENT: no icterus Chest: No overt resp distress Abd: soft, nontender, nondistended Psych: Stable affect, answering questions appropriately Neuro: A/Ox3 noted to move all extremities spontaneously Ext: no peripheral edema Assessment & Plan Assessment & Plan (1) Diverticulosis: Code(s): K57.90 - Diverticulosis of intestine, part unspecified, without perforation or abscess without bleeding Category: Medical (2) Irritable bowel syndrome with diarrhea: Code(s): K58.0 - Irritable bowel syndrome with diarrhea Category: Medical (3) Abdominal pain: Code(s): R10.9 - Unspecified abdominal pain Category: Medical Plan Differentials include SUDD vs IBS-D. Fecal calprotectin may help differentiate. Plan: -labs ordered as below -patient advised to start rifaximin 550 b.i.d. AFTER submission of stool sample - this will be helpful for both IBS-D or SUDD. -If has elevated fecal maryjo, and minimal response to Rifaximin can trial mesalamine enema -If has normal fecal maryjo, and minimal response to Rifaximin can trial combination of dicyclomine+cholestyramine vs alosetron. Follow up 4 weeks Orders: Orders Calprotectin, Fecal Today R19.7 - Diarrhea, unspecified GI Panel Today R19.7 - Diarrhea, unspecified Medications: New rifaximin 550 mg PO BID 28 tabs 0RF 14 days K58.0 - Irritable bowel syndrome with diarrhea Coding Level of Care Code Est Pt Level 4 (11534) Complex EM visit Add On G2211 Diagnoses Diverticulosis K57.90 Irritable bowel syndrome with diarrhea K58.0 Abdominal pain R10.9
== END 2024-02-29 14:29 | disposition home or self-care (01) ==
PROVIDERS: PCP Internal Medicine; Referring Provider Internal Medicine; Visit Provider Internal Medicine
DX: K57.90 Diverticulosis of intestine, part unspecified, without perforation or abscess without bleeding (principal); K58.0 Irritable bowel syndrome with diarrhea; R10.9 Unspecified abdominal pain
CPT/HCPCS: 99214; G2211

== ENCOUNTER → 2024-02-29 13:43 | Outpatient (BNVA) | payer MEDICARE, SELFPAY | PROVIDERS: PCP Internal Medicine; Visit Provider Internal Medicine | DX: K57.90 Diverticulosis of intestine, part unspecified, without perforation or abscess without bleeding (principal); K58.0 Irritable bowel syndrome with diarrhea; R10.9 Unspecified abdominal pain | CPT/HCPCS: 99212 ==

== ENCOUNTER 2024-03-16 12:34 | Emergency (ER) | payer MEDICARE, SELFPAY ==
--- NOTE | ~2024-03-16 | CT_ITS ---
EXAMINATION: CT ABDOMEN AND PELVIS WITHOUT CONTRAST CLINICAL INFORMATION: Abdominal pain COMPARISON: CT abdomen and pelvis on 02/22/2024 TECHNIQUE: Multidetector volumetric imaging was performed from the superior aspect of the liver through the pubic symphysis. Sagittal and coronal reformatted images were obtained on the technologist's workstation. This CT examination was performed using dose optimization techniques as appropriate, variously including the following: *Automated exposure control *Adjustment of mA and/or kV according to patient size (this includes techniques or standardized protocols for targeted exams where dose is matched to indication/reason for exam; i.e. extremities or head) *Use of iterative reconstruction technique DLP: 409 mGy-cm FINDINGS: LUNG BASES: Moderate emphysema. LIVER, GALLBLADDER, AND BILIARY TREE: The liver is normal in size, shape, and attenuation. No focal hepatic lesion or biliary ductal dilatation is present. The gallbladder is unremarkable with no evidence of radiopaque gallstones, gallbladder wall thickening, or obvious pericholecystic inflammatory changes. PANCREAS: Unremarkable. SPLEEN: Unremarkable. ADRENAL GLANDS: Unremarkable. KIDNEYS AND URETERS: The kidneys are normal in size, shape, and attenuation. No hydronephrosis, hydroureter, or calculi seen. No perinephric stranding. BLADDER: Unremarkable. GASTROINTESTINAL TRACT: The small and large bowel are unremarkable. Colonic diverticulosis is noted. ABDOMINAL WALL: No significant hernia is appreciated. Spinal stimulator device in the left flank. LYMPH NODES: Normal. VASCULAR: Mild atherosclerotic disease. PELVIC VISCERA: Unremarkable. OSSEOUS STRUCTURES: Intervertebral disc spacer at L5-S1. Mild degenerative disease of lower lumbar spine. CT/CT abdomen pelvis wo IV con IMPRESSION: 1. No acute abnormality. 2. Colonic diverticulosis without evidence of diverticulitis. 3. Moderate emphysema. Fleischner guidelines were followed. Electronically signed by: Geri Haddad MD 03/16/2024 07:11 PM HIRAM
[2024-03-16 13:02] VITALS: BP 169/84; PULSE 78; RESP 16; TEMP 36.7; O2SAT 98; BMI 24.7
--- NOTE | 2024-03-16 13:02 | ED.ABDPAIN ---
HPI - Abdominal Pain General Chief Complaint: GI Bleed Stated Complaint: Blood in stool Time Seen by Provider: 03/16/24 19:35 History of Present Illness ED Provider: Timbo FELIPE narrative: The patient is a 63-year-old woman who had bowel surgery in February of 2023. She had resection of her colon because of diverticulitis. She says that since then she has had frequent episodes of recurrent abdominal pain, distention, and bloody diarrhea. She has been evaluated a number of times for these symptoms. She had a CT of the abdomen and pelvis on November 25 which was negative. She had another CT scan on January 15 which was also negative. At that time she was hospitalized for evaluation of the symptoms. She had a C diff assay done that was positive for the C diff gene but negative for the C diff toxin. Although this suggested possible colonization she was treated with oral vancomycin. She came to the emergency department a little over 3 weeks ago on February 21 with similar symptoms. At that time her abdominal CT was read as uncomplicated diverticulitis. She was seen in the emergency room and discharged with a prescription for Augmentin. The patient says that she presents today with a recurrence of the same symptoms. These symptoms began 2 days ago on Tuesday. She says that at first she had nausea and vomiting on Tuesday. This has progressed to abdominal pain, bloating, and bloody diarrhea. She has not had a fever. She came to the emergency room because she was feeling so bad. Another component to the patient's problems over the last few months is that she was found to have significantly elevated transaminases when she was hospitalized 2 months ago. She was advised to stop atorvastatin. It seems as though her transaminases improved. She has subsequently resumed atorvastatin and her LFTs today are again abnormal. Related Data Home Medications ?Medication ?Instructions ?Recorded ?Confirmed omeprazole 40 mg capsule,delayed 40 mg PO DAILY@0630 11/27/23 01/17/24 release lisinopril 5 mg tablet 5 mg PO DAILY 01/17/24 01/17/24 pregabalin 300 mg capsule 300 mg PO BID 01/17/24 01/17/24 Previous Rx's ?Medication ?Instructions ?Recorded albuterol sulfate 90 mcg/actuation 2 puff inhalation Q6H PRN Dyspnea 11/26/23 aerosol inhaler (Ventolin HFA) #8.5 grams atorvastatin 20 mg tablet 20 mg PO DAILY #1 tab 11/26/23 fluoxetine 20 mg capsule 40 mg (2 x 20 mg) PO DAILY 30 days 12/06/23 #60 caps tiotropium bromide 2.5 2 puff inhalation RDAILY 30 days 12/06/23 mcg/actuation mist for inhalation #4 grams (Spiriva Respimat) ondansetron 4 mg disintegrating 4 mg PO Q8H PRN nausea and 02/22/24 tablet vomiting #20 tabs rifaximin 550 mg tablet 550 mg PO BID 14 days #28 tabs 03/02/24 dicyclomine 20 mg tablet 20 mg PO TID PRN abdominal pain 03/16/24 #30 tabs Allergies Allergy/AdvReac Type Severity Reaction Status Date / Time codeine Allergy Severe Itching Verified 03/16/24 13:03 NSAIDS (Non-Steroidal AdvReac Severe bleeding Verified 03/16/24 13:03 Anti-Inflamma contrast dye AdvReac Severe Anaphylaxis Uncoded 02/29/24 13:54 Review of Systems Review of Systems Yes all other systems are reviewed and are negative [facility] Past Medical History Medical History (Updated 03/17/24 @ 00:02 by Go Fine) Routine medical exam Anxiety Depression Chronic low back pain Fibromyalgia Migraine Nausea and vomiting COPD (chronic obstructive pulmonary disease) Hyperlipidemia Hypertension CKD (chronic kidney disease), stage III Diverticulitis Surgical History (Updated 02/29/24 @ 13:55 by LUIS Hill) Hx of colonoscopy History of esophagogastroduodenoscopy (EGD) S/P insertion of spinal cord stimulator History of laminectomy History of colon resection Family History Family History (Updated 02/29/24 @ 13:55 by LUIS Hill) Maternal Grandfather Colon cancer Social History Social History Household Members: Spouse Housing: House Do you presently have visiting nurse or other home services: No Alcohol intake: never Comment: 1:1 sitter Patient Tobacco Use Status: Former Tobacco user Smoked in Last 30 Days: No Second Hand Smoke Exposure: No Use of substances other than those prescribed or required for medical reasons: No Substance Use Type: Marijuana Advance Directives: No Advance Directives Information Provided: No Advance Directives Date on File: 11/27/23 Patient : No service: No Sexual orientation: Straight/Heterosexual Physical Exam ED Vital Signs: Vital Signs - 24 hr 03/16/24 13:02 03/16/24 15:41 03/16/24 19:24 Temperature 98.1 F 97.6 F 98.1 F Pulse Rate 78 84 71 Respiratory Rate 16 16 15 Blood Pressure 169/84 H 128/77 177/96 H Pulse Oximetry 98 100 97 Oxygen Delivery Method Room Air Room Air Room Air 03/16/24 20:00 03/16/24 22:35 Temperature 98.1 F 98.1 F Pulse Rate 65 65 Respiratory Rate 16 16 Blood Pressure 138/82 138/82 Pulse Oximetry 97 97 Oxygen Delivery Method Room Air Room Air BMI result Body Mass Index 24.7 Const Other: The patient is a 63-year-old woman who is awake and alert with normal mental status. She did not appear overly toxic or in distress. HENMT Head: Yes normal to inspection Face and sinus: Yes normal facial exam Mouth: Normal oral and palatal mucosa present and moist mucous membranes Eyes General: appearance normal, both eyes and all related structures Conjunctivae: conjunctivae normal EOM: EOMs intact bilaterally Resp Effort & Inspection: normal respiratory effort Auscultation: clear to auscultation bilaterally Cardio Rate: regular rate Rhythm: regular rhythm Heart sounds: S1 normal heart sound present and S2 normal heart sound present GI Other: The abdomen seems somewhat protuberant and distended. That was tympanitic. She had some degree of lower abdominal tenderness but she did not seem to have severe tenderness. digital rectal exam revealed no perianal abnormalities. There was no stool in the rectum. There was no blood apparent. Skin Other: The skin is pale and dry Neuro Other: the patient is awake and alert with normal mental status. Cranial nerves are grossly intact. She moves her extremities normally and appropriately. She has a normal gait. She seems neurologically intact. Extrem Other: No peripheral edema Course Course Course Narrative: This is an RME done by NEGRITA Fatima: Additional HPI, ROS, PE not included below will be deferred to primary provider. 63-year-old female presents with lower abdominal pain history of diverticulitis she states it feels typical to her similar diverticulitis flare. Denies fevers, chills, nausea, vomiting. Also reports she has blood in her stool. Medical Decision Making Medical Decision Making MDM Narrative: the patient is a 63-year-old woman who says that she has been having problems with recurrent episodes of abdominal discomfort and other gastrointestinal symptoms since she had bowel resections surgery 1 year ago. She was hospitalized 2 months ago at this hospital with symptoms similar to today's presentation. She is centrally had a negative workup. She tested positive for the C diff gene but negative for the C diff toxin. She was treated with a course of oral vancomycin. She returned 1 month ago and was seen in the emergency room and had a CT scan that suggested possible uncomplicated diverticulitis. She was prescribed Augmentin. Is not really clear if she got significantly better. She now presents with 3 days of worsening abdominal discomfort, bloating, and also report of bloody diarrhea. She was unable to produce a stool sample in the emergency department. There was no blood on her rectal exam. A noncontrast CT of the abdomen and pelvis is unremarkable. White count and differential are unremarkable. Her CRP is normal. Patient was treated with IV fluids and pain medications. She seemed to feel better. Given that she had a hospitalization 2 months ago for evaluation of very similar symptoms and given that her workup was essentially negative at that time and given her unremarkable workup today in the emergency room I do not have a high suspicion for any acutely dangerous process that requires rehospitalization. The patient seems comfortable being discharged. I will prescribe dicyclomine in case this helps. She should follow up with her clinical nursing intern. The only significant laboratory abnormality today is a rise in her transaminases. Her transaminases had been high in January. at that point she was advised to stop her atorvastatin. Her transaminases subsequently improved. She has since resumed taking atorvastatin. Her transaminases are high again. I will again advised her to stop atorvastatin. She should contact her PCP or clinical nursing intern for retesting of her LFTs next week.. Lab Data 03/16/24 12:58 03/16/24 12:58 Labs: Lab Results 03/16/24 03/16/24 Range/Units 12:58 16:44 WBC 4.6 L (4.8-10.8) X10*3/uL RBC 4.85 (4.20-5.50) X10*6/uL Hgb 14.0 (12.0-16.0) g/dl Hct 42.1 (37.0-47.0) % MCV 86.8 (80.0-98.0) fL MCH 28.9 (27.0-33.0) pg MCHC 33.3 (31.0-35.0) g/dl RDW 13.5 (11.0-16.0) % Plt Count 186 D (160-400) X10*3/uL MPV 9.7 (9.4-12.3) fL Immature Gran % (Auto) 0.2 (0.0-0.4) % Neut % (Auto) 68.2 (45-73) % Lymph % (Auto) 18.4 L (20-40) % Ashley % (Auto) 5.5 (2-11) % Eos % (Auto) 6.4 H (0-4) % Baso % (Auto) 1.3 (0-2) % Lymph # (Auto) 0.8 L (1.2-4.9) X10*3/uL Ashley # (Auto) 0.3 (0.1-1.2) X10*3/uL Eos # (Auto) 0.3 (0.0-0.4) X10*3/uL Baso # (Auto) 0.1 (0.0-0.2) X10*3/uL Abs Immat Gran (auto) 0.01 (0.00-0.03) X10*3/uL Absolute Neuts (auto) 3.1 (2.0-8.3) x10*3/uL Absolute Nucleated RBC 0.000 (0.0-0.012) X10*3/uL Nucleated RBC % (auto) 0.0 (0.0-0.2) /100WBC PT 12.2 (10.9-12.4) SEC INR 1.0 (0.9-1.1) Sodium 142 (135-145) mmol/L Potassium 4.2 (3.3-5.1) mmol/L Chloride 109 H (96-108) mmol/L Carbon Dioxide 25 (22-29) mmol/L Anion Gap 12 (12-20) BUN 10 (9-16) mg/dL Creatinine 0.89 (0.5-1.4) mg/dL Estim Creat Clear Calc 56.5 Estimated GFR > 60 Random Glucose 124 H (60-115) mg/dL Calcium 10.0 D (8.4-10.2) mg/dL Magnesium 1.7 (1.6-2.6) mg/dL Total Bilirubin 0.7 (0.0-1.0) mg/dL AST 287 H (5-31) U/L ALT 666 H (0-31) U/L Alkaline Phosphatase 133 H (39-117) U/L Troponin I High Sens < 2.7 (<3.5-17.0) ng/L C-Reactive Protein 0.14 (< or = 0.50) mg/dL Total Protein 7.2 (6.5-8.0) g/dL Albumin 4.4 (3.5-5.0) g/dL Urine Color Yellow Urine Appearance Clear Urine pH 6.0 (5.0-9.0) Ur Specific [place] 1.020 (1.005-1.025) Urine Protein Trace (Neg-Trace) mg/dL Urine Glucose (UA) Negative (Negative) mg/dL Urine Ketones 15 (Negative) mg/dL Urine Blood Negative (Negative) Urine Nitrite Negative (Negative) Ur Leukocyte Esterase Negative (Negative) Medications Administered Discontinued Medications Generic Name Dose Route Start Last Admin Trade Name Freq PRN Reason Stop Dose Admin Lactated Ringer's 1,000 mls @ 999 mls/hr 03/16/24 20:00 03/16/24 22:09 Lr IV 03/16/24 21:00 Infused .Q1H1M CRISTINA Infusion Acetaminophen 1,000 mg in 100 mls @ 400 mls/hr 03/16/24 20:04 03/16/24 21:00 Ofirmev IV 03/16/24 20:18 Infused ONCE ONE Infusion Morphine Sulfate 4 mg 03/16/24 21:17 03/16/24 21:22 Morphine Sulfate 4 Mg/Ml Cartridge IVPUSH 03/16/24 21:18 4 mg ONCE ONE Administration Protocol Ondansetron HCl 4 mg 03/16/24 19:40 03/16/24 19:45 Ondansetron Hcl 4 Mg/2 Ml Vial IVPUSH 03/16/24 19:41 4 mg ONCE ONE Administration Discharge Plan Discharge Clinical Impression: Abdominal pain, Abnormal LFTs (liver function tests) Patient Disposition: Home, Self-Care Additional Instructions: Your CT scan today did not show any inflammatory changes. Additionally your blood testing is not suggesting any infectious process. I have sent a prescription for medication called dicyclomine which you may try to see if it helps with your pains. Please stop taking your atorvastatin medication. Some of your liver function tests are elevated again. I suspect this may be because of the resumption of atorvastatin. Please contact your regular doctor or Dr. Toscano on Tuesday to make an outpatient blood test recheck of your liver function tests. Eat a bland diet and try to drink lot of fluids. Return to the emergency room if significantly worse. Prescriptions: New dicyclomine 20 mg tablet 20 mg PO TID PRN (Reason: abdominal pain) Qty: 30 0RF No Action rifaximin 550 mg tablet 550 mg PO BID 14 Days Qty: 28 0RF albuterol sulfate [Ventolin HFA] 90 mcg/actuation Hfa Aerosol Inhaler 2 puff inhalation Q6H PRN (Reason: Dyspnea) Qty: 8.5 0RF atorvastatin 20 mg Tablet 20 mg PO DAILY Qty: 1 0RF omeprazole 40 mg capsule,delayed release(DR/EC) 40 mg PO DAILY@0630 fluoxetine 20 mg Capsule 40 mg PO DAILY 30 Days Qty: 60 0RF Spiriva Respimat 2.5 mcg/actuation Mist 2 puff inhalation RDAILY 30 Days Qty: 4 0RF lisinopril 5 mg tablet 5 mg PO DAILY pregabalin 300 mg capsule 300 mg PO BID ondansetron 4 mg tablet,disintegrating 4 mg PO Q8H PRN (Reason: nausea and vomiting) Qty: 20 0RF Referrals: Penelope Toscano MD [Physician] - (Recurrent abdominal pain, abnormal transaminases) Interventions: ED Discharge Assessment Last Done: 03/16/24 22:35 Discharge Date/Time: 03/16/24 22:35 Print Language: Frisian
[2024-03-16 13:09] LABS: MANUAL DIFF FLAG NO
[2024-03-16 13:11] LABS: Basophils Absolute Auto 0.1 X10*3/uL (0.0-0.2); Basophils Percent Auto 1.3 % (0-2); Eosinophils Absolute Auto 0.3 X10*3/uL (0.0-0.4); Eosinophils Percent Auto 6.4 % (0-4); Hematocrit 42.1 % (37.0-47.0); Imm Gran Abs Auto 0.01 X10*3/uL (0.00-0.03); Imm Gran Pct Auto 0.2 % (0.0-0.4); Lymphocytes Absolute Auto 0.8 X10*3/uL (1.2-4.9); Lymphocytes Percent Auto 18.4 % (20-40); Mean Corpuscular HGB Conc 33.3 g/dl (31.0-35.0); Mean Corpuscular Hemoglobin 28.9 pg (27.0-33.0); Mean Corpuscular Volume 86.8 fL (80.0-98.0); Mean Platelet Volume 9.7 fL (9.4-12.3); Monocytes Absolute Auto 0.3 X10*3/uL (0.1-1.2); Monocytes Percent Auto 5.5 % (2-11); Neutrophils Absolute Auto 3.1 x10*3/uL (2.0-8.3); Neutrophils Percent Auto 68.2 % (45-73); Platelet Count 186 X10*3/uL (160-400); Red Blood Count 4.85 X10*6/uL (4.20-5.50); Red Cell Distribution Width 13.5 % (11.0-16.0); White Blood Count 4.6 X10*3/uL (4.8-10.8)
[2024-03-16 13:16] LABS: Prothrombin Time 12.2 SEC (10.9-12.4)
[2024-03-16 13:26] LABS: Alanine Aminotransferase 666 U/L (0-31); Albumin Level 4.4 g/dL (3.5-5.0); Alkaline Phosphatase 133 U/L (39-117); Anion Gap 12 (12-20); Aspartate Amino Transferase 287 U/L (5-31); Bilirubin Total 0.7 mg/dL (0.0-1.0); Blood Urea Nitrogen 10 mg/dL (9-16); Carbon Dioxide 25 mmol/L (22-29); Chloride 109 mmol/L (96-108); Creatinine Clr Calc Pharmacy 56.5; Estimated Glomerular Filt Rate > 60; Glucose Random 124 mg/dL (60-115); Magnesium 1.7 mg/dL (1.6-2.6); Potassium 4.2 mmol/L (3.3-5.1); Sodium 142 mmol/L (135-145); Total Protein 7.2 g/dL (6.5-8.0)
[2024-03-16 15:41] VITALS: BP 128/77; PULSE 84; RESP 16; TEMP 36.4; O2SAT 100
--- NOTE | 2024-03-16 16:12 | ECG_ITS ---
Test Reason : PAIN RADIATING TO BACK Blood Pressure : / mmHG Vent. Rate : 066 BPM Atrial Rate : 066 BPM P-R Int : 114 ms QRS Dur : 064 ms QT Int : 426 ms P-R-T Axes : 015 002 004 degrees QTc Int : 446 ms Normal sinus rhythm Normal ECG When compared with ECG of 16-JAN-2024 18:11, No significant change was found Referred By: Generic ED Physician Electronically Signed By:Adolfo Naranjo
[2024-03-16 16:43] LABS: Troponin-I High Sensitivity < 2.7 ng/L (<3.5-17.0)
[2024-03-16 17:02] LABS: Appearance Urine Clear; Color Urine Yellow; Glucose Urine UA Negative (Negative); Leukocyte Esterase Urine Negative (Negative); Nitrite Urine Negative (Negative); Urine Blood Negative (Negative); Urine Ketones 15 mg/dL (Negative); Urine Protein Trace mg/dL (Neg-Trace)
[2024-03-16 19:24] VITALS: BP 177/96; PULSE 71; RESP 15; TEMP 36.7; O2SAT 97
[2024-03-16] MEDS: ondansetron HCL 4 MG/2 ML VIAL IVPUSH (19:45)
[2024-03-16 20:00] VITALS: BP 138/82; PULSE 65; RESP 16; TEMP 36.7; O2SAT 97
[2024-03-16] MEDS: Lactated Ringers 1,000 ML 999 ML IV (20:03)
[2024-03-16] MEDS: Acetaminophen 1,000 MG/100 ML PIGGYBACK 400 MG IV (20:08)
[2024-03-16 21:18] LABS: C Reactive Protein 0.14 mg/dL (< or = 0.50)
[2024-03-16] MEDS: Morphine Sulfate 4 MG/ML CARTRIDGE IVPUSH (21:22)
[2024-03-16 22:35] VITALS: BP 138/82; PULSE 65; RESP 16; TEMP 36.7; O2SAT 97
== END 2024-03-16 22:35 | disposition home or self-care (01) ==
PROVIDERS: Physician Assistant; Emergency Provider Emergency Medicine
DX: R10.9 Unspecified abdominal pain (principal); R79.89 Other specified abnormal findings of blood chemistry; Z79.899 Other long term (current) drug therapy
CPT/HCPCS: 36415; 74176; 80053; 81003; 83735; 84484; 85025; 85610; 86140; 93005; 96361; 96374; 96375; 99285; J0131; J2270; J2405; J7120

== ENCOUNTER → 2024-03-16 16:12 | Outpatient (BNV) | payer MEDICARE, SELFPAY | PROVIDERS: Emergency Provider Emergency Medicine; Visit Provider Internal Medicine Cardiovascular Disease | DX: M54.9 Dorsalgia, unspecified (principal) | CPT/HCPCS: 93010 ==